=== PATIENT | female | born 1950 | race Caucasian/White ===

== ENCOUNTER → 2016-07-26 | Outpatient (CLI) | payer MEDICARE ==
--- NOTE | 2016-07-26 14:08 | FL ---
EXAMINATION TYPE: FL arthrogram shoulder RT DATE OF EXAM: 07/26/2016 1:52 PM COMPARISON: NONE HISTORY: Pain From consent was obtained and all patient's questions were answered. The right shoulder joint was loc alized fluoroscopically. Standard sterile technique was utilized as well as appropriate local anesthe tang with 1% lidocaine. Under fluoroscopic guidance a spinal needle was introduced into the joint spac e and approximately 5 cc of nonionic contrast was injected as well as 5 cc of air. The patient tolera diogo the procedure well and was accompanied to the CT suite for further imaging. IMPRESSION: 1. Right shoulder arthrogram as noted.
--- NOTE | 2016-07-27 14:02 | CT ---
EXAMINATION TYPE: CT shoulder RT w con DATE OF EXAM: 07/26/2016 2:16 PM COMPARISON: NONE HISTORY: Rt shoulder Pain CT DLP: [address] of the right shoulder with reconstruction imaging. TECHNIQUE: CT of the right shoulder was performed with bone and soft tissue window settings submitte d in the axial coronal and sagittal planes. FINDINGS: I do not see evidence for fracture or dislocation. No evidence for subacromial impingement as there is a flat acromium. Mild AC joint arthropathy . Glenohumeral joint space is well-preserv ed. No evidence of partial or complete rotator cuff tear. The glenoid elisabeth are grossly intact withou t evidence for labral tear. Biceps tendon appears to be well seated within the bicipital groove. Musc ular structures are unremarkable. IMPRESSION: 1. No evidence for partial or complete rotator cuff tear.
== END | disposition home or self-care (01) ==
LOC: RADFLMAIN 12:37
PROVIDERS: ATTEND Psychiatry & Neurology Neurology
DX: M25.511 Pain in right shoulder (principal)
CPT/HCPCS: 23350; 73040; 73201; Q9966

== ENCOUNTER → 2017-10-02 | Outpatient (CLI) | payer MEDICARE ==
--- NOTE | 2017-10-02 11:35 | BD ---
EXAMINATION TYPE: MG DEXA axial skeleton. DATE OF EXAM: 10/02/2017 COMPARISON: NONE CLINICAL HISTORY: 67-year-old female postmenopausal screening without HRT Height: 63 IN Weight: 158 LBS FRAX RISK QUESTIONS: Alcohol (3 or more units per day): NO Family History (Parent hip fracture): NO Glucocorticoids (More than 3mos): NO (Ex: prednisone, prednisolone, methylprednisolone, dexamethasone, and hydrocortisone). History of Fracture in Adulthood: NO Secondary Osteoporosis: 1. Type 1 Diabetes: NO 2. Hyperthyroidism: NO 3. Menopause before 45: AGE 49 4. Malnutrition: NO 5. Chronic liver disease: NO Rheumatoid Arthritis: NO Current Tobacco Use: NO RISK FACTORS HISTORY OF: Surgery to Spine/Wrist (right/left): L-SPINE FUSION 2003 DANG WRIST 2005 Active: YES Postmenopausal woman: AGE 49 Take estrogen and/or progesterone medications: NOT NOW How long: AGE 49 - 55 Lost more than 2 inches in height since high school: YES 3" MEDICATIONS: Additional Medications: CALCIUM, VIT D, IRON,MORPHINE IN PAIN PUMP, HCTZ, MELOXICAM, BUSPIRONE, LISIN OPRIL, BUPROPION, NASACORT, ZYRTEC , FOLIC ACID, AZO CRANBERRY, PAMABROM EXAM MEASUREMENTS: Bone mineral densitometry was performed using the [facility]. PT HAD L-SPINE FUSION 2003 Bone mineral density about the R hip (g/cm2): 0.813 Bone mineral density about the L hip (g/cm2): 0.828 T Score values are as follows: -----R Neck: -1.6 -----L Neck: -1.5 -----R Total: -1.9 -----L Total: -2.0 Bone mineral density BASELINE IMPRESSION: Osteopenia (T Score between -2.5 and -1) indicated by measurements in the hips. Previous lumbar surge ry. There is slightly increased risk of fracture and the patient may be considered for treatment. Re-Screen 2-5 years. NOTE: T-SCORE=SD OF THE YOUNG ADULT MEAN.
--- NOTE | 2017-10-04 07:26 | MM ---
Reason for exam: screening (asymptomatic). Last mammogram was performed 1 year and 7 months ago. History: Patient is postmenopausal and history of other cancer. Took estrogen for 7 years. Physical Findings: A clinical breast exam by your physician is recommended on an annual basis and results should be correlated with mammographic findings. MG 3D Screening Mammo W/Cad Bilateral CC and MLO view(s) were taken. Prior study comparison: March 16, 2016, bilateral MG 3d screening mammo w/cad. February 04, 2015, bilateral MG screening mammo w CAD. There are scattered fibroglandular densities. No significant changes when compared with prior studies. ASSESSMENT: Negative, BI-RAD 1 RECOMMENDATION: Routine screening mammogram of both breasts in 1 year.
== END | disposition home or self-care (01) ==
LOC: RADMAMWWP 09:43
PROVIDERS: ATTEND Family Medicine
DX: Z12.31 Encounter for screening mammogram for malignant neoplasm of breast (principal); M85.851 Other specified disorders of bone density and structure, right thigh; M85.852 Other specified disorders of bone density and structure, left thigh; Z78.0 Asymptomatic menopausal state
CPT/HCPCS: 77063; 77067; 77080

== ENCOUNTER → 2018-04-29 | Outpatient (CLI) | payer MEDICARE ==
[2018-04-29 12:36] LABS: Basophils % (A) 1 %; Eosinophils # (A) 0.1 k/uL (0-0.7); Eosinophils % (A) 2 %; HCT 39.7 % (34.0-46.0); HGB 12.2 gm/dL (11.4-16.0); Lymphocytes # (A) 0.7 k/uL (1.0-4.8); Lymphocytes % (A) 19 %; MCH 29.6 pg (25.0-35.0); MCHC 30.7 g/dL (31.0-37.0); MCV 96.5 fL (80.0-100.0); Mean Platelet Volume 6.6; Monocytes # (A) 0.3 k/uL (0-1.0); Monocytes % (A) 8 %; Neutrophils # (A) 2.4 k/uL (1.3-7.7); Neutrophils % (A) 69 %; Platelet Count 220 k/uL (150-450); RBC 4.12 m/uL (3.80-5.40); RDW 12.7 % (11.5-15.5); WBC 3.5 k/uL (3.8-10.6)
[2018-04-29 12:51] LABS: Potassium 4.3 mmol/L (3.5-5.1)
== END | disposition home or self-care (01) ==
LOC: LABPAT 11:03
PROVIDERS: ATTEND Obstetrics & Gynecology
DX: Z01.812 Encounter for preprocedural laboratory examination (principal); Z01.818 Encounter for other preprocedural examination; N81.10 Cystocele, unspecified; I10 Essential (primary) hypertension
CPT/HCPCS: 36415; 80051; 82565; 82947; 84520; 85025; 86850; 86900; 86901; 87086; 93005

== ENCOUNTER 2018-05-05 05:45 | Day surgery (SDC) | payer MEDICARE ==
[2018-04-30 09:51] VITALS: BMI 29.0
[~2018-05-05 05:45] MED LIST: ceFAZolin IN SWFI 2 GM/20 ML SYRINGE IVP ONE
[2018-05-05] MEDS ORDERED: ONDANSETRON 4 MG/2 ML VIAL IVP ONE (06:08)
[2018-05-05] MEDS ORDERED: LACTATED RINGERS 1,000 ML IV SCH (06:08)
[2018-05-05] MEDS ORDERED: DEXAMETHASONE SOD PHOSPHATE 10 MG/ML 1 ML VIAL IV ONE (06:08)
[2018-05-05] MEDS ORDERED: MIDAZOLAM 2 MG/2 ML VIAL IV PRN (06:08)
[2018-05-05] MEDS ORDERED: LIDOCAINE 1% 20 ML VIAL (10MG/ML) FOR IV START INTRADERMA ONE (06:53)
[2018-05-05] MEDS ORDERED: fentaNYL (PF) 50 MCG/ML 2 ML AMP ONE (07:30)
[2018-05-05] MEDS ORDERED: ROCURONIUM BROMIDE 10 MG/ML 10 ML VIAL IV ONE (07:30)
[2018-05-05] MEDS ORDERED: NEOSTIGMINE 1 MG/ML 10 ML VIAL ONE (07:30)
[2018-05-05] MEDS ORDERED: PROPOFOL 10 MG/ML 20 ML VIAL IV ONE (07:30)
[2018-05-05] MEDS ORDERED: GLYCOPYRROLATE 0.2 MG/ML 2 ML VIAL ONE (07:30)
[2018-05-05] MEDS ORDERED: SUCCINYLCHOLINE CHLORIDE 100 MG/5 ML SYR IV ONE (07:30)
[2018-05-05] MEDS ORDERED: LIDOCAINE 1% INJ 10MG/ML (20 ML MDV) ONE (07:30)
[2018-05-05] MEDS ORDERED: VASOPRESSIN 20 UNIT/ML 1 ML VIAL SQ ONE (07:50)
[2018-05-05] MEDS ORDERED: BACITRACIN 500 UNIT/GM OINT 28.4 GM TUBE TOPICAL ONE (07:51)
--- NOTE | 2018-05-05 08:19 | P.OP ---
Date of Procedure: 05/05/18 Preoperative Diagnosis: Third-degree rectocele Postoperative Diagnosis: Same Procedure(s) Performed: Posterior colporrhaphy Anesthesia: TADEO Surgeon: Imani Gonsalez Estimated Blood Loss (ml): 5 IV fluids (ml): 400 Urine output (ml): 200 Pathology: none sent Condition: stable Disposition: PACU Indications for Procedure: Symptomatic third-degree rectocele Operative Findings: Third-degree rectocele Description of Procedure: After the patient was met in preoperative holding area and all questions were answered, she was taken to the operating room where anesthetic was administered without incident. She was then positioned, prepped and draped in the dorsal lithotomy position. Bladder was drained of approximately 150 mL of clear urine. Exam under anesthetic was undertaken and 30 rectocele was noted. The apex is well supported. There is minimal on the anterior descent. The hymenal ring was delineated with Allis clamps. Dilute vasopressin solution was then infused into the vaginal mucosa to the apex of the defect. A incision was made at the hymeneal ring and the Metzenbaum scissors were utilized to undermine the posterior vaginal mucosa several centimeters to the apex of the defect. The edges of the posterior vaginal mucosa were delineated using Allis clamps. The underlying rectovaginal tissue was bluntly away. The edges of the defect were then reapproximated in an interrupted fashion using 2-0 Vicryl suture. Approximately 5 sutures were placed in an interrupted fashion effectively minimizing the defect. Excess posterior vaginal mucosa was trimmed. The posterior vaginal mucosa was then closed in a running locked fashion over the defect. The perineum was strong and only a small crown stitch was placed. Packing was then placed into the vagina with a Dalton catheter in place. An additional few 50 mL of clear urine was obtained. All counts were correct. The patient was awoken from anesthetic without incident and transported to recovery in stable condition.
[2018-05-05] MEDS: HYDROmorphone 0.5 MG/0.5 ML SYRINGE IVP PRN ×4 (08:34→08:48)
[2018-05-05] MEDS: MEPERIDINE 50 MG/ML SYRINGE IVP ONE ×2 (08:54→09:01)
[2018-05-05] MEDS ORDERED: IBUPROFEN 600 MG TAB PO PRN (08:57)
[2018-05-05] MEDS ORDERED: ONDANSETRON 4 MG/2 ML VIAL IVP PRN (08:57)
[2018-05-05] MEDS ORDERED: NON-FORMULARY DRUG (Potassium [Potassium] 99 MG) PO SCH (09:00)
[2018-05-05] MEDS ORDERED: PROMETHAZINE INJ 25 MG/ML 1 ML VIAL IVPB ONE (09:10)
[2018-05-05] MEDS: LACTATED RINGERS 1,000 ML IV SCH ×2 (09:14→22:23)
[2018-05-05] MEDS: MORPHINE IM SCH (10:07)
[2018-05-05] MEDS: buPROPion XL 300 MG TAB.ER.24H PO SCH (10:44)
[2018-05-05] MEDS: busPIRone HCl 5 MG TAB PO SCH ×2 (10:44→21:49)
[2018-05-05] MEDS: SENNOSIDES-DOCUSATE SODIUM 1 EACH TAB PO SCH ×2 (12:11→21:51)
[2018-05-05] MEDS: MELOXICAM 7.5 MG TAB PO SCH ×2 (12:11→21:48)
[2018-05-05] MEDS: TRIAMTERENE-HCTZ 75-50MG 1 EACH TAB PO SCH (12:11)
[2018-05-05] MEDS ORDERED: LISINOPRIL 10 MG TAB PO SCH (21:00)
[2018-05-05] MEDS: FERROUS SULFATE 325 MG TAB PO SCH (21:48)
[2018-05-05] MEDS ORDERED: ACETAMINOPHEN IV (For NPO) 1,000 MG in EMPTY BAG 1 BAG IVPB PRN (22:15)
[2018-05-06] MEDS ORDERED: ACETAMINOPHEN IV (For NPO) 1,000 MG in EMPTY BAG 1 BAG IVPB SCH
[2018-05-06 00:17] VITALS: RESP 16
[2018-05-06] MEDS: busPIRone HCl 5 MG TAB PO SCH (08:11)
[2018-05-06] MEDS: buPROPion XL 300 MG TAB.ER.24H PO SCH (08:11)
[2018-05-06] MEDS: FERROUS SULFATE 325 MG TAB PO SCH (08:11)
[2018-05-06] MEDS: MELOXICAM 7.5 MG TAB PO SCH (08:11)
[2018-05-06] MEDS: SENNOSIDES-DOCUSATE SODIUM 1 EACH TAB PO SCH ×2 (08:12→08:19)
[2018-05-06] MEDS: TRIAMTERENE-HCTZ 75-50MG 1 EACH TAB PO SCH (08:14)
[2018-05-06] MEDS: MORPHINE IM SCH (08:18)
[2018-05-06] MEDS ORDERED: ACETAMINOPHEN TAB 325 MG TAB PO PRN (08:21)
--- NOTE | 2018-05-06 08:21 | P.DS ---
Providers Expected date of discharge: 05/06/18 Attending physician: Imani Gonsalez Primary care physician: Stuart Nickerson - Discharge Diagnosis(es) (1) Rectocele Current Visit: Yes Status: Acute Hospital Course: This is a 67-year-old woman who is admitted with symptomatic third-degree rectocele for a posterior colporrhaphy. She went to the operating room on 05/05 and underwent an uncomplicated posterior colporrhaphy under general anesthetic. Please see the operative report for details. Her postoperative course was unremarkable. By the evening of postoperative day 0 she was tolerating a general diet without difficulty and her pain was well-controlled with oral pain medications. By postoperative day #1 her vaginal packing and Dalton catheter were removed. She did have a mild amount of bright red vaginal bleeding however no active flow. Her pain was controlled with oral Tylenol. Her postoperative vital signs were stable and her CBC is pending at the time of this dictation. Her home medications were restarted. She was able to ambulate without difficulty. She was therefore discharged home with routine instructions for postoperative care and follow-up. Procedures: Posterior colporrhaphy Patient Condition at Discharge: Good Plan - Discharge Summary Discharge Rx Participant: Yes New Discharge Prescriptions: No Action Cranberry Fruit Extract [Cranberry] 500 mg PO BID Fexofenadine HCl [Chitra Allergy] 180 mg PO DAILY busPIRone HCL 15 mg PO BID buPROPion XL [Wellbutrin Xl] 300 mg PO DAILY Lisinopril [Zestril] 10 mg PO HS Risedronate Sodium [Actonel] 35 mg PO Q7DAYS Multivitamins, Thera [Multivitamin (formulary)] 1 tab PO DAILY Meloxicam [Mobic] 7.5 mg PO BID guaiFENesin [Mucinex] 400 mg PO BID Turmeric Root Extract [Turmeric] 500 mg PO DAILY Triamcinolone Acetonide [Nasacort] 1 spray EA NOSTRIL DAILY Potassium 99 mg PO DAILY Magnesium 500 mg PO DAILY Fiber Tab 1 tab PO BID Ferrous Sulfate [Iron] 325 mg PO DAILY Cyanocobalamin (Vitamin B-12) [Vitamin B-12] 1,000 mcg PO DAILY Calcium Carbonate/Vitamin D3 [Calcium 600-Vit D3 500 Softgel] 2 each PO DAILY Triamterene-Hctz 75-50Mg [Maxzide 75-50] 1 tab PO DAILY Morphine Pain Pump 2.147 mg IM CONTINUOUS Discharge Medication List Calcium Carbonate/Vitamin D3 [Calcium 600-Vit D3 500 Softgel] 2 each PO DAILY [History] Cranberry Fruit Extract [Cranberry] 500 mg PO BID 04/30/18 [History] Cyanocobalamin (Vitamin B-12) [Vitamin B-12] 1,000 mcg PO DAILY 04/30/18 [ History] Ferrous Sulfate [Iron] 325 mg PO DAILY 04/30/18 [History] Fexofenadine HCl [Chitra Allergy] 180 mg PO DAILY 04/30/18 [History] Fiber Tab 1 tab PO BID 04/30/18 [History] Lisinopril [Zestril] 10 mg PO HS 04/30/18 [History] Magnesium 500 mg PO DAILY 04/30/18 [History] Meloxicam [Mobic] 7.5 mg PO BID 04/30/18 [History] Morphine Pain Pump 2.147 mg IM CONTINUOUS 04/30/18 [History] Multivitamins, Thera [Multivitamin (formulary)] 1 tab PO DAILY 04/30/18 [History ] Potassium 99 mg PO DAILY 04/30/18 [History] Risedronate Sodium [Actonel] 35 mg PO Q7DAYS 04/30/18 [History] Triamcinolone Acetonide [Nasacort] 1 spray EA NOSTRIL DAILY 04/30/18 [History] Triamterene-Hctz 75-50Mg [Maxzide 75-50] 1 tab PO DAILY 04/30/18 [History] Turmeric Root Extract [Turmeric] 500 mg PO DAILY 04/30/18 [History] buPROPion XL [Wellbutrin Xl] 300 mg PO DAILY 04/30/18 [History] busPIRone HCL 15 mg PO BID 04/30/18 [History] guaiFENesin [Mucinex] 400 mg PO BID 04/30/18 [History] Follow up Appointment(s)/Referral(s): Imani Gonsalez MD [STAFF PHYSICIAN] - 2 Weeks Activity/Diet/Wound Care/Special Instructions: May use [id number] Tylenol extra strength every 6-8 hours as needed for pain. Stool softeners as needed to avoid constipation or straining. Nothing in the vagina for 6 weeks postoperatively. Call the office with any heavy vaginal bleeding, foul vaginal discharge, fever greater than 100.5, severe abdominal or pelvic pain. No driving for 2 weeks. No tub baths for 2 weeks. Discharge Disposition: HOME SELF-CARE
[2018-05-06 08:50] VITALS: BP 127/73; PULSE 95; TEMP 97.5
[2018-05-06] MEDS: LACTATED RINGERS 1,000 ML IV SCH (09:55)
[2018-05-06 09:59] LABS: Basophils % (A) 0 %; Eosinophils # (A) 0.1 k/uL (0-0.7); Eosinophils % (A) 1 %; HGB 12.3 gm/dL (11.4-16.0); Lymphocytes # (A) 1.4 k/uL (1.0-4.8); Lymphocytes % (A) 16 %; MCH 31.3 pg (25.0-35.0); MCHC 33.2 g/dL (31.0-37.0); MCV 94.3 fL (80.0-100.0); Mean Platelet Volume 6.2; Monocytes # (A) 0.7 k/uL (0-1.0); Monocytes % (A) 8 %; Neutrophils % (A) 72 %; Platelet Count 256 k/uL (150-450); RBC 3.92 m/uL (3.80-5.40); RDW 12.6 % (11.5-15.5); WBC 8.3 k/uL (3.8-10.6)
== END 2018-05-06 11:35 | disposition home or self-care (01) ==
LOC: OR 05:45 → 6PED 08:26 → OR 05-06 11:35
PROVIDERS: ATTEND Obstetrics & Gynecology
DX: N81.6 Rectocele (principal); K21.9 Gastro-esophageal reflux disease without esophagitis; I10 Essential (primary) hypertension; F32.9 Major depressive disorder, single episode, unspecified; M19.90 Unspecified osteoarthritis, unspecified site; Z98.84 Bariatric surgery status; Z96.652 Presence of left artificial knee joint; Z98.51 Tubal ligation status; Z79.899 Other long term (current) drug therapy; Z88.6 Allergy status to analgesic agent; Z82.49 Family history of ischemic heart disease and other diseases of the circulatory system
CPT/HCPCS: 85025; 57250; J1100; J2550; J2175; J2405; J0131; J1170; 86850; 86900; 86901

== ENCOUNTER → 2018-10-20 | Outpatient (CLI) | payer MEDICARE ==
--- NOTE | 2018-10-21 10:05 | MM ---
Reason for exam: screening (asymptomatic). Last mammogram was performed 1 year and 1 month ago. History: Patient is postmenopausal and history of other cancer. Took estrogen for 7 years. Physical Findings: A clinical breast exam by your physician is recommended on an annual basis and results should be correlated with mammographic findings. MG 3D Screening Mammo W/Cad Bilateral CC and MLO view(s) were taken. Prior study comparison: October 02, 2017, bilateral MG 3d screening mammo w/cad. March 16, 2016, bilateral MG 3d screening mammo w/cad. There are scattered fibroglandular densities. No suspicious abnormality. No significant changes when compared with prior studies. ASSESSMENT: Negative, BI-RAD 1 RECOMMENDATION: Routine screening mammogram of both breasts in 1 year.
== END | disposition home or self-care (01) ==
LOC: RADMAMWWP 07:35
PROVIDERS: ATTEND Family Medicine
DX: Z12.31 Encounter for screening mammogram for malignant neoplasm of breast (principal)
CPT/HCPCS: 77063; 77067

== ENCOUNTER → 2018-12-17 | Outpatient (CLI) | payer MEDICARE ==
--- NOTE | 2018-12-17 09:49 | CT ---
EXAMINATION TYPE: CT sinus wo con DATE OF EXAM: 12/17/2018 COMPARISON: NONE HISTORY: Chronic sinusitis CT DLP: 584 mGycm. Automated Exposure Control for Dose Reduction was Utilized. TECHNIQUE: CT scan of the sinuses is performed without contrast, axial images are obtained, coronal r eformatted images are also reviewed. FINDINGS: There are surgical augmentation of the ostiomeatal complexes. Osseous septa are seen of the inferior maxillary sinuses with very scant mucosal thickening on the right surrounding the septal an d axial series 4 image 8. Remainder of the maxillary sinuses, ethmoid sinuses, frontal sinuses, and s phenoid sinuses are well aerated. The visualized mastoid air cells and middle ear cavities are also w ell aerated. There is a small amount of debris within, likely cerumen within the right external audit ory canal that is nonobstructive. Although exam is not optimized for evaluation of intracranial structures mild symmetric cerebral atro phy, age-related, is noted. There is mild rightward nasal septal deviation. There is no significant nasal turbinate mucosal hyper trophy. Left middle nasal turbinate is surgically absent. No maria guadalupe bullosa is seen. No Ad cells. The surgically augmented frontal recesses and ostiomeatal complexes are widely patent. No recurrent polyp is seen. Temporomandibular joints are symmetric. Orbits are also symmetric. There is undulation of the optic nerves noted. IMPRESSION: 1. Surgical augmentation of the ostiomeatal complexes and frontal recesses as well as absence of the left middle nasal turbinate. Only scant mucosal thickening is seen within the right maxillary sinus w ith no recurrent polyp present. 2. Undulation of the optic nerves is noted that may be incidental but can be seen in increased intrac ranial pressure. Correlate with ophthalmologic exam.
== END | disposition home or self-care (01) ==
LOC: RADCTMAIN 07:54
PROVIDERS: ATTEND Otolaryngology
DX: J34.89 Other specified disorders of nose and nasal sinuses (principal); J32.9 Chronic sinusitis, unspecified; Z98.890 Other specified postprocedural states
CPT/HCPCS: 70486

== ENCOUNTER → 2019-12-31 | Outpatient (CLI) | payer MEDICARE ==
--- NOTE | 2019-12-31 13:09 | CT ---
EXAMINATION TYPE: CT cervical spine wo/w con DATE OF EXAM: 12/31/2019 COMPARISON: MRI cervical spine 10 years ago. HISTORY: Cervicalgia, left hand numb and tingling CT DLP: 675 mGycm. Automated Exposure Control for Dose Reduction was Utilized. TECHNIQUE: CT scan of the cervical spine is obtained without and with IV contrast, axial images are obtained, sagittal and coronal reformatted images are also reviewed. Patient injected with 100 cc of Isovue-300. FINDINGS: Cervical spine is visualized in its entirety from C1 through upper thoracic levels, demonst rates interval surgery with anterior fusion plate running from the C3 through the C7 vertebra. Artifi cial disc material with ossific fusion is noted at these levels. Alignment is satisfactory. There is moderate disc space narrowing and mild/moderate spurring at the C7-T1 level. Prevertebral soft tissue appears within normal limits. C1-C2 articulation satisfactory on the coronal images. Review of axial images at C2-C3 level shows some uncovertebral facet degenerative changes bilaterally causing [id number] bilateral neural foraminal narrowing. Axial images C5-C6 level show asymmetric mild left-sided neural foraminal narrowing due to peripheral bony formation. There is posterior osteophyte or bony formation effacing anterior thecal sac near th is level for reference sagittal image 39 series 6 and axial image 54. Axial images at C7-T1 level show posterior spur disc complex effacing the anterior thecal sac with le ft foraminal spurring causing asymmetric severe left-sided neural foraminal narrowing, right-sided ne ural foramen is patent. Lung apices show no pneumothorax. Visualized thyroid gland is within normal limits.. IMPRESSION: Postsurgical change C3-C7 level with satisfactory alignment and desired arthrodesis. Some degenerative change C7-T1 level as detailed above, marginal spurring is causing severe left-sided ne ural foraminal narrowing at this level and may be accounting for patient's reported left upper extrem ity radiculopathy symptoms.
== END | disposition home or self-care (01) ==
LOC: RADCTMAIN 10:41
PROVIDERS: ATTEND Psychiatry & Neurology Neurology
DX: M48.03 Spinal stenosis, cervicothoracic region (principal); Z98.1 Arthrodesis status; Z51.81 Encounter for therapeutic drug level monitoring
CPT/HCPCS: 82565; 84520; 72127; 36415; Q9967

== ENCOUNTER 2020-02-12 14:57 | Observation (INO) | payer MEDICARE ==
[2020-02-12] MEDS ORDERED: SODIUM CHLORIDE 0.9% 500 ML 500 ML IV ONE (15:06)
--- NOTE | 2020-02-12 15:20 | ED ---
General Adult HPI - General Source: patient, EMS Mode of arrival: EMS Limitations: no limitations <Shy Gregorio - Last Filed: 02/12/20 18:22> <Sang Jainah Lisa - Last Filed: 02/18/20 02:53> - General Chief complaint: Allergic Reaction Stated complaint: allergic rxn Time Seen by Provider: 02/12/20 15:00 - History of Present Illness Initial comments: 69-year-old female presenting today for chief complaint of bee sting ALLERGIC reaction. Patient states that she when pulling weeds was attacked by a nest of yellow jackets. Patient states she was tunnel of her body she ran to her house wash herself off with water which stopped the attack patient states she was done mostly in her abdomen back and upper extremities. Patient states that she then had some shortness of breath and wheezing. She states that she developed a rash all over her body. Patient states she then took 75 mg of Benadryl. She called EMS EMS arrived and gave additional 50 mg IV push of Benadryl as patient was concerned that she may not absorbing as much due to her gastric bypass. Patient was also given 125 mg of Solu-Medrol at that time. Patient had one episode of emesis. Patient states that she no longer feels nauseous she has no abdominal pain. Patient sates her wheezing has improved and she does not feel short of breath. The patient denies any sensation that her throat was closing lip or face swelling. Patient has no additional concerns at this time. Patient does appear sleepy drowsy most likely secondary to high doses of Benadryl. But she is still alert and oriented 4 with a GCS of 15. (Shy Gregorio) - Related Data Home Medications Medication Instructions Recorded Confirmed Cranberry Fruit Extract [Cranberry] 500 mg PO BID 04/30/18 02/12/20 Cyanocobalamin (Vitamin B-12) 1,000 mcg PO DAILY 04/30/18 02/12/20 [Vitamin B-12] Ferrous Sulfate [Iron] 325 mg PO DAILY 04/30/18 02/12/20 Fexofenadine HCl [Chitra Allergy] 180 mg PO DAILY 04/30/18 02/12/20 Meloxicam [Mobic] 7.5 mg PO BID 04/30/18 02/12/20 Morphine Pain Pump 0.01 mg IM CONTINUOUS 04/30/18 02/12/20 Multivitamins, Thera [Multivitamin 1 tab PO BID 04/30/18 02/12/20 (formulary)] Potassium 99 mg PO BID 04/30/18 02/12/20 Risedronate Sodium [Actonel] 35 mg PO SA 04/30/18 02/12/20 Triamterene-Hctz 75-50Mg [Maxzide 1 tab PO DAILY 04/30/18 02/12/20 75-50] Turmeric Root Extract [Turmeric] 500 mg PO BID 04/30/18 02/12/20 buPROPion XL [Wellbutrin XL] 300 mg PO DAILY 04/30/18 02/12/20 busPIRone HCL 15 mg PO BID 04/30/18 02/12/20 lisinopriL [Zestril] 10 mg PO HS 04/30/18 02/12/20 Calcium 1000/Mag 500/Chetna D3 800 1 tab PO BID 02/12/20 02/12/20 Cataplex F/B-6/Iodine 1 tab PO TID 02/12/20 02/12/20 Collagen 1 tab PO DAILY 02/12/20 02/12/20 Docusate [Colace] 100 mg PO BID 02/12/20 02/12/20 Fiber Cap 1 cap PO BID 02/12/20 02/12/20 L.acidoph,Paracasei, B.lactis 1 cap PO BID 02/12/20 02/12/20 [Probiotic] guaiFENesin 400 mg PO Q4H 02/12/20 02/12/20 Previous Rx's Medication Instructions Recorded Famotidine [Pepcid] 20 mg PO BID #10 tablet 02/13/20 predniSONE 0 mg PO DIRECTED #10 tab 02/13/20 Allergies Allergy/AdvReac Type Severity Reaction Status Date / Time bee venom protein (honey bee) Allergy Unknown Swelling Verified 02/12/20 18:02 cat dander Allergy Unknown SINUS Verified 02/12/20 18:02 SYMPTOMS dog dander Allergy Unknown SINUS Verified 02/12/20 18:02 SYMPTOMS shellfish derived [Crab] Allergy Unknown Unknown Verified 02/12/20 18:02 Review of Systems ROS Other: All systems not noted in ROS Statement are negative. <Shy Gregorio L - Last Filed: 02/12/20 18:22> ROS Other: All systems not noted in ROS Statement are negative. <Opal Jain - Last Filed: 02/18/20 02:53> ROS Statement: Those systems with pertinent positive or pertinent negative responses have been documented in the HPI. Past Medical History History of Any Multi-Drug Resistant Organisms: None Reported Additional Past Surgical History / Comment(s): Gastric byspass, nerve stimulator Past Psychological History: Anxiety, Depression Smoking Status: Former smoker Past Alcohol Use History: None Reported Past Drug Use History: None Reported - Past Family History Mother Family Medical History: Diabetes Mellitus Additional Family Medical History / Comment(s): heart issues Father Additional Family Medical History / Comment(s): alcoholic <Shy Gregorio - Last Filed: 02/12/20 18:22> General Exam Limitations: no limitations <Shy Gregorio - Last Filed: 02/12/20 18:22> - General Exam Comments Initial Comments: General: The patient is awake and alert, in no distress Eye: +3 mm pupils are equal, round and reactive to light, extra-ocular movements are intact. No nystagmus. There is normal conjunctiva bilaterally. No signs of icterus. Ears, nose, mouth and throat: There are moist mucous membranes and no oral lesions. Neck: The neck is supple, there is no tenderness or JVD. Cardiovascular: There is a regular rate and rhythm. No murmur, rub or gallop is appreciated. Respiratory: Lungs are clear to auscultation, respirations are non-labored, breath sounds are equal. No wheezes, stridor, rales, or rhonchi. Gastrointestinal: Soft, non-distended, non-tender abdomen without masses or organomegaly noted. There is no rebound or guarding present. Musculoskeletal: Normal ROM, no tenderness. Strength 5/5. Sensation intact. Radial pulses equal bilaterally 2+. Neurological: A&O x 3. CN II-XII intact grossly, There are no obvious motor or sensory deficits. Coordination appears grossly intact. Speech is normal. Skin: Skin is warm and dry and no rashes. Raised wheals that become confluent all over her abdomen and back upper extremities bilaterally there is no involvement of the neck or face no lip or tongue swelling. Psychiatric: Cooperative, appropriate mood & affect, normal judgment. (Shy Gregorio) Course Vital Signs 02/12/20 02/12/20 02/12/20 14:59 15:04 15:05 Temperature 96.9 F L Pulse Rate 94 Pulse Rate [ Pulse Oximetery ] Respiratory 18 18 18 Rate Blood Pressure 120/73 Blood Pressure [Right Arm] O2 Sat by Pulse 97 Oximetry 02/12/20 02/12/20 02/12/20 16:04 17:04 18:11 Temperature 97.7 F Pulse Rate 81 85 85 Pulse Rate [ 89 Pulse Oximetery ] Respiratory 18 18 18 Rate Blood Pressure 108/65 110/70 119/69 Blood Pressure 155/69 [Right Arm] O2 Sat by Pulse 97 98 97 Oximetry Medical Decision Making <Shy Gregorio - Last Filed: 02/12/20 18:22> <Opal Jain - Last Filed: 02/18/20 02:53> - Medical Decision Making 69-year-old female presenting today for chief complaint of bee sting, allergic reaction. Sxs of wheezing, vomiting. Given 125mg of benadryl to treat IV nothing by mouth. Patient was pretty sedated initially however she was still alert and oriented times 4G CSF 15. No focal neurological deficits. Patient after reevaluation was much more alert. She continued to have significant rash some nausea. Patient's vital signs remained stable. however given the extent of the reaction we feel observation admission warranted to monitor for delayed reaction. Patient evaluated by attending Dr. Jain who is agreeable to care plan and admission. Patient prefers admission. (Shy Gregorio) I was available for consultation in the emergency department. The history and physical exam were done by the midlevel provider. I was consulted for this patients care. I reviewed the case with the midlevel provider and based on their presentation of the patient, I agree with the assessment, medical decision making and plan of care as documented. Chart was dictated using Room dictation software. Attempts were made to correct any dictation errors however some typographical errors may persist. Patient was seen during a national state of emergency due to the Covid-19 pandemic. (Opal Jain) Disposition Is patient prescribed a controlled substance at d/c from ED?: No Time of Disposition: 17:40 Decision to Admit Reason: Admit from EC Decision Date: 02/12/20 Decision Time: 17:40 <Shy Gregorio - Last Filed: 02/12/20 18:22> <Opal Jain - Last Filed: 02/18/20 02:53> Clinical Impression: Anaphylaxis, Bee sting Disposition: ADMITTED IP TO THIS HOSP Condition: Stable
[2020-02-12] MEDS ORDERED: NALOXONE 0.4 MG/ML 1 ML VIAL IV PRN (17:39)
[2020-02-12] MEDS ORDERED: SODIUM CHLORIDE 0.9% 1,000 ML IV SCH (17:45)
[2020-02-12] MEDS ORDERED: diphenhydrAMINE 25 MG CAP PO SCH ×2 (18:00→22:30)
[2020-02-12] MEDS: FAMOTIDINE 20 MG/2 ML VIAL IV SCH (21:04)
[2020-02-12] MEDS ORDERED: diphenhydrAMINE 50 MG/ML 1 ML VIAL IVP PRN (21:56)
[2020-02-12] MEDS ORDERED: diphenhydrAMINE 50 MG/ML 1 ML VIAL ONE (22:04)
[2020-02-12] MEDS: diphenhydrAMINE 50 MG/ML 1 ML VIAL IVP SCH (22:19)
[2020-02-13] MEDS: methylPREDNISolone SOD SUCCI 40 MG/ML 1 ML VIAL IV SCH ×2 (00:21→08:39)
[2020-02-13] MEDS: diphenhydrAMINE 50 MG/ML 1 ML VIAL IVP SCH ×2 (04:09→10:56)
[2020-02-13] MEDS ORDERED: guaiFENesin 600 MG TABLET.ER PO PRN (08:00)
[2020-02-13] MEDS: CYANOCOBALAMIN 500 MCG TAB PO SCH (08:42)
[2020-02-13] MEDS: LORATADINE 10 MG TAB PO SCH ×2 (08:51→08:55)
[2020-02-13] MEDS: FAMOTIDINE 20 MG/2 ML VIAL IV SCH (08:51)
[2020-02-13] MEDS ORDERED: B6 PO SCH (09:00)
[2020-02-13] MEDS ORDERED: TRIAMTERENE-HCTZ 75-50MG 1 EACH TAB PO SCH (09:00)
[2020-02-13] MEDS ORDERED: LACTOBACILLUS ACIDOPH & BULGAR 1 EACH PACKET PO SCH (09:00)
[2020-02-13] MEDS ORDERED: MELOXICAM 7.5 MG TAB PO SCH (09:00)
[2020-02-13] MEDS ORDERED: NON FORMULARY DRUG (Turmeric Root Extract [Turmeric] 500 MG) PO SCH (09:00)
[2020-02-13] MEDS ORDERED: buPROPion XL 300 MG TAB.ER.24H PO SCH (09:00)
[2020-02-13] MEDS ORDERED: RISEDRONATE SODIUM 35 MG PO SCH (09:00)
[2020-02-13] MEDS ORDERED: MAGNESIUM OXIDE 400 MG TAB PO SCH (09:00)
[2020-02-13] MEDS ORDERED: IODINE PO SCH (09:00)
[2020-02-13] MEDS ORDERED: COLLAGEN PO SCH (09:00)
[2020-02-13] MEDS ORDERED: [UNRECOGNIZED DRUG - OTHER] PO SCH (09:00)
[2020-02-13] MEDS ORDERED: busPIRone HCl 5 MG TAB PO SCH (09:00)
[2020-02-13] MEDS ORDERED: FERROUS SULFATE 325 MG TAB PO SCH (09:00)
[2020-02-13] MEDS ORDERED: NON FORMULARY DRUG (Cranberry Fruit Extract [Cranberry] 500 MG) PO SCH (09:00)
[2020-02-13] MEDS ORDERED: MULTIVITAMINS, THERA 1 EACH TAB PO SCH (09:00)
[2020-02-13] MEDS ORDERED: CALCIUM CARB-VIT D 500MG-200UN 1 EACH TAB PO SCH (09:00)
[2020-02-13] MEDS ORDERED: POTASSIUM CHLORIDE ER 20 MEQ TAB.ER PO SCH (09:00)
[2020-02-13] MEDS ORDERED: DOCUSATE 100 MG CAP PO SCH (09:00)
[2020-02-13 09:20] VITALS: BP 115/67; PULSE 83; RESP 17; TEMP 98.3
[2020-02-13] MEDS ORDERED: lisinopriL 10 MG TAB PO SCH (21:00)
--- NOTE | 2020-02-13 21:29 | P.HPIM ---
History of Present Illness H&P Date: 02/13/20 Chief Complaint: Severe anaphylaxis History of presenting complaint: This is a very pleasant 69-year-old patient of Dr. Nickerson. Chronic stable medical conditions include hypertension, osteoarthritis, chronic low back pain for which she has a pain pump, pediatric surgery, with a bypass, anxiety depression. Patient is working outside in the yard- and then she was attacked by a swarm of Hornets. She had multiple bites on the face arms legs. She is wearing shorts. She took Benadryl at home but she started to break out into severe hives. She decided come to the hospital. EMS gave her 50 mg of Benadryl, 125 mg off Solu- Medrol, Zofran, bronchodilators. Here she was also given IV Pepcid, IV Benadryl IV Solu-Medrol. Doing much better. This morning. Hives have come down. No trouble swallowing. Review of systems: GEN.: Multiple hives EYES: None HEENT: None NECK: None RESPIRATORY: None CARDIOVASCULAR: None GASTROINTESTINAL: None GENITOURINARY: None MUSCULOSKELETAL: [Chronic joint pains LYMPHATICS: None HEMATOLOGICAL: None PSYCHIATRY: None NEUROLOGICAL: None Past medical history to include: Hypertension, stroke arthritis, gastric bypass, no stable later, anxiety depression Social history: This smoke in the past. No alcohol. Physical examination: VITAL SIGNS: [96.9, 94, 18, 120/73, 97% room air GENERAL: BMI 27.5, sitting up, comfortable. EYES: Pupils equal. Conjunctiva normal. HEENT: External appearance of nose and ears normal, oral cavity grossly normal. NECK: JVD not raised; masses not palpable. HEART: First and second heart sounds are normal; no edema. LUNGS: Respiratory rate normal; clear to auscultation DERMATOLOGICAL: Minimal redness of the skin generalized. ABDOMEN: Soft, nontender, liver spleen not palpable, no masses palpable. PSYCH: Alert and oriented x3; mood and affect normal. NEUROLOGICAL: Cranial nerves grossly intact; no facial asymmetry, power and sensation grossly intact. LYMPHATICS: No lymph nodes palpable in the axilla and neck Assessment: -Severe generalized anaphylaxis from multiple Hornets stings at the same time causing severe and multiple hives -Essential hypertension -Primary osteoarthritis -Anxiety depression otherwise specified -Morphine pain pump for chronic pain Plan: Home medications and resume. Patient did receive IV Solu-Medrol IV Benadryl and IV H2 vadim. Responded well. Residual to oral medications. An Nick Berger. Discussed with the patient. Past Medical History Past Medical History: Hypertension, Osteoarthritis (OA), Pneumonia Additional Past Medical History / Comment(s): chronic back pain History of Any Multi-Drug Resistant Organisms: None Reported Past Surgical History: Back Surgery, Bariatric Surgery, Joint Replacement Additional Past Surgical History / Comment(s): Gastric byspass, nerve stimulator Past Psychological History: Anxiety, Depression Smoking Status: Former smoker Past Alcohol Use History: None Reported Past Drug Use History: None Reported - Past Family History Mother Family Medical History: Diabetes Mellitus Additional Family Medical History / Comment(s): heart issues Father Additional Family Medical History / Comment(s): alcoholic Medications and Allergies Home Medications Medication Instructions Recorded Confirmed Type Cranberry Fruit Extract [Cranberry] 500 mg PO BID 04/30/18 02/12/20 History Cyanocobalamin (Vitamin B-12) 1,000 mcg PO DAILY 04/30/18 02/12/20 History [Vitamin B-12] Ferrous Sulfate [Iron] 325 mg PO DAILY 04/30/18 02/12/20 History Fexofenadine HCl [Chitra Allergy] 180 mg PO DAILY 04/30/18 02/12/20 History Meloxicam [Mobic] 7.5 mg PO BID 04/30/18 02/12/20 History Morphine Pain Pump 0.01 mg IM CONTINUOUS 04/30/18 02/12/20 History Multivitamins, Thera [Multivitamin 1 tab PO BID 04/30/18 02/12/20 History (formulary)] Potassium 99 mg PO BID 04/30/18 02/12/20 History Risedronate Sodium [Actonel] 35 mg PO SA 04/30/18 02/12/20 History Triamterene-Hctz 75-50Mg [Maxzide 1 tab PO DAILY 04/30/18 02/12/20 History 75-50] Turmeric Root Extract [Turmeric] 500 mg PO BID 04/30/18 02/12/20 History buPROPion XL [Wellbutrin XL] 300 mg PO DAILY 04/30/18 02/12/20 History busPIRone HCL 15 mg PO BID 04/30/18 02/12/20 History lisinopriL [Zestril] 10 mg PO HS 04/30/18 02/12/20 History Calcium 1000/Mag 500/Chetna D3 800 1 tab PO BID 02/12/20 02/12/20 History Cataplex F/B-6/Iodine 1 tab PO TID 02/12/20 02/12/20 History Collagen 1 tab PO DAILY 02/12/20 02/12/20 History Docusate [Colace] 100 mg PO BID 02/12/20 02/12/20 History Fiber Cap 1 cap PO BID 02/12/20 02/12/20 History L.acidoph,Paracasei, B.lactis 1 cap PO BID 02/12/20 02/12/20 History [Probiotic] guaiFENesin 400 mg PO Q4H 02/12/20 02/12/20 History Famotidine [Pepcid] 20 mg PO BID #10 tablet 02/13/20 Rx predniSONE 0 mg PO DIRECTED #10 tab 02/13/20 Rx Allergies Allergy/AdvReac Type Severity Reaction Status Date / Time bee venom protein (honey bee) Allergy Unknown Swelling Verified 02/12/20 18:02 cat dander Allergy Unknown SINUS Verified 02/12/20 18:02 SYMPTOMS dog dander Allergy Unknown SINUS Verified 02/12/20 18:02 SYMPTOMS shellfish derived [Crab] Allergy Unknown Unknown Verified 02/12/20 18:02 Physical Exam Vitals: Vital Signs Temp Pulse Pulse Resp BP BP Pulse Ox 02/13/20 09:00 98.3 F 83 17 115/67 94 L 02/13/20 03:00 98.2 F 68 16 103/55 96 02/12/20 19:30 97.8 F 86 17 115/59 97 02/12/20 18:11 97.7 F 85 89 18 119/69 155/69 97 02/12/20 17:04 85 18 110/70 98 02/12/20 16:04 81 18 108/65 97 02/12/20 15:05 18 02/12/20 15:04 18 02/12/20 14:59 96.9 F L 94 18 120/73 97 Intake and Output 02/12/20 02/13/20 02/13/20 22:59 06:59 14:59 Other: # Voids 1 1 Weight 70.307 kg Thrombosis Risk Factor Assmnt - Choose All That Apply Any of the Below Risk Factors Present?: No Other Risk Factors: No Other congenital or acquired thrombophilia - If yes, enter type in comment: No Thrombosis Risk Factor Assessment Level: Very Low Risk
--- NOTE | 2020-02-13 21:30 | P.DS ---
Providers Date of admission: 02/12/20 17:34 Expected date of discharge: 02/13/20 Attending physician: Julio Patrick Primary care physician: Stuart [facility] Course: Chief Complaint: Severe anaphylaxis History of presenting complaint: This is a very pleasant 69-year-old patient of Dr. Nickerson. Chronic stable medical conditions include hypertension, osteoarthritis, chronic low back pain for which she has a pain pump, pediatric surgery, with a bypass, anxiety depression. Patient is working outside in the yard- and then she was attacked by a swarm of Hornets. She had multiple bites on the face arms legs. She is wearing shorts. She took Benadryl at home but she started to break out into severe hives. She decided come to the hospital. EMS gave her 50 mg of Benadryl, 125 mg off Solu- Medrol, Zofran, bronchodilators. Here she was also given IV Pepcid, IV Benadryl IV Solu-Medrol. Doing much better. This morning. Hives have come down. No trouble swallowing. Responded well. Switch to oral medications. Discussed with the patient. Physical examination: VITAL SIGNS: 98.3, 83, 17, 115/67, 94% room air GENERAL: sitting up, comfortable. EYES: Pupils equal. Conjunctiva normal. HEENT: External appearance of nose and ears normal, oral cavity grossly normal. NECK: JVD not raised; masses not palpable. HEART: First and second heart sounds are normal; no edema. LUNGS: Respiratory rate normal; clear to auscultation DERMATOLOGICAL: Minimal redness of the skin generalized. ABDOMEN: Soft, nontender, liver spleen not palpable, no masses palpable. PSYCH: Alert and oriented x3; mood and affect normal. Assessment: -Severe generalized anaphylaxis from multiple Hornets stings at the same time causing severe and multiple hives -Essential hypertension -Primary osteoarthritis -Anxiety depression otherwise specified -Morphine pain pump for chronic pain Disposition: Home Patient Condition at Discharge: Stable Plan - Discharge Summary New Discharge Prescriptions: New Famotidine [Pepcid] 20 mg PO BID #10 tablet predniSONE 0 mg PO DIRECTED #10 tab Continue Cranberry Fruit Extract [Cranberry] 500 mg PO BID Fexofenadine HCl [Chitra Allergy] 180 mg PO DAILY busPIRone HCL 15 mg PO BID buPROPion XL [Wellbutrin XL] 300 mg PO DAILY lisinopriL [Zestril] 10 mg PO HS Risedronate Sodium [Actonel] 35 mg PO SA Multivitamins, Thera [Multivitamin (formulary)] 1 tab PO BID Meloxicam [Mobic] 7.5 mg PO BID Turmeric Root Extract [Turmeric] 500 mg PO BID Potassium 99 mg PO BID Ferrous Sulfate [Iron] 325 mg PO DAILY Cyanocobalamin (Vitamin B-12) [Vitamin B-12] 1,000 mcg PO DAILY Triamterene-Hctz 75-50Mg [Maxzide 75-50] 1 tab PO DAILY Morphine Pain Pump 0.01 mg IM CONTINUOUS Collagen 1 tab PO DAILY Cataplex F/B-6/Iodine 1 tab PO TID L.acidoph,Paracasei, B.lactis [Probiotic] 1 cap PO BID Docusate [Colace] 100 mg PO BID Calcium 1000/Mag 500/Chetna D3 800 1 tab PO BID Fiber Cap 1 cap PO BID guaiFENesin 400 mg PO Q4H Discharge Medication List Cranberry Fruit Extract [Cranberry] 500 mg PO BID 04/30/18 [History] Cyanocobalamin (Vitamin B-12) [Vitamin B-12] 1,000 mcg PO DAILY 04/30/18 [History] Ferrous Sulfate [Iron] 325 mg PO DAILY 04/30/18 [History] Fexofenadine HCl [Chitra Allergy] 180 mg PO DAILY 04/30/18 [History] Meloxicam [Mobic] 7.5 mg PO BID 04/30/18 [History] Morphine Pain Pump 0.01 mg IM CONTINUOUS 04/30/18 [History] Multivitamins, Thera [Multivitamin (formulary)] 1 tab PO BID 04/30/18 [History] Potassium 99 mg PO BID 04/30/18 [History] Risedronate Sodium [Actonel] 35 mg PO SA 04/30/18 [History] Triamterene-Hctz 75-50Mg [Maxzide 75-50] 1 tab PO DAILY 04/30/18 [History] Turmeric Root Extract [Turmeric] 500 mg PO BID 04/30/18 [History] buPROPion XL [Wellbutrin XL] 300 mg PO DAILY 04/30/18 [History] busPIRone HCL 15 mg PO BID 04/30/18 [History] lisinopriL [Zestril] 10 mg PO HS 04/30/18 [History] Calcium 1000/Mag 500/Chetna D3 800 1 tab PO BID 02/12/20 [History] Cataplex F/B-6/Iodine 1 tab PO TID 02/12/20 [History] Collagen 1 tab PO DAILY 02/12/20 [History] Docusate [Colace] 100 mg PO BID 02/12/20 [History] Fiber Cap 1 cap PO BID 02/12/20 [History] L.acidoph,Paracasei, B.lactis [Probiotic] 1 cap PO BID 02/12/20 [History] guaiFENesin 400 mg PO Q4H 02/12/20 [History] Famotidine [Pepcid] 20 mg PO BID #10 tablet 02/13/20 [Rx] predniSONE 0 mg PO DIRECTED #10 tab 02/13/20 [Rx] Follow up Appointment(s)/Referral(s): Stuart Nickerson MD [Primary Care Provider] - 1-2 days Patient Instructions/Handouts: Anaphylaxis (ED) Discharge Disposition: HOME SELF-CARE
== END 2020-02-13 13:30 | disposition home or self-care (01) ==
LOC: EC 14:57 → 1SOBS 17:34
PROVIDERS: ADMIT Hospitalist; ATTEND Hospitalist
DX: T63.441A Toxic effect of venom of bees, accidental (unintentional), initial encounter (principal); F41.8 Other specified anxiety disorders; G89.29 Other chronic pain; I10 Essential (primary) hypertension; M19.91 Primary osteoarthritis, unspecified site; Z79.1 Long term (current) use of non-steroidal anti-inflammatories (NSAID); Z83.3 Family history of diabetes mellitus; Z87.891 Personal history of nicotine dependence; Z98.84 Bariatric surgery status; Z86.73 Personal history of transient ischemic attack (TIA), and cerebral infarction without residual deficits; Z79.891 Long term (current) use of opiate analgesic; T78.2XXA Anaphylactic shock, unspecified, initial encounter; Z87.01 Personal history of pneumonia (recurrent); M54.9 Dorsalgia, unspecified; Z96.60 Presence of unspecified orthopedic joint implant; Z79.899 Other long term (current) drug therapy
CPT/HCPCS: 96374; 96375 ×2; 96376; 99285; G0378 ×2; J1200 ×2; J2920

== ENCOUNTER → 2020-03-02 | Outpatient (CLI) | payer MEDICARE ==
--- NOTE | 2020-03-02 12:50 | CT ---
EXAMINATION TYPE: CT thoracic spine wo/w con DATE OF EXAM: 03/02/2020 COMPARISON: None HISTORY: Thoracic pain with T8 wedging CT DLP: 1029.9 mGycm Automated exposure control for dose reduction was used. CONTRAST: Performed without and with IV Contrast, patient injected with mL of Isovue 300. FINDINGS: No evidence for fracture or malalignment. Curvature noted convex to the right. Moderate multilevel de generative disc space narrowing and spondylosis. No evidence for central stenosis or benigno disc herni ation. Tip of the stimulator is at T6. No pathologic enhancement is identified. No paraspinal mass. V isualized lungs are free of nodule. Postsurgical changes cervical spine of fusion. IMPRESSION: NO EVIDENCE FOR COMPRESSION FRACTURE OR PATHOLOGIC ENHANCEMENT. NO MALALIGNMENT. DEGENERATIVE CHANGES NOTED.
== END | disposition home or self-care (01) ==
LOC: RADCTMAIN 11:14
PROVIDERS: ATTEND Psychiatry & Neurology Pain Medicine
DX: M54.6 Pain in thoracic spine (principal); Z91.018 Allergy to other foods; Z91.048 Other nonmedicinal substance allergy status
CPT/HCPCS: 82565; 84520; 72130; 36415; Q9967

== ENCOUNTER → 2020-05-30 | Outpatient (CLI) | payer MEDICARE | END | disposition home or self-care (01) | LOC: LABPAT 08:55 | PROVIDERS: ATTEND Otolaryngology | DX: I10 Essential (primary) hypertension (principal) | CPT/HCPCS: 93005 ==

== ENCOUNTER 2020-11-21 23:00 | Inpatient (IN) | payer MEDICARE ==
[2020-11-21] MEDS ORDERED: SODIUM CHLORIDE 0.9% 1,000 ML IV STA (23:29)
[2020-11-22 00:31] LABS: Appearance,Urine Clear (Clear); Bilirubin,Urine Negative (Negative); Blood,Urine Negative (Negative); Color,Urine Colorless; Glucose,Urine (UA) Negative (Negative); Ketones,Urine Negative (Negative); Leukocyte Esterase,Urine Moderate (Negative); Nitrite,Urine Negative (Negative); PH, Urine 6.5 (5.0-8.0); Protein,Urine Negative (Negative); RBC,Urine 1 /hpf (0-5); Specific Gravity,Urine 1.006 (1.001-1.035); Squamous Epithelial Cell,Urine <1 /hpf (0-4); Urobilinogen,Urine <2.0 mg/dL (<2.0); WBC,Urine 9 /hpf (0-5)
[2020-11-22 00:43] LABS: Basophils % (A) 1 %; Eosinophils # (A) 0.2 k/uL (0-0.7); Eosinophils % (A) 4 %; HGB 12.1 gm/dL (11.4-16.0); Lymphocytes % (A) 23 %; MCH 31.2 pg (25.0-35.0); MCHC 32.9 g/dL (31.0-37.0); Mean Platelet Volume 7.1; Monocytes # (A) 0.3 k/uL (0-1.0); Monocytes % (A) 8 %; Neutrophils # (A) 2.6 k/uL (1.3-7.7); Neutrophils % (A) 62 %; Platelet Count 201 k/uL (150-450); RBC 3.89 m/uL (3.80-5.40); RDW 12.2 % (11.5-15.5); WBC 4.1 k/uL (3.8-10.6)
[2020-11-22 01:06] LABS: Potassium 4.7 mmol/L (3.5-5.1)
[2020-11-22 01:07] LABS: Albumin 4.4 g/dL (3.5-5.0); Calcium 9.2 mg/dL (8.4-10.2); Total Bilirubin 0.3 mg/dL (0.2-1.3)
[2020-11-22] MEDS ORDERED: ONDANSETRON 4 MG/2 ML VIAL IVP STA (01:09)
[2020-11-22] MEDS ORDERED: MORPHINE SULFATE 2 MG/ML SYRINGE IVP STA (01:09)
[2020-11-22] MEDS ORDERED: SODIUM CHLORIDE 0.9% 500 ML 250 ML IV ONE (01:55)
--- NOTE | 2020-11-22 02:15 | CT ---
EXAM: CT Abdomen and Pelvis With Intravenous Contrast CLINICAL HISTORY: ITS.REASON CT Reason: RLQ pain TECHNIQUE: Axial computed tomography images of the abdomen and pelvis with intravenous contrast. CTDI is 1029.5 mGy and DLP is 25.27 mGy-cm. This CT exam was performed using one or more of the following dose reduction techniques: automated exposure control, adjustment of the mA and/or kV according to patient size, and/or use of iterative reconstruction technique. COMPARISON: No relevant prior studies available. FINDINGS: Lung bases: Bibasilar atelectasis. ABDOMEN: Liver: Unremarkable. Gallbladder and bile ducts: Gallbladder is surgically absent. Mild intra-and extra hepatic bile duct dilatation likely second or cholecystectomy patients age. Pancreas: Unremarkable. Spleen: Calcified granulomata within the spleen. Adrenals: Unremarkable. Kidneys and ureters: Unremarkable. Stomach and bowel: Post surgical changes within the bowel. Moderate amount stool within the proximal colon. Cecum is seen within the right upper quadrant which may represent bascule. No cecal volvulus. PELVIS: Appendix: Appendix is not visualized. Bladder: Urinary bladder is distended. Reproductive: Unremarkable as visualized. ABDOMEN and PELVIS: Intraperitoneal space: Unremarkable. Bones/joints: Scoliosis and degenerative changes of the spine. Post surgical changes noted within the lumbar spine. No acute fracture. No dislocation. Soft tissues: Unremarkable. Vasculature: Vascular calcifications. Lymph nodes: Unremarkable. IMPRESSION: No acute findings in the abdomen or pelvis.
--- NOTE | 2020-11-22 03:14 | ED ---
Abdominal Pain HPI - General Chief Complaint: Abdominal Pain Stated Complaint: right side abd pain Time Seen by Provider: 11/21/20 23:10 Source: patient Mode of arrival: ambulatory Limitations: no limitations - History of Present Illness Initial Comments: 70 year-old female patient presents to the emergency department for evaluation of right sided abdominal pain. She has past history significant for gastric bypass surgery, hernia repair, adhesions. She denies any vomiting, diarrhea, or constipation. Denies any fever or chills. States symptoms started around 3-4 o'clock in the afternoon. States the pain did radiate to the right shoulder at times. Patient denies any recent rash, cough, shortness of breath, chest pain, back pain, numbness, tingling, dizziness, weakness, headache, visual changes, or any other complaints.ms - Related Data Home Medications Medication Instructions Recorded Confirmed Cranberry Fruit Extract [Cranberry] 500 mg PO BID 04/30/18 02/12/20 Cyanocobalamin (Vitamin B-12) 1,000 mcg PO DAILY 04/30/18 02/12/20 [Vitamin B-12] Ferrous Sulfate [Iron] 325 mg PO DAILY 04/30/18 02/12/20 Fexofenadine HCl [Chitra Allergy] 180 mg PO DAILY 04/30/18 02/12/20 Meloxicam [Mobic] 7.5 mg PO BID 04/30/18 02/12/20 Morphine Pain Pump 0.01 mg IM CONTINUOUS 04/30/18 02/12/20 Multivitamins, Thera [Multivitamin 1 tab PO BID 04/30/18 02/12/20 (formulary)] Potassium 99 mg PO BID 04/30/18 02/12/20 Risedronate Sodium [Actonel] 35 mg PO SA 04/30/18 02/12/20 Triamterene-Hctz 75-50Mg [Maxzide 1 tab PO DAILY 04/30/18 02/12/20 75-50] Turmeric Root Extract [Turmeric] 500 mg PO BID 04/30/18 02/12/20 buPROPion XL [Wellbutrin XL] 300 mg PO DAILY 04/30/18 02/12/20 busPIRone HCL 15 mg PO BID 04/30/18 02/12/20 lisinopriL [Zestril] 10 mg PO HS 04/30/18 02/12/20 Calcium 1000/Mag 500/Chetna D3 800 1 tab PO BID 02/12/20 02/12/20 Cataplex F/B-6/Iodine 1 tab PO TID 02/12/20 02/12/20 Collagen 1 tab PO DAILY 02/12/20 02/12/20 Docusate [Colace] 100 mg PO BID 02/12/20 02/12/20 Fiber Cap 1 cap PO BID 02/12/20 02/12/20 L.acidoph,Paracasei, B.lactis 1 cap PO BID 02/12/20 02/12/20 [Probiotic] guaiFENesin 400 mg PO Q4H 02/12/20 02/12/20 Previous Rx's Medication Instructions Recorded Famotidine [Pepcid] 20 mg PO BID #10 tablet 02/13/20 predniSONE 0 mg PO DIRECTED #10 tab 02/13/20 Allergies Allergy/AdvReac Type Severity Reaction Status Date / Time bee venom protein (honey bee) Allergy Unknown Swelling Verified 11/21/20 23:04 cat dander Allergy Unknown SINUS Verified 11/21/20 23:04 SYMPTOMS dog dander Allergy Unknown SINUS Verified 11/21/20 23:04 SYMPTOMS shellfish derived [Crab] Allergy Unknown Unknown Verified 11/21/20 23:04 Review of Systems ROS Statement: Those systems with pertinent positive or pertinent negative responses have been documented in the HPI. ROS Other: All systems not noted in ROS Statement are negative. Past Medical History Past Medical History: Hypertension, Osteoarthritis (OA), Pneumonia Additional Past Medical History / Comment(s): chronic back pain History of Any Multi-Drug Resistant Organisms: None Reported Past Surgical History: Back Surgery, Bariatric Surgery, Cholecystectomy, Joint Replacement, Orthopedic Surgery Additional Past Surgical History / Comment(s): Gastric byspass, nerve stimulator Past Psychological History: Anxiety, Depression Smoking Status: Former smoker Past Alcohol Use History: None Reported Past Drug Use History: None Reported - Past Family History Mother Family Medical History: Diabetes Mellitus Additional Family Medical History / Comment(s): heart issues Father Additional Family Medical History / Comment(s): alcoholic General Exam Limitations: no limitations General appearance: alert, in no apparent distress, other (This is a well- developed, well-nourished adult female patient in no acute distress. Vital signs upon presentation are temperature 98.3F, pulse 81, respirations 18, blood pressure 150/69, pulse ox 97% on room air.) Eye exam: Present: normal appearance, PERRL, EOMI. Absent: scleral icterus, conjunctival injection, periorbital swelling ENT exam: Present: normal exam, normal oropharynx, mucous membranes moist Respiratory exam: Present: normal lung sounds bilaterally. Absent: respiratory distress, wheezes, rales, rhonchi, stridor Cardiovascular Exam: Present: regular rate, normal rhythm, normal heart sounds. Absent: systolic murmur, diastolic murmur, rubs, gallop, clicks GI/Abdominal exam: Present: soft, tenderness (Right mid abdomen tenderness), normal bowel sounds. Absent: distended, guarding, rebound, rigid Neurological exam: Present: alert, oriented X3, CN II-XII intact Psychiatric exam: Present: normal affect, normal mood Skin exam: Present: warm, dry, intact, normal color. Absent: rash Course Vital Signs 11/21/20 23:01 Temperature 98.3 F Pulse Rate 81 Respiratory 18 Rate Blood Pressure 150/69 O2 Sat by Pulse 97 Oximetry Medical Decision Making - Medical Decision Making 70 year-old female patient presents to the emergency department for evaluation of right sided abdominal pain that started several hours ago. Physical examination revealed right mid abdominal tenderness. Labs unremarkable. On CT there appeared to be cecum in the right upper quadrant which radiologist reported could be bascule, but without evidence for volvulus at this time. Upon re-evaluation patient does report persistent pain and does not feel comfortable being discharged home. Given possibility of intermittent volvulus evaluation by general surgery may be beneficial. Patient will be admitted with consult. She is agreeable to this plan. My attending is Dr. Weinberg. - Lab Data Result diagrams: 11/22/20 00:09 11/22/20 00:09 Lab Results 11/22/20 11/22/20 11/22/20 Range/Units 00:09 00:09 00:09 WBC 4.1 (3.8-10.6) k/uL RBC 3.89 (3.80-5.40) m/uL Hgb 12.1 (11.4-16.0) gm/dL Hct 37.0 (34.0-46.0) % MCV 95.0 (80.0-100.0) fL MCH 31.2 (25.0-35.0) pg MCHC 32.9 (31.0-37.0) g/dL RDW 12.2 (11.5-15.5) % Plt Count 201 (150-450) k/uL MPV 7.1 Neutrophils % 62 % Lymphocytes % 23 % Monocytes % 8 % Eosinophils % 4 % Basophils % 1 % Neutrophils # 2.6 (1.3-7.7) k/uL Lymphocytes # 1.0 (1.0-4.8) k/uL Monocytes # 0.3 (0-1.0) k/uL Eosinophils # 0.2 (0-0.7) k/uL Basophils # 0.0 (0-0.2) k/uL Sodium 136 L (137-145) mmol/L Potassium 4.7 (3.5-5.1) mmol/L Chloride 101 (98-107) mmol/L Carbon Dioxide 28 (22-30) mmol/L Anion Gap 7 mmol/L BUN 25 H (7-17) mg/dL Creatinine 1.01 (0.52-1.04) mg/dL Est GFR (CKD-EPI)AfAm 65 (>60 ml/min/1.73 sqM) Est GFR (CKD-EPI)NonAf 56 (>60 ml/min/1.73 sqM) Glucose 101 H (74-99) mg/dL Plasma Lactic Acid Edison (0.7-2.0) mmol/L Calcium 9.2 (8.4-10.2) mg/dL Total Bilirubin 0.3 (0.2-1.3) mg/dL AST 42 H (14-36) U/L ALT 20 (4-34) U/L Alkaline Phosphatase 72 (38-126) U/L Troponin I (0.000-0.034) ng/mL Total Protein 7.0 (6.3-8.2) g/dL Albumin 4.4 (3.5-5.0) g/dL Lipase 132 (23-300) U/L Urine Color Colorless Urine Appearance Clear (Clear) Urine pH 6.5 (5.0-8.0) Ur Specific Rogers 1.006 (1.001-1.035) Urine Protein Negative (Negative) Urine Glucose (UA) Negative (Negative) Urine Ketones Negative (Negative) Urine Blood Negative (Negative) Urine Nitrite Negative (Negative) Urine Bilirubin Negative (Negative) Urine Urobilinogen <2.0 (<2.0) mg/dL Ur Leukocyte Esterase Moderate H (Negative) Urine RBC 1 (0-5) /hpf Urine WBC 9 H (0-5) /hpf Ur Squamous Epith Cells <1 (0-4) /hpf 11/22/20 11/22/20 Range/Units 00:09 00:09 WBC (3.8-10.6) k/uL RBC (3.80-5.40) m/uL Hgb (11.4-16.0) gm/dL Hct (34.0-46.0) % MCV (80.0-100.0) fL MCH (25.0-35.0) pg MCHC (31.0-37.0) g/dL RDW (11.5-15.5) % Plt Count (150-450) k/uL MPV Neutrophils % % Lymphocytes % % Monocytes % % Eosinophils % % Basophils % % Neutrophils # (1.3-7.7) k/uL Lymphocytes # (1.0-4.8) k/uL Monocytes # (0-1.0) k/uL Eosinophils # (0-0.7) k/uL Basophils # (0-0.2) k/uL Sodium (137-145) mmol/L Potassium (3.5-5.1) mmol/L Chloride (98-107) mmol/L Carbon Dioxide (22-30) mmol/L Anion Gap mmol/L BUN (7-17) mg/dL Creatinine (0.52-1.04) mg/dL Est GFR (CKD-EPI)AfAm (>60 ml/min/1.73 sqM) Est GFR (CKD-EPI)NonAf (>60 ml/min/1.73 sqM) Glucose (74-99) mg/dL Plasma Lactic Acid Edison 0.9 (0.7-2.0) mmol/L Calcium (8.4-10.2) mg/dL Total Bilirubin (0.2-1.3) mg/dL AST (14-36) U/L ALT (4-34) U/L Alkaline Phosphatase (38-126) U/L Troponin I <0.012 (0.000-0.034) ng/mL Total Protein (6.3-8.2) g/dL Albumin (3.5-5.0) g/dL Lipase (23-300) U/L Urine Color Urine Appearance (Clear) Urine pH (5.0-8.0) Ur Specific Rogers (1.001-1.035) Urine Protein (Negative) Urine Glucose (UA) (Negative) Urine Ketones (Negative) Urine Blood (Negative) Urine Nitrite (Negative) Urine Bilirubin (Negative) Urine Urobilinogen (<2.0) mg/dL Ur Leukocyte Esterase (Negative) Urine RBC (0-5) /hpf Urine WBC (0-5) /hpf Ur Squamous Epith Cells (0-4) /hpf - EKG Data -: EKG Interpreted by Me EKG Comments: EKG obtained at 2347 shows normal sinus rhythm with a ventricular rate is 75, [place] interval 186, QRS duration 104, QT 392, QTc 437. No evidence of ST elevation or depression. - Radiology Data Radiology results: report reviewed, image reviewed CT abdomen and pelvis is obtained. Report was reviewed in its entirety. Impression by Dr. Payne shows no acute findings in the abdomen or pelvis. Of note is the cecum being present in the right upper quadrant which could be bascule. No evidence for cecal volvulus at this time. Disposition Clinical Impression: Abdominal pain, Cecal bascule Disposition: ADMITTED IP TO THIS [facility] Condition: Serious Referrals: Stuart Nickerson MD [Primary Care Provider] - 1-2 days Decision to Admit Reason: Admit from EC Decision Date: 11/22/20 Decision Time: 03:14
[2020-11-22] MEDS ORDERED: NALOXONE 0.4 MG/ML 1 ML VIAL IV PRN (03:16)
[2020-11-22] MEDS ORDERED: ONDANSETRON 4 MG/2 ML VIAL IVP PRN (03:16)
[2020-11-22] MEDS: HYDROmorphone 0.5 MG/0.5 ML SYRINGE IVP PRN (05:40)
[2020-11-22 06:12] LABS: Basophils % (A) 1 %; Eosinophils # (A) 0.2 k/uL (0-0.7); Eosinophils % (A) 4 %; HCT 37.1 % (34.0-46.0); HGB 12.3 gm/dL (11.4-16.0); Lymphocytes % (A) 23 %; MCH 31.9 pg (25.0-35.0); MCHC 33.2 g/dL (31.0-37.0); MCV 96.1 fL (80.0-100.0); Mean Platelet Volume 6.5; Monocytes # (A) 0.4 k/uL (0-1.0); Monocytes % (A) 8 %; Neutrophils # (A) 2.8 k/uL (1.3-7.7); Neutrophils % (A) 63 %; Platelet Count 207 k/uL (150-450); RBC 3.86 m/uL (3.80-5.40); RDW 12.4 % (11.5-15.5); WBC 4.5 k/uL (3.8-10.6)
--- NOTE | 2020-11-22 12:08 | P.GSCN ---
History of Present Illness Consult date: 11/22/20 History of present illness: CHIEF COMPLAINT: Right-sided abdominal pain HISTORY OF PRESENT ILLNESS: This is a 70-year-old female with a past surgical history of gastric bypass surgery, cholecystectomy, incisional hernia repair and prior lysis of adhesions. Past medical history includes hypertension, osteoarthritis, chronic back pain with nerve stimulator. Patient comes into the hospital complaining of right-sided abdominal pain that started around 3 PM yesterday evening. She reports that was sharp and intermittent. She was unable to eat her dinner. Pain continued to progress. It initially she was concerned about a possible appendicitis. She came into the ER had a computed tomography scan of the abdomen and pelvis which showed no acute findings in the abdomen and pelvis. It did show postsurgical changes within the bowel. Moderate amount of stool within the proximal colon. Cecum is seen within the right upper quadrant which may represent bascule. No cecal volvulus. Patient states that she occasionally has had pain like this in the past. But it never lasts as long or is as severe. And the pain will usually improve with a bowel movement or p assing gas. She denies any nausea or vomiting. She reports having bowel movements and passing gas. She initially rated her pain at 7 out of 10. Currently she is lying in bed with no pain. She denies any fever, chills or sweats. She also reports that yesterday she was also lifting 50 pound bags of birdseed. And was initially concerned that her pain was a muscle strain. PAST MEDICAL HISTORY: See list. PAST SURGICAL HISTORY: See list. MEDICATIONS: See list. ALLERGIES: See list. SOCIAL HISTORY: No illicit drug use. REVIEW OF SYSTEMS: CONSTITUTIONAL: Denies fever or chills. HEENT: Denies blurred vision, vision changes, or eye pain. Denies hemoptysis CARDIOVASCULAR: Denies chest pain or pressure. RESPIRATORY: No shortness of breath. GASTROINTESTINAL: See HPI for pertinent findings HEMATOLOGIC: Denies bleeding disorders. GENITOURINARY: Denies any blood in urine or increased urinary frequency. SKIN: Denies pruitis. Denies rash. PHYSICAL EXAM: VITAL SIGNS: Reviewed GENERAL: Well-developed in no acute distress. HEENT: No sclera icterus. Extraocular movements grossly intact. Moist buccal mucosa. Head is atraumatic, normocephalic. No nasal drainage. ABDOMEN: Soft. Nondistended. Tenderness with palpation of the right side of the abdomen NEUROLOGIC: Alert and oriented. Cranial nerves II through XII grossly intact. LABORATORY DATA: WBC 4.5 hemoglobin is 12.3 platelets 207 creatinine 1.01 lactic 0.7 AST 42 troponin negative lipase 138 Covert not detected UA showing moderate leukocytes with 9 WBCs IMAGING: computed tomography scan of the abdomen and pelvis which showed no acute findings in the abdomen and pelvis. It did show postsurgical changes within the bowel. Moderate amount of stool within the proximal colon. Cecum is seen within the right upper quadrant which may represent bascule. No cecal volvulus. ASSESSMENT: 1. Right-sided abdominal pain with CAT scan showing the cecum is seen within the right upper quadrant which may represent a bascule. PLAN: -Patient scheduled for exploratory laparotomy tomorrow, 11/23/[address] Hiwot milligan -Patient can have full liquid diet today -Nothing by mouth after midnight -Continue pain medication as needed -Continue IV fluids Physician Wheel Truing Machine Tender note has been reviewed by physician. Signing provider agrees with the documented findings, assessment, and plan of care. Past Medical History Past Medical History: Hypertension, Osteoarthritis (OA), Pneumonia Additional Past Medical History / Comment(s): chronic back pain- morpine pain pump in place History of Any Multi-Drug Resistant Organisms: None Reported Past Surgical History: Back Surgery, Bariatric Surgery, Cholecystectomy, Joint Replacement, Orthopedic Surgery Additional Past Surgical History / Comment(s): Gastric byspass 1998, nerve stimulator-in place but not functioning at this time 11/25 Past Anesthesia/Blood Transfusion Reactions: No Reported Reaction Past Psychological History: Anxiety, Depression Smoking Status: Never smoker Past Alcohol Use History: None Reported Past Drug Use History: None Reported - Past Family History Mother Family Medical History: Diabetes Mellitus Additional Family Medical History / Comment(s): heart issues Father Additional Family Medical History / Comment(s): alcoholic Medications and Allergies Home Medications Medication Instructions Recorded Confirmed Type Cyanocobalamin (Vitamin B-12) 1,000 mcg PO DAILY@0500 04/30/18 11/22/20 History [Vitamin B-12] Ferrous Sulfate [Iron] 325 mg PO DAILY@0500 04/30/18 11/22/20 History Meloxicam [Mobic] 7.5 mg PO BID@0500,1600 04/30/18 11/22/20 History Morphine Pain Pump 0.01 mg INTRATHECA CONTINUOUS 04/30/18 11/22/20 History Multivitamins, Thera [Multivitamin 1 tab PO BID@0500,1600 04/30/18 11/22/20 Hist ory (formulary)] Potassium 99 mg PO BID@0500,1600 04/30/18 11/22/20 History Risedronate Sodium [Actonel] 35 mg PO SA 04/30/18 11/22/20 History Triamterene-Hctz 75-50Mg [Maxzide 1 tab PO DAILY@0500 04/30/18 11/22/20 History 75-50] buPROPion XL [Wellbutrin XL] 300 mg PO DAILY@0500 04/30/18 11/22/20 History busPIRone HCL 15 mg PO BID@0500,1600 04/30/18 11/22/20 History lisinopriL [Zestril] 10 mg PO HS 04/30/18 11/22/20 History L.acidoph,Paracasei, B.lactis 1 cap PO BID@0500,1600 02/12/20 11/22/20 History [Probiotic] Calcium Citrate/Vitamin D3 1 tab PO BID@0500,1600 11/22/20 11/22/20 History [Citracal + D Maximum Caplet] Cranberry Fruit Concentrate [Azo 250 mg PO BID@0500,1600 11/22/20 11/22/20 History Cranberry] Docusate 250mg 250 mg PO BID@0500,1600 11/22/20 11/22/20 History Furosemide [Lasix] 20 mg PO DAILY PRN 11/22/20 11/22/20 History Magnesium 250 mg PO BID@0500,1600 11/22/20 11/22/20 History Psyllium Husk [Reguloid] 0.4 gm PO BID@0500,1600 11/22/20 11/22/20 History Triamcinolone Acetonide [Nasacort] 1 spr EA NOSTRIL DAILY PRN 11/22/20 11/22/20 History Allergies Allergy/AdvReac Type Severity Reaction Status Date / Time bee venom protein (honey bee) Allergy Unknown Swelling Verified 11/22/20 07:12 cat dander Allergy Unknown SINUS Verified 11/22/20 07:12 SYMPTOMS dog dander Allergy Unknown SINUS Verified 11/22/20 07:12 SYMPTOMS shellfish derived [Crab] Allergy Unknown Unknown Verified 11/22/20 07:12 aluminum Allergy Unknown Verified 11/22/20 07:12 amino acids [From Chromimin] Allergy Unknown Verified 11/22/20 07:12 chromium [From Chromimin] Allergy Unknown Verified 11/22/20 07:12 grass pollen Allergy Unknown Verified 11/22/20 07:12 iron Allergy Unknown Verified 11/22/20 07:12 mold Allergy Unknown Verified 11/22/20 07:12 nickel Allergy Unknown Verified 11/22/20 07:12 tree and shrub pollen Allergy Unknown Verified 11/22/20 07:12 Yeast Allergy Unknown Verified 11/22/20 07:12 cockroach Allergy Unknown Uncoded 11/22/20 07:12 dust Allergy Unknown Uncoded 11/22/20 07:12 dust mite Allergy Unknown Uncoded 11/22/20 07:12 weeds Allergy Unknown Uncoded 11/22/20 07:12 Surgical - Exam Vital Signs Temp Pulse Resp BP Pulse Ox 98.3 F 81 18 150/69 97 11/21/20 23:01 11/21/20 23:01 11/21/20 23:01 11/21/20 23:01 11/21/20 23:01 Results - Labs 11/22/20 05:54 11/22/20 00:09 Abnormal Lab Results - Last 24 Hours (Table) 11/22/20 11/22/20 Range/Units 00:09 00:09 Sodium 136 L (137-145) mmol/L BUN 25 H (7-17) mg/dL Glucose 101 H (74-99) mg/dL AST 42 H (14-36) U/L Ur Leukocyte Esterase Moderate H (Negative) Urine WBC 9 H (0-5) /hpf Diabetes panel 11/22/20 Range/Units 00:09 Sodium 136 L (137-145) mmol/L Potassium 4.7 (3.5-5.1) mmol/L Chloride 101 (98-107) mmol/L Carbon Dioxide 28 (22-30) mmol/L BUN 25 H (7-17) mg/dL Creatinine 1.01 (0.52-1.04) mg/dL Glucose 101 H (74-99) mg/dL Calcium 9.2 (8.4-10.2) mg/dL AST 42 H (14-36) U/L ALT 20 (4-34) U/L Alkaline Phosphatase 72 (38-126) U/L Total Protein 7.0 (6.3-8.2) g/dL Albumin 4.4 (3.5-5.0) g/dL Calcium panel 11/22/20 Range/Units 00:09 Calcium 9.2 (8.4-10.2) mg/dL Albumin 4.4 (3.5-5.0) g/dL Pituitary panel 11/22/20 Range/Units 00:09 Sodium 136 L (137-145) mmol/L Potassium 4.7 (3.5-5.1) mmol/L Chloride 101 (98-107) mmol/L Carbon Dioxide 28 (22-30) mmol/L BUN 25 H (7-17) mg/dL Creatinine 1.01 (0.52-1.04) mg/dL Glucose 101 H (74-99) mg/dL Calcium 9.2 (8.4-10.2) mg/dL Adrenal panel 11/22/20 Range/Units 00:09 Sodium 136 L (137-145) mmol/L Potassium 4.7 (3.5-5.1) mmol/L Chloride 101 (98-107) mmol/L Carbon Dioxide 28 (22-30) mmol/L BUN 25 H (7-17) mg/dL Creatinine 1.01 (0.52-1.04) mg/dL Glucose 101 H (74-99) mg/dL Calcium 9.2 (8.4-10.2) mg/dL Total Bilirubin 0.3 (0.2-1.3) mg/dL AST 42 H (14-36) U/L ALT 20 (4-34) U/L Alkaline Phosphatase 72 (38-126) U/L Total Protein 7.0 (6.3-8.2) g/dL Albumin 4.4 (3.5-5.0) g/dL
[2020-11-22] MEDS: buPROPion XL 300 MG TAB.ER.24H PO SCH ×2 (14:31→15:17)
[2020-11-22] MEDS: busPIRone HCl 5 MG TAB PO SCH (15:15)
[2020-11-22] MEDS: MULTIVITAMINS, THERA 1 EACH TAB PO SCH (15:16)
[2020-11-22] MEDS: MAGNESIUM OXIDE 400 MG TAB PO SCH (15:16)
[2020-11-22] MEDS: SODIUM CHLORIDE 0.9% 1,000 ML IV SCH (15:18)
--- NOTE | 2020-11-22 15:53 | P.HPIM ---
History of Present Illness H&P Date: 11/22/20 Chief Complaint: Right abdominal pain History of presenting complaint: This is a very pleasant 70-year-old patient of Dr. Nickerson. Chronic stable medical conditions include hypertension, osteoarthritis, chronic low back pain for which she has a pain pump-being followed by Dr. Artis, gastric bypass, anxiety depression. Yesterday around 3 PM she developed rather significant right abdominal pain. No nausea vomiting. No fever. Pain did not radiate. Patient normally has one or 2 bowel movements a day. No change in bowel pattern. Review of systems: GEN.: None EYES: None HEENT: None NECK: None RESPIRATORY: None CARDIOVASCULAR: None GASTROINTESTINAL: As above GENITOURINARY: None MUSCULOSKELETAL: Chronic joint pains LYMPHATICS: None HEMATOLOGICAL: None PSYCHIATRY: None NEUROLOGICAL: None Past medical history to include: Hypertension, osteoarthritis, gastric bypass, no stable later, anxiety depression Social history: Did smoke in the past. No alcohol. Lives alone Physical examination: VITAL SIGNS: 98.3, 81, 18, 150/69, 97% room air GENERAL: BMI 27.5, reclining in bed, not in distress EYES: Pupils equal. Conjunctiva normal. HEENT: External appearance of nose and ears normal, oral cavity grossly normal. NECK: JVD not raised; masses not palpable. HEART: First and second heart sounds are normal; no edema. LUNGS: Respiratory rate normal; clear to auscultation DERMATOLOGICAL: Minimal redness of the skin generalized. ABDOMEN: Soft, mild right abdominal tenderness, no guarding rigidity, liver spleen not palpable, no masses palpable. PSYCH: Alert and oriented x3; mood and affect normal. NEUROLOGICAL: Cranial nerves grossly intact; no facial asymmetry, power and sensation grossly intact. LYMPHATICS: No lymph nodes palpable in the axilla and neck INVESTIGATIONS, reviewed in the clinical context: WBC 4.5 hemoglobin 12.3 platelets 27 potassium 4.7 creatinine 1.01 lactic acid 0.9 UA positive for leukoesterase, WBC Coronavirus [PCR]-not detected EKG tracing personally reviewed by me-normal sinus rhythm Computed tomography scan of the abdomen pelvis with IV contrast: Absent gallbladder. Moderate amount of stool in the proximal colon. Abnormal location of the cecum. No wall tenderness Assessment and plan: -Acute right abdominal pain. No fever no chills. Abnormal location/anatomy of the cecum-predisposing to obstruction as per Dr. Babb. Gen. surgery consulted-for possible surgery -Essential hypertension Continue Zestril -Primary osteoarthritis Pain medications as needed -Anxiety depression otherwise specified Continue home medications - chronic pain, for which patient has a pain pump Care was discussed with the patient. General surgery was consulted. Dr. Babb splenic for surgery because of the way cecum is turned up. Add Lovenox for DVT prophylaxis. IV fluids. Full liquid diet. Nothing by mouth after midnight. Past Medical History Past Medical History: Hypertension, Osteoarthritis (OA), Pneumonia Additional Past Medical History / Comment(s): chronic back pain- morpine pain pump in place History of Any Multi-Drug Resistant Organisms: None Reported Past Surgical History: Back Surgery, Bariatric Surgery, Cholecystectomy, Joint Replacement, Orthopedic Surgery Additional Past Surgical History / Comment(s): Gastric byspass 1998, nerve stimulator-in place but not functioning at this time 11/25 Past Anesthesia/Blood Transfusion Reactions: No Reported Reaction Past Psychological History: Anxiety, Depression Smoking Status: Never smoker Past Alcohol Use History: None Reported Past Drug Use History: None Reported - Past Family History Mother Family Medical History: Diabetes Mellitus Additional Family Medical History / Comment(s): heart issues Father Additional Family Medical History / Comment(s): alcoholic Medications and Allergies Home Medications Medication Instructions Recorded Confirmed Type Cyanocobalamin (Vitamin B-12) 1,000 mcg PO DAILY@0500 04/30/18 11/22/20 History [Vitamin B-12] Ferrous Sulfate [Iron] 325 mg PO DAILY@0500 04/30/18 11/22/20 History Meloxicam [Mobic] 7.5 mg PO BID@0500,1600 04/30/18 11/22/20 History Morphine Pain Pump 0.01 mg INTRATHECA CONTINUOUS 04/30/18 11/22/20 History Multivitamins, Thera [Multivitamin 1 tab PO BID@0500,1600 04/30/18 11/22/20 History (formulary)] Potassium 99 mg PO BID@0500,1600 04/30/18 11/22/20 History Risedronate Sodium [Actonel] 35 mg PO SA 04/30/18 11/22/20 History Triamterene-Hctz 75-50Mg [Maxzide 1 tab PO DAILY@0500 04/30/18 11/22/20 History 75-50] buPROPion XL [Wellbutrin XL] 300 mg PO DAILY@0500 04/30/18 11/22/20 History busPIRone HCL 15 mg PO BID@0500,1600 04/30/18 11/22/20 History lisinopriL [Zestril] 10 mg PO HS 04/30/18 11/22/20 History L.acidoph,Paracasei, B.lactis 1 cap PO BID@0500,1600 02/12/20 11/22/20 History [Probiotic] Calcium Citrate/Vitamin D3 1 tab PO BID@0500,1600 11/22/20 11/22/20 History [Citracal + D Maximum Caplet] Cranberry Fruit Concentrate [Azo 250 mg PO BID@0500,1600 11/22/20 11/22/20 History Cranberry] Docusate 250mg 250 mg PO BID@0500,1600 11/22/20 11/22/20 History Furosemide [Lasix] 20 mg PO DAILY PRN 11/22/20 11/22/20 History Magnesium 250 mg PO BID@0500,1600 11/22/20 11/22/20 History Psyllium Husk [Reguloid] 0.4 gm PO BID@0500,1600 11/22/20 11/22/20 History Triamcinolone Acetonide [Nasacort] 1 spr EA NOSTRIL DAILY PRN 11/22/20 11/22/20 History Allergies Allergy/AdvReac Type Severity Reaction Status Date / Time bee venom protein (honey bee) Allergy Unknown Swelling Verified 11/22/20 07:12 cat dander Allergy Unknown SINUS Verified 11/22/20 07:12 SYMPTOMS dog dander Allergy Unknown SINUS Verified 11/22/20 07:12 SYMPTOMS shellfish derived [Crab] Allergy Unknown Unknown Verified 11/22/20 07:12 aluminum Allergy Unknown Verified 11/22/20 07:12 amino acids [From Chromimin] Allergy Unknown Verified 11/22/20 07:12 chromium [From Chromimin] Allergy Unknown Verified 11/22/20 07:12 grass pollen Allergy Unknown Verified 11/22/20 07:12 iron Allergy Unknown Verified 11/22/20 07:12 mold Allergy Unknown Verified 11/22/20 07:12 nickel Allergy Unknown Verified 11/22/20 07:12 tree and shrub pollen Allergy Unknown Verified 11/22/20 07:12 Yeast Allergy Unknown Verified 11/22/20 07:12 cockroach Allergy Unknown Uncoded 11/22/20 07:12 dust Allergy Unknown Uncoded 11/22/20 07:12 dust mite Allergy Unknown Uncoded 11/22/20 07:12 weeds Allergy Unknown Uncoded 11/22/20 07:12 Physical Exam Vitals: Vital Signs Temp Pulse Pulse Resp BP BP Pulse Ox 11/22/20 08:20 97.7 F 61 16 109/71 98 11/22/20 05:42 98.2 F 67 18 122/80 97 11/22/20 04:15 70 18 130/77 96 11/21/20 23:01 98.3 F 81 18 150/69 97 Intake and Output 11/21/20 11/22/20 11/22/20 22:59 06:59 14:59 Other: Voiding Method Toilet # Voids 1 Weight 70.8 kg Results CBC & Chem 7: 11/22/20 05:54 11/22/20 00:09 Labs: Abnormal Lab Results - Last 24 Hours (Table) 11/22/20 11/22/20 Range/Units 00:09 00:09 Sodium 136 L (137-145) mmol/L BUN 25 H (7-17) mg/dL Glucose 101 H (74-99) mg/dL AST 42 H (14-36) U/L Ur Leukocyte Esterase Moderate H (Negative) Urine WBC 9 H (0-5) /hpf Thrombosis Risk Factor Assmnt - Choose All That Apply Any of the Below Risk Factors Present?: Yes Each Factor Represents 1 point: Obesity (BMI >25) Other Risk Factors: Yes Each Risk Factor Represents 2 Points: Age 61-74 years Thrombosis Risk Factor Assessment Total Risk Factor Score: 3 Thrombosis Risk Factor Assessment Level: Moderate Risk
[2020-11-22] MEDS: ENOXAPARIN 40 MG/0.4 ML SYRINGE SQ SCH (17:32)
[2020-11-22] MEDS: lisinopriL 10 MG TAB PO SCH (20:22)
[2020-11-23] MEDS: busPIRone HCl 5 MG TAB PO SCH ×2 (05:23→17:46)
[2020-11-23] MEDS: buPROPion XL 300 MG TAB.ER.24H PO SCH (05:23)
[2020-11-23] MEDS: CYANOCOBALAMIN 500 MCG TAB PO SCH (05:23)
[2020-11-23] MEDS: MULTIVITAMINS, THERA 1 EACH TAB PO SCH ×2 (05:24→17:46)
[2020-11-23] MEDS: MAGNESIUM OXIDE 400 MG TAB PO SCH ×2 (05:24→17:46)
[2020-11-23 06:42] LABS: Basophils % (A) 1 %; Eosinophils # (A) 0.2 k/uL (0-0.7); Eosinophils % (A) 5 %; HCT 34.9 % (34.0-46.0); HGB 11.7 gm/dL (11.4-16.0); Lymphocytes # (A) 0.8 k/uL (1.0-4.8); Lymphocytes % (A) 25 %; MCH 32.1 pg (25.0-35.0); MCHC 33.4 g/dL (31.0-37.0); MCV 96.1 fL (80.0-100.0); Mean Platelet Volume 6.6; Monocytes # (A) 0.3 k/uL (0-1.0); Monocytes % (A) 9 %; Neutrophils # (A) 1.9 k/uL (1.3-7.7); Neutrophils % (A) 58 %; Platelet Count 174 k/uL (150-450); RBC 3.63 m/uL (3.80-5.40); RDW 12.2 % (11.5-15.5); WBC 3.3 k/uL (3.8-10.6)
[2020-11-23 07:03] LABS: ALT 15 U/L (4-34); AST 31 U/L (14-36); African American GFR (CKD) >90 (>60 ml/min/1.73 sqM); Albumin 3.6 g/dL (3.5-5.0); Alkaline Phosphatase 52 U/L (38-126); Anion Gap 3 mmol/L; Blood Urea Nitrogen 15 mg/dL (7-17); Calcium 8.8 mg/dL (8.4-10.2); Carbon Dioxide 31 mmol/L (22-30); Chloride 104 mmol/L (98-107); Glucose 91 mg/dL (74-99); Non-African American GFR(CKD) 80 (>60 ml/min/1.73 sqM); Potassium 4.3 mmol/L (3.5-5.1); Sodium 138 mmol/L (137-145); Total Bilirubin 0.5 mg/dL (0.2-1.3); Total Protein 5.8 g/dL (6.3-8.2)
[2020-11-23] MEDS: ENOXAPARIN 40 MG/0.4 ML SYRINGE SQ SCH (09:40)
[2020-11-23] MEDS ORDERED: ACETAMINOPHEN IV (For NPO) 1,000 MG in EMPTY BAG 1 BAG IVPB ONE (11:51)
[2020-11-23 14:16] LABS: Prothrombin Time 10.8 sec (9.0-12.0)
[2020-11-23] MEDS ORDERED: IV FLUID CONTINUATION 1,000 ML IV ONE (15:55)
[2020-11-23] MEDS ORDERED: ONDANSETRON 4 MG/2 ML VIAL IVP ONE (16:05)
[2020-11-23] MEDS ORDERED: DEXAMETHASONE SOD PHOSPHATE 4 MG/ML 1 ML VIAL IVP ONE (16:05)
[2020-11-23] MEDS ORDERED: HEPARIN SODIUM,PORCINE/PF 5,000 UNIT/0.5 ML SYRINGE SQ ONE (16:10)
[2020-11-23] MEDS ORDERED: MIDAZOLAM 2 MG/2 ML VIAL IVP ONE (16:11)
[2020-11-23] MEDS ORDERED: fentaNYL (PF) 50 MCG/ML 2 ML AMP IVP ONE (16:11)
[2020-11-23] MEDS ORDERED: HEPARIN SODIUM,PORCINE 5,000 UNIT/ML 1 ML VIAL SQ ONE (16:20)
[2020-11-23] MEDS ORDERED: MIDAZOLAM 2 MG/2 ML VIAL ONE (16:26)
[2020-11-23] MEDS ORDERED: NEOSTIGMINE 1 MG/ML 10 ML VIAL ONE (16:26)
[2020-11-23] MEDS ORDERED: PROPOFOL 10 MG/ML 20 ML VIAL IV ONE ×2 (16:26→19:19)
[2020-11-23] MEDS ORDERED: GLYCOPYRROLATE 0.2 MG/ML 2 ML VIAL ONE (16:26)
[2020-11-23] MEDS ORDERED: HYDROmorphone (PF) 1 MG/ML ONE (16:26)
[2020-11-23] MEDS ORDERED: KETOROLAC 15 MG/ML 1 ML VIAL ONE (16:26)
[2020-11-23] MEDS ORDERED: fentaNYL (PF) 50 MCG/ML 2 ML AMP ONE ×2 (16:26→19:19)
[2020-11-23] MEDS ORDERED: LIDOCAINE 1% INJ 10MG/ML (20 ML MDV) ONE (16:26)
[2020-11-23] MEDS ORDERED: ROPIVACAINE 5 MG/ML 30 ML VIAL ONE (16:26)
[2020-11-23] MEDS ORDERED: SUCCINYLCHOLINE CHLORIDE 100 MG/5 ML SYR IV ONE (16:26)
[2020-11-23] MEDS ORDERED: ROCURONIUM 10 MG/ML (5 ML VIAL) IV ONE (16:26)
[2020-11-23] MEDS ORDERED: LACTATED RINGERS 1,000 ML IV ONE ×2 (16:50→19:19)
[2020-11-23] MEDS ORDERED: SODIUM CHLORIDE 0.9% 100 ML with ceFAZolin 2,000 MG IV ONE ×2 (17:00)
[2020-11-23] MEDS ORDERED: BENZOCAINE/MENTHOL LOZENG 1 EACH LOZENGE MUCOUS MEM PRN (17:49)
--- NOTE | 2020-11-23 17:49 | P.OP ---
Date of Procedure: 11/23/20 Preoperative Diagnosis: cecal bascule Postoperative Diagnosis: cecal bascule Procedure(s) Performed: right colectomy Anesthesia: TADEO Surgeon: Marcos Babb Estimated Blood Loss (ml): 25 Pathology: other (ileocolectomy) Condition: stable Disposition: PACU Description of Procedure: the patient's placed on the operative table in the supine position. She received joints he. Her abdomen was prepped and draped usual fashion. The abdomen was entered through midline incision. The Bookwalter tract with wound. The abdomen explored. Patient's had a floating right colon. The cecal bascule could be visualized. At this point the white line of Toldt was divided in the remaining acing colon and transverse colon were mobilized. The terminal ileum was transected with a GI stapler. The transverse colon was transected with a GI stapler. Then using insulin device the mesentery the bowel was divided. Satisfied functional end-to-end staple anastomosis created using HUBER and TA stapler. 3-0 GI silk sutures uses a crotch stitch.the abdomen was irrigated. There is no bleeding seen. The fascia was then closed with looped #1 PDS suture.
--- NOTE | 2020-11-23 17:54 | P.PN ---
Progress Note - Text Progress Note Date: 11/23/20 Chief Complaint: Right abdominal pain History of presenting complaint: This is a very pleasant 70-year-old patient of Dr. Nickerson. Chronic stable medical conditions include hypertension, osteoarthritis, chronic low back pain for which she has a pain pump-being followed by Dr. Artis, gastric bypass, anxiety depression. Yesterday around 3 PM she developed rather significant right abdominal pain. No nausea vomiting. No fever. Pain did not radiate. Patient normally has one or 2 bowel movements a day. No change in bowel pattern. 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 Today: Saw the patient this morning. No abdominal pain. Awaiting surgery. Nothing by mouth. Review of systems: Was done for constitutional, cardiovascular, GI, pulmonary. relevant finding as above Active Medications Bupropion HCl (Bupropion Xl 300 Mg Tab.Er.24h) 300 mg PO DAILY@0500 [facility] Last Admin: 11/23/20 05:23 Dose: Not Given Documented by: Buspirone HCl (Buspirone Hcl 5 Mg Tab) 15 mg PO BID@0500,1600 [facility] Last Admin: 11/23/20 17:46 Dose: Not Given Documented by: Cyanocobalamin (Cyanocobalamin 500 Mcg Tab) 1,000 mcg PO DAILY@0500 [facility] Last Admin: 11/23/20 05:23 Dose: Not Given Documented by: Enoxaparin Sodium (Enoxaparin 40 Mg/0.4 Ml Syringe) 40 mg SQ DAILY [facility] Last Admin: 11/23/20 09:40 Dose: Not Given Documented by: Hydromorphone HCl (Hydromorphone 0.5 Mg/0.5 Ml Syringe) 0.5 mg IVP Q3HR PRN PRN Reason: Moderate Pain Last Admin: 11/22/20 05:40 Dose: 0.5 mg Documented by: Sodium Chloride (Saline 0.9%) 1,000 mls @ 50 mls/hr IV .Q20H [facility] Last Admin: 11/22/20 15:18 Dose: 50 mls/hr Documented by: Lisinopril (Lisinopril 10 Mg Tab) 10 mg PO HS [facility] Last Admin: 11/22/20 20:22 Dose: 10 mg Documented by: Magnesium Oxide (Magnesium Oxide 400 Mg Tab) 400 mg PO BID@0500,1600 [facility] Last Admin: 11/23/20 17:46 Dose: Not Given Documented by: Multivitamins (Multivitamins, Thera 1 Each Tab) 1 each PO BID@0500,1600 [facility] Last Admin: 11/23/20 17:46 Dose: Not Given Documented by: Naloxone HCl (Naloxone 0.4 Mg/Ml 1 Ml Vial) 0.2 mg IV Q2M PRN PRN Reason: Opioid Reversal Ondansetron HCl (Ondansetron 4 Mg/2 Ml Vial) 4 mg IVP Q8HR PRN PRN Reason: Nausea And Vomiting Past medical history to include: Hypertension, osteoarthritis, gastric bypass, no stable later, anxiety depression Social history: Did smoke in the past. No alcohol. Lives alone Physical examination: VITAL SIGNS: 98.4, 73, 16, 106/49, 96% room air GENERAL: BMI 27.5, laying in bed, awake EYES: Pupils equal. Conjunctiva normal. HEENT: External appearance of nose and ears normal, oral cavity grossly normal. NECK: JVD not raised; masses not palpable. HEART: First and second heart sounds are normal; no edema. LUNGS: Respiratory rate normal; clear to auscultation DERMATOLOGICAL: Minimal redness of the skin generalized. ABDOMEN: Soft, mild right abdominal tenderness, no guarding rigidity, liver spleen not palpable, no masses palpable. PSYCH: Alert and oriented x3; mood and affect normal. INVESTIGATIONS, reviewed in the clinical context: November 23: WBC 3.3 hemoglobin 11.7 potassium 4.3 creatinine 0.76 WBC 4.5 hemoglobin 12.3 platelets 27 potassium 4.7 creatinine 1.01 lactic acid 0.9 UA positive for leukoesterase, WBC Coronavirus [PCR]-not detected EKG tracing personally reviewed by me-normal sinus rhythm Computed tomography scan of the abdomen pelvis with IV contrast: Absent gallbladder. Moderate amount of stool in the proximal colon. Abnormal location of the cecum. No wall tenderness Assessment and plan: -Acute right abdominal pain. No fever no chills. Cecal bascule, that is a type of volvulus predisposing to obstruction Patient is pending surgery this afternoon -Essential hypertension Continue Zestril -Primary osteoarthritis Pain medications as needed -Anxiety depression otherwise specified Continue home medications - chronic pain, for which patient has a pain pump Continue current treatment plan. Discussed with patient. Awaiting surgery this afternoon.
[2020-11-23] MEDS: HYDROmorphone 0.5 MG/0.5 ML SYRINGE IVP PRN ×4 (18:03→22:39)
[2020-11-23] MEDS: fentaNYL (PF) 50 MCG/ML 2 ML AMP IV ONE ×2 (18:25→18:30)
--- NOTE | 2020-11-23 20:20 | P.ANPRN ---
Procedure Note - Anesthesia - Nerve Block Performed Bilateral Erector Spinae Single Time Out Performed: Yes (1611) Date of Procedure: 11/23/20 Procedure Start Time: 16:12 Procedure Stop Time: 16:17 Location of Patient: PreOp Indication: Acute Post-Operative Pain, Requested by Surgeon Specifically requested for management of pain by DrMario: Marcos Babb Sedation Type: Sedate with meaningful contact maintained Preparation: Sterile Prep Position: Prone Catheter: None Needle Types: Pajunk Needle Gauge: 21 Ultrasound used to visualize needle placement: Yes Ultrasound used to observe medication spread: Yes Injectate: 0.5% Ropivacaine (see comment for volume) ((Ropi 0.5% 15cc +Nacl PF 15cc) each side) Blood Aspirated: No Pain Paresthesia on Injection Noted: No Resistance on Injection: Normal Image Stored and Saved: Yes Events: Uneventful and Well Tolerated
[2020-11-23] MEDS: ALVIMOPAN 12 MG CAPSULE PO SCH (22:39)
[2020-11-23] MEDS: lisinopriL 10 MG TAB PO SCH (22:39)
[2020-11-23] MEDS: FAMOTIDINE 20 MG/2 ML VIAL IV SCH (22:39)
[2020-11-23] MEDS: SODIUM CHLORIDE 0.9% 1,000 ML IV SCH (22:49)
[2020-11-23] MEDS: D5-0.45% NACL WITH KCL 20MEQ/L 1,000 ML IV SCH (22:51)
[2020-11-24] MEDS: HYDROmorphone 0.5 MG/0.5 ML SYRINGE IVP PRN ×2 (01:01→21:58)
[2020-11-24] MEDS: HYDROmorphone 1 MG/ML 1 ML SYRINGE IVP PRN ×7 (03:02→23:35)
[2020-11-24] MEDS: SODIUM CHLORIDE 0.9% 1,000 ML IV SCH (04:22)
[2020-11-24] MEDS: D5-0.45% NACL WITH KCL 20MEQ/L 1,000 ML IV SCH ×3 (05:28→18:59)
[2020-11-24] MEDS: buPROPion XL 300 MG TAB.ER.24H PO SCH (05:29)
[2020-11-24] MEDS: CYANOCOBALAMIN 500 MCG TAB PO SCH (05:29)
[2020-11-24] MEDS: busPIRone HCl 5 MG TAB PO SCH ×2 (05:29→17:02)
[2020-11-24] MEDS: MAGNESIUM OXIDE 400 MG TAB PO SCH ×2 (05:29→17:18)
[2020-11-24] MEDS: MULTIVITAMINS, THERA 1 EACH TAB PO SCH ×2 (05:29→17:02)
[2020-11-24] MEDS: FAMOTIDINE 20 MG/2 ML VIAL IV SCH ×2 (07:55→20:41)
[2020-11-24] MEDS: ALVIMOPAN 12 MG CAPSULE PO SCH (07:56)
[2020-11-24] MEDS: ENOXAPARIN 40 MG/0.4 ML SYRINGE SQ SCH (07:56)
[2020-11-24 08:50] LABS: Basophils % (A) 0 %; Eosinophils # (A) 0.1 k/uL (0-0.7); Eosinophils % (A) 0 %; HCT 32.6 % (34.0-46.0); HGB 10.2 gm/dL (11.4-16.0); Hypochromasia Slight; Lymphocytes # (A) 0.5 k/uL (1.0-4.8); Lymphocytes % (A) 4 %; MCH 30.7 pg (25.0-35.0); MCHC 31.2 g/dL (31.0-37.0); MCV 98.2 fL (80.0-100.0); Mean Platelet Volume 6.7; Monocytes # (A) 0.5 k/uL (0-1.0); Monocytes % (A) 4 %; Neutrophils # (A) 10.8 k/uL (1.3-7.7); Neutrophils % (A) 90 %; Platelet Count 232 k/uL (150-450); RBC 3.32 m/uL (3.80-5.40); RDW 12.9 % (11.5-15.5)
[2020-11-24 08:59] LABS: Calcium 7.8 mg/dL (8.4-10.2); Potassium 4.8 mmol/L (3.5-5.1)
[2020-11-24] MEDS: KETOROLAC 15 MG/ML 1 ML VIAL IVP PRN ×3 (10:23→23:35)
--- NOTE | 2020-11-24 13:38 | P.PN ---
Progress Note - Text Progress Note Date: 11/24/20 Chief Complaint: Right abdominal pain History of presenting complaint: This is a very pleasant 70-year-old patient of Dr. Nickerson. Chronic stable medical conditions include hypertension, osteoarthritis, chronic low back pain for which she has a pain pump-being followed by Dr. Artis, gastric bypass, anxiety depression. Yesterday around 3 PM she developed rather significant right abdominal pain. No nausea vomiting. No fever. Pain did not radiate. Patient normally has one or 2 bowel movements a day. No change in bowel pattern. 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 November 23: Underwent right hemicolectomy. In the recovery room patient started losing blood had to be taken back to the operating room. Bleed and was clipped Today: Sitting up in a chair. A bit tired. Abdominal binder in place. Abdominal pain present. No flatus. No nausea vomiting. On clear liquids. Review of systems: Was done for constitutional, cardiovascular, GI, pulmonary. relevant finding as above Active Medications Alvimopan (Alvimopan 12 Mg Capsule) 12 mg PO BID [facility] Stop: 11/30/20 09:01 Last Admin: 11/24/20 07:56 Dose: 12 mg Documented by: Benzocaine/Menthol (Benzocaine/Menthol Lozeng 1 Each Lozenge) 1 each MUCOUS MEM Q1HR PRN PRN Reason: Sore Throat Bupropion HCl (Bupropion Xl 300 Mg Tab.Er.24h) 300 mg PO DAILY@0500 [facility] Last Admin: 11/24/20 05:29 Dose: 300 mg Documented by: Buspirone HCl (Buspirone Hcl 5 Mg Tab) 15 mg PO BID@0500,1600 [facility] Last Admin: 11/24/20 05:29 Dose: 15 mg Documented by: Cyanocobalamin (Cyanocobalamin 500 Mcg Tab) 1,000 mcg PO DAILY@0500 [facility] Last Admin: 11/24/20 05:29 Dose: 1,000 mcg Documented by: Enoxaparin Sodium (Enoxaparin 40 Mg/0.4 Ml Syringe) 40 mg SQ DAILY [facility] Last Admin: 11/24/20 07:56 Dose: 40 mg Documented by: Famotidine (Famotidine 20 Mg/2 Ml Vial) 20 mg IV BID [facility] Last Admin: 11/24/20 07:55 Dose: 20 mg Documented by: Hydromorphone HCl (Hydromorphone 0.5 Mg/0.5 Ml Syringe) 0.5 mg IVP Q3HR PRN PRN Reason: Moderate Pain Last Admin: 11/24/20 01:01 Dose: 0.5 mg Documented by: Hydromorphone HCl (Hydromorphone 1 Mg/Ml 1 Ml Syringe) 1 mg IVP Q3HR PRN PRN Reason: Pain Last Admin: 11/24/20 11:27 Dose: 1 mg Documented by: Sodium Chloride (Saline 0.9%) 1,000 mls @ 50 mls/hr IV .Q20H [facility] Last Admin: 11/24/20 04:22 Dose: Not Given Documented by: Potassium Chloride/Dextrose/Sod Cl (D5%-1/2ns-Kcl 20 Meq/L Iv Solution) 1,000 mls @ 125 mls/hr IV .Q8H [facility] Last Admin: 11/24/20 10:23 Dose: 125 mls/hr Documented by: Ketorolac Tromethamine (Ketorolac 15 Mg/Ml 1 Ml Vial) 15 mg IVP Q6HR PRN PRN Reason: Mild to Moderate Pain Stop: 11/27/20 02:48 Last Admin: 11/24/20 10:23 Dose: 15 mg Documented by: Lisinopril (Lisinopril 10 Mg Tab) 10 mg PO HS [facility] Last Admin: 11/23/20 22:39 Dose: 10 mg Documented by: Magnesium Oxide (Magnesium Oxide 400 Mg Tab) 400 mg PO BID@0500,1600 [facility] Last Admin: 11/24/20 05:29 Dose: 400 mg Documented by: Multivitamins (Multivitamins, Thera 1 Each Tab) 1 each PO BID@0500,1600 [facility] Last Admin: 11/24/20 05:29 Dose: 1 each Documented by: Naloxone HCl (Naloxone 0.4 Mg/Ml 1 Ml Vial) 0.2 mg IV Q2M PRN PRN Reason: Opioid Reversal Ondansetron HCl (Ondansetron 4 Mg/2 Ml Vial) 4 mg IVP Q8HR PRN PRN Reason: Nausea And Vomiting Past medical history to include: Hypertension, osteoarthritis, gastric bypass, no stable later, anxiety depression Social history: Did smoke in the past. No alcohol. Lives alone Physical examination: VITAL SIGNS: 98.6, 107, 20, 133.74, 96% room air GENERAL: Sitting up in a recliner, tired EYES: Pupils equal. Conjunctiva normal. HEENT: External appearance of nose and ears normal, oral cavity grossly normal. NECK: JVD not raised; masses not palpable. HEART: First and second heart sounds are normal; no edema. LUNGS: Respiratory rate normal; clear to auscultation DERMATOLOGICAL: Minimal redness of the skin generalized. ABDOMEN: , tender, no guarding rigidity, liver spleen not palpable, no masses palpable. Binder in place PSYCH: Alert and oriented x3; mood and affect normal. INVESTIGATIONS, reviewed in the clinical context: November 24: WBC 12 hemoglobin 10.2 potassium 4.8 creatinine 0.80 November 23: WBC 3.3 hemoglobin 11.7 potassium 4.3 creatinine 0.76 WBC 4.5 hemoglobin 12.3 platelets 27 potassium 4.7 creatinine 1.01 lactic acid 0.9 UA positive for leukoesterase, WBC Coronavirus [PCR]-not detected EKG tracing personally reviewed by me-normal sinus rhythm Computed tomography scan of the abdomen pelvis with IV contrast: Absent gallbladder. Moderate amount of stool in the proximal colon. Abnormal location of the cecum. No wall tenderness Assessment and plan: -Acute right abdominal pain. No fever no chills. 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 Right hemicolectomy on November 23. Abdominal binder in place. On clear liquids. Pain control. -Essential hypertension Continue Zestril -Primary osteoarthritis Pain medications as needed -Anxiety depression otherwise specified Continue home medications - chronic pain, for which patient has a pain pump -Acute postprocedure blood is anemia as expected from surgery Follow H&H -Reactive leukocytosis from bleeding, no clinical evidence of infection Follow clinically Discussed with the patient. Getting IV fluids. Follow labs
--- NOTE | 2020-11-24 14:42 | P.PN ---
Subjective Progress Note Date: 11/24/20 CHIEF COMPLAINT: Cecal bascule HISTORY OF PRESENT ILLNESS: Patient is status post right colectomy for cecal bascule. She reports her pain is controlled. She is currently on a clear liquid diet. She is having bowel movements and passing gas. Her BM was brownish in color with a jelly like consistency. She is afebrile. WBC is 12.0 hemoglobin 10.2 creatinine 0.80. Patient is status post nerve block Patient seen and examined with Dr. cuello PHYSICAL EXAM: VITAL SIGNS: Reviewed. GENERAL: Well-developed in no acute distress. HEENT: No sclera icterus. Extraocular movements grossly intact. Moist buccal mucosa. Head is atraumatic, normocephalic. ABDOMEN: Soft. Nondistended. Incisional dressing clean dry and intact NEUROLOGIC: Alert and oriented. Cranial nerves II through XII grossly intact. ASSESSMENT: 1. Cecal bascule status post right colectomy PLAN: -Advance diet to full liquids -Continue pain medication as needed -Encourage patient to ambulate -Encourage patient to use incentive spirometer -GI prophylaxis Pepcid and DVT prophylaxis Lovenox Physician Strawhat Sizer note has been reviewed by physician. Signing provider agrees with the documented findings, assessment, and plan of care. Objective - Vital Signs Vital signs: Vital Signs Temp 98.4 F 11/24/20 14:25 Pulse 90 11/24/20 14:25 Resp 18 11/24/20 14:25 BP 133/61 11/24/20 14:25 Pulse Ox 97 11/24/20 14:25 Intake & Output 11/23/20 11/24/20 11/24/20 18:59 06:59 18:59 Intake Total 1500 825 Output Total 300 455 200 Balance 1200 370 -200 Intake: IV 1500 200 Intake, IV Titration 625 Amount D5-0.45% NaCl with KCl 625 20Meq/l 1,000 ml @ 125 mls/hr IV .Q8H [facility] Rx#: [id number] Output: Urine 275 450 200 Estimated Blood Loss 25 5 Other: Voiding Method Indwelling Catheter # Bowel Movements 1 1 - Labs CBC & Chem 7: 11/24/20 08:30 11/24/20 08:30 Labs: Abnormal Lab Results - Last 24 Hours (Table) 11/24/20 11/24/20 Range/Units 08:30 08:30 WBC 12.0 H (3.8-10.6) k/uL RBC 3.32 L (3.80-5.40) m/uL Hgb 10.2 L (11.4-16.0) gm/dL Hct 32.6 L (34.0-46.0) % Neutrophils # 10.8 H (1.3-7.7) k/uL Lymphocytes # 0.5 L (1.0-4.8) k/uL Sodium 134 L (137-145) mmol/L BUN 19 H (7-17) mg/dL Glucose 253 H (74-99) mg/dL Calcium 7.8 L (8.4-10.2) mg/dL Microbiology - Last 24 Hours (Table) 11/22/20 00:09 Blood Culture - Preliminary Blood No Growth after 48 hours 11/22/20 00:09 Blood Culture - Preliminary Blood No Growth after 48 hours
[2020-11-24] MEDS: lisinopriL 10 MG TAB PO SCH (20:42)
[2020-11-25] MEDS: HYDROmorphone 1 MG/ML 1 ML SYRINGE IVP PRN ×4 (02:31→12:35)
[2020-11-25] MEDS: D5-0.45% NACL WITH KCL 20MEQ/L 1,000 ML IV SCH ×2 (02:31→20:50)
[2020-11-25] MEDS: busPIRone HCl 5 MG TAB PO SCH ×2 (05:27→16:02)
[2020-11-25] MEDS: buPROPion XL 300 MG TAB.ER.24H PO SCH (05:28)
[2020-11-25] MEDS: MAGNESIUM OXIDE 400 MG TAB PO SCH ×2 (05:28→16:02)
[2020-11-25] MEDS: CYANOCOBALAMIN 500 MCG TAB PO SCH (05:28)
[2020-11-25] MEDS: MULTIVITAMINS, THERA 1 EACH TAB PO SCH ×2 (05:28→16:02)
[2020-11-25] MEDS: KETOROLAC 15 MG/ML 1 ML VIAL IVP PRN ×3 (05:29→18:33)
[2020-11-25 06:24] LABS: Basophils % (A) 0 %; Eosinophils # (A) 0.1 k/uL (0-0.7); Eosinophils % (A) 1 %; HCT 23.5 % (34.0-46.0); Hypochromasia Slight; Lymphocytes # (A) 0.8 k/uL (1.0-4.8); Lymphocytes % (A) 8 %; MCH 31.7 pg (25.0-35.0); MCHC 32.7 g/dL (31.0-37.0); MCV 97.1 fL (80.0-100.0); Mean Platelet Volume 6.7; Monocytes # (A) 0.5 k/uL (0-1.0); Monocytes % (A) 5 %; Neutrophils # (A) 8.8 k/uL (1.3-7.7); Neutrophils % (A) 86 %; Platelet Count 205 k/uL (150-450); RBC 2.42 m/uL (3.80-5.40); RDW 12.4 % (11.5-15.5); WBC 10.3 k/uL (3.8-10.6)
[2020-11-25 06:27] LABS: HGB 7.7 gm/dL (11.4-16.0)
[2020-11-25 06:34] LABS: Calcium 7.7 mg/dL (8.4-10.2); Potassium 5.1 mmol/L (3.5-5.1)
[2020-11-25] MEDS: FAMOTIDINE 20 MG/2 ML VIAL IV SCH ×2 (08:20→21:08)
[2020-11-25] MEDS: ENOXAPARIN 40 MG/0.4 ML SYRINGE SQ SCH (08:20)
--- NOTE | 2020-11-25 12:04 | P.PN ---
Progress Note - Text Progress Note Date: 11/25/20 Chief Complaint: Right abdominal pain History of presenting complaint: This is a very pleasant 70-year-old patient of Dr. Nickerson. Chronic stable medical conditions include hypertension, osteoarthritis, chronic low back pain for which she has a pain pump-being followed by Dr. Artis, gastric bypass, anxiety depression. Yesterday around 3 PM she developed rather significant right abdominal pain. No nausea vomiting. No fever. Pain did not radiate. Patient normally has one or 2 bowel movements a day. No change in bowel pattern. 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 November 23: Underwent right hemicolectomy. In the recovery room patient started losing blood had to be taken back to the operating room. Bleed and was clipped Today: Had oatmeal for breakfast today. Did walk in the hallway. Rather short-winded. Tired. Blood pressures running relatively low. Did have a small bowel movements yesterday with some flatus. Review of systems: Was done for constitutional, cardiovascular, GI, pulmonary. relevant finding as above Active Medications Hydrocodone Bitart/Acetaminophen (Hydrocodone/Apap 5-325mg 1 Each Tab) 1 each PO Q6HR PRN PRN Reason: Pain Benzocaine/Menthol (Benzocaine/Menthol Lozeng 1 Each Lozenge) 1 each MUCOUS MEM Q1HR PRN PRN Reason: Sore Throat Bupropion HCl (Bupropion Xl 300 Mg Tab.Er.24h) 300 mg PO DAILY@0500 [facility] Last Admin: 11/25/20 05:28 Dose: 300 mg Documented by: Buspirone HCl (Buspirone Hcl 5 Mg Tab) 15 mg PO BID@0500,1600 [facility] Last Admin: 11/25/20 05:27 Dose: 15 mg Documented by: Cyanocobalamin (Cyanocobalamin 500 Mcg Tab) 1,000 mcg PO DAILY@0500 [facility] Last Admin: 11/25/20 05:28 Dose: 1,000 mcg Documented by: Enoxaparin Sodium (Enoxaparin 40 Mg/0.4 Ml Syringe) 40 mg SQ DAILY [facility] Last Admin: 11/25/20 08:20 Dose: 40 mg Documented by: Famotidine (Famotidine 20 Mg/2 Ml Vial) 20 mg IV BID [facility] Last Admin: 11/25/20 08:20 Dose: 20 mg Documented by: Hydromorphone HCl (Hydromorphone 0.5 Mg/0.5 Ml Syringe) 0.5 mg IVP Q3HR PRN PRN Reason: Moderate Pain Last Admin: 11/24/20 21:58 Dose: 0.5 mg Documented by: Hydromorphone HCl (Hydromorphone 1 Mg/Ml 1 Ml Syringe) 1 mg IVP Q3HR PRN PRN Reason: Pain Last Admin: 11/25/20 08:25 Dose: 1 mg Documented by: Potassium Chloride/Dextrose/Sod Cl (D5%-1/2ns-Kcl 20 Meq/L Iv Solution) 1,000 mls @ 125 mls/hr IV .Q8H [facility] Last Admin: 11/25/20 02:31 Dose: 125 mls/hr Documented by: Ketorolac Tromethamine (Ketorolac 15 Mg/Ml 1 Ml Vial) 15 mg IVP Q6HR PRN PRN Reason: Mild to Moderate Pain Stop: 11/27/20 02:48 Last Admin: 11/25/20 05:29 Dose: 15 mg Documented by: Lisinopril (Lisinopril 10 Mg Tab) 10 mg PO HS [facility] Last Admin: 11/24/20 20:42 Dose: 10 mg Documented by: Magnesium Oxide (Magnesium Oxide 400 Mg Tab) 400 mg PO BID@0500,1600 [facility] Last Admin: 11/25/20 05:28 Dose: 400 mg Documented by: Multivitamins (Multivitamins, Thera 1 Each Tab) 1 each PO BID@0500,1600 [facility] Last Admin: 11/25/20 05:28 Dose: 1 each Documented by: Naloxone HCl (Naloxone 0.4 Mg/Ml 1 Ml Vial) 0.2 mg IV Q2M PRN PRN Reason: Opioid Reversal Ondansetron HCl (Ondansetron 4 Mg/2 Ml Vial) 4 mg IVP Q8HR PRN PRN Reason: Nausea And Vomiting Past medical history to include: Hypertension, osteoarthritis, gastric bypass, no stable later, anxiety depression Social history: Did smoke in the past. No alcohol. Lives alone Physical examination: VITAL SIGNS: 98.4, 93, 16, 100/64, 96% room air GENERAL: Sitting on side of bed, tired. Short of breath EYES: Pupils equal. Conjunctiva normal. HEENT: External appearance of nose and ears normal, oral cavity grossly normal. NECK: JVD not raised; masses not palpable. HEART: First and second heart sounds are normal; no edema. LUNGS: Respiratory rate increased; clear to auscultation DERMATOLOGICAL: Minimal redness of the skin generalized. ABDOMEN: , tender, no guarding rigidity, liver spleen not palpable, no masses palpable. Binder in place PSYCH: Alert and oriented x3; mood and affect normal. INVESTIGATIONS, reviewed in the clinical context: November 25: WBC 10.3 hemoglobin 7.7 potassium 5.1 creatinine 0.81 November 24: WBC 12 hemoglobin 10.2 potassium 4.8 creatinine 0.80 November 23: WBC 3.3 hemoglobin 11.7 potassium 4.3 creatinine 0.76 WBC 4.5 hemoglobin 12.3 platelets 27 potassium 4.7 creatinine 1.01 lactic acid 0.9 UA positive for leukoesterase, WBC Coronavirus [PCR]-not detected EKG tracing personally reviewed by me-normal sinus rhythm Computed tomography scan of the abdomen pelvis with IV contrast: Absent gallbladder. Moderate amount of stool in the proximal colon. Abnormal location of the cecum. 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 Right hemicolectomy on November 23. Abdominal binder in place. Advance to full liquids. Pain control. -Essential hypertension Continue Zestril-hold because of relative hypotension -Primary osteoarthritis Pain medications as needed -Anxiety depression otherwise specified Continue home medications - chronic pain, for which patient has a pain pump -Acute postprocedure blood is anemia as expected from surgery-worsening Drop in hemoglobin from 12.3-7.7, symptomatic. We'll transfuse unit of blood today. -Reactive leukocytosis from bleeding, no clinical evidence of infection Follow clinically Discussed with the patient. We will give a unit of blood. Repeat CBC in the morning. Increase activity as tolerated. Diet to be gradually advanced as tolerated.
--- NOTE | 2020-11-25 13:39 | P.PN ---
Subjective Progress Note Date: 11/25/20 CHIEF COMPLAINT: Cecal bascule HISTORY OF PRESENT ILLNESS: Patient is status post right colectomy for cecal bascule. She reports her pain is controlled. She is currently on full liquid diet. Last bowel movement was yesterday. She is passing gas. She denies any nausea or vomiting. Patient denies any dizziness or shortness of breath. She has been up and ambulating. She is afebrile. WBC 10.3 hemoglobin is down from 10.2-7.7 platelets 205 potassium 5.1 creatinine 0.81. Medicine service has or dered 1 unit of blood for hemoglobin of 7.7 Patient seen and examined with Dr. cuello PHYSICAL EXAM: VITAL SIGNS: Reviewed. GENERAL: Well-developed in no acute distress. HEENT: No sclera icterus. Extraocular movements grossly intact. Moist buccal mucosa. Head is atraumatic, normocephalic. ABDOMEN: Soft. Nondistended. Incision site dried blood noted along incision otherwise incision is clean dry and intact NEUROLOGIC: Alert and oriented. Cranial nerves II through XII grossly intact. ASSESSMENT: 1. Cecal bascule status post right colectomy 2. Anemia possibly hemidilutional due to IV fluids PLAN: -Advance diet to low fiber -Hep-Lock IV -Repeat CBC in a.m. -Continue pain medication as needed -Encourage patient to ambulate -Encourage patient to use incentive spirometer -GI prophylaxis Pepcid and DVT prophylaxis Lovenox Physician Loan Administrator note has been reviewed by physician. Signing provider agrees with the documented findings, assessment, and plan of care. Objective - Vital Signs Vital signs: Vital Signs Temp 98.6 F 11/25/20 13:17 Pulse 93 11/25/20 13:17 Resp 20 11/25/20 13:17 BP 128/74 11/25/20 13:17 Pulse Ox 96 11/25/20 13:05 Intake & Output 11/24/20 11/25/20 11/25/20 18:59 06:59 18:59 Intake Total 0 Output Total 550 550 300 Balance -550 -550 -300 Intake: Blood Product 0 Rc As-1 Unit 0 [id number] Output: Urine 550 550 300 Other: Voiding Method Indwelling Catheter Indwelling Catheter # Voids 3 # Bowel Movements 1 - Labs CBC & Chem 7: 11/25/20 06:03 11/25/20 06:03 Labs: Abnormal Lab Results - Last 24 Hours (Table) 11/23/20 11/25/20 11/25/20 Range/Units 13:20 06:03 06:03 RBC 2.42 L (3.80-5.40) m/uL Hgb 7.7 L D (11.4-16.0) gm/dL Hct 23.5 L (34.0-46.0) % Neutrophils # 8.8 H (1.3-7.7) k/uL Lymphocytes # 0.8 L (1.0-4.8) k/uL Sodium 133 L (137-145) mmol/L Glucose 146 H (74-99) mg/dL Calcium 7.7 L (8.4-10.2) mg/dL Crossmatch See Detail Microbiology - Last 24 Hours (Table) 11/22/20 00:09 Blood Culture - Preliminary Blood No Growth after 72 hours 11/22/20 00:09 Blood Culture - Preliminary Blood No Growth after 72 hours
[2020-11-25] MEDS: HYDROcodone/APAP 5-325MG 1 EACH TAB PO PRN ×2 (16:02→21:58)
[2020-11-25] MEDS: lisinopriL 10 MG TAB PO SCH (21:07)
[2020-11-26] MEDS: HYDROcodone/APAP 5-325MG 1 EACH TAB PO PRN ×4 (03:33→21:15)
[2020-11-26] MEDS: buPROPion XL 300 MG TAB.ER.24H PO SCH (03:37)
[2020-11-26] MEDS: CYANOCOBALAMIN 500 MCG TAB PO SCH (03:37)
[2020-11-26] MEDS: MAGNESIUM OXIDE 400 MG TAB PO SCH ×2 (03:37→15:34)
[2020-11-26] MEDS: MULTIVITAMINS, THERA 1 EACH TAB PO SCH ×2 (03:37→15:34)
[2020-11-26] MEDS: busPIRone HCl 5 MG TAB PO SCH ×2 (03:38→15:33)
[2020-11-26 05:39] LABS: Basophils % (A) 0 %; Eosinophils # (A) 0.4 k/uL (0-0.7); Eosinophils % (A) 6 %; HCT 23.5 % (34.0-46.0); HGB 8.1 gm/dL (11.4-16.0); Lymphocytes # (A) 0.8 k/uL (1.0-4.8); Lymphocytes % (A) 12 %; MCH 33.1 pg (25.0-35.0); MCHC 34.3 g/dL (31.0-37.0); MCV 96.6 fL (80.0-100.0); Mean Platelet Volume 6.7; Monocytes # (A) 0.4 k/uL (0-1.0); Monocytes % (A) 7 %; Neutrophils # (A) 4.8 k/uL (1.3-7.7); Neutrophils % (A) 74 %; Platelet Count 158 k/uL (150-450); RBC 2.43 m/uL (3.80-5.40); RDW 12.8 % (11.5-15.5); WBC 6.6 k/uL (3.8-10.6)
[2020-11-26 05:52] LABS: Calcium 8.2 mg/dL (8.4-10.2); Potassium 4.7 mmol/L (3.5-5.1)
[2020-11-26] MEDS: KETOROLAC 15 MG/ML 1 ML VIAL IVP PRN ×3 (06:21→18:37)
[2020-11-26] MEDS: ENOXAPARIN 40 MG/0.4 ML SYRINGE SQ SCH (07:51)
[2020-11-26] MEDS: FAMOTIDINE 20 MG/2 ML VIAL IV SCH (07:51)
--- NOTE | 2020-11-26 10:48 | P.PN ---
Subjective Progress Note Date: 11/26/20 CHIEF COMPLAINT: Cecal bascule HISTORY OF PRESENT ILLNESS: The patient is a 70-year-old status post right hemicolectomy for cecal bascule. She reports her pain was poorly controlled over night. She is ambulating. No bowel movements. She started low fiber diet yesterday. ROS: No reports of nausea and vomiting. No fevers or chills. No new chest pain. No productive sputum PHYSICAL EXAM: VITAL SIGNS: Reviewed CONSTITUTIONAL: Well developed and in no acute distress. EYES: Conjuctivae without sclera icterus. Extraocular movements grossly intact. HEAD, EARS, NOSE, THROAT: Moist buccal mucosa. Head is atraumatic, normocephalic. Hears conversational speech. No nasal drainage. Wears glasses. RESPIRATORY: Non-labored respirations and equal bilateral excursions. CARDIOVASCULAR: Palpable 2+ radial pulses. ABDOMEN: Dressing intact. MUSCULOSKELETAL: No gross deformity of the lower extremities noted. No clubbing. No cyanosis. SKIN: Good skin turgor. Well perfused. NEUROLOGIC: Cranial nerves II through XII grossly intact. No focal or lateralizing signs. PSYCH: Appropriate affect. Alert and oriented to person, place and time. CLINICAL LABS: Reviewed. Hgb downward trend from 11.7 to 7.7 yesterday now up to 8.1, no signs of bleeding. ASSESSMENT: 1. Cecal bascule 2. Postoperative anemia 3. Postoperative pain PLAN: 1. Continue low fiber diet 2. Adjust pain management to include non-narcotic schedule pain medications. 3. Continue ambulation. Objective - Vital Signs Vital signs: Vital Signs Temp 98.2 F 11/26/20 08:20 Pulse 90 11/26/20 08:20 Resp 18 11/26/20 08:20 BP 153/70 11/26/20 08:20 Pulse Ox 96 11/26/20 08:20 Intake & Output 11/25/20 11/26/20 11/26/20 18:59 06:59 18:59 Intake Total 790 Output Total 600 Balance 190 Intake: Oral 480 Blood Product 310 Rc As-1 Unit 310 [id number] Output: Urine 600 Other: Voiding Method Indwelling Catheter Toilet - Labs CBC & Chem 7: 11/26/20 05:19 11/26/20 05:19 Labs: Abnormal Lab Results - Last 24 Hours (Table) 11/23/20 11/26/20 11/26/20 Range/Units 13:20 05:19 05:19 RBC 2.43 L (3.80-5.40) m/uL Hgb 8.1 L (11.4-16.0) gm/dL Hct 23.5 L (34.0-46.0) % Lymphocytes # 0.8 L (1.0-4.8) k/uL Sodium 134 L (137-145) mmol/L Glucose 109 H (74-99) mg/dL Calcium 8.2 L (8.4-10.2) mg/dL Crossmatch See Detail Microbiology - Last 24 Hours (Table) 11/22/20 00:09 Blood Culture - Preliminary Blood No Growth after 96 hours 11/22/20 00:09 Blood Culture - Preliminary Blood No Growth after 96 hours Assessment and Plan (1) Postoperative anemia Current Visit: Yes Status: Acute Code(s): D64.9 - ANEMIA, UNSPECIFIED SNOMED Code(s): 707066862 (2) Postoperative pain Current Visit: Yes Status: Acute Code(s): G89.18 - OTHER ACUTE POSTPROCEDURAL PAIN SNOMED Code(s): 079227464 (3) Abdominal pain Current Visit: Yes Status: Acute Code(s): R10.9 - UNSPECIFIED ABDOMINAL PAIN SNOMED Code(s): 20903716 (4) Cecal bascule Current Visit: Yes Status: Acute Code(s): K56.2 - VOLVULUS SNOMED Code(s): 962218842
--- NOTE | 2020-11-26 16:28 | P.PN ---
Progress Note - Text Progress Note Date: 11/26/20 Chief Complaint: Right abdominal pain History of presenting complaint: This is a very pleasant 70-year-old patient of Dr. Nickerson. Chronic stable medical conditions include hypertension, osteoarthritis, chronic low back pain for which she has a pain pump-being followed by Dr. Artis, gastric bypass, anxiety depression. Yesterday around 3 PM she developed rather significant right abdominal pain. No nausea vomiting. No fever. Pain did not radiate. Patient normally has one or 2 bowel movements a day. No change in bowel pattern. 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 November 23: Underwent right hemicolectomy. In the recovery room patient started losing blood had to be taken back to the operating room. Bleed and was clipped. Had symptomatic anemia. 1 unit of blood transfused. Today: Abdominal pain improving. Passing flatus. Abdominal pain intermittently present. Low fiber diet. Has been up in the hallway. Review of systems: Was done for constitutional, cardiovascular, GI, pulmonary. relevant finding as above Active Medications Hydrocodone Bitart/Acetaminophen (Hydrocodone/Apap 5-325mg 1 Each Tab) 1 each PO Q6HR PRN PRN Reason: Pain Last Admin: 11/26/20 15:34 Dose: 1 each Documented by: Benzocaine/Menthol (Benzocaine/Menthol Lozeng 1 Each Lozenge) 1 each MUCOUS MEM Q1HR PRN PRN Reason: Sore Throat Bupropion HCl (Bupropion Xl 300 Mg Tab.Er.24h) 300 mg PO DAILY@0500 [facility] Last Admin: 11/26/20 03:37 Dose: 300 mg Documented by: Buspirone HCl (Buspirone Hcl 5 Mg Tab) 15 mg PO BID@0500,1600 [facility] Last Admin: 11/26/20 15:33 Dose: 15 mg Documented by: Cyanocobalamin (Cyanocobalamin 500 Mcg Tab) 1,000 mcg PO DAILY@0500 [facility] Last Admin: 11/26/20 03:37 Dose: 1,000 mcg Documented by: Enoxaparin Sodium (Enoxaparin 40 Mg/0.4 Ml Syringe) 40 mg SQ DAILY [facility] Last Admin: 11/26/20 07:51 Dose: 40 mg Documented by: Famotidine (Famotidine 20 Mg Tab) 20 mg PO BID [facility] Hydromorphone HCl (Hydromorphone 0.5 Mg/0.5 Ml Syringe) 0.5 mg IVP Q3HR PRN PRN Reason: Moderate Pain Last Admin: 11/24/20 21:58 Dose: 0.5 mg Documented by: Hydromorphone HCl (Hydromorphone 1 Mg/Ml 1 Ml Syringe) 1 mg IVP Q3HR PRN PRN Reason: Pain Last Admin: 11/25/20 12:35 Dose: 1 mg Documented by: Ketorolac Tromethamine (Ketorolac 15 Mg/Ml 1 Ml Vial) 15 mg IVP Q6HR PRN PRN Reason: Mild to Moderate Pain Stop: 11/27/20 02:48 Last Admin: 11/26/20 12:33 Dose: 15 mg Documented by: Lisinopril (Lisinopril 10 Mg Tab) 10 mg PO HS [facility] Last Admin: 11/25/20 21:07 Dose: 10 mg Documented by: Magnesium Oxide (Magnesium Oxide 400 Mg Tab) 400 mg PO BID@0500,1600 [facility] Last Admin: 11/26/20 15:34 Dose: 400 mg Documented by: Multivitamins (Multivitamins, Thera 1 Each Tab) 1 each PO BID@0500,1600 [facility] Last Admin: 11/26/20 15:34 Dose: 1 each Documented by: Naloxone HCl (Naloxone 0.4 Mg/Ml 1 Ml Vial) 0.2 mg IV Q2M PRN PRN Reason: Opioid Reversal Ondansetron HCl (Ondansetron 4 Mg/2 Ml Vial) 4 mg IVP Q8HR PRN PRN Reason: Nausea And Vomiting Past medical history to include: Hypertension, osteoarthritis, gastric bypass, no stable later, anxiety depression Social history: Did smoke in the past. No alcohol. Lives alone Physical examination: VITAL SIGNS: 98.4, 89, 18, 129/73, 99% room air GENERAL: Sitting up in a recliner, looking better EYES: Pupils equal. Conjunctiva pale. HEENT: External appearance of nose and ears normal, oral cavity grossly normal. NECK: JVD not raised; masses not palpable. HEART: First and second heart sounds are normal; no edema. LUNGS: Respiratory rate normal; clear to auscultation ABDOMEN: , Some tender, no guarding rigidity, liver spleen not palpable, no masses palpable. Binder in place PSYCH: Alert and oriented x3; mood and affect normal. INVESTIGATIONS, reviewed in the clinical context: November 26: Hemoglobin 8.14.7 creatinine 0.79 November 25: WBC 10.3 hemoglobin 7.7 potassium 5.1 creatinine 0.81 November 24: WBC 12 hemoglobin 10.2 potassium 4.8 creatinine 0.80 November 23: WBC 3.3 hemoglobin 11.7 potassium 4.3 creatinine 0.76 WBC 4.5 hemoglobin 12.3 platelets 27 potassium 4.7 creatinine 1.01 lactic acid 0.9 UA positive for leukoesterase, WBC Coronavirus [PCR]-not detected EKG tracing personally reviewed by me-normal sinus rhythm Computed tomography scan of the abdomen pelvis with IV contrast: Absent gallbladder. Moderate amount of stool in the proximal colon. Abnormal location of the cecum. 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 Right hemicolectomy on November 23. Abdominal binder in place. Low fat diet. Pain control. -Essential hypertension Zestril -Primary osteoarthritis Pain medications as needed -Anxiety depression otherwise specified Continue home medications - chronic pain syndrome, patient has a pain pump -Acute postprocedure blood is anemia as expected from surgery-worsening Drop in hemoglobin from 12.3-7.7, symptomatic. 1 unit of PRBC given -Reactive leukocytosis from bleeding, no clinical evidence of infection Follow clinically Improving slowly. Increase activity. DC when okay with surgery. Discussed with patient
[2020-11-26] MEDS: lisinopriL 10 MG TAB PO SCH (21:15)
[2020-11-26] MEDS: FAMOTIDINE 20 MG TAB PO SCH (21:15)
[2020-11-27] MEDS: KETOROLAC 15 MG/ML 1 ML VIAL IVP PRN ×4 (00:06→19:22)
[2020-11-27] MEDS: HYDROcodone/APAP 5-325MG 1 EACH TAB PO PRN ×2 (03:19→09:07)
[2020-11-27] MEDS: buPROPion XL 300 MG TAB.ER.24H PO SCH (06:26)
[2020-11-27] MEDS: MULTIVITAMINS, THERA 1 EACH TAB PO SCH ×2 (06:26→16:03)
[2020-11-27] MEDS: CYANOCOBALAMIN 500 MCG TAB PO SCH (06:26)
[2020-11-27] MEDS: busPIRone HCl 5 MG TAB PO SCH ×2 (06:26→16:03)
[2020-11-27] MEDS: MAGNESIUM OXIDE 400 MG TAB PO SCH ×2 (06:26→16:03)
[2020-11-27] MEDS: FAMOTIDINE 20 MG TAB PO SCH ×2 (09:07→20:19)
[2020-11-27] MEDS: ENOXAPARIN 40 MG/0.4 ML SYRINGE SQ SCH (09:07)
[2020-11-27] MEDS ORDERED: KETOROLAC 15 MG/ML 1 ML VIAL IVP SCH (12:00)
--- NOTE | 2020-11-27 14:10 | P.PN ---
Subjective Progress Note Date: 11/27/20 CHIEF COMPLAINT: Cecal bascule HISTORY OF PRESENT ILLNESS: The patient is a 70-year-old status post right hemicolectomy for cecal bascule. She is now having bowel movements. Postoperative pain is still being managed with oral narcotics including intravenous nonsteroidal inflammatory. She has chronic pain and has a pain pump with morphine. Her pain pump is due for re-calibration. Otherwise, she reports passing moderate flatus and having bowel movements. Her pain is well controlled. "I feel much better." ROS: No reports of nausea and vomiting. No fevers or chills. No new chest pain. No productive sputum PHYSICAL EXAM: VITAL SIGNS: Reviewed CONSTITUTIONAL: Well developed and in no acute distress. EYES: Conjuctivae without sclera icterus. Extraocular movements grossly intact. HEAD, EARS, NOSE, THROAT: Moist buccal mucosa. Head is atraumatic, normocephalic. Hears conversational speech. No nasal drainage. Wears glasses. RESPIRATORY: Non-labored respirations and equal bilateral excursions. CARDIOVASCULAR: Palpable 2+ radial pulses. ABDOMEN: Dressing intact. MUSCULOSKELETAL: No gross deformity of the lower extremities noted. No clubbing. No cyanosis. SKIN: Good skin turgor. Well perfused. NEUROLOGIC: Cranial nerves II through XII grossly intact. No focal or lateralizing signs. PSYCH: Appropriate affect. Alert and oriented to person, place and time. CLINICAL LABS: No new labs ASSESSMENT: 1. Cecal bascule 2. Postoperative anemia 3. Postoperative pain 4. Chronic pain with pain pump PLAN: 1. Clinically she has improved. 2. Likely disposition in 24 hrs. Objective - Vital Signs Vital signs: Vital Signs Temp 98.4 F 11/27/20 08:56 Pulse 93 11/27/20 08:56 Resp 18 11/27/20 08:56 BP 135/70 11/27/20 08:56 Pulse Ox 96 11/27/20 08:56 Intake & Output 11/26/20 11/27/20 11/27/20 18:59 06:59 18:59 Intake Total 300 Balance 300 Intake: Oral 300 Other: Voiding Method Toilet Toilet # Voids 1 # Bowel Movements 1 - Labs CBC & Chem 7: 11/26/20 05:19 11/26/20 05:19 Labs: Microbiology - Last 24 Hours (Table) 11/22/20 00:09 Blood Culture - Preliminary Blood No Growth after 120 hours 11/22/20 00:09 Blood Culture - Preliminary Blood No Growth after 120 hours Assessment and Plan (1) Postoperative anemia Current Visit: Yes Status: Acute Code(s): D64.9 - ANEMIA, UNSPECIFIED SNOMED Code(s): 810494961 (2) Postoperative pain Current Visit: Yes Status: Acute Code(s): G89.18 - OTHER ACUTE POSTPROCED URAL PAIN SNOMED Code(s): 604706297 (3) Abdominal pain Current Visit: Yes Status: Acute Code(s): R10.9 - UNSPECIFIED ABDOMINAL PAIN SNOMED Code(s): 02874030 (4) Cecal bascule Current Visit: Yes Status: Acute Code(s): K56.2 - VOLVULUS SNOMED Code(s): 133111610
[2020-11-27] MEDS: ACETAMINOPHEN TAB 500 MG TAB PO PRN (16:38)
[2020-11-27] MEDS: lisinopriL 10 MG TAB PO SCH (20:19)
--- NOTE | 2020-11-27 22:52 | P.PN ---
Progress Note - Text Progress Note Date: 11/27/20 Chief Complaint: Right abdominal pain History of presenting complaint: This is a very pleasant 70-year-old patient of Dr. Nickerson. Chronic stable medical conditions include hypertension, osteoarthritis, chronic low back pain for which she has a pain pump-being followed by Dr. Artis, gastric bypass, anxiety depression. Yesterday around 3 PM she developed rather significant right abdominal pain. No nausea vomiting. No fever. Pain did not radiate. Patient normally has one or 2 bowel movements a day. No change in bowel pattern. 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 November 23: Underwent right hemicolectomy. In the recovery room patient started losing blood had to be taken back to the operating room. Bleed and was clipped. Had symptomatic anemia. 1 unit of blood transfused. Today: feeling better. Abdominal pain is better. Positive flatus. Tolerating soft bland diet. Review of systems: Was done for constitutional, cardiovascular, GI, pulmonary. relevant finding as above Active Medications Acetaminophen (Acetaminophen Tab 500 Mg Tab) 500 mg PO Q6HR PRN PRN Reason: Fever and/ or Pain Last Admin: 11/27/20 16:38 Dose: 500 mg Documented by: Hydrocodone Bitart/Acetaminophen (Hydrocodone/Apap 5-325mg 1 Each Tab) 1 each PO Q6HR PRN PRN Reason: Pain Last Admin: 11/27/20 09:07 Dose: 1 each Documented by: Benzocaine/Menthol (Benzocaine/Menthol Lozeng 1 Each Lozenge) 1 each MUCOUS MEM Q1HR PRN PRN Reason: Sore Throat Bupropion HCl (Bupropion Xl 300 Mg Tab.Er.24h) 300 mg PO DAILY@0500 [facility] Last Admin: 11/27/20 06:26 Dose: 300 mg Documented by: Buspirone HCl (Buspirone Hcl 5 Mg Tab) 15 mg PO BID@0500,1600 [facility] Last Admin: 11/27/20 16:03 Dose: 15 mg Documented by: Cyanocobalamin (Cyanocobalamin 500 Mcg Tab) 1,000 mcg PO DAILY@0500 [facility] Last Admin: 11/27/20 06:26 Dose: 1,000 mcg Documented by: Enoxaparin Sodium (Enoxaparin 40 Mg/0.4 Ml Syringe) 40 mg SQ DAILY [facility] Last Admin: 11/27/20 09:07 Dose: 40 mg Documented by: Famotidine (Famotidine 20 Mg Tab) 20 mg PO BID [facility] Last Admin: 11/27/20 20:19 Dose: 20 mg Documented by: Hydromorphone HCl (Hydromorphone 0.5 Mg/0.5 Ml Syringe) 0.5 mg IVP Q3HR PRN PRN Reason: Moderate Pain Last Admin: 11/24/20 21:58 Dose: 0.5 mg Documented by: Hydromorphone HCl (Hydromorphone 1 Mg/Ml 1 Ml Syringe) 1 mg IVP Q3HR PRN PRN Reason: Pain Last Admin: 11/25/20 12:35 Dose: 1 mg Documented by: Ketorolac Tromethamine (Ketorolac 15 Mg/Ml 1 Ml Vial) 15 mg IVP Q6HR PRN PRN Reason: Pain Control Stop: 11/30/20 06:13 Last Admin: 11/27/20 19:22 Dose: 15 mg Documented by: Lisinopril (Lisinopril 10 Mg Tab) 10 mg PO [facility] Last Admin: 11/27/20 20:19 Dose: 10 mg Documented by: Magnesium Oxide (Magnesium Oxide 400 Mg Tab) 400 mg PO BID@0500,1600 [facility] Last Admin: 11/27/20 16:03 Dose: 400 mg Documented by: Multivitamins (Multivitamins, Thera 1 Each Tab) 1 each PO BID@0500,1600 [facility] Last Admin: 11/27/20 16:03 Dose: 1 each Documented by: Naloxone HCl (Naloxone 0.4 Mg/Ml 1 Ml Vial) 0.2 mg IV Q2M PRN PRN Reason: Opioid Reversal Ondansetron HCl (Ondansetron 4 Mg/2 Ml Vial) 4 mg IVP Q8HR PRN PRN Reason: Nausea And Vomiting Past medical history to include: Hypertension, osteoarthritis, gastric bypass, no stable later, anxiety depression Social history: Did smoke in the past. No alcohol. Lives alone Physical examination: VITAL SIGNS: 98.4, 97, 16, 154.77, 98% room air GENERAL: Sitting up in a recliner, more comfortable EYES: Pupils equal. Conjunctiva pale. HEENT: External appearance of nose and ears normal, oral cavity grossly normal. NECK: JVD not raised; masses not palpable. HEART: First and second heart sounds are normal; no edema. LUNGS: Respiratory rate normal; clear to auscultation ABDOMEN: , Some tender, no guarding rigidity, liver spleen not palpable, no masses palpable. Binder in place PSYCH: Alert and oriented x3; mood and affect normal. INVESTIGATIONS, reviewed in the clinical context: November 27: Hemoglobin 8.1 November 26: Hemoglobin 8.14.7 creatinine 0.79 November 25: WBC 10.3 hemoglobin 7.7 potassium 5.1 creatinine 0.81 November 24: WBC 12 hemoglobin 10.2 potassium 4.8 creatinine 0.80 November 23: WBC 3.3 hemoglobin 11.7 potassium 4.3 creatinine 0.76 WBC 4.5 hemoglobin 12.3 platelets 27 potassium 4.7 creatinine 1.01 lactic acid 0.9 UA positive for leukoesterase, WBC Coronavirus [PCR]-not detected EKG tracing personally reviewed by me-normal sinus rhythm Computed tomography scan of the abdomen pelvis with IV contrast: Absent gallbladder. Moderate amount of stool in the proximal colon. Abnormal location of the cecum. 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 Right hemicolectomy on November 23. Abdominal binder in place. Low fat diet. Pain control. -Essential hypertension Zestril -Primary osteoarthritis Pain medications as needed -Anxiety depression otherwise specified Continue home medications - chronic pain syndrome, patient has a pain pump -Acute postprocedure blood is anemia as expected from surgery-worsening Drop in hemoglobin from 12.3-7.7, symptomatic. 1 unit of PRBC given. Hemoglobin 8.1 -Reactive leukocytosis from bleeding, no clinical evidence of infection Follow clinically doing much better. Hopefully can be discharged tomorrow if okay with surgery.
[2020-11-28] MEDS: HYDROcodone/APAP 5-325MG 1 EACH TAB PO PRN ×3 (04:45→16:19)
[2020-11-28] MEDS: busPIRone HCl 5 MG TAB PO SCH ×2 (04:46→17:20)
[2020-11-28] MEDS: buPROPion XL 300 MG TAB.ER.24H PO SCH (04:46)
[2020-11-28] MEDS: MULTIVITAMINS, THERA 1 EACH TAB PO SCH ×2 (04:46→17:21)
[2020-11-28] MEDS: MAGNESIUM OXIDE 400 MG TAB PO SCH ×2 (04:46→17:21)
[2020-11-28] MEDS: CYANOCOBALAMIN 500 MCG TAB PO SCH (04:46)
[2020-11-28] MEDS: ENOXAPARIN 40 MG/0.4 ML SYRINGE SQ SCH (09:21)
[2020-11-28] MEDS: FAMOTIDINE 20 MG TAB PO SCH (09:21)
[2020-11-28 10:20] LABS: Basophils % (A) 0 %; Eosinophils # (A) 0.2 k/uL (0-0.7); Eosinophils % (A) 5 %; HCT 22.6 % (34.0-46.0); HGB 7.6 gm/dL (11.4-16.0); Lymphocytes # (A) 0.5 k/uL (1.0-4.8); Lymphocytes % (A) 10 %; MCH 32.2 pg (25.0-35.0); MCHC 33.7 g/dL (31.0-37.0); MCV 95.5 fL (80.0-100.0); Mean Platelet Volume 6.4; Monocytes # (A) 0.6 k/uL (0-1.0); Monocytes % (A) 11 %; Neutrophils # (A) 3.8 k/uL (1.3-7.7); Neutrophils % (A) 73 %; Platelet Count 239 k/uL (150-450); RBC 2.37 m/uL (3.80-5.40); RDW 13.2 % (11.5-15.5); WBC 5.2 k/uL (3.8-10.6)
[2020-11-28 10:25] LABS: Calcium 8.9 mg/dL (8.4-10.2); Potassium 4.4 mmol/L (3.5-5.1)
--- NOTE | 2020-11-28 13:51 | P.PN ---
Subjective Progress Note Date: 11/28/20 CHIEF COMPLAINT: Cecal bascule HISTORY OF PRESENT ILLNESS: Patient is status post right colectomy for cecal bascule. She reports her pain is controlled. She is tolerating low fiber diet. She is passing gas and having bowel movements. She denies any nausea or vomiting. She did have a blood clot noted on her incisional dressing from the umbilicus area. Hemoglobin is at 7.6. WBC is 5.2 platelets 239. She has been up and ambulating. Her pain is controlled. Discussed case with Dr. cuello PHYSICAL EXAM: VITAL SIGNS: Reviewed. GENERAL: Well-developed in no acute distress. HEENT: No sclera icterus. Extraocular movements grossly intact. Moist buccal mucosa. Head is atraumatic, normocephalic. ABDOMEN: Soft. Nondistended. Incision site dried blood noted along incision otherwise incision is clean dry and intact NEUROLOGIC: Alert and oriented. Cranial nerves II through XII grossly intact. ASSESSMENT: 1. Cecal bascule status post right colectomy 2. Postoperative anemia PLAN: -Continue low fiber diet -Patient is stable from surgical standpoint for discharge -2 day prescription written for oxyIR PRN for pain -Otherwise patient needs to follow up with Dr. Glez for her pain management Physician Agricultural Appraiser note has been reviewed by physician. Signing provider agrees with the documented findings, assessment, and plan of care. Objective - Vital Signs Vital signs: Vital Signs Temp 97.1 F L 11/28/20 10:04 Pulse 97 11/28/20 08:50 Resp 17 11/28/20 08:50 BP 149/80 11/28/20 08:50 Pulse Ox 97 11/28/20 08:50 Intake & Output 11/27/20 11/28/20 11/28/20 18:59 06:59 18:59 Other: Voiding Method Toilet Toilet # Voids 1 # Bowel Movements 1 1 - Labs CBC & Chem 7: 11/28/20 09:58 11/28/20 09:58 Labs: Abnormal Lab Results - Last 24 Hours (Table) 11/28/20 11/28/20 Range/Units 09:58 09:58 RBC 2.37 L (3.80-5.40) m/uL Hgb 7.6 L (11.4-16.0) gm/dL Hct 22.6 L (34.0-46.0) % Lymphocytes # 0.5 L (1.0-4.8) k/uL Sodium 134 L (137-145) mmol/L BUN 19 H (7-17) mg/dL Glucose 104 H (74-99) mg/dL Microbiology - Last 24 Hours (Table) 11/22/20 00:09 Blood Culture - Final Blood No Growth after 144 hours 11/22/20 00:09 Blood Culture - Final Blood No Growth after 144 hours
[2020-11-28] MEDS: ACETAMINOPHEN TAB 500 MG TAB PO PRN (15:13)
[2020-11-28 15:21] VITALS: BP 137/77; PULSE 98; RESP 16; TEMP 98.2
--- NOTE | 2020-11-28 20:07 | P.DS ---
Providers Date of admission: 11/22/20 23:39 Expected date of discharge: 11/28/20 Attending physician: Julio Patrick Consults: 11/22/20 03:17 Consult Physician Routine Consulting Provider: Marcos Babb Consult Reason/Comments: Abdominal pain; Cecal bascule Do you want consulting provider notified?: Yes Primary care physician: [facility] Course: Chief Complaint: Right abdominal pain History of presenting complaint: This is a very pleasant 70-year-old patient of Dr. Nickerson. Chronic stable medical conditions include hypertension, osteoarthritis, chronic low back pain for which she has a pain pump-being followed by Dr. Artis, gastric bypass, anxiety depression. Yesterday around 3 PM she developed rather significant right abdominal pain. No nausea vomiting. No fever. Pain did not radiate. Patient normally has one or 2 bowel movements a day. No change in bowel pattern. 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 November 23: Underwent right hemicolectomy. In the recovery room patient started losing blood had to be taken back to the operating room. Bleed and was clipped. Had symptomatic anemia. 1 unit of blood transfused. Today: Doing much better. Up and about. Tolerating diet. Had a bowel movement. Pain much better controlled. Cleared by surgery for discharge. Consultation: Dr. Babb from general surgery Past medical history to include: Hypertension, osteoarthritis, gastric bypass, no stable later, anxiety depression Social history: Did smoke in the past. No alcohol. Lives alone Physical examination: VITAL SIGNS: 98.2, 98, 16, 137/77, 95% room air GENERAL: Sitting up , comfortable EYES: Pupils equal. Conjunctiva pale. HEENT: External appearance of nose and ears normal, oral cavity grossly normal. NECK: JVD not raised; masses not palpable. HEART: First and second heart sounds are normal; no edema. LUNGS: Respiratory rate normal; clear to auscultation ABDOMEN: , Mild tender, no guarding rigidity, liver spleen not palpable, no masses palpable. Binder in place PSYCH: Alert and oriented x3; mood and affect normal. INVESTIGATIONS, reviewed in the clinical context: November 28: Hemoglobin 7.6 November 25: WBC 10.3 hemoglobin 7.7 potassium 5.1 creatinine 0.81 WBC 4.5 hemoglobin 12.3 platelets 27 potassium 4.7 creatinine 1.01 lactic acid 0.9 UA positive for leukoesterase, WBC Coronavirus [PCR]-not detected EKG tracing personally reviewed by me-normal sinus rhythm Computed tomography scan of the abdomen pelvis with IV contrast: Absent gall bladder. Moderate amount of stool in the proximal colon. Abnormal location of the cecum. 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 Right hemicolectomy on November 23. Abdominal binder in place. Low fat diet. Pain control. -Essential hypertension Zestril -Primary osteoarthritis Pain medications as needed -Anxiety depression otherwise specified Continue home medications - chronic pain syndrome, patient has a pain pump -Acute postprocedure blood is anemia as expected from surgery-worsening Drop in hemoglobin from 12.3-7.7, symptomatic. 1 unit of PRBC given. Hemoglobin 7.6 -Reactive leukocytosis from bleeding, no clinical evidence of infection Follow clinically Disposition: Home Patient Condition at Discharge: Stable Plan - Discharge Summary New Discharge Prescriptions: New oxyCODONE HCL [OxyIR] 5 mg PO Q6H PRN 2 Days #8 tab PRN Reason: Pain Continue busPIRone HCL 15 mg PO BID@0500,1600 buPROPion XL [Wellbutrin XL] 300 mg PO DAILY@0500 lisinopriL [Zestril] 10 mg PO HS Risedronate Sodium [Actonel] 35 mg PO SA Multivitamins, Thera [Multivitamin (formulary)] 1 tab PO BID@0500,1600 Meloxicam [Mobic] 7.5 mg PO BID@0500,1600 Ferrous Sulfate [Iron] 325 mg PO DAILY@0500 Cyanocobalamin (Vitamin B-12) [Vitamin B-12] 1,000 mcg PO DAILY@0500 Morphine Pain Pump 0.01 mg INTRATHECA CONTINUOUS L.acidoph,Paracasei, B.lactis [Probiotic] 1 cap PO BID@0500,1600 Psyllium Husk [Reguloid] 0.4 gm PO BID@0500,1600 Magnesium 250 mg PO BID@0500,1600 Triamcinolone Acetonide [Nasacort] 1 spr EA NOSTRIL DAILY PRN PRN Reason: Allergy Symptoms Cranberry Fruit Concentrate [Azo Cranberry] 250 mg PO BID@0500,1600 Calcium Citrate/Vitamin D3 [Citracal + D Maximum Caplet] 1 tab PO BID@0500,1600 Discontinued Potassium 99 mg PO BID@0500,1600 Triamterene-Hctz 75-50Mg [Maxzide 75-50] 1 tab PO DAILY@0500 Docusate 250mg 250 mg PO BID@0500,1600 Furosemide [Lasix] 20 mg PO DAILY PRN PRN Reason: Edema Discharge Medication List Cyanocobalamin (Vitamin B-12) [Vitamin B-12] 1,000 mcg PO DAILY@0500 04/30/18 [History] Ferrous Sulfate [Iron] 325 mg PO DAILY@0500 04/30/18 [History] Meloxicam [Mobic] 7.5 mg PO BID@0500,1600 04/30/18 [History] Morphine Pain Pump 0.01 mg INTRATHECA CONTINUOUS 04/30/18 [History] Multivitamins, Thera [Multivitamin (formulary)] 1 tab PO BID@0500,1600 04/30/18 [History] Risedronate Sodium [Actonel] 35 mg PO SA 04/30/18 [History] buPROPion XL [Wellbutrin XL] 300 mg PO DAILY@0500 04/30/18 [History] busPIRone HCL 15 mg PO BID@0500,1600 04/30/18 [History] lisinopriL [Zestril] 10 mg PO HS 04/30/18 [History] L.acidoph,Paracasei, B.lactis [Probiotic] 1 cap PO BID@0500,1600 02/12/20 [History] Calcium Citrate/Vitamin D3 [Citracal + D Maximum Caplet] 1 tab PO BID@0500,1600 11/22/20 [History] Cranberry Fruit Concentrate [Azo Cranberry] 250 mg PO BID@0500,1600 11/22/20 [History] Magnesium 250 mg PO BID@0500,1600 11/22/20 [History] Psyllium Husk [Reguloid] 0.4 gm PO BID@0500,1600 11/22/20 [History] Triamcinolone Acetonide [Nasacort] 1 spr EA NOSTRIL DAILY PRN 11/22/20 [History] oxyCODONE HCL [OxyIR] 5 mg PO Q6H PRN 2 Days #8 tab 11/28/20 [Rx] Follow up Appointment(s)/Referral(s): Stuart Nickerson MD [Primary Care Provider] - 1-2 days Marcos Babb MD [STAFF PHYSICIAN] - 12/08/20 3:00 pm Patient Instructions/Handouts: Low Fiber Diet (DC) Activity/Diet/Wound Care/Special Instructions: soft bland diet, Fluids encouraged No driving while taking narcotics No lifting over 10 pounds ( nothing strenuous) You may shower. No soaking or tub baths for 2 weeks (shower daily per Dr Babb) no pools Very light activity until you are reevaluated at your follow up appointment with your surgeon Continue to use your abdominal binder for support follow up as planned, call Dr Babb with any fever, chills., increased redness or foul drainage from your incision, pain not controlled with your pain meds or any concerns. Continue to use your incentive spirometery at home. Last received plain tylenol 500mg at 3:15, Last received Henning at 4:20 Change dressing as needed. Discharge Disposition: HOME SELF-CARE
--- NOTE | 2021-01-11 10:04 | P.OP ---
Date of Procedure: 11/23/20 Preoperative Diagnosis: Hematoma Postoperative Diagnosis: Hematoma Procedure(s) Performed: Opening of skin incision and drainage of subcutaneous hematoma Anesthesia: TADEO Surgeon: Marcos Babb Estimated Blood Loss (ml): 10 Pathology: none sent Condition: stable Disposition: PACU Description of Procedure: The patient was placed on the operative table in supine position. She received general anesthesia. Patient had some oozing from her inferior skin incision. The lela were removed. A 15 mL hematoma was removed from the subcutaneous tissues. There was a small ooze from the skin edge which was coagulated with left cautery. No further bleeding was seen. The skin was then re-stapled. Patient tolerated the procedure well.
== END 2020-11-28 18:10 | disposition home or self-care (01) | DRG 330 ==
LOC: EC 23:00 → 6PED 11-22 03:52 → OBSVTOIN 11-22 23:39
PROVIDERS: ADMIT Hospitalist; ATTEND Hospitalist
PROC: 0W3F0ZZ Control Bleeding in Abdominal Wall, Open Approach (ICD-10-PCS; 2020-11-23)
PROC: 0DTF0ZZ Resection of Right Large Intestine, Open Approach (ICD-10-PCS; principal; 2020-11-23 16:40)
PROC: 30233N1 Transfusion of Nonautologous Red Blood Cells into Peripheral Vein, Percutaneous Approach (ICD-10-PCS; 2020-11-25)
DX: K56.2 Volvulus (principal); D62 Acute posthemorrhagic anemia; L76.22 Postprocedural hemorrhage of skin and subcutaneous tissue following other procedure; I95.9 Hypotension, unspecified; Z20.822 Contact with and (suspected) exposure to COVID-19; I10 Essential (primary) hypertension; M19.91 Primary osteoarthritis, unspecified site; F41.8 Other specified anxiety disorders; G89.4 Chronic pain syndrome; M54.5 Low back pain; D72.828 Other elevated white blood cell count; Z79.1 Long term (current) use of non-steroidal anti-inflammatories (NSAID); Z79.891 Long term (current) use of opiate analgesic; Z79.899 Other long term (current) drug therapy; Z96.89 Presence of other specified functional implants; Z98.84 Bariatric surgery status; Z87.891 Personal history of nicotine dependence; Z87.01 Personal history of pneumonia (recurrent); Z90.49 Acquired absence of other specified parts of digestive tract; Z87.19 Personal history of other diseases of the digestive system; Z96.60 Presence of unspecified orthopedic joint implant; Z96.82 Presence of neurostimulator; Z98.890 Other specified postprocedural states; Z91.030 Bee allergy status; Z91.013 Allergy to seafood; Z91.048 Other nonmedicinal substance allergy status; Z83.3 Family history of diabetes mellitus; Z81.1 Family history of alcohol abuse and dependence; Z82.49 Family history of ischemic heart disease and other diseases of the circulatory system; Y83.2 Surgical operation with anastomosis, bypass or graft as the cause of abnormal reaction of the patient, or of later complication, without mention of misadventure at the time of the procedure; Y92.238 Other place in hospital as the place of occurrence of the external cause
CPT/HCPCS: 36415; 64999; 74177; 76942; 80048; 80053; 81001; 83605; 83690; 84484; 85025; 85610; 86850; 86900; 86901; 86920; 87040; 87635; 88307; 93005; 96361; 96374; 96375; 99285

== ENCOUNTER 2020-11-29 09:10 | Emergency (ER) | payer MEDICARE ==
[2020-11-29 09:16] VITALS: TEMP 98.8
[2020-11-29] MEDS ORDERED: SODIUM CHLORIDE 0.9% 1,000 ML IV STA (09:27)
[2020-11-29] MEDS ORDERED: ONDANSETRON 4 MG/2 ML VIAL IVP STA (09:27)
[2020-11-29] MEDS ORDERED: HYDROmorphone 0.5 MG/0.5 ML SYRINGE IVP STA ×2 (09:27→10:36)
--- NOTE | 2020-11-29 09:49 | ED ---
General Adult HPI - General Chief complaint: Recheck/Abnormal Lab/Rx Stated complaint: Post Op/Bowel Resection Time Seen by Provider: 11/29/20 09:11 Source: patient, RN notes reviewed Mode of arrival: EMS Limitations: no limitations - History of Present Illness Initial comments: 70-year-old female presents emergency Department chief complaint of abdominal pain. 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 Babb on 11/23/2020. Patient states that she's been having increasing abdominal pain. Patient states that she had a fever last night she was discharged yesterday from the hospital. She admits to some nausea states that she's taken pain meds at home which is not helping. Denies any chest pain shortness of breath or cough cold-like symptoms. She states his been drainage from her incision site - Related Data Home Medications Medication Instructions Recorded Confirmed Cyanocobalamin (Vitamin B-12) 1,000 mcg PO DAILY@0500 04/30/18 11/29/20 [Vitamin B-12] Ferrous Sulfate [Iron] 325 mg PO DAILY@0500 04/30/18 11/29/20 Meloxicam [Mobic] 7.5 mg PO BID@0500,1600 04/30/18 11/29/20 Morphine Pain Pump 0.01 mg INTRATHECA CONTINUOUS 04/30/18 11/29/20 Multivitamins, Thera [Multivitamin 1 tab PO BID@0500,1600 04/30/18 11/29/20 (formulary)] Risedronate Sodium [Actonel] 35 mg PO SA 04/30/18 11/29/20 buPROPion XL [Wellbutrin XL] 300 mg PO DAILY@0500 04/30/18 11/29/20 busPIRone HCL 15 mg PO BID@0500,1600 04/30/18 11/29/20 lisinopriL [Zestril] 10 mg PO HS 04/30/18 11/29/20 L.acidoph,Paracasei, B.lactis 1 cap PO BID@0500,1600 02/12/20 11/29/20 [Probiotic] Calcium Citrate/Vitamin D3 1 tab PO BID@0500,1600 11/22/20 11/29/20 [Citracal + D Maximum Caplet] Cranberry Fruit Concentrate [Azo 250 mg PO BID@0500,1600 11/22/20 11/29/20 Cranberry] Magnesium 250 mg PO BID@0500,1600 11/22/20 11/29/20 Psyllium Husk [Reguloid] 0.4 gm PO BID@0500,1600 11/22/20 11/29/20 Triamcinolone Acetonide [Nasacort] 1 spr EA NOSTRIL DAILY PRN 11/22/20 11/29/20 Previous Rx's Medication Instructions Recorded oxyCODONE HCL [OxyIR] 5 mg PO Q6H PRN 2 Days #8 tab 11/28/20 HYDROcodone/APAP 10-325MG [[place] 1 tab PO Q6HR PRN 3 Days #12 tab 11/29/20 10-325] Allergies Allergy/AdvReac Type Severity Reaction Status Date / Time bee venom protein (honey bee) Allergy Unknown Swelling Verified 11/29/20 10:56 cat dander Allergy Unknown SINUS Verified 11/29/20 10:56 SYMPTOMS dog dander Allergy Unknown SINUS Verified 11/29/20 10:56 SYMPTOMS shellfish derived [Crab] Allergy Unknown Unknown Verified 11/29/20 10:56 aluminum Allergy Unknown Verified 11/29/20 10:56 amino acids [From Chromimin] Allergy Unknown Verified 11/29/20 10:56 chromium [From Chromimin] Allergy Unknown Verified 11/29/20 10:56 grass pollen Allergy Unknown Verified 11/29/20 10:56 iron Allergy Unknown Verified 11/29/20 10:56 mold Allergy Unknown Verified 11/29/20 10:56 nickel Allergy Unknown Verified 11/29/20 10:56 tree and shrub pollen Allergy Unknown Verified 11/29/20 10:56 Yeast Allergy Unknown Verified 11/29/20 10:56 cockroach Allergy Unknown Uncoded 11/29/20 10:56 dust Allergy Unknown Uncoded 11/29/20 10:56 dust mite Allergy Unknown Uncoded 11/29/20 10:56 weeds Allergy Unknown Uncoded 11/29/20 10:56 Review of Systems ROS Statement: Those systems with pertinent positive or pertinent negative responses have been documented in the HPI. ROS Other: All systems not noted in ROS Statement are negative. Past Medical History Past Medical History: Hypertension, Osteoarthritis (OA), Pneumonia Additional Past Medical History / Comment(s): chronic back pain- morpine pain pump in place History of Any Multi-Drug Resistant Organisms: None Reported Past Surgical History: Back Surgery, Bariatric Surgery, Cholecystectomy, Joint Replacement, Orthopedic Surgery Additional Past Surgical History / Comment(s): Gastric byspass 1998, nerve stimulator-in place but not functioning at this time 11/25 Past Anesthesia/Blood Transfusion Reactions: No Reported Reaction Past Psychological History: Anxiety, Depression Smoking Status: Never smoker Past Alcohol Use History: None Reported Past Drug Use History: None Reported - Past Family History Mother Family Medical History: Diabetes Mellitus Additional Family Medical History / Comment(s): heart issues Father Additional Family Medical History / Comment(s): alcoholic General Exam Limitations: no limitations General appearance: alert, in no apparent distress Head exam: Present: atraumatic, normocephalic, normal inspection Eye exam: Present: normal appearance, PERRL, EOMI. Absent: scleral icterus, conjunctival injection, periorbital swelling ENT exam: Present: normal exam, normal oropharynx, mucous membranes moist Neck exam: Present: normal inspection, full ROM. Absent: tenderness, meningismus, lymphadenopathy Respiratory exam: Present: normal lung sounds bilaterally. Absent: respiratory distress, wheezes, rales, rhonchi, stridor Cardiovascular Exam: Present: regular rate, normal rhythm, normal heart sounds. Absent: systolic murmur, diastolic murmur, rubs, gallop, clicks GI/Abdominal exam: Present: soft, tenderness, normal bowel sounds, other (Midline incision there is some drainage in the lower aspect). Absent: distended, guarding, rebound, rigid Back exam: Absent: CVA tenderness (R), CVA tenderness (L) Neurological exam: Present: alert Skin exam: Present: warm, dry, intact, normal color. Absent: rash Course Vital Signs 11/29/20 11/29/20 09:13 11:12 Temperature 98.8 F Pulse Rate 99 98 Respiratory 20 18 Rate Blood Pressure 147/80 137/77 O2 Sat by Pulse 95 97 Oximetry Medical Decision Making - Medical Decision Making 70-year-old presents for abdominal pain CT shows mild ileus, postoperative changes and fluid there is no abscesses no obvious leaking. Case was discussed with surgeon Dr. Babb recommended patient follow-up in office patient is stable for discharge and patient will return for any worsening change in symptoms. - Lab Data Result diagrams: 11/29/20 09:32 11/29/20 09:32 Lab Results 11/29/20 11/29/20 11/29/20 Range/Units 09:32 09:32 09:32 WBC 8.6 (3.8-10.6) k/uL RBC 2.77 L (3.80-5.40) m/uL Hgb 8.5 L (11.4-16.0) gm/dL Hct 26.3 L (34.0-46.0) % MCV 94.7 (80.0-100.0) fL MCH 30.7 (25.0-35.0) pg MCHC 32.4 (31.0-37.0) g/dL RDW 13.4 (11.5-15.5) % Plt Count 307 (150-450) k/uL MPV 6.9 Neutrophils % 82 % Lymphocytes % 7 % Monocytes % 8 % Eosinophils % 2 % Basophils % 0 % Neutrophils # 7.1 (1.3-7.7) k/uL Lymphocytes # 0.6 L (1.0-4.8) k/uL Monocytes # 0.7 (0-1.0) k/uL Eosinophils # 0.2 (0-0.7) k/uL Basophils # 0.0 (0-0.2) k/uL Sodium 133 L (137-145) mmol/L Potassium 4.0 (3.5-5.1) mmol/L Chloride 96 L (98-107) mmol/L Carbon Dioxide 29 (22-30) mmol/L Anion Gap 8 mmol/L BUN 16 (7-17) mg/dL Creatinine 0.76 (0.52-1.04) mg/dL Est GFR (CKD-EPI)AfAm >90 (>60 ml/min/1.73 sqM) Est GFR (CKD-EPI)NonAf 80 (>60 ml/min/1.73 sqM) Glucose 117 H (74-99) mg/dL Plasma Lactic Acid Edison (0.7-2.0) mmol/L Calcium 8.8 (8.4-10.2) mg/dL Total Bilirubin 1.7 H (0.2-1.3) mg/dL AST 34 (14-36) U/L ALT 15 (4-34) U/L Alkaline Phosphatase 54 (38-126) U/L Total Protein 6.2 L (6.3-8.2) g/dL Albumin 3.7 (3.5-5.0) g/dL Amylase 63 (30-110) U/L Lipase 74 (23-300) U/L Urine Color Yellow Urine Appearance Clear (Clear) Urine pH 6.5 (5.0-8.0) Ur Specific Bryant 1.017 (1.001-1.035) Urine Protein Trace H (Negative) Urine Glucose (UA) Negative (Negative) Urine Ketones Trace H (Negative) Urine Blood Negative (Negative) Urine Nitrite Negative (Negative) Urine Bilirubin Negative (Negative) Urine Urobilinogen <2.0 (<2.0) mg/dL Ur Leukocyte Esterase Small H (Negative) Urine WBC 3 (0-5) /hpf Ur Squamous Epith Cells 1 (0-4) /hpf Urine Bacteria Rare H (None) /hpf 11/29/20 Range/Units 09:32 WBC (3.8-10.6) k/uL RBC (3.80-5.40) m/uL Hgb (11.4-16.0) gm/dL Hct (34.0-46.0) % MCV (80.0-100.0) fL MCH (25.0-35.0) pg MCHC (31.0-37.0) g/dL RDW (11.5-15.5) % Plt Count (150-450) k/uL MPV Neutrophils % % Lymphocytes % % Monocytes % % Eosinophils % % Basophils % % Neutrophils # (1.3-7.7) k/uL Lymphocytes # (1.0-4.8) k/uL Monocytes # (0-1.0) k/uL Eosinophils # (0-0.7) k/uL Basophils # (0-0.2) k/uL Sodium (137-145) mmol/L Potassium (3.5-5.1) mmol/L Chloride (98-107) mmol/L Carbon Dioxide (22-30) mmol/L Anion Gap mmol/L BUN (7-17) mg/dL Creatinine (0.52-1.04) mg/dL Est GFR (CKD-EPI)AfAm (>60 ml/min/1.73 sqM) Est GFR (CKD-EPI)NonAf (>60 ml/min/1.73 sqM) Glucose (74-99) mg/dL Plasma Lactic Acid Edison 1.1 (0.7-2.0) mmol/L Calcium (8.4-10.2) mg/dL Total Bilirubin (0.2-1.3) mg/dL AST (14-36) U/L ALT (4-34) U/L Alkaline Phosphatase (38-126) U/L Total Protein (6.3-8.2) g/dL Albumin (3.5-5.0) g/dL Amylase (30-110) U/L Lipase (23-300) U/L Urine Color Urine Appearance (Clear) Urine pH (5.0-8.0) Ur Specific Bryant (1.001-1.035) Urine Protein (Negative) Urine Glucose (UA) (Negative) Urine Ketones (Negative) Urine Blood (Negative) Urine Nitrite (Negative) Urine Bilirubin (Negative) Urine Urobilinogen (<2.0) mg/dL Ur Leukocyte Esterase (Negative) Urine WBC (0-5) /hpf Ur Squamous Epith Cells (0-4) /hpf Urine Bacteria (None) /hpf Disposition Clinical Impression: Postoperative pain, Abdominal pain, Ileus, postoperative Disposition: HOME SELF-CARE Condition: Stable Instructions (If sedation given, give patient instructions): Ileus (ED), Abd ominal Pain (ED) Additional Instructions: Please return to the Emergency Department if symptoms worsen or any other concerns. Prescriptions: HYDROcodone/APAP 10-325MG [[place] 10-325] 1 tab PO Q6HR PRN 3 Days #12 tab PRN Reason: Pain Is patient prescribed a controlled substance at d/c from ED?: Yes When asked, does pt state using other controlled substances?: No If prescribed controlled substance>3 days was MAPS reviewed?: Prescribed <3 Days If opioid is for acute pain is fill amount 7 days or less?: Yes If Rx opioid, was Start Talking consent form obtained?: Yes Referrals: Stuart Nickerson MD [Primary Care Provider] - 1-2 days Marcos Babb MD [STAFF PHYSICIAN] - 1-2 days Time of Disposition: 11:33
[2020-11-29 09:53] LABS: ALT 15 U/L (4-34); AST 34 U/L (14-36); African American GFR (CKD) >90 (>60 ml/min/1.73 sqM); Albumin 3.7 g/dL (3.5-5.0); Alkaline Phosphatase 54 U/L (38-126); Amylase 63 U/L (30-110); Anion Gap 8 mmol/L; Blood Urea Nitrogen 16 mg/dL (7-17); Calcium 8.8 mg/dL (8.4-10.2); Carbon Dioxide 29 mmol/L (22-30); Chloride 96 mmol/L (98-107); Glucose 117 mg/dL (74-99); Lipase 74 U/L (23-300); Non-African American GFR(CKD) 80 (>60 ml/min/1.73 sqM); Sodium 133 mmol/L (137-145); Total Bilirubin 1.7 mg/dL (0.2-1.3); Total Protein 6.2 g/dL (6.3-8.2)
[2020-11-29 09:59] LABS: Basophils % (A) 0 %; Eosinophils # (A) 0.2 k/uL (0-0.7); Eosinophils % (A) 2 %; HCT 26.3 % (34.0-46.0); HGB 8.5 gm/dL (11.4-16.0); Lymphocytes # (A) 0.6 k/uL (1.0-4.8); Lymphocytes % (A) 7 %; MCH 30.7 pg (25.0-35.0); MCHC 32.4 g/dL (31.0-37.0); MCV 94.7 fL (80.0-100.0); Mean Platelet Volume 6.9; Monocytes # (A) 0.7 k/uL (0-1.0); Monocytes % (A) 8 %; Neutrophils # (A) 7.1 k/uL (1.3-7.7); Neutrophils % (A) 82 %; Platelet Count 307 k/uL (150-450); RBC 2.77 m/uL (3.80-5.40); RDW 13.4 % (11.5-15.5); WBC 8.6 k/uL (3.8-10.6)
--- NOTE | 2020-11-29 10:48 | CT ---
EXAMINATION TYPE: CT abdomen pelvis w con DATE OF EXAM: 11/29/2020 COMPARISON: 11/22/2020 HISTORY: incisional abdominal pain and fever post bowel resection CT DLP: 989.7 mGycm CONTRAST: CT scan of the abdomen and pelvis is performed without Oral Contrast and with IV Contrast, patient in jected with 100 mL of Isovue 300. FINDINGS: LUNG BASES-: Small vague lesions in the compressive atelectasis. LIVER/GB: No calcified gallstones. No space occupying hepatic lesion. Biliary tree is of normal ca liber. PANCREAS: No inflammation. No distinct mass. SPLEEN: No splenic enlargement. No lesion seen. ADRENALS: No nodule. No thickening. KIDNEYS/BLADDER: No hydronephrosis. No nephrolithiasis. No distinct renal mass. Urinary bladder g rossly unremarkable. BOWEL: The lack of oral contrast limits evaluation. There is a small amount of free air within the up per abdomen compatible with patient's postoperative history. There is a small amount of free fluid no diogo within the upper abdomen extending into the paracolic gutters and pelvis. Midline skin incision s mall foci of air however no drainable collection is seen. Status post bowel resection without definit e leak or abscess however the lack of intraluminal contrast does limit evaluation. Small bowel disten tion compatible with ileus. All GENITAL ORGANS: No gross abnormality. LYMPH NODES: No greater than 1cm abdominal or pelvic lymph nodes are appreciated. AORTA: No significant abnormality. OSSEOUS STRUCTURES: No significant abnormality is seen. OTHER: No significant additional abnormality is seen. IMPRESSION: 1. Status post bowel resection without obvious leak or abscess however the lack of intraluminal GI co ntrast does limit evaluation. There is distended small bowel and large bowel likely reflective of pos toperative ileus. 2. Small amount of free air and mild to moderate ascites. 3. Basilar pleural effusions and compressive atelectasis.
[2020-11-29 11:04] LABS: Appearance,Urine Clear (Clear); Bacteria,Urine Rare /hpf; Bilirubin,Urine Negative (Negative); Blood,Urine Negative (Negative); Color,Urine Yellow; Glucose,Urine (UA) Negative (Negative); Ketones,Urine Trace (Negative); Leukocyte Esterase,Urine Small (Negative); Nitrite,Urine Negative (Negative); PH, Urine 6.5 (5.0-8.0); Protein,Urine Trace (Negative); Specific Gravity,Urine 1.017 (1.001-1.035); Squamous Epithelial Cell,Urine 1 /hpf (0-4); Urobilinogen,Urine <2.0 mg/dL (<2.0); WBC,Urine 3 /hpf (0-5)
[2020-11-29 11:13] VITALS: BP 137/77; PULSE 98; RESP 18
== END 2020-11-29 11:46 | disposition home or self-care (01) ==
LOC: EC 09:10
DX: G89.18 Other acute postprocedural pain (principal); K56.7 Ileus, unspecified; I10 Essential (primary) hypertension; M19.90 Unspecified osteoarthritis, unspecified site; F32.9 Major depressive disorder, single episode, unspecified; F41.9 Anxiety disorder, unspecified; Z90.49 Acquired absence of other specified parts of digestive tract
CPT/HCPCS: 36415; 80053; 82150; 83605; 83690; 85025; 81001; 74177; 99284; 96374; 96375; 96376; 96361 ×2; J2405; J1170; Q9967

== ENCOUNTER 2020-12-05 16:12 | Inpatient (IN) | payer MEDICARE ==
--- NOTE | 2020-12-05 16:39 | ED ---
General Adult HPI - General Chief complaint: Shortness of Breath Stated complaint: Weakness,Abd Pain Time Seen by Provider: 12/05/20 16:14 Source: patient, EMS Mode of arrival: EMS - History of Present Illness Initial comments: Dictation was produced using [employer] dictation software. please excuse any grammatical, word or spelling errors. Chief Complaint: 70-year-old female with past medical history of hypertension, arthritis, pneumonia presents to the emergency department for pleuritic chest pain. History of Present Illness: This 70-year-old female she has multiple comorbidities she presents to the emergency department with [id number] and son. 2 weeks ago patient recently had a bowel resection surgery performed by Dr. Babb. Chart review shows that patient had a right colectomy. She's been recovering however over the last couple days has been having worsening pleuritic chest pain. Patient is a poor historian. [id number] provides most of the history states that she's been showing signs of mental status changes. The example provided was that they would question the patient if she ate or drank and she would reply yes even though she did not. Patient does report having a fever.. The ROS documented in this emergency department record has been reviewed and confirmed by me. Those systems with pertinent positive or negative responses have been documented in the HPI. All other systems are other negative and/or noncontributory. PHYSICAL EXAM: General Impression: Alert and oriented x3, not in acute distress HEENT: Normocephalic atraumatic, extra-ocular movements intact, pupils equal and reactive to light bilaterally, mucous membranes moist. Cardiovascular: Heart regular rate and rhythm Chest: Able to complete full sentences, no retractions, no tachypnea, lungs clear to auscultation bilaterally Abdomen: abdomen soft, non-tender, non-distended, no organomegaly Musculoskeletal: Pulses present and equal in all extremities, no peripheral edema Motor: no focal deficits noted Neurological: CN II-XII grossly intact, no focal motor or sensory deficits noted Skin: Intact with no visualized rashes Psych: Normal affect and mood ED course: 70 y Old female who is 2 weeks postop from right hemicolectomy presents to the emergency department for pleuritic chest pain. Vital signs upon arrival shows heart rate of 106, oxygen saturation 86%. After evaluation obtained leukocytosis 14.2. 7.6 hemoglobin which is around p atient's baseline. Coag is unremarkable. D-dimer is elevated 10.96. Metabolic panel shows sodium of 122, potassium 5.6, mild acidosis of 18 with a gap of 18. BUN 163, creatinine is 6.55. Rest metabolic panel was within acceptable limits. Coronal virus is negative. Chest x-ray shows mild haziness at the lung base concerning for effusion. Computed tomography scan of the abdomen and pelvis sh ows large complex fluid collection within the pelvis consistent with pelvic abscess. VQ scan shows low probability for PE. Heparin was discontinued. Patient be admitted for pelvic abscess. Case discussed with Dr. Freed. Medicine will be consulted. Patient reevaluated at bedside at 9:50 PM she has stable vital signs patient not showing signs of distress. She states she feels well. Patient received broad-spectrum antibiotics. EKG interpretation: Ventricular rate 106, sinus tachycardia, NH interval 182, QRS 100, QTC 462. No NH prolongation, no QTC prolongation, no ST or T-wave changes noted. EKG compared to 11/21/2020 showing no changes. Overall, this EKG is unremarkable - Related Data Home Medications Medication Instructions Recorded Confirmed Cyanocobalamin (Vitamin B-12) 1,000 mcg PO DAILY@0500 04/30/18 12/05/20 [Vitamin B-12] Ferrous Sulfate [Iron] 325 mg PO DAILY@0500 04/30/18 12/05/20 Meloxicam [Mobic] 7.5 mg PO BID@0500,1600 04/30/18 12/05/20 Morphine Pain Pump 0.01 mg INTRATHECA CONTINUOUS 04/30/18 12/05/20 Multivitamins, Thera [Multivitamin 1 tab PO BID@0500,1600 04/30/18 12/05/20 (formulary)] Risedronate Sodium [Actonel] 35 mg PO SA 04/30/18 12/05/20 buPROPion XL [Wellbutrin XL] 300 mg PO DAILY@0500 04/30/18 12/05/20 busPIRone HCL 15 mg PO BID@0500,1600 04/30/18 12/05/20 lisinopriL [Zestril] 10 mg PO HS 04/30/18 12/05/20 L.acidoph,Paracasei, B.lactis 1 cap PO BID@0500,1600 02/12/20 12/05/20 [Probiotic] Calcium Citrate/Vitamin D3 1 tab PO BID@0500,1600 11/22/20 12/05/20 [Citracal + D Maximum Caplet] Cranberry Fruit Concentrate [Azo 250 mg PO BID@0500,1600 11/22/20 12/05/20 Cranberry] Magnesium 250 mg PO BID@0500,1600 11/22/20 12/05/20 Psyllium Husk [Reguloid] 0.4 gm PO BID@0500,1600 11/22/20 12/05/20 Triamcinolone Acetonide [Nasacort] 1 spr EA NOSTRIL DAILY PRN 11/22/20 12/05/20 Previous Rx's Medication Instructions Recorded oxyCODONE HCL [OxyIR] 5 mg PO Q6H PRN 2 Days #8 tab 11/28/20 HYDROcodone/APAP 10-325MG [[place] 1 tab PO Q6HR PRN 3 Days #12 tab 11/29/20 10-325] Allergies Allergy/AdvReac Type Severity Reaction Status Date / Time bee venom protein (honey bee) Allergy Unknown Swelling Verified 12/05/20 17:52 cat dander Allergy Unknown SINUS Verified 12/05/20 17:52 SYMPTOMS dog dander Allergy Unknown SINUS Verified 12/05/20 17:52 SYMPTOMS shellfish derived [Crab] Allergy Unknown Unknown Verified 12/05/20 17:52 aluminum Allergy Unknown Verified 12/05/20 17:52 amino acids [From Chromimin] Allergy Unknown Verified 12/05/20 17:52 chromium [From Chromimin] Allergy Unknown Verified 12/05/20 17:52 grass pollen Allergy Unknown Verified 12/05/20 17:52 iron Allergy Unknown Verified 12/05/20 17:52 mold Allergy Unknown Verified 12/05/20 17:52 nickel Allergy Unknown Verified 12/05/20 17:52 tree and shrub pollen Allergy Unknown Verified 12/05/20 17:52 Yeast Allergy Unknown Verified 12/05/20 17:52 cockroach Allergy Unknown Uncoded 11/29/20 10:56 dust Allergy Unknown Uncoded 11/29/20 10:56 dust mite Allergy Unknown Uncoded 11/29/20 10:56 weeds Allergy Unknown Uncoded 11/29/20 10:56 Review of Systems ROS Statement: Those systems with pertinent positive or pertinent negative responses have been documented in the HPI. ROS Other: All systems not noted in ROS Statement are negative. Past Medical History Past Medical History: Hypertension, Osteoarthritis (OA), Pneumonia Additional Past Medical History / Comment(s): chronic back pain- morpine pain pump in place History of Any Multi-Drug Resistant Organisms: None Reported Past Surgical History: Back Surgery, Bariatric Surgery, Cholecystectomy, Joint Replacement, Orthopedic Surgery Additional Past Surgical History / Comment(s): Gastric byspass 1998, nerve stimulator-in place but not functioning at this time 11/25 Past Anesthesia/Blood Transfusion Reactions: No Reported Reaction Past Psychological History: Anxiety, Depression Smoking Status: Never smoker Past Alcohol Use History: None Reported Past Drug Use History: None Reported - Past Family History Mother Family Medical History: Diabetes Mellitus Additional Family Medical History / Comment(s): heart issues Father Additional Family Medical History / Comment(s): alcoholic Course Vital Signs 12/05/20 12/05/20 16:16 21:33 Temperature 97.8 F Pulse Rate 106 H 100 Respiratory 18 16 Rate Blood Pressure 118/59 100/49 O2 Sat by Pulse 86 L 98 Oximetry Medical Decision Making - Lab Data Result diagrams: 12/05/20 16:50 12/05/20 16:50 Lab Results 12/05/20 12/05/20 12/05/20 Range/Units 16:50 16:50 16:50 WBC 14.2 H (3.8-10.6) k/uL RBC 2.64 L (3.80-5.40) m/uL Hgb 7.6 L (11.4-16.0) gm/dL Hct 24.8 L (34.0-46.0) % MCV 93.9 (80.0-100.0) fL MCH 28.8 (25.0-35.0) pg MCHC 30.6 L (31.0-37.0) g/dL RDW 15.5 (11.5-15.5) % Plt Count 543 H (150-450) k/uL MPV 7.2 Neutrophils % 92 % Lymphocytes % 2 % Monocytes % 4 % Eosinophils % 1 % Basophils % 0 % Neutrophils # 13.1 H (1.3-7.7) k/uL Lymphocytes # 0.3 L (1.0-4.8) k/uL Monocytes # 0.5 (0-1.0) k/uL Eosinophils # 0.1 (0-0.7) k/uL Basophils # 0.1 (0-0.2) k/uL Hypochromasia Slight PT 10.9 (9.0-12.0) sec INR 1.0 (<1.2) APTT 22.6 (22.0-30.0) sec D-Dimer (<0.60) mg/L FEU Sodium 122 L (137-145) mmol/L Potassium 5.6 H (3.5-5.1) mmol/L Chloride 86 L (98-107) mmol/L Carbon Dioxide 18 L (22-30) mmol/L Anion Gap 18 mmol/L BUN 163 H* (7-17) mg/dL Creatinine 6.55 H (0.52-1.04) mg/dL Est GFR (CKD-EPI)AfAm 7 (>60 ml/min/1.73 sqM) Est GFR (CKD-EPI)NonAf 6 (>60 ml/min/1.73 sqM) Glucose 102 H (74-99) mg/dL Plasma Lactic Acid Edison (0.7-2.0) mmol/L Calcium 8.1 L (8.4-10.2) mg/dL Magnesium 2.7 H (1.6-2.3) mg/dL Total Bilirubin 2.0 H (0.2-1.3) mg/dL AST 123 H (14-36) U/L ALT 37 H (4-34) U/L Alkaline Phosphatase 111 (38-126) U/L Ammonia (<30) umol/L Troponin I (0.000-0.034) ng/mL Total Protein 5.6 L (6.3-8.2) g/dL Albumin 2.7 L (3.5-5.0) g/dL Coronavirus (PCR) (Not Detectd) 12/05/20 12/05/20 12/05/20 Range/Units 16:50 16:50 16:50 WBC (3.8-10.6) k/uL RBC (3.80-5.40) m/uL Hgb (11.4-16.0) gm/dL Hct (34.0-46.0) % MCV (80.0-100.0) fL MCH (25.0-35.0) pg MCHC (31.0-37.0) g/dL RDW (11.5-15.5) % Plt Count (150-450) k/uL MPV Neutrophils % % Lymphocytes % % Monocytes % % Eosinophils % % Basophils % % Neutrophils # (1.3-7.7) k/uL Lymphocytes # (1.0-4.8) k/uL Monocytes # (0-1.0) k/uL Eosinophils # (0-0.7) k/uL Basophils # (0-0.2) k/uL Hypochromasia PT (9.0-12.0) sec INR (<1.2) APTT (22.0-30.0) sec D-Dimer 10.96 H (<0.60) mg/L FEU Sodium (137-145) mmol/L Potassium (3.5-5.1) mmol/L Chloride (98-107) mmol/L Carbon Dioxide (22-30) mmol/L Anion Gap mmol/L BUN (7-17) mg/dL Creatinine (0.52-1.04) mg/dL Est GFR (CKD-EPI)AfAm (>60 ml/min/1.73 sqM) Est GFR (CKD-EPI)NonAf (>60 ml/min/1.73 sqM) Glucose (74-99) mg/dL Plasma Lactic Acid Edison 0.9 (0.7-2.0) mmol/L Calcium (8.4-10.2) mg/dL Magnesium (1.6-2.3) mg/dL Total Bilirubin (0.2-1.3) mg/dL AST (14-36) U/L ALT (4-34) U/L Alkaline Phosphatase (38-126) U/L Ammonia <9 (<30) umol/L Troponin I 0.016 (0.000-0.034) ng/mL Total Protein (6.3-8.2) g/dL Albumin (3.5-5.0) g/dL Coronavirus (PCR) (Not Detectd) 12/05/20 Range/Units 17:03 WBC (3.8-10.6) k/uL RBC (3.80-5.40) m/uL Hgb (11.4-16.0) gm/dL Hct (34.0-46.0) % MCV (80.0-100.0) fL MCH (25.0-35.0) pg MCHC (31.0-37.0) g/dL RDW (11.5-15.5) % Plt Count (150-450) k/uL MPV Neutrophils % % Lymphocytes % % Monocytes % % Eosinophils % % Basophils % % Neutrophils # (1.3-7.7) k/uL Lymphocytes # (1.0-4.8) k/uL Monocytes # (0-1.0) k/uL Eosinophils # (0-0.7) k/uL Basophils # (0-0.2) k/uL Hypochromasia PT (9.0-12.0) sec INR (<1.2) APTT (22.0-30.0) sec D-Dimer (<0.60) mg/L FEU Sodium (137-145) mmol/L Potassium (3.5-5.1) mmol/L Chloride (98-107) mmol/L Carbon Dioxide (22-30) mmol/L Anion Gap mmol/L BUN (7-17) mg/dL Creatinine (0.52-1.04) mg/dL Est GFR (CKD-EPI)AfAm (>60 ml/min/1.73 sqM) Est GFR (CKD-EPI)NonAf (>60 ml/min/1.73 sqM) Glucose (74-99) mg/dL Plasma Lactic Acid Edison (0.7-2.0) mmol/L Calcium (8.4-10.2) mg/dL Magnesium (1.6-2.3) mg/dL Total Bilirubin (0.2-1.3) mg/dL AST (14-36) U/L ALT (4-34) U/L Alkaline Phosphatase (38-126) U/L Ammonia (<30) umol/L Troponin I (0.000-0.034) ng/mL Total Protein (6.3-8.2) g/dL Albumin (3.5-5.0) g/dL Coronavirus (PCR) Not Detected (Not Detectd) Disposition Clinical Impression: Pelvic abscess Disposition: ADMITTED IP TO THIS HOSP Condition: Fair Referrals: Stuart Nickerson MD [Primary Care Provider] - 1-2 days
[2020-12-05 17:02] LABS: Basophils # (A) 0.1 k/uL (0-0.2); Basophils % (A) 0 %; Eosinophils # (A) 0.1 k/uL (0-0.7); Eosinophils % (A) 1 %; HCT 24.8 % (34.0-46.0); HGB 7.6 gm/dL (11.4-16.0); Hypochromasia Slight; Lymphocytes # (A) 0.3 k/uL (1.0-4.8); Lymphocytes % (A) 2 %; MCH 28.8 pg (25.0-35.0); MCHC 30.6 g/dL (31.0-37.0); MCV 93.9 fL (80.0-100.0); Mean Platelet Volume 7.2; Monocytes # (A) 0.5 k/uL (0-1.0); Monocytes % (A) 4 %; Neutrophils # (A) 13.1 k/uL (1.3-7.7); Neutrophils % (A) 92 %; Platelet Count 543 k/uL (150-450); RBC 2.64 m/uL (3.80-5.40); RDW 15.5 % (11.5-15.5); WBC 14.2 k/uL (3.8-10.6)
[2020-12-05 17:14] LABS: Albumin 2.7 g/dL (3.5-5.0); Calcium 8.1 mg/dL (8.4-10.2); Lactic Acid, Venous 0.9 mmol/L (0.7-2.0); Magnesium 2.7 mg/dL (1.6-2.3); Potassium 5.6 mmol/L (3.5-5.1); Total Protein 5.6 g/dL (6.3-8.2)
[2020-12-05] MEDS ORDERED: HEPARIN SODIUM 1,000 UN/ML (10ML VL) IV ONE (17:35)
[2020-12-05] MEDS ORDERED: HEPARIN SODIUM 1,000 UN/ML (10ML VL) IV PRN (17:35)
[2020-12-05] MEDS ORDERED: SODIUM CHLORIDE 0.9% 1,000 ML IV STA ×2 (17:36→19:06)
[2020-12-05] MEDS ORDERED: HEPARIN SOD,PORK IN 0.45% NACL 25,000 UNIT in 0.45% NACL 1 250ML.BAG IV SCH (17:45)
[2020-12-05 17:46] LABS: Partial Thromboplastin Time 22.6 sec (22.0-30.0); Prothrombin Time 10.9 sec (9.0-12.0)
--- NOTE | 2020-12-05 17:58 | XR ---
EXAMINATION TYPE: XR chest 1V portable DATE OF EXAM: 12/05/2020 CLINICAL HISTORY: dyspnea. TECHNIQUE: Portable frontal view of the chest. COMPARISON: 12/26/2012 FINDINGS: Cervical spine fixation hardware incompletely visualized. Spinal stimulator device overlie s the mid thoracic spine. Low lung volumes accentuates the lung markings. The cardiomediastinal silho uette is within normal limits for size. Pulmonary vasculature is normal. There is no focal air space opacity. Haziness of the right costophrenic angle. No pneumothorax seen. No acute displaced osseous fracture. IMPRESSION: Haziness the right costophrenic angle may be due to low lung volumes versus small pleural effusion.
[2020-12-05] MEDS ORDERED: VANCOMYCIN IV PER PHARMACY 1 EACH MISC MISCELLANE PRN (18:15)
[2020-12-05] MEDS ORDERED: PIPERACILLIN-TAZOBACTAM 3.375 GM in SODIUM CHLORIDE 0.9% 100 ML IVPB STA (18:15)
[2020-12-05] MEDS ORDERED: VANCOMYCIN 1,250 MG in SODIUM CHLORIDE 0.9% 250 ML IVPB ONE (18:30)
--- NOTE | 2020-12-05 18:36 | CT ---
EXAMINATION TYPE: CT abdomen pelvis wo con DATE OF EXAM: 12/05/2020 COMPARISON: None HISTORY: flank pain CT DLP: 734.8 mGycm Automated exposure control for dose reduction was used. Images obtained from the diaphragm to the floor the pelvis with no contrast. There is some patchy atelectasis at the lung bases. Heart is slightly enlarged. There is no pleural e ffusion. There is no pericardial effusion. There is previous gastric surgery. There are clips from ch olecystectomy. Liver is intact. Spleen has normal size and contour. There is no evidence of pancreati c mass. There is implanted device is over the posterior left side of the abdomen. There is multilevel posterior fusion surgery in the lumbar spine. There is no adrenal mass. Kidneys have normal size. Ureters are not dilated. There is no hydronephros is. I see no retroperitoneal adenopathy. There is metal artifact from multilevel posterior lumbar spi ne fusion surgery. Urinary bladder is intact. There is some complex air and fluid in the pelvis and anteriorly in the mid abdomen with pneumoperito neum. There is an approximate 12 cm complex fluid collection with fluid level in the pelvis consisten t with large pelvic abscess. There are anterior skin lela. There are some distended fluid-filled s mall bowel loops with fluid levels. Small bowel measures up to 3.3 cm. There is gas and fecal materia l down to the rectum. The bony pelvis is intact. There is multilevel lumbar laminectomy defect. IMPRESSION: There is a large complex fluid collection in the pelvis with air bubbles and fluid levels consistent with a large pelvic abscess. The air in the peritoneal cavity is a change compared to last exam of . There is previous bowel surgery. There is evidence of small bowel ileus. Pelvic abscess exte nds out of the pelvis into the mid abdomen with numerous fluid levels. There is some linear infiltrate and atelectasis at the lung bases which is improved compared to last exam. This exam was discussed with Dr. Potter at 6:30 PM.
[2020-12-05] MEDS ORDERED: SODIUM CHLORIDE 0.9% 1,040 ML IV STA (19:07)
--- NOTE | 2020-12-05 21:23 | NM ---
EXAMINATION TYPE: NM pul vent and perfuse DATE OF EXAM: 12/05/2020 COMPARISON: NONE HISTORY: TECHNIQUE: Utilizing inhalation of 37.5 mCi Tc 99m DTPA aerosol and intravenous injection of 5.3 mCi of Tc 99m MAA, ventilation and perfusion images are acquired post injection in multiple projections. FINDINGS: There are matching subsegmental peripheral defects in both lungs consistent with airway disease. Ther e is no segmental type perfusion defect.. IMPRESSION: There is evidence of some airway disease. There is low probability of pulmonary embolism.
[2020-12-05] MEDS ORDERED: NALOXONE 0.4 MG/ML 1 ML VIAL IV PRN (21:55)
[2020-12-05] MEDS ORDERED: MORPHINE SULFATE 4 MG/ML SYRINGE IV PRN (21:55)
[2020-12-05] MEDS ORDERED: ONDANSETRON 4 MG/2 ML VIAL IVP PRN (21:55)
[2020-12-06] MEDS: SODIUM CHLORIDE 0.9% 1,000 ML IV SCH ×2 (00:04→08:11)
[2020-12-06] MEDS: ACETAMINOPHEN TAB 325 MG TAB PO PRN (00:12)
[2020-12-06] MEDS ORDERED: PIPERACILLIN-TAZOBACTAM 3.375 GM in SODIUM CHLORIDE 0.9% 100 ML IVPB SCH (08:45)
[2020-12-06 08:51] LABS: Amorphous Sediment,Urine Occasional /hpf; Appearance,Urine Cloudy (Clear); Bilirubin,Urine Negative (Negative); Blood,Urine Moderate (Negative); Color,Urine Yellow; Glucose,Urine (UA) Negative (Negative); Ketones,Urine Negative (Negative); Leukocyte Esterase,Urine Negative (Negative); Nitrite,Urine Negative (Negative); Protein,Urine 1+ (Negative); RBC,Urine 3 /hpf (0-5); Specific Gravity,Urine 1.013 (1.001-1.035); Urobilinogen,Urine <2.0 mg/dL (<2.0); WBC,Urine 2 /hpf (0-5)
[2020-12-06 09:15] LABS: Basophils # (A) 0.1 k/uL (0-0.2); Basophils % (A) 0 %; Eosinophils # (A) 0.1 k/uL (0-0.7); Eosinophils % (A) 1 %; HCT 20.2 % (34.0-46.0); Hypochromasia Moderate; Lymphocytes # (A) 0.2 k/uL (1.0-4.8); Lymphocytes % (A) 1 %; MCH 28.6 pg (25.0-35.0); MCHC 30.1 g/dL (31.0-37.0); MCV 95.2 fL (80.0-100.0); Mean Platelet Volume 7.1; Monocytes # (A) 0.3 k/uL (0-1.0); Monocytes % (A) 2 %; Neutrophils # (A) 16.2 k/uL (1.3-7.7); Neutrophils % (A) 96 %; Platelet Count 528 k/uL (150-450); RBC 2.13 m/uL (3.80-5.40); RDW 15.5 % (11.5-15.5)
[2020-12-06 09:20] LABS: HGB 6.1 gm/dL (11.4-16.0)
[2020-12-06 09:34] LABS: Albumin 2.2 g/dL (3.5-5.0); Calcium 7.6 mg/dL (8.4-10.2); Potassium 5.3 mmol/L (3.5-5.1); Total Bilirubin 1.4 mg/dL (0.2-1.3); Total Protein 4.7 g/dL (6.3-8.2)
[2020-12-06] MEDS: PIPERACILLIN-TAZOBACTAM 3.375 GM in SODIUM CHLORIDE 0.9% 100 ML IVPB SCH ×2 (09:46→22:27)
[2020-12-06] MEDS: DEXTROSE 5% IN WATER 1,000 ML with SODIUM BICARB (1 MEQ/ML) 150 ML IV SCH ×2 (12:02→22:37)
--- NOTE | 2020-12-06 13:21 | P.HPIM ---
History of Present Illness 70-year-old female came to the right lower quadrant abdominal pain found to have possible abscess in the right lower quadrant. Patient had a right sided colectomy. Patient was also found to have highly elevated BUN and creatinine. With the elevated potassium. Patient was on naproxen and lisinopril. Patient is also found to have some urinary retention which improved with Dalton catheter placement. He is severely hyponatremic. Bit hypotensive as well. Drowsy unable to provide much of the history. She denied any fever chills. Patient is not able to eat or drink. Review of Systems REVIEW OF SYSTEMS: CONSTITUTIONAL: No fever, no malaise, no fatigue. HEENT: No recent visual problems or hearing problems. Denied any sore throat. CARDIOVASCULAR: No chest pain, orthopnea, PND, no palpitations, no syncope. PULMONARY: No shortness of breath, no cough, no hemoptysis. GASTROINTESTINAL: As mentioned in HPI NEUROLOGICAL: No headaches, no weakness, no numbness. HEMATOLOGICAL: Denies any bleeding or petechiae. GENITOURINARY: Denies any burning micturition, frequency, or urgency. MUSCULOSKELETAL/RHEUMATOLOGICAL: Denies any joint pain, swelling, or any muscle pain. ENDOCRINE: Denies any polyuria or polydipsia. The rest of the 14-point review of systems is negative. Past Medical History Past Medical History: Hypertension, Osteoarthritis (OA), Pneumonia Additional Past Medical History / Comment(s): chronic back pain- morpine pain pump in place History of Any Multi-Drug Resistant Organisms: None Reported Past Surgical History: Back Surgery, Bariatric Surgery, Cholecystectomy, Joint Replacement, Orthopedic Surgery Additional Past Surgical History / Comment(s): Gastric byspass 1998, nerve stimulator-in place but not functioning at this time 11/25 Past Anesthesia/Blood Transfusion Reactions: No Reported Reaction Past Psychological History: Anxiety, Depression Smoking Status: Never smoker Past Alcohol Use History: None Reported Past Drug Use History: None Reported - Past Family History Mother Family Medical History: Diabetes Mellitus Additional Family Medical History / Comment(s): heart issues Father Additional Family Medical History / Comment(s): alcoholic Medications and Allergies Home Medications Medication Instructions Recorded Confirmed Type Cyanocobalamin (Vitamin B-12) 1,000 mcg PO DAILY@0500 04/30/18 12/05/20 History [Vitamin B-12] Ferrous Sulfate [Iron] 325 mg PO DAILY@0500 04/30/18 12/05/20 History Meloxicam [Mobic] 7.5 mg PO BID@0500,1600 04/30/18 12/05/20 History Morphine Pain Pump 0.01 mg INTRATHECA CONTINUOUS 04/30/18 12/05/20 History Multivitamins, Thera [Multivitamin 1 tab PO BID@0500,1600 04/30/18 12/05/20 History (formulary)] Risedronate Sodium [Actonel] 35 mg PO SA 04/30/18 12/05/20 History buPROPion XL [Wellbutrin XL] 300 mg PO DAILY@0500 04/30/18 12/05/20 History busPIRone HCL 15 mg PO BID@0500,1600 04/30/18 12/05/20 History lisinopriL [Zestril] 10 mg PO HS 04/30/18 12/05/20 History L.acidoph,Paracasei, B.lactis 1 cap PO BID@0500,1600 02/12/20 12/05/20 History [Probiotic] Calcium Citrate/Vitamin D3 1 tab PO BID@0500,1600 11/22/20 12/05/20 History [Citracal + D Maximum Caplet] Cranberry Fruit Concentrate [Azo 250 mg PO BID@0500,1600 11/22/20 12/05/20 History Cranberry] Magnesium 250 mg PO BID@0500,1600 11/22/20 12/05/20 History Psyllium Husk [Reguloid] 0.4 gm PO BID@0500,1600 11/22/20 12/05/20 History Triamcinolone Acetonide [Nasacort] 1 spr EA NOSTRIL DAILY PRN 11/22/20 12/05/20 History oxyCODONE HCL [OxyIR] 5 mg PO Q6H PRN 2 Days #8 tab 11/28/20 12/05/20 Rx HYDROcodone/APAP 10-325MG [[place] 1 tab PO Q6HR PRN 3 Days #12 tab 11/29/2012/05 Rx 10-325] Allergies Allergy/AdvReac Type Severity Reaction Status Date / Time bee venom protein (honey bee) Allergy Unknown Swelling Verified 12/05/20 17:52 cat dander Allergy Unknown SINUS Verified 12/05/20 17:52 SYMPTOMS dog dander Allergy Unknown SINUS Verified 12/05/20 17:52 SYMPTOMS shellfish derived [Crab] Allergy Unknown Unknown Verified 12/05/20 17:52 aluminum Allergy Unknown Verified 12/05/20 17:52 amino acids [From Chromimin] Allergy Unknown Verified 12/05/20 17:52 chromium [From Chromimin] Allergy Unknown Verified 12/05/20 17:52 grass pollen Allergy Unknown Verified 12/05/20 17:52 iron Allergy Unknown Verified 12/05/20 17:52 mold Allergy Unknown Verified 12/05/20 17:52 nickel Allergy Unknown Verified 12/05/20 17:52 tree and shrub pollen Allergy Unknown Verified 12/05/20 17:52 Yeast Allergy Unknown Verified 12/05/20 17:52 cockroach Allergy Unknown Uncoded 11/29/20 10:56 dust Allergy Unknown Uncoded 11/29/20 10:56 dust mite Allergy Unknown Uncoded 11/29/20 10:56 weeds Allergy Unknown Uncoded 11/29/20 10:56 Physical Exam Vitals: Vital Signs Temp Pulse Resp BP Pulse Ox 12/06/20 12:58 96 18 105/46 98 12/06/20 12:40 98.2 F 95 20 105/46 12/06/20 12:30 98 16 103/48 12/06/20 12:20 97 16 98/46 12/06/20 12:10 98.1 F 95 16 98/45 12/06/20 12:00 98.2 F 97 16 94/44 94 L 12/06/20 07:15 97.9 F 103 H 18 105/44 95 12/06/20 01:49 98 16 118/56 95 12/06/20 00:02 98 16 98 12/05/20 23:07 98.3 F 12/05/20 21:33 100 16 100/49 98 12/05/20 16:16 97.8 F 106 H 18 118/59 86 L Intake and Output 12/05/20 12/06/20 12/06/20 22:59 06:59 14:59 Intake Total 45.637 0 Balance 45.637 0 Intake: Intake, IV Titration 45.637 Amount Heparin Sod,Pork in 0.45% 45.637 NaCl 25,000 unit In 0.45 % NaCl 1 250ml.bag @ 18 UNITS/KG/HR 12.247 mls/hr IV .[id number] [facility] Rx#: [id number] Blood Product 0 Rc Cpda-1 Unit 0 [id number] Other: Weight 68.039 kg PHYSICAL EXAMINATION: GENERAL: The patient is alert and oriented x3, not in any acute distress. Well developed, well nourished. HEENT: Pupils are round and equally reacting to light. EOMI. No scleral icterus. No conjunctival pallor. Normocephalic, atraumatic. No pharyngeal erythema. No thyromegaly. CARDIOVASCULAR: S1 and S2 present. No murmurs, rubs, or gallops. PULMONARY: Chest is clear to auscultation, no wheezing or crackles. ABDOMEN: Tenderness in the right lower quadrant no rebound or rigidity nondistended. No palpable organomegaly. MUSCULOSKELETAL: No joint swelling or deformity. EXTREMITIES: No cyanosis, clubbing, or pedal edema. NEUROLOGICAL: Gross neurological examination did not reveal any focal deficits. SKIN: No rashes. Results CBC & Chem 7: 12/06/20 08:45 12/06/20 08:45 Labs: Abnormal Lab Results - Last 24 Hours (Table) 12/05/20 12/05/20 12/05/20 Range/Units 16:50 16:50 16:50 WBC 14.2 H (3.8-10.6) k/uL RBC 2.64 L (3.80-5.40) m/uL Hgb 7.6 L (11.4-16.0) gm/dL Hct 24.8 L (34.0-46.0) % MCHC 30.6 L (31.0-37.0) g/dL Plt Count 543 H (150-450) k/uL Neutrophils # 13.1 H (1.3-7.7) k/uL Lymphocytes # 0.3 L (1.0-4.8) k/uL APTT (22.0-30.0) sec D-Dimer 10.96 H (<0.60) mg/L FEU Sodium 122 L (137-145) mmol/L Potassium 5.6 H (3.5-5.1) mmol/L Chloride 86 L (98-107) mmol/L Carbon Dioxide 18 L (22-30) mmol/L BUN 163 H* (7-17) mg/dL Creatinine 6.55 H (0.52-1.04) mg/dL Glucose 102 H (74-99) mg/dL Calcium 8.1 L (8.4-10.2) mg/dL Magnesium 2.7 H (1.6-2.3) mg/dL Total Bilirubin 2.0 H (0.2-1.3) mg/dL AST 123 H (14-36) U/L ALT 37 H (4-34) U/L Total Protein 5.6 L (6.3-8.2) g/dL Albumin 2.7 L (3.5-5.0) g/dL Urine Appearance (Clear) Urine Protein (Negative) Urine Blood (Negative) Amorphous Sediment (None) /hpf Crossmatch 12/05/20 12/06/20 12/06/20 Range/Units 23:12 07:15 08:45 WBC 17.0 H (3.8-10.6) k/uL RBC 2.13 L (3.80-5.40) m/uL Hgb 6.1 L* D (11.4-16.0) gm/dL Hct 20.2 L (34.0-46.0) % MCHC 30.1 L (31.0-37.0) g/dL Plt Count 528 H (150-450) k/uL Neutrophils # 16.2 H (1.3-7.7) k/uL Lymphocytes # 0.2 L (1.0-4.8) k/uL APTT 32.0 H (22.0-30.0) sec D-Dimer (<0.60) mg/L FEU Sodium (137-145) mmol/L Potassium (3.5-5.1) mmol/L Chloride (98-107) mmol/L Carbon Dioxide (22-30) mmol/L BUN (7-17) mg/dL Creatinine (0.52-1.04) mg/dL Glucose (74-99) mg/dL Calcium (8.4-10.2) mg/dL Magnesium (1.6-2.3) mg/dL Total Bilirubin (0.2-1.3) mg/dL AST (14-36) U/L ALT (4-34) U/L Total Protein (6.3-8.2) g/dL Albumin (3.5-5.0) g/dL Urine Appearance Cloudy H (Clear) Urine Protein 1+ H (Negative) Urine Blood Moderate H (Negative) Amorphous Sediment Occasional H (None) /hpf Crossmatch 12/06/20 12/06/20 Range/Units 08:45 09:55 WBC (3.8-10.6) k/uL RBC (3.80-5.40) m/uL Hgb (11.4-16.0) gm/dL Hct (34.0-46.0) % MCHC (31.0-37.0) g/dL Plt Count (150-450) k/uL Neutrophils # (1.3-7.7) k/uL Lymphocytes # (1.0-4.8) k/uL APTT (22.0-30.0) sec D-Dimer (<0.60) mg/L FEU Sodium 125 L (137-145) mmol/L Potassium 5.3 H (3.5-5.1) mmol/L Chloride 93 L (98-107) mmol/L Carbon Dioxide 17 L (22-30) mmol/L BUN 162 H* (7-17) mg/dL Creatinine 6.99 H (0.52-1.04) mg/dL Glucose (74-99) mg/dL Calcium 7.6 L (8.4-10.2) mg/dL Magnesium (1.6-2.3) mg/dL Total Bilirubin 1.4 H (0.2-1.3) mg/dL AST 98 H (14-36) U/L ALT (4-34) U/L Total Protein 4.7 L (6.3-8.2) g/dL Albumin 2.2 L (3.5-5.0) g/dL Urine Appearance (Clear) Urine Protein (Negative) Urine Blood (Negative) Amorphous Sediment (None) /hpf Crossmatch See Detail Assessment and Plan Plan: -Acute renal failure: Probably multifactorial probably prerenal azotemia along with the possibility of acute tubular necrosis. Patient will be continued on IV fluids nephrology was consulted will obtain ultrasound of the kidneys. Urine random sodium urine random creatinine. All of nephrotoxic agents that his napro xen and lisinopril. -Abscess in the right lower quadrant: General surgery will manage this and patie nt is presently on Zosyn and vancomycin was discontinued because of the renal dysfunction. Avoid morphine for pain. -Hypovolemic hyponatremia expected to improve with IV fluids -Metabolic acidosis: Secondary to uremia. -Anemia: Unsure whether patient has acute blood loss. There is no clinical evid ence of acute blood loss at this time. -Hyperkalemia: Secondary to acute renal failure and lisinopril which is being held -DVT prophylaxis: SCDs for now because of severe anemia unknown whether patient has acute bleed
--- NOTE | 2020-12-06 13:21 | CONS ---
CONSULTATION REASON FOR CONSULT: Renal failure, hyponatremia. HISTORY OF PRESENT ILLNESS: The patient is a 70-year-old female who was admitted to the hospital with complaints of increased weakness, lethargy, mental status changes. She was also mildly short of breath on initial admission. Patient recently had abdominal surgery about 10 days ago. She had bowel resection. It appears that it was a right colectomy. The patient has not had fever recently. No significant drainage reported from the wound. It appears that she had not been eating or drinking much prior to admission. The patient's blood pressure was low when she came into the ER with systolic around 80s. Her sodium was 122, potassium 5.6, serum creatinine 6.5 and BUN was 163. Previous creatinine on 11/29/2020 was 0.76. A straight cath was done for about 400 mL of urine. Currently patient is maintained on normal saline. She is maintained on IV antibiotics as well. MEDICATIONS: Review of home medications shows Mobic and lisinopril. PAST MEDICAL HISTORY: Past medical history of hypertension osteoarthritis, previous history of pneumonia, chronic back pain, recent abdominal surgery for right colectomy. PAST SURGICAL HISTORY: Bariatric surgery, cholecystectomy, gastric bypass. SOCIAL HISTORY: Negative for smoking, drug abuse or alcohol abuse. MEDICATIONS: Medications at home prior to admission included: Vitamin B12, iron, Mobic, lisinopril, Wellbutrin, buspirone, Zestril, probiotics, magnesium, Nasacort, [place]. ALLERGIES: ALLERGIES ARE MULTIPLE. PLEASE SEE LIST. REVIEW OF SYSTEMS: As per HPI. Other systems negative. EXAMINATION: Comfortable, awake, not in any acute distress. She is lethargic but able to answer simple questions. Blood pressure 105/44, heart rate 103 per minute. She is afebrile. Examination of the heart S1, S2. Examination of the lungs, bilateral breath sounds are heard. Abdomen is soft. [place] are noted on the incision. Examination of lower extremities shows no evidence of edema. HOSPITAL FELLOW exam shows patient moving all 4 extremities. LAB: Show sodium 125, potassium 5.3, chloride 93, BUN 162, serum creatinine 6.9, hemoglobin 6.1 g/dL. UA shows 1+ protein and moderate blood. Coronavirus PCR negative. ASSESSMENT: 1. Acute kidney injury associated with NSAIDs and as well as ATN from hypotension hypoperfusion in the setting of use of FIOR inhibitors currently nonoliguric. Agree with Dalton catheter placement. Continue IV hydration. Avoid nephrotoxic medications and repeat labs in a.m. Hopefully patient will not need dialysis and her renal function will improve. 2. Hypovolemic, hyponatremia improving with normal saline, which we will continue. 3. Hyperkalemia associated with acute kidney injury, metabolic acidosis, use of NSAIDs and FIOR inhibitors prior to admission currently slightly improved. 4. Metabolic acidosis associated with renal failure, maintained on saline. 5. Complex fluid collection in the pelvis consistent with large pelvic abscess. Surgery has been consulted. PLAN: Change IV fluids to bicarb drip. Repeat labs in about 4-6 hours. Possible dialysis if renal function not improved by tomorrow. Thank you for this consultation. Will continue to follow the patient with you during her hospitalization. MMODL / IJN: [id number] /
--- NOTE | 2020-12-06 13:29 | P.GSHP ---
History of Present Illness H&P Date: 12/06/20 CHIEF COMPLAINT: Abdominal pain HISTORY OF PRESENT ILLNESS: This is a 70-year-old female who is status post right colectomy for a cecal bascule on 11/23/[address] Bbab. She also has a past surgical history of gastric bypass, cholecystectomy, incisional hernia repair and prior lysis of adhesions. Past medical history includes hypertension, osteoarthritis, chronic back pain with nerve stimulator. Patient is lethargic and confused. Most of history was obtained from patient's chart. Apparently over the last couple of days patient was having worsening pleuritic chest pain and abdominal pain. Also was having altered mental status changes. Patient had computed tomography scan of the abdomen and pelvis showing large complex fluid collection in the pelvis with air bubbles and fluid levels consistent with a large pelvic abscess. The air in the peritoneal cavity is change compared to last exam of 11/29/2020. There is previous bowel surgery. There is evidence of small bowel ileus. Pelvic abscess extends out of the pelvis into the mid abdomen with numerous fluid levels. There is some linear infiltrate and atelectasis at the lung bases which is improved compared to last. Patient has evidence of sepsis with leukocytosis, tachycardia and hypotensive. She has been started on IV antibiotics. Also, hemoglobin has dropped to 6.1 and she is receiving a unit of blood. Patient has evidence of acute kidney injury and nephrology is on consult. No evidence of fever. Patient is been admitted to surgical service regarding the pelvic abscess. Patient seen and examined with Dr. Babb PAST MEDICAL HISTORY: See list. PAST SURGICAL HISTORY: See list. MEDICATIONS: See list. ALLERGIES: See list. SOCIAL HISTORY: No illicit drug use. REVIEW OF SYSTEMS: CONSTITUTIONAL: Denies fever or chills. HEENT: Denies blurred vision, vision changes, or eye pain. Denies hemoptysis CARDIOVASCULAR: Denies chest pain or pressure. RESPIRATORY: No shortness of breath. GASTROINTESTINAL: See HPI for pertinent findings HEMATOLOGIC: Denies bleeding disorders. GENITOURINARY: Denies any blood in urine or increased urinary frequency. SKIN: Denies pruitis. Denies rash. PHYSICAL EXAM: VITAL SIGNS: Reviewed GENERAL: Well-developed in no acute distress. HEENT: No sclera icterus. Extraocular movements grossly intact. Moist buccal mucosa. Head is atraumatic, normocephalic. No nasal drainage. ABDOMEN: Soft. Nondistended. Tenderness with palpation along the abdominal in cision. Patient does have some minimal drainage noted at the top of the incision NEUROLOGIC: Obtunded LABORATORY DATA: WBC has increased from 14.2-17 hemoglobin 6.1 platelets 528 sodium 125 potassium 5.3 creatinine 6.99 BUN 162 CO2 17 Magnesium 2.7 total bili down from 2-1.4 AST 123 down to 98 ALT 37 down to 29 troponin 0.016 ammonia level less than 9 albumin level 2.2 Covid not detected Urinalysis no acute infection that show moderate blood Elevated d-dimer IMAGING: computed tomography scan of the abdomen and pelvis showing large complex fluid collection in the pelvis with air bubbles and fluid levels consistent with a large pelvic abscess. The air in the peritoneal cavity is change compared to last exam of 11/29/2020. There is previous bowel surgery. There is evidence of small bowel ileus. Pelvic abscess extends out of the pelvis into the mid abdomen with numerous fluid levels. There is some linear infiltrate and atelectasis at the lung bases which is improved compared to last. VQ scan low probability of PE Chest x-ray haziness at the right costophrenic angle may be due to low lung volumes versus small pleural effusion EKG sinus tachycardia ASSESSMENT: 1. Large pelvic abscess measuring 12 cm with pneumoperitoneum and sepsis present on admission 2. 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 Acute kidney injury likely due to patient's sepsis 4. Anemia patient receiving 1 unit of blood 5. Hyponatremia 6. Hyperkalemia secondary to acute kidney injury 7. Hypomagnesemia PLAN: -Consult interventional radiology for CT-guided drainage of pelvic abscess -Continue antibiotics -Continue IV fluids -Consult placed for nephrology for acute kidney injury -Consult placed for medical service for medical management Physician Piping Manager note has been reviewed by physician. Signing provider agrees with the documented findings, assessment, and plan of care. Past Medical History Past Medical History: Hypertension, Osteoarthritis (OA), Pneumonia Additional Past Medical History / Comment(s): chronic back pain- morpine pain pump in place History of Any Multi-Drug Resistant Organisms: None Reported Past Surgical History: Back Surgery, Bariatric Surgery, Cholecystectomy, Joint Replacement, Orthopedic Surgery Additional Past Surgical History / Comment(s): Gastric byspass 1998, nerve stimulator-in place but not functioning at this time 5/21 Past Anesthesia/Blood Transfusion Reactions: No Reported Reaction Past Psychological History: Anxiety, Depression Smoking Status: Never smoker Past Alcohol Use History: None Reported Past Drug Use History: None Reported - Past Family History Mother Family Medical History: Diabetes Mellitus Additional Family Medical History / Comment(s): heart issues Father Additional Family Medical History / Comment(s): alcoholic Medications and Allergies Home Medications Medication Instructions Recorded Confirmed Type Cyanocobalamin (Vitamin B-12) 1,000 mcg PO DAILY@0500 04/30/18 12/05/20 History [Vitamin B-12] Ferrous Sulfate [Iron] 325 mg PO DAILY@0500 04/30/18 12/05/20 History Meloxicam [Mobic] 7.5 mg PO BID@0500,1600 04/30/18 12/05/20 History Morphine Pain Pump 0.01 mg INTRATHECA CONTINUOUS 04/30/18 12/05/20 History Multivitamins, Thera [Multivitamin 1 tab PO BID@0500,1600 04/30/18 12/05/20 History (formulary)] Risedronate Sodium [Actonel] 35 mg PO SA 04/30/18 12/05/20 History buPROPion XL [Wellbutrin XL] 300 mg PO DAILY@0500 04/30/18 12/05/20 History busPIRone HCL 15 mg PO BID@0500,1600 04/30/18 12/05/20 History lisinopriL [Zestril] 10 mg PO HS 04/30/18 12/05/20 History L.acidoph,Paracasei, B.lactis 1 cap PO BID@0500,1600 02/12/20 12/05/20 History [Probiotic] Calcium Citrate/Vitamin D3 1 tab PO BID@0500,1600 11/22/20 12/05/20 History [Citracal + D Maximum Caplet] Cranberry Fruit Concentrate [Azo 250 mg PO BID@0500,1600 11/22/20 12/05/20 History Cranberry] Magnesium 250 mg PO BID@0500,1600 11/22/20 12/05/20 History Psyllium Husk [Reguloid] 0.4 gm PO BID@0500,1600 11/22/20 12/05/20 History Triamcinolone Acetonide [Nasacort] 1 spr EA NOSTRIL DAILY PRN 11/22/20 12/05/20 History oxyCODONE HCL [OxyIR] 5 mg PO Q6H PRN 2 Days #8 tab 11/28/20 12/05/20 Rx HYDROcodone/APAP 10-325MG [[place] 1 tab PO Q6HR PRN 3 Days #12 tab 11/29/20 12/05/20 Rx 10-325] Allergies Allergy/AdvReac Type Severity Reaction Status Date / Time bee venom protein (honey bee) Allergy Unknown Swelling Verified 12/05/20 17:52 cat dander Allergy Unknown SINUS Verified 12/05/20 17:52 SYMPTOMS dog dander Allergy Unknown SINUS Verified 12/05/20 17:52 SYMPTOMS shellfish derived [Crab] Allergy Unknown Unknown Verified 12/05/20 17:52 aluminum Allergy Unknown Verified 12/05/20 17:52 amino acids [From Chromimin] Allergy Unknown Verified 12/05/20 17:52 chromium [From Chromimin] Allergy Unknown Verified 12/05/20 17:52 grass pollen Allergy Unknown Verified 12/05/20 17:52 iron Allergy Unknown Verified 12/05/20 17:52 mold Allergy Unknown Verified 12/05/20 17:52 nickel Allergy Unknown Verified 12/05/20 17:52 tree and shrub pollen Allergy Unknown Verified 12/05/20 17:52 Yeast Allergy Unknown Verified 12/05/20 17:52 cockroach Allergy Unknown Uncoded 11/29/20 10:56 dust Allergy Unknown Uncoded 11/29/20 10:56 dust mite Allergy Unknown Uncoded 11/29/20 10:56 weeds Allergy Unknown Uncoded 11/29/20 10:56 Surgical - Exam Vital Signs Temp Pulse Resp BP Pulse Ox 97.8 F 106 H 18 118/59 86 L 12/05/20 16:16 12/05/20 16:16 12/05/20 16:16 12/05/20 16:16 12/05/20 16:16 Results - Labs 12/06/20 08:45 12/06/20 08:45 Abnormal Lab Results - Last 24 Hours (Table) 12/05/20 12/05/20 12/05/20 Range/Units 16:50 16:50 16:50 WBC 14.2 H (3.8-10.6) k/uL RBC 2.64 L (3.80-5.40) m/uL Hgb 7.6 L (11.4-16.0) gm/dL Hct 24.8 L (34.0-46.0) % MCHC 30.6 L (31.0-37.0) g/dL Plt Count 543 H (150-450) k/uL Neutrophils # 13.1 H (1.3-7.7) k/uL Lymphocytes # 0.3 L (1.0-4.8) k/uL APTT (22.0-30.0) sec D-Dimer 10.96 H (<0.60) mg/L FEU Sodium 122 L (137-145) mmol/L Potassium 5.6 H (3.5-5.1) mmol/L Chloride 86 L (98-107) mmol/L Carbon Dioxide 18 L (22-30) mmol/L BUN 163 H* (7-17) mg/dL Creatinine 6.55 H (0.52-1.04) mg/dL Glucose 102 H (74-99) mg/dL Calcium 8.1 L (8.4-10.2) mg/dL Magnesium 2.7 H (1.6-2.3) mg/dL Total Bilirubin 2.0 H (0.2-1.3) mg/dL AST 123 H (14-36) U/L ALT 37 H (4-34) U/L Total Protein 5.6 L (6.3-8.2) g/dL Albumin 2.7 L (3.5-5.0) g/dL Urine Appearance (Clear) Urine Protein (Negative) Urine Blood (Negative) Amorphous Sediment (None) /hpf Crossmatch 12/05/20 12/06/20 12/06/20 Range/Units 23:12 07:15 08:45 WBC 17.0 H (3.8-10.6) k/uL RBC 2.13 L (3.80-5.40) m/uL Hgb 6.1 L* D (11.4-16.0) gm/dL Hct 20.2 L (34.0-46.0) % MCHC 30.1 L (31.0-37.0) g/dL Plt Count 528 H (150-450) k/uL Neutrophils # 16.2 H (1.3-7.7) k/uL Lymphocytes # 0.2 L (1.0-4.8) k/uL APTT 32.0 H (22.0-30.0) sec D-Dimer (<0.60) mg/L FEU Sodium (137-145) mmol/L Potassium (3.5-5.1) mmol/L Chloride (98-107) mmol/L Carbon Dioxide (22-30) mmol/L BUN (7-17) mg/dL Creatinine (0.52-1.04) mg/dL Glucose (74-99) mg/dL Calcium (8.4-10.2) mg/dL Magnesium (1.6-2.3) mg/dL Total Bilirubin (0.2-1.3) mg/dL AST (14-36) U/L ALT (4-34) U/L Total Protein (6.3-8.2) g/dL Albumin (3.5-5.0) g/dL Urine Appearance Cloudy H (Clear) Urine Protein 1+ H (Negative) Urine Blood Moderate H (Negative) Amorphous Sediment Occasional H (None) /hpf Crossmatch 12/06/20 12/06/20 Range/Units 08:45 09:55 WBC (3.8-10.6) k/uL RBC (3.80-5.40) m/uL Hgb (11.4-16.0) gm/dL Hct (34.0-46.0) % MCHC (31.0-37.0) g/dL Plt Count (150-450) k/uL Neutrophils # (1.3-7.7) k/uL Lymphocytes # (1.0-4.8) k/uL APTT (22.0-30.0) sec D-Dimer (<0.60) mg/L FEU Sodium 125 L (137-145) mmol/L Potassium 5.3 H (3.5-5.1) mmol/L Chloride 93 L (98-107) mmol/L Carbon Dioxide 17 L (22-30) mmol/L BUN 162 H* (7-17) mg/dL Creatinine 6.99 H (0.52-1.04) mg/dL Glucose (74-99) mg/dL Calcium 7.6 L (8.4-10.2) mg/dL Magnesium (1.6-2.3) mg/dL Total Bilirubin 1.4 H (0.2-1.3) mg/dL AST 98 H (14-36) U/L ALT (4-34) U/L Total Protein 4.7 L (6.3-8.2) g/dL Albumin 2.2 L (3.5-5.0) g/dL Urine Appearance (Clear) Urine Protein (Negative) Urine Blood (Negative) Amorphous Sediment (None) /hpf Crossmatch See Detail Diabetes panel 12/05/20 12/06/20 Range/Units 16:50 08:45 Sodium 122 L 125 L (137-145) mmol/L Potassium 5.6 H 5.3 H (3.5-5.1) mmol/L Chloride 86 L 93 L (98-107) mmol/L Carbon Dioxide 18 L 17 L (22-30) mmol/L BUN 163 H* 162 H* (7-17) mg/dL Creatinine 6.55 H 6.99 H (0.52-1.04) mg/dL Glucose 102 H 94 (74-99) mg/dL Calcium 8.1 L 7.6 L (8.4-10.2) mg/dL AST 123 H 98 H (14-36) U/L ALT 37 H 29 (4-34) U/L Alkaline Phosphatase 111 89 (38-126) U/L Total Protein 5.6 L 4.7 L (6.3-8.2) g/dL Albumin 2.7 L 2.2 L (3.5-5.0) g/dL Calcium panel 12/05/20 12/06/20 Range/Units 16:50 08:45 Calcium 8.1 L 7.6 L (8.4-10.2) mg/dL Albumin 2.7 L 2.2 L (3.5-5.0) g/dL Pituitary panel 12/05/20 12/06/20 Range/Units 16:50 08:45 Sodium 122 L 125 L (137-145) mmol/L Potassium 5.6 H 5.3 H (3.5-5.1) mmol/L Chloride 86 L 93 L (98-107) mmol/L Carbon Dioxide 18 L 17 L (22-30) mmol/L BUN 163 H* 162 H* (7-17) mg/dL Creatinine 6.55 H 6.99 H (0.52-1.04) mg/dL Glucose 102 H 94 (74-99) mg/dL Calcium 8.1 L 7.6 L (8.4-10.2) mg/dL Adrenal panel 12/05/20 12/06/20 Range/Units 16:50 08:45 Sodium 122 L 125 L (137-145) mmol/L Potassium 5.6 H 5.3 H (3.5-5.1) mmol/L Chloride 86 L 93 L (98-107) mmol/L Carbon Dioxide 18 L 17 L (22-30) mmol/L BUN 163 H* 162 H* (7-17) mg/dL Creatinine 6.55 H 6.99 H (0.52-1.04) mg/dL Glucose 102 H 94 (74-99) mg/dL Calcium 8.1 L 7.6 L (8.4-10.2) mg/dL Total Bilirubin 2.0 H 1.4 H (0.2-1.3) mg/dL AST 123 H 98 H (14-36) U/L ALT 37 H 29 (4-34) U/L Alkaline Phosphatase 111 89 (38-126) U/L Total Protein 5.6 L 4.7 L (6.3-8.2) g/dL Albumin 2.7 L 2.2 L (3.5-5.0) g/dL
--- NOTE | 2020-12-06 13:36 | US ---
EXAMINATION TYPE: US kidneys/renal and bladder DATE OF EXAM: 12/06/2020 COMPARISON: NONE CLINICAL HISTORY: PUMA. recent pelvic abscess, PUMA EXAM MEASUREMENTS: Right Kidney: 10.3 x 4.9 x 5.4 cm Left Kidney: not seen Right Kidney: No hydronephrosis or masses seen Left Kidney: not seen, abscess extends within LUQ and obscures renal Bladder: not seen, pt has puentes There is no evidence for hydronephrosis at this point in time. No nephrolithiasis is seen. No janice s are identified. Cortical medullary differentiation maintained IMPRESSION: Exam is limited.
[2020-12-06] MEDS ORDERED: VANCOMYCIN 1,250 MG in SODIUM CHLORIDE 0.9% 250 ML IVPB ONE (16:00)
[2020-12-06 17:25] LABS: Calcium 7.7 mg/dL (8.4-10.2); Potassium 5.4 mmol/L (3.5-5.1)
[2020-12-07] MEDS: DEXTROSE 5% IN WATER 1,000 ML with SODIUM BICARB (1 MEQ/ML) 150 ML IV SCH ×2 (06:28→21:32)
[2020-12-07] MEDS ORDERED: ONDANSETRON 4 MG/2 ML VIAL IVP ONE ×2 (08:22→10:34)
[2020-12-07] MEDS ORDERED: HYDROmorphone 0.5 MG/0.5 ML SYRINGE IVP PRN (08:22)
[2020-12-07 09:06] LABS: ALT 29 U/L (4-34); AST 115 U/L (14-36); Albumin 2.5 g/dL (3.5-5.0); Albumin/Globulin Ratio 0.9; Alkaline Phosphatase 100 U/L (38-126); Anion Gap 14 mmol/L; Calcium 8.1 mg/dL (8.4-10.2); Carbon Dioxide 23 mmol/L (22-30); Chloride 90 mmol/L (98-107); Globulin 2.7 g/dL; Glucose 115 mg/dL (74-99); Potassium 5.2 mmol/L (3.5-5.1); Sodium 127 mmol/L (137-145); Total Bilirubin 1.1 mg/dL (0.2-1.3); Total Protein 5.2 g/dL (6.3-8.2)
[2020-12-07 09:12] LABS: African American GFR (CKD) 7 (>60 ml/min/1.73 sqM); Non-African American GFR(CKD) 6 (>60 ml/min/1.73 sqM)
[2020-12-07 09:27] LABS: Blood Urea Nitrogen 166 mg/dL (7-17)
[2020-12-07 10:24] LABS: Basophils # (A) 0.1 k/uL (0-0.2); Basophils % (A) 0 %; Eosinophils # (A) 0.2 k/uL (0-0.7); Eosinophils % (A) 1 %; Lymphocytes # (A) 0.3 k/uL (1.0-4.8); Lymphocytes % (A) 1 %; Monocytes # (A) 0.3 k/uL (0-1.0); Monocytes % (A) 1 %; Neutrophils % (A) 96 %
[2020-12-07] MEDS: LACTATED RINGERS 1,000 ML IV SCH (10:25)
[2020-12-07] MEDS ORDERED: IV FLUID CONTINUATION 800 ML IV ONE (10:25)
[2020-12-07] MEDS ORDERED: fentaNYL (PF) 50 MCG/ML 2 ML AMP ONE ×2 (10:31→18:24)
[2020-12-07] MEDS ORDERED: NEOSTIGMINE 1 MG/ML 10 ML VIAL ONE ×2 (10:31→18:24)
[2020-12-07] MEDS ORDERED: LIDOCAINE 1% INJ 10MG/ML (20 ML MDV) ONE ×2 (10:31→18:24)
[2020-12-07] MEDS ORDERED: CISATRACURIUM 2 MG/ML 5 ML VIAL IV ONE (10:31)
[2020-12-07] MEDS ORDERED: SUCCINYLCHOLINE CHLORIDE 100 MG/5 ML SYR IV ONE ×2 (10:31→18:24)
[2020-12-07] MEDS ORDERED: HYDROmorphone (PF) 1 MG/ML ONE (10:31)
[2020-12-07] MEDS ORDERED: GLYCOPYRROLATE 0.2 MG/ML 2 ML VIAL ONE ×2 (10:31→18:24)
[2020-12-07] MEDS ORDERED: PROPOFOL 10 MG/ML 20 ML VIAL IV ONE ×2 (10:31→18:24)
[2020-12-07] MEDS ORDERED: HEPARIN SODIUM,PORCINE/PF 5,000 UNIT/0.5 ML SYRINGE SQ ONE (10:31)
--- NOTE | 2020-12-07 10:34 | P.PN ---
Progress Note - Text Progress Note Date: 12/07/20 I had a discussion with the patient's [id number] this morning. The radiologist was uncomfortable attempting to drain her pelvic abscess yesterday. Given the fact that the abscesses quite large and is a possibility for a anastomotic leak I believe that she should be explored surgically. I discussed the patient's and the the [id number] that I will perform exposure laparotomy with peritoneal washout. All her questions were answered.
[2020-12-07] MEDS: PIPERACILLIN-TAZOBACTAM 3.375 GM in SODIUM CHLORIDE 0.9% 100 ML IVPB SCH ×3 (10:35→21:32)
[2020-12-07 10:44] LABS: HGB 7.4 gm/dL (11.4-16.0)
[2020-12-07 10:45] LABS: HCT 24.2 % (34.0-46.0); MCH 28.7 pg (25.0-35.0); MCHC 30.7 g/dL (31.0-37.0); MCV 93.2 fL (80.0-100.0); Mean Platelet Volume 7.5; Platelet Count 576 k/uL (150-450); RDW 15.5 % (11.5-15.5)
--- NOTE | 2020-12-07 11:36 | P.OP ---
Date of Procedure: 12/07/20 Preoperative Diagnosis: THIS Postoperative Diagnosis: Pelvic abscess Procedure(s) Performed: Washout of peritoneal cavity with drain placement Anesthesia: TADEO Surgeon: Marcos Babb Estimated Blood Loss (ml): 25 Pathology: other (Abscess culture) Condition: stable Disposition: PACU Description of Procedure: The patient's placed on the operative table in the supine position. She received general anesthesia. Her abdomen was prepped and draped usual sterile fashion. The skin lela removed. The wound was opened. The fascial suture was cut. There is very little healing. Once the fascia was opened. The abdominal wall retractors placed. The pelvic abscess was found. The pelvic abscess appeared to be an infected hematoma. This area was washed out with 4 L of normal saline. The entire peritoneal Cavity was washed out. A REBEKAH drain is placed into the pelvis and brought out through the left abdominal wall. The small bowel was examined. The small bowel anastomosis could not be visualized secondary to the inflammatory reaction small bowel. There is no evidence of any enteric leak. There is no bilious fluid. There was no enteric contents. In the peritoneal cavity. The fascia was then closed with looped #1 PDS suture. The wound was left open and a wound VAC was placed. Patient top she will was sent to recovery room stable condition.
[2020-12-07] MEDS ORDERED: fentaNYL (PF) 50 MCG/ML 2 ML AMP IVP ONE ×2 (11:49→11:55)
[2020-12-07] MEDS ORDERED: MEPERIDINE 50 MG/ML SYRINGE IVP ONE ×2 (12:09→12:28)
[2020-12-07] MEDS ORDERED: ERTAPENEM 1 GM in SODIUM CHLORIDE 0.9% 50 ML IVPB SCH (13:45)
--- NOTE | 2020-12-07 15:51 | PN ---
PROGRESS NOTE The patient is seen for followup for acute kidney injury. The patient was admitted with a creatinine of 6.9, BUN of 162. Her renal function has not improved significantly. Serum creatinine is still staying about 6.7. She has had urine output for 24 hours about 1000 mL previously and then over the last 24 hours about 800 mL. The patient is maintained on IV fluids. She remains lethargic, although she states she is feeling better. Ultrasound of the abdomen did not show any evidence of hydronephrosis. PHYSICAL EXAMINATION: On examination today, blood pressure 101/53, heart rate 101 per minute, she is afebrile. Examination of the heart S1, S2. Examination of the lungs, bilateral breath sounds are heard. Abdomen is soft, nontender. Abdomen is soft with tenderness. Examination of lower extremities shows no evidence of edema. ASSISTANT CORPORATE SECRETARY exam grossly intact. The patient is lethargic but able to answer simple questions. She moves all 4 extremities. LAB: Show sodium 127, potassium 5.2, chloride 90, BUN 166, serum creatinine 6.7, hemoglobin 7.4 g/dL. ASSESSMENT: 1. Acute kidney injury most likely acute tubular necrosis. No evidence of obstruction noted. This is a significant increase in the creatinine from previous creatinine of 0.7 on 11/29/2020. The patient does have a pelvic abscess and there is no hydronephrosis noted on CT scan or ultrasound. Given the persistently elevated BUN and creatinine and overall patient's general condition and lethargy, I will proceed with dialysis. We will consult Vascular Surgery for dialysis catheter placement. 2. Anemia, postop, mostly acute blood loss anemia status post packed RBCs transfusion. 3. Hyperkalemia associated with acute kidney injury, metabolic acidosis, currently improving. 4. Hyponatremia which is hypovolemic, currently improving. 5. Pelvic abscess after right hemicolectomy, going back to OR today. PLAN: Proceed with vascular surgery consult. Continue IV bicarb drip and we will plan for hemodialysis in a.m. Continue to avoid nephrotoxic agents and avoid hypotension. MMODL / IJN: [id number] /
[2020-12-07] MEDS ORDERED: LACTATED RINGERS 1,000 ML IV ONE (18:00)
[2020-12-07] MEDS ORDERED: HEPARIN SODIUM,PORCINE 5,000 UNIT/ML 1 ML VIAL ONE (18:24)
[2020-12-07] MEDS ORDERED: KETOROLAC 15 MG/ML 1 ML VIAL ONE (18:24)
[2020-12-07] MEDS ORDERED: MIDAZOLAM 2 MG/2 ML VIAL ONE (18:24)
[2020-12-07] MEDS ORDERED: ONDANSETRON 4 MG/2 ML VIAL ONE (18:24)
[2020-12-07] MEDS ORDERED: DEXAMETHASONE SOD PHOSPHATE 10 MG/ML 1 ML VIAL ONE (18:24)
[2020-12-07] MEDS ORDERED: ROCURONIUM 10 MG/ML (5 ML VIAL) IV ONE (18:24)
--- NOTE | 2020-12-07 19:10 | P.PN ---
Progress Note - Text Progress Note Date: 12/07/20 Chief Complaint: Right abdominal pain History of presenting complaint: This is a very pleasant 70-year-old patient of Dr. Nickerson. Chronic stable medical conditions include hypertension, osteoarthritis, chronic low back pain for which she has a pain pump-being followed by Dr. Artis, gastric bypass, anxiety depression. November 23: Cecum bascule, [ type of volvulus.] : Underwent right hemicolectomy, by Dr Babb. Patient was discharged on November 28, was tolerating diet. Now presented with increasing abdominal pain and some mental status changes. The scan abdomen showed a large pelvic abscess. Today: Patient had a washout of the peritoneal cavity with the drain placement. The pelvic abscess appeared to be infected hematoma. Paternal cavity was washed out. Small bowel anastomosis could not be visualized. Wound VAC was placed. I saw the patient postprocedure. Sedated. [id number] at the bedside. NG tube to suction. Review of systems: Patient sedated Active Medications Acetaminophen (Acetaminophen Tab 325 Mg Tab) 650 mg PO Q6HR PRN PRN Reason: Mild Pain or Fever > 100.5 Last Admin: 12/06/20 00:12 Dose: 650 mg Documented by: Hydromorphone HCl (Hydromorphone 0.5 Mg/0.5 Ml Syringe) 0.5 mg IVP Q5M PRN PRN Reason: Pain Control Stop: 01/06/21 08:23 Piperacillin Sod/Tazobactam (Sod 3.375 gm/ Sodium Chloride) 100 mls @ 25 mls/hr IVPB Q12H [facility] Last Admin: 12/07/20 10:40 Dose: 100 mls Documented by: Sodium Bicarbonate 150 ml/ (Dextrose/Water) 1,150 mls @ 100 mls/hr IV .[id number] [facility] Last Admin: 12/07/20 06:28 Dose: 100 mls/hr Documented by: Lactated Ringer's (Lactated Ringers) 1,000 mls @ 20 mls/hr IV .Q24H [facility] Last Admin: 12/07/20 10:25 Dose: 600 mls Documented by: Lactated Ringer's (Lactated Ringers) 1,000 mls @ 999 mls/hr IV .Q1H1M ONE Stop: 12/07/20 19:00 Last Admin: 12/07/20 18:06 Dose: 999 mls/hr Documented by: Naloxone HCl (Naloxone 0.4 Mg/Ml 1 Ml Vial) 0.2 mg IV Q2M PRN PRN Reason: Opioid Reversal Ondansetron HCl (Ondansetron 4 Mg/2 Ml Vial) 4 mg IVP Q8HR PRN PRN Reason: Nausea And Vomiting Past medical history to include: Hypertension, osteoarthritis, gastric bypass, pain pump nonfunctioning nerve stimulator present, anxiety depression Social history: Did smoke in the past. No alcohol. Lives alone Physical examination: VITAL SIGNS: 96.9, 95, 14, 96/60, 100% on 2 L GENERAL:, laying in bed, somnolent EYES: Pupils equal. Conjunctiva pale. HEENT: NG tube in place, oral dry cavity. NECK: JVD unable to assess; masses not palpable. HEART: First and second heart sounds are normal; no edema. LUNGS: Respiratory rate normal; clear to auscultation ABDOMEN: , Some tender, no guarding rigidity, liver spleen not palpable, no masses palpable. Wound VAC in place PSYCH: Unable to assess patient sedated. INVESTIGATIONS, reviewed in the clinical context: December 07: WBC 22 hemoglobin 7.4 platelets 576 sodium 127 potassium 5.2 bun 166 creatinine 6.71 AST 115 ALT 29 albumin 2.5 Previous labs: November 29: BUN 16 creatinine 0.76 AST 34 ALT 15 Assessment and plan: -Intra-abdominal pelvic abscess, in a patient who recently underwent right hemicolectomy on November 23 Status post surgery with intra-abdominal washout. Has a REBEKAH drain and a wound VAC. 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 Right hemicolectomy on November 23. -Essential hypertension Follow blood pressure closely. Antihypertensive currently held because of re latively low blood pressure -Primary osteoarthritis Pain medications as needed -Anxiety depression otherwise specified Continue home medications - chronic pain syndrome, patient has a pain pump -Recent postprocedure blood is anemia as expected from surgery Last admission received blood -Severe sepsis IV fluids, antibiotics -Reactive thrombocytosis Follow -Hypovolemic hyponatremia IV fluids, follow labs -Hyperkalemia secondary to renal failure Follow labs -Acute kidney injury, likely combination of ATN, prerenal-severe IV fluids. Plan for dialysis as per nephrology -Metabolic acidosis secondary to renal failure Follow labs and IV bicarbonate -Hypoalbuminemia, acute phase reactant Care was discussed with the [id number] at the bedside. Discussed with Dr. Babb from general surgery-suggested to have a PICC line and start TPN and lipids.
[2020-12-08] MEDS: DEXTROSE 5% IN WATER 1,000 ML with SODIUM BICARB (1 MEQ/ML) 150 ML IV SCH (01:10)
[2020-12-08] MEDS: PIPERACILLIN-TAZOBACTAM 3.375 GM in SODIUM CHLORIDE 0.9% 100 ML IVPB SCH ×2 (08:07→21:56)
[2020-12-08 08:11] LABS: Basophils % (A) 0 %; Eosinophils # (A) 0.2 k/uL (0-0.7); Eosinophils % (A) 1 %; HCT 24.1 % (34.0-46.0); Lymphocytes # (A) 0.4 k/uL (1.0-4.8); Lymphocytes % (A) 2 %; MCH 30.2 pg (25.0-35.0); MCHC 33.3 g/dL (31.0-37.0); MCV 90.9 fL (80.0-100.0); Mean Platelet Volume 7.2; Monocytes # (A) 0.4 k/uL (0-1.0); Monocytes % (A) 3 %; Neutrophils # (A) 13.5 k/uL (1.3-7.7); Neutrophils % (A) 93 %; Platelet Count 497 k/uL (150-450); RBC 2.65 m/uL (3.80-5.40); RDW 14.9 % (11.5-15.5); WBC 14.6 k/uL (3.8-10.6)
--- NOTE | 2020-12-08 08:47 | P.CONS ---
History of Present Illness - Reason for Consult Consult date: 12/08/20 Dialysis catheter placement Requesting physician: Sahra Goode - Chief Complaint Shortness of breath, weakness - History of Present Illness This is a pleasant 70-year-old white female who presented to the emergency department on 12/05/2020 with complaints of pleuritic chest pain. The patient has multiple medical comorbidities including hypertension, arthritis, history of pneumonia, and chronic back pain. The patient underwent extensive workup in the emergency department and had a CT of the abdomen and pelvis was diagnosed with a pelvic abscess. Patient had a VQ scan which showed low probability of pulmonary embolism. Yesterday she underwent a washout of the peritoneal cavity with drain placement by surgical services. Nephrology is following patient for acute kidney injury which is stated most likely acute tubular necrosis, with worsening BUN and creatinine. Last BUN was 166, creatinine 6.71. Vascular surgery was consulted for temporary dialysis catheter placement. The patient states she's has surgical pain, denies any chest pain or shortness of breath at this time. She has an NG tube and REBEKAH drain along with a wound VAC to her abdomen. Review of Systems A 14 point review of systems was completed all pertinent positives and negatives as stated in the HPI. Past Medical History Past Medical History: Cancer, Hypertension, Osteoarthritis (OA), Pneumonia Additional Past Medical History / Comment(s): chronic back pain- morpine pain pump in place. Skin cancer-removed outpatient. History of Any Multi-Drug Resistant Organisms: None Reported Past Surgical History: Back Surgery, Bariatric Surgery, Cholecystectomy, Hernia Repair, Joint Replacement, Orthopedic Surgery, Tubal Ligation Additional Past Surgical History / Comment(s): Gastric byspass 1998, nerve stimulator-in place but not functioning at this time 11/25. Bladder suspension- 1994 & 2008 & fixed it in 2010. Tubal ligation-1974. Adhesion to small bowel in 1999. Hernia repair/gallbladder-2004. Back fusion of L4,L5,S1-2003. Basal joint arthritis- left thumb and right thumb-2005. Arthro left knee 2005 & 2010. Left knee total in 2006. Back L3 to gustavo- 2008. Cataracts surgery right eye 2009. Cataract left eye-2009. Fusion neck C3-C7- 2009. right knee total-2014. IPG nerve stim-2015. Pain pump-december 2016. Rectocele 2017. Sinus surgery and skin cancer removal 2020. Bowel resection November 2020. Past Anesthesia/Blood Transfusion Reactions: No Reported Reaction Past Psychological History: Anxiety, Depression Smoking Status: Never smoker Past Alcohol Use History: None Reported Past Drug Use History: None Reported - Past Family History Mother Family Medical History: Diabetes Mellitus Additional Family Medical History / Comment(s): heart issues Father Additional Family Medical History / Comment(s): alcoholic Medications and Allergies Home Medications Medication Instructions Recorded Confirmed Type Cyanocobalamin (Vitamin B-12) 1,000 mcg PO DAILY@0500 04/30/18 12/05/20 History [Vitamin B-12] Ferrous Sulfate [Iron] 325 mg PO DAILY@0500 04/30/18 12/05/20 History Meloxicam [Mobic] 7.5 mg PO BID@0500,1600 04/30/18 12/05/20 History Morphine Pain Pump 0.01 mg INTRATHECA CONTINUOUS 04/30/18 12/05/20 History Multivitamins, Thera [Multivitamin 1 tab PO BID@0500,1600 04/30/18 12/05/20 History (formulary)] Risedronate Sodium [Actonel] 35 mg PO SA 04/30/18 12/05/20 History buPROPion XL [Wellbutrin XL] 300 mg PO DAILY@0500 04/30/18 12/05/20 History busPIRone HCL 15 mg PO BID@0500,1600 04/30/18 12/05/20 History lisinopriL [Zestril] 10 mg PO HS 04/30/18 12/05/20 History L.acidoph,Paracasei, B.lactis 1 cap PO BID@0500,1600 02/12/20 12/05/20 History [Probiotic] Calcium Citrate/Vitamin D3 1 tab PO BID@0500,1600 11/22/20 12/05/20 History [Citracal + D Maximum Caplet] Cranberry Fruit Concentrate [Azo 250 mg PO BID@0500,1600 11/22/20 12/05/20 History Cranberry] Magnesium 250 mg PO BID@0500,1600 11/22/20 12/05/20 History Psyllium Husk [Reguloid] 0.4 gm PO BID@0500,1600 11/22/20 12/05/20 History Triamcinolone Acetonide [Nasacort] 1 spr EA NOSTRIL DAILY PRN 11/22/20 12/05/20 History oxyCODONE HCL [OxyIR] 5 mg PO Q6H PRN 2 Days #8 tab 11/28/20 12/05/20 Rx HYDROcodone/APAP 10-325MG [[place] 1 tab PO Q6HR PRN 3 Days #12 tab 11/29/20 12/05/20 Rx 10-325] Allergies Allergy/AdvReac Type Severity Reaction Status Date / Time bee venom protein (honey bee) Allergy Unknown Swelling Verified 12/05/20 17:52 cat dander Allergy Unknown SINUS Verified 12/05/20 17:52 SYMPTOMS dog dander Allergy Unknown SINUS Verified 12/05/20 17:52 SYMPTOMS shellfish derived [Crab] Allergy Unknown Unknown Verified 12/05/20 17:52 aluminum Allergy Unknown Verified 12/05/20 17:52 amino acids [From Chromimin] Allergy Unknown Verified 12/05/20 17:52 chromium [From Chromimin] Allergy Unknown Verified 12/05/20 17:52 grass pollen Allergy Unknown Verified 12/05/20 17:52 iron Allergy Unknown Verified 12/05/20 17:52 mold Allergy Unknown Verified 12/05/20 17:52 nickel Allergy Unknown Verified 12/05/20 17:52 tree and shrub pollen Allergy Unknown Verified 12/05/20 17:52 Yeast Allergy Unknown Verified 12/05/20 17:52 cockroach Allergy Unknown Uncoded 11/29/20 10:56 dust Allergy Unknown Uncoded 11/29/20 10:56 dust mite Allergy Unknown Uncoded 11/29/20 10:56 weeds Allergy Unknown Uncoded 11/29/20 10:56 Physical Exam Vitals: Vital Signs Temp Pulse Pulse Pulse Pulse Resp BP 12/08/20 07:31 98.0 F 103 H 17 12/08/20 00:00 98.1 F 103 H 20 12/07/20 18:59 97.7 F 88 12/07/20 17:05 89 12/07/20 16:51 90 12/07/20 16:50 88 12/07/20 16:35 89 12/07/20 16:20 87 12/07/20 16:05 91 12/07/20 15:50 88 12/07/20 15:35 91 12/07/20 15:20 91 12/07/20 15:05 92 12/07/20 14:50 93 06/02/21 14:35 96 12/07/20 14:20 94 12/07/20 14:09 96.9 F L 95 14 12/07/20 14:05 96.9 F L 101 H 12/07/20 13:52 97 F L 16 99/54 12/07/20 13:40 99 16 12/07/20 13:25 101 H 16 12/07/20 13:12 97.4 F L 99 16 93/52 12/07/20 12:55 107 H 18 12/07/20 12:42 98 F 107 H 20 91/54 12/07/20 12:32 97.7 F 20 99/53 12/07/20 12:15 105 H 20 12/07/20 12:00 105 H 22 12/07/20 11:45 101 H 22 12/07/20 11:32 97.4 F L 101 H 20 12/07/20 10:15 98.4 F 99 16 12/07/20 09:23 95 BP Pulse Ox 12/08/20 07:31 114/66 91 L 12/08/20 00:00 106/63 93 L 12/07/20 18:59 109/65 100 12/07/20 17:05 92/56 100 12/07/20 16:51 96/58 12/07/20 16:50 93/56 100 12/07/20 16:35 96/59 100 12/07/20 16:20 97/60 100 12/07/20 16:05 101/62 100 12/07/20 15:50 100/61 100 12/07/20 15:35 99/60 100 12/07/20 15:20 102/64 100 12/07/20 15:05 100/62 100 12/07/20 14:50 99/62 99 12/07/20 14:35 96/61 99 12/07/20 14:20 96/60 99 12/07/20 14:09 96/60 100 12/07/20 14:05 94/57 99 12/07/20 13:52 12/07/20 13:40 102/56 98 12/07/20 13:25 101/53 99 12/07/20 13:12 99 12/07/20 12:55 97/55 99 12/07/20 12:42 97 06/02/21 12:32 100 12/07/20 12:15 115/55 100 12/07/20 12:00 129/58 100 12/07/20 11:45 132/62 100 12/07/20 11:32 144/63 98 12/07/20 10:15 134/63 95 12/07/20 09:23 Intake and Output 12/07/20 12/08/20 12/08/20 22:59 06:59 14:59 Intake Total 0 Output Total 1270 1115 20 Balance -1270 -1115 -20 Intake: Oral 0 Output: Gastric Drainage 0 Drainage 120 65 20 Abdomen 0 0 Left Abdomen 120 65 20 Urine 1150 1050 Other: Voiding Method Indwelling Catheter Weight 68.039 kg 75 kg General appearance: The patient is alert, oriented, in no acute distress. HET: Head is normocephalic and atraumatic. Pupils are equal and reactive. Oropharynx is clear without lesions. Neck: Supple without lymphadenopathy. Trachea midline. Heart: S1 S2. Regular rate and rhythm. Lungs: No crackles or wheezes are heard. Abdomen: Soft, nontender, nondistended with bowel sounds. No peritoneal signs. No palpable organomegaly or masses. Extremities: Normal skin color and turgor. No cyanosis, rash, ulceration, clu bbing, or edema. Radial and pedal pulses are 2/4 bilaterally. Neurological: No focal deficits. Strength and sensation are grossly intact. Results CBC & Chem 7: 12/08/20 07:00 12/07/20 08:20 Labs: Abnormal Lab Results - Last 24 Hours (Table) 12/06/20 12/07/20 12/07/20 Range/Units 09:55 07:57 08:20 WBC 22.0 H (3.8-10.6) k/uL RBC 2.60 L (3.80-5.40) m/uL Hgb 7.4 L (11.4-16.0) gm/dL Hct 24.2 L (34.0-46.0) % MCHC 30.7 L (31.0-37.0) g/dL Plt Count 576 H (150-450) k/uL Neutrophils # 21.0 H (1.3-7.7) k/uL Lymphocytes # 0.3 L (1.0-4.8) k/uL Sodium 127 L (137-145) mmol/L Potassium 5.2 H (3.5-5.1) mmol/L Chloride 90 L (98-107) mmol/L BUN 166 H* (7-17) mg/dL Creatinine 6.71 H (0.52-1.04) mg/dL Glucose 115 H (74-99) mg/dL Calcium 8.1 L (8.4-10.2) mg/dL AST 115 H (14-36) U/L Total Protein 5.2 L (6.3-8.2) g/dL Albumin 2.5 L (3.5-5.0) g/dL Crossmatch See Detail 12/08/20 Range/Units 07:00 WBC 14.6 H (3.8-10.6) k/uL RBC 2.65 L (3.80-5.40) m/uL Hgb 8.0 L (11.4-16.0) gm/dL Hct 24.1 L (34.0-46.0) % MCHC (31.0-37.0) g/dL Plt Count 497 H (150-450) k/uL Neutrophils # 13.5 H (1.3-7.7) k/uL Lymphocytes # 0.4 L (1.0-4.8) k/uL Sodium (137-145) mmol/L Potassium (3.5-5.1) mmol/L Chloride (98-107) mmol/L BUN (7-17) mg/dL Creatinine (0.52-1.04) mg/dL Glucose (74-99) mg/dL Calcium (8.4-10.2) mg/dL AST (14-36) U/L Total Protein (6.3-8.2) g/dL Albumin (3.5-5.0) g/dL Crossmatch Microbiology - Last 24 Hours (Table) 12/07/20 11:35 Gram Stain - Preliminary Abdomen Wound Culture - Preliminary 12/05/20 18:30 Blood Culture - Preliminary Blood No Growth after 48 hours 12/05/20 18:44 Blood Culture - Preliminary Blood No Growth after 48 hours 12/07/20 11:35 Anaerobic Culture - Preliminary Abdomen Assessment and Plan Assessment: 1. Acute kidney injury requiring hemodialysis 2. Pelvic abscess 3. Anemia Plan: Vascular surgery will proceed with bedside temporary hemodialysis catheter placement. Hemodialysis per recommendations from nephrology. Thank you for this consultation. The impression and plan of care has been dictated as directed. Dr. Dalton I performed a history and examination of this patient, discussed the same with the dictator. I agree with the dictator's note ,documented as a scribe. Any additional findings or plans will be noted.
--- NOTE | 2020-12-08 09:02 | CONS ---
CONSULTATION DATE OF SERVICE: 12/07/2020 REASON FOR CONSULTATION: Pyloric abscess. HISTORY OF PRESENT ILLNESS: The patient is a 70 -year-old female who recently did have a right hemicolectomy performed by Dr. Babb. The patient subsequently has been discharged home The patient has been brought back to the [facility] ER 2 days ago for evaluation of generalized weakness. Patient did have chest pain and mental status changes. Patient had been getting worse for about a day or two before presentation to hospital. No clear history of any vomiting or diarrhea or any drainage from her abdominal wound. On presentation to the hospital, the patient was afebrile and no fever has been recorded since then. The patient did have white count of 17,000. Did have low hemoglobin 6.1, white count repeat is 22,000. Did have elevated BUN and creatinine. The patient did have a CT abdomen and pelvis with evidence of a pelvic abscess. She was taken to the OR today and is status post drainage of what looks like an infected hematoma. There was no evidence of any leakage or perforation of fecal matter in the abdominal cavity. Abdominal culture has been obtained. Patient has been treated with Zosyn. Infectious Disease was consulted for further management of antibiotic therapy. Most of the information has been obtained from review of the chart, talking to nursing staff. The patient is not able to provide any history. REVIEW OF SYSTEMS: Positive points have been mentioned in HPI. Complete review could not be done because of the patient's mental status. PAST MEDICAL HISTORY: Hypertension, osteoarthritis, pneumonia, chronic back pain. PAST SURGICAL HISTORY: Back surgery, gastric bypass surgery, cholecystectomy. SOCIAL HISTORY: No history of smoking, drinking or drug use. FAMILY HISTORY: Mother with history of diabetes and heart issues. ALLERGIES: MEDICATIONS AND ENVIRONMENTAL FACTOR DOCUMENTED IN THE CHART. MEDICATIONS: Currently the patient is on Zosyn, Zofran, Narcan, lactated Ringer, Dilaudid and Tylenol. PHYSICAL EXAMINATION: Blood pressure 139/65, pulse of 80, temperature 97.7. He is 100% on 3 L nasal cannula. General description is an elderly male lying in in no distress. No tachypnea or accessory muscles of respiration use. HEENT: Examination shows pallor. No scleral icterus. Oral mucous membranes dry. NECK: Trachea central. No thyromegaly. LUNGS: Unlabored breathing, clear to auscultation anteriorly. No wheeze or crackles. HEART S1, S2. Regular rate and rhythm. ABDOMEN: Soft, slightly distended. No guarding. No rigidity. No organomegaly. EXTREMITIES: No edema of the feet. SKIN examination: No rash or mass palpable. NEUROLOGIC: The patient is currently lethargic, sleepy. Orientation could not be determined. LABS: Hemoglobin 7.4, white count 22,000, BUN 136, creatinine 6.71. Abdominal cultures currently pending. DIAGNOSTIC IMPRESSION/PLAN: 1. Patient with infected pelvic hematoma in this patient who is status post right hemicolectomy recently with no evidence of any perforation or fecal matter abdominal cavity per the admitting. 2. Patient with renal insufficiency, has chronic nephrotoxicity. PLAN: 1. We will keep the patient on Zosyn 3.375 grams q.12 hours dose adjusted to kidney function. 2. Gentle IV fluid. 3. We will follow the clinical condition and culture to further adjust medication if needed. Thank you for this consultation. Will follow this patient along with you. MMODL / IJN: [id number] / ANÍBAL
[2020-12-08 09:14] LABS: Ionized Calcium 4.3 mg/dL (4.5-5.3)
[2020-12-08 09:46] LABS: ALT 24 U/L (4-34); AST 83 U/L (14-36); Albumin 2.3 g/dL (3.5-5.0); Albumin/Globulin Ratio 0.9; Alkaline Phosphatase 83 U/L (38-126); Anion Gap 10 mmol/L; Calcium 7.8 mg/dL (8.4-10.2); Carbon Dioxide 30 mmol/L (22-30); Chloride 90 mmol/L (98-107); Globulin 2.5 g/dL; Glucose 130 mg/dL (74-99); Magnesium 2.2 mg/dL (1.6-2.3); Phosphorus 8.6 mg/dL (2.5-4.5); Potassium 4.9 mmol/L (3.5-5.1); Sodium 130 mmol/L (137-145); Total Bilirubin 0.8 mg/dL (0.2-1.3); Total Protein 4.8 g/dL (6.3-8.2)
[2020-12-08 09:52] LABS: African American GFR (CKD) 8 (>60 ml/min/1.73 sqM); Non-African American GFR(CKD) 7 (>60 ml/min/1.73 sqM)
[2020-12-08 09:56] LABS: Blood Urea Nitrogen 156 mg/dL (7-17)
--- NOTE | 2020-12-08 10:01 | P.OP ---
Date of Procedure: 12/08/20 Description of Procedure: SURGEON: Justine Dalton DO RAG CUTTING MACHINE OPERATOR: None PREOPERATIVE DIAGNOSIS: [PUMA, worsening creatinine, pelvic abscess] POSTOPERATIVE DIAGNOSIS: Same OPERATION: Ultrasound-guided [right]common femoral vein access, placement of temporary dialysis catheter DESCRIPTION OF PROCEDURE: An ultrasound was utilized and the [right] common femoral vein was identified. The groin was prepped and draped in usual sterile fashion. A preprocedure timeout was performed, all parties were in agreement. The skin overlying the vein was anesthetized with 1% lidocaine plain. A multipurpose needle was utilized and the femoral vein was accessed on first attempt with return of dark venous, nonpulsatile blood. The guidewire was passed easily. Serial dilation was performed of the subcutaneous tissues. The catheter was placed and secured with suture. It aspirated and flushed freely. A dressing was applied. The patient tolerated the procedure well.
[2020-12-08] MEDS: ACETAMINOPHEN IV (For NPO) 1,000 MG in EMPTY BAG 1 BAG IVPB SCH ×2 (12:52→18:24)
--- NOTE | 2020-12-08 13:45 | PN ---
PROGRESS NOTE DATE OF SERVICE: 12/08/2020 REASON FOR FOLLOWUP: Pelvic abscess. INTERVAL HISTORY: Patient is currently afebrile. The patient remains to be sleepy and lethargic, not a very good historian. However, still complaining of some abdominal pain and unable to quantify any further. No vomiting or diarrhea per the nursing staff. PHYSICAL EXAMINATION: Blood pressure 114/63, pulse 103, temperature 98. She is 91% on room air. General description is an elderly female lying in in no distress. Respiratory system: Unlabored breathing with decreased breath sounds at bases. No wheeze. HEART: S1, S2. Regular rate and rhythm. ABDOMEN: Soft. Mildly distended. EXTREMITIES: No edema of the feet. LABS: Hemoglobin 8, white count 14.6, creatinine 1.90. Abdominal culture is currently pending. DIAGNOSTIC IMPRESSION AND PLAN: Patient admitted to the hospital with pelvic abscess and concern for an infected hematoma. No evidence of any perforation. Patient is currently covered with Zosyn to continue while waiting for the culture to finalize and monitor clinical course closely. MMODL / IJN: [id number] / MTDD
--- NOTE | 2020-12-08 14:21 | P.PN ---
Subjective Progress Note Date: 12/08/20 CHIEF COMPLAINT: Pelvic abscess HISTORY OF PRESENT ILLNESS: Patient is status post washout with peritoneal cavity with drain placement for pelvic abscess. The pelvic abscess appeared to be an infected hematoma. Patient is scheduled for PICC line placement to start TPN today as well as she is scheduled to get a dialysis catheter to start hemodialysis. Patient is complaining of abdominal pain. Pain is controlled. Denies any nausea or vomiting. No bowel activity. Is currently nothing by mouth. Afebrile. She did have a heart rate 103 this morning down to 98. WBC is down from 22-14.6 hemoglobin is 8 platelets are 497 BUN 156 creatinine 5.90 sodium 130. PHYSICAL EXAM: VITAL SIGNS: Reviewed. GENERAL: Well-developed in no acute distress. HEENT: No sclera icterus. Extraocular movements grossly intact. Moist buccal mucosa. Head is atraumatic, normocephalic. ABDOMEN: Soft. Nondistended. Patient has wound VAC in place. Patient's abdominal wound measurement is 25 x 10 x 5 cm. REBEKAH drain with sanguinous drainage NEUROLOGIC: Alert and oriented. Cranial nerves II through XII grossly intact. ASSESSMENT: 1. Pelvic abscess secondary to an infected hematoma status post washout of leon toneal cavity with drain placement 2. Sepsis present on admission secondary to pelvic abscess 3. 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 Acute kidney injury patient started on hemodialysis today. Followed by nephrology 5. Anemia secondary to infected abdominal hematoma 6. Hyponatremia followed by nephrology PLAN: -Continue antibiotics per infectious disease -Continue wound VAC -Continue pain medication as needed -We'll place patient on IV Tylenol for pain control -Keep patient nothing by mouth -Hemodialysis per nephrology -Order incentive spirometer -manufacturing area manager arranging wound VAC for outpatient setting -GI prophylaxis Protonix and DVT prophylaxis SCDs Physician Employment Attorney note has been reviewed by physician. Signing provider agrees with the documented findings, assessment, and plan of care. Objective - Vital Signs Vital signs: Vital Signs Temp 98.1 F 12/08/20 14:02 Pulse 98 12/08/20 14:02 Resp 18 12/08/20 14:02 BP 93/49 12/08/20 14:02 Pulse Ox 97 12/08/20 14:02 Intake & Output 12/07/20 12/08/20 12/08/20 18:59 06:59 18:59 Intake Total 1088 0 Output Total 1370 1815 520 Balance -282 -1815 -520 Weight 68.039 kg 75 kg Intake: IV 800 Oral 0 Blood Product 288 Rc Pheresis As-3 Unit 288 [id number] Output: Gastric Drainage 0 Drainage 70 115 20 Abdomen 0 0 Left Abdomen 70 115 20 Urine 1290 1700 500 Uretheral (Dalton) 540 Hemodialysis 0 Estimated Blood Loss 10 Other: Voiding Method Indwelling Catheter Indwelling Catheter Indwelling Catheter - Labs CBC & Chem 7: 12/08/20 07:00 12/08/20 07:00 Labs: Abnormal Lab Results - Last 24 Hours (Table) 12/08/20 12/08/20 Range/Units 07:00 07:00 WBC 14.6 H (3.8-10.6) k/uL RBC 2.65 L (3.80-5.40) m/uL Hgb 8.0 L (11.4-16.0) gm/dL Hct 24.1 L (34.0-46.0) % Plt Count 497 H (150-450) k/uL Neutrophils # 13.5 H (1.3-7.7) k/uL Lymphocytes # 0.4 L (1.0-4.8) k/uL Sodium 130 L (137-145) mmol/L Chloride 90 L (98-107) mmol/L BUN 156 H* (7-17) mg/dL Creatinine 5.90 H (0.52-1.04) mg/dL Glucose 130 H (74-99) mg/dL Calcium 7.8 L (8.4-10.2) mg/dL Ionized Calcium Ramandeep 4.3 L (4.5-5.3) mg/dL Phosphorus 8.6 H (2.5-4.5) mg/dL AST 83 H (14-36) U/L Total Protein 4.8 L (6.3-8.2) g/dL Albumin 2.3 L (3.5-5.0) g/dL Microbiology - Last 24 Hours (Table) 12/07/20 11:35 Gram Stain - Preliminary Abdomen Wound Culture - Preliminary 12/05/20 18:30 Blood Culture - Preliminary Blood No Growth after 48 hours 12/05/20 18:44 Blood Culture - Preliminary Blood No Growth after 48 hours 12/07/20 11:35 Anaerobic Culture - Preliminary Abdomen
--- NOTE | 2020-12-08 14:42 | PN ---
PROGRESS NOTE The patient is seen for followup for acute kidney injury. The patient was admitted to the hospital with abdominal pain, was found to have a pelvic hematoma/abscess which is status post drainage and abdominal drain is still present. The patient was admitted with a creatinine of 6.5 mg/dL and her previous creatinine was 0.76 5 days prior to this admission. She has had fair urine output in the Dalton bag, but her serum creatinine had not improved much and it had actually increased to 6.7 yesterday and therefore it was decided to proceed with dialysis. Dialysis catheter was placed this morning and patient will have her first treatment today. She remains quite lethargic as well. PHYSICAL EXAMINATION: On examination today, blood pressure was 114/66, heart rate 103 per minute. Patient is afebrile. Examination of the heart S1, S2. Examination of the lungs, bilateral breath sounds are heard. Abdomen is soft. There is tenderness noted. Examination of lower extremities shows no evidence of edema. IT BUSINESS ANALYST exam grossly intact. LAB: Show sodium 130, potassium 4.9, BUN 156, serum creatinine 5.9, hemoglobin 8.0 g/dL. ASSESSMENT: 1. Acute kidney injury mostly acute tubular necrosis. No evidence of obstruction noted on the ultrasound and CT scan, nonoliguric with some improvement in creatinine, however, given the significantly elevated BUN and creatinine and patient being so lethargic, I will proceed with dialysis. She will likely need another treatment tomorrow and we will continue to monitor for recovery of renal function. 2. Hypovolemic hyponatremia improving with IV fluids. 3. Hyperkalemia on admission, currently improving. 4. Metabolic acidosis status post bicarb drip. PLAN: Hemodialysis today. DC the bicarb drip and change to normal saline at 75 mL an hour. I will repeat dialysis in a.m. Continue to avoid nephrotoxic agents. Continue with the Dalton catheter for now. MMODL / IJN: [id number] /
--- NOTE | 2020-12-08 16:55 | P.PN ---
Progress Note - Text Progress Note Date: 12/08/20 Chief Complaint: Right abdominal pain History of presenting complaint: This is a very pleasant 70-year-old patient of Dr. Nickerson. Chronic stable medical conditions include hypertension, osteoarthritis, chronic low back pain for which she has a pain pump-being followed by Dr. Artis, gastric bypass, anxiety depression. November 23: Cecum bascule, [ type of volvulus.] : Underwent right hemicolectomy, by Dr Babb. Patient was discharged on November 28, was tolerating diet. Now presented with increasing abdominal pain and some mental status changes. The scan abdomen showed a large pelvic abscess. Also acute severe kidney injury from ATN. December 07: washout of the peritoneal cavity abscess with the drain placement. The pelvic abscess appeared to be infected hematoma. Paternal cavity was washed out. Small bowel anastomosis could not be visualized. Wound VAC was placed. Today: Had a dialysis catheter placed in the right groin. Getting ultrafiltration. NG tube. Some abdominal pain. Tired Review of systems: Was done for constitutional, cardiovascular, GI, pulmonary. relevant finding as above Active Medications Acetaminophen (Acetaminophen Tab 325 Mg Tab) 650 mg PO Q6HR PRN PRN Reason: Mild Pain or Fever > 100.5 Last Admin: 12/06/20 00:12 Dose: 650 mg Documented by: Hydromorphone HCl (Hydromorphone 0.5 Mg/0.5 Ml Syringe) 0.5 mg IVP Q5M PRN PRN Reason: Pain Control Stop: 01/06/21 08:23 Piperacillin Sod/Tazobactam (Sod 3.375 gm/ Sodium Chloride) 100 mls @ 25 mls/hr IVPB Q12H [facility] Last Admin: 12/08/20 08:07 Dose: 25 mls/hr Documented by: Lactated Ringer's (Lactated Ringers) 1,000 mls @ 20 mls/hr IV .Q24H [facility] Last Admin: 12/07/20 10:25 Dose: 600 mls Documented by: Acetaminophen 1,000 mg/ IV (Solution) 100 mls @ 400 mls/hr IVPB Q6HR [facility] Stop: 12/09/20 06:14 Last Admin: 12/08/20 12:52 Dose: 400 mls/hr Documented by: Sodium Chloride (Saline 0.9%) 1,000 mls @ 75 mls/hr IV .[id number] [facility] Naloxone HCl (Naloxone 0.4 Mg/Ml 1 Ml Vial) 0.2 mg IV Q2M PRN PRN Reason: Opioid Reversal Ondansetron HCl (Ondansetron 4 Mg/2 Ml Vial) 4 mg IVP Q8HR PRN PRN Reason: Nausea And Vomiting Pantoprazole Sodium (Pantoprazole 40 Mg/10 Ml Vial) 40 mg IVP DAILY [facility] Past medical history to include: Hypertension, osteoarthritis, gastric bypass, pain pump nonfunctioning nerve stimulator present, anxiety depression Social history: Did smoke in the past. No alcohol. Lives alone Physical examination: VITAL SIGNS: 98, 103, 17, 114/66, 91% room air GENERAL:, laying in bed, tired EYES: Pupils equal. Conjunctiva pale. HEENT: NG tube in place, oral dry cavity. NECK: JVD unable to assess; masses not palpable. HEART: First and second heart sounds are normal; no edema. LUNGS: Respiratory rate normal; clear to auscultation ABDOMEN: , Tenderness present, no guarding rigidity, liver spleen not palpable, no masses palpable. Wound VAC. REBEKAH drain-serosanguineous discharge PSYCH: Answering simple questions INVESTIGATIONS, reviewed in the clinical context: December 08: WBC 14.6 hemoglobin 8 platelets 497 sodium 1:30 potassium 4.9 BUN 156 creatinine 5.9 December 07: WBC 22 hemoglobin 7.4 platelets 576 sodium 127 potassium 5.2 bun 166 creatinine 6.71 AST 115 ALT 29 albumin 2.5 Previous labs: November 29: BUN 16 creatinine 0.76 AST 34 ALT 15 Assessment and plan: -Intra-abdominal pelvic abscess-possibly infected hematoma, in a patient who recently underwent right hemicolectomy on November 23 Status post surgery with intra-abdominal washout. Has a REBEKAH drain and a wound VAC. IV Zosyn. 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 Right hemicolectomy on November 23. -Essential hypertension Follow blood pressure closely. Antihypertensive currently held because of relatively low blood pressure -Primary osteoarthritis Pain medications as needed -Anxiety depression otherwise specified Continue home medications - chronic pain syndrome, patient has a pain pump -Recent postprocedure blood is anemia as expected from surgery Last admission received blood -Severe sepsis IV fluids, antibiotics -Reactive thrombocytosis Follow -Hypovolemic hyponatremia IV fluids, follow labs -Hyperkalemia secondary to renal failure Received ultrafiltration. Follow labs -Acute kidney injury, likely combination of ATN, prerenal-severe IV fluids. Started on hemodialysis today on December 08. -Metabolic acidosis secondary to renal failure Follow labs and IV bicarbonate -Hypoalbuminemia, acute phase reactant Continue current medication treatment plan. Pending PICC line for TPN and lipids.. IV antibiotics. Remains nothing by mouth
[2020-12-08] MEDS: LACTATED RINGERS 1,000 ML IV SCH (17:00)
[2020-12-08] MEDS: PANTOPRAZOLE 40 MG/10 ML VIAL IVP SCH (17:43)
[2020-12-08] MEDS: SODIUM CHLORIDE 0.9% 1,000 ML IV SCH (17:45)
[2020-12-09] MEDS: ACETAMINOPHEN IV (For NPO) 1,000 MG in EMPTY BAG 1 BAG IVPB SCH ×3 (00:15→12:39)
[2020-12-09] MEDS: SODIUM CHLORIDE 0.9% 1,000 ML IV SCH ×2 (03:37→19:03)
[2020-12-09 09:41] LABS: ALT 20 U/L (4-34); AST 69 U/L (14-36); African American GFR (CKD) 15 (>60 ml/min/1.73 sqM); Albumin 2.2 g/dL (3.5-5.0); Albumin/Globulin Ratio 0.8; Alkaline Phosphatase 78 U/L (38-126); Anion Gap 7 mmol/L; Blood Urea Nitrogen 83 mg/dL (7-17); Calcium 7.8 mg/dL (8.4-10.2); Carbon Dioxide 31 mmol/L (22-30); Chloride 104 mmol/L (98-107); Globulin 2.6 g/dL; Glucose 101 mg/dL (74-99); Non-African American GFR(CKD) 13 (>60 ml/min/1.73 sqM); Phosphorus 5.7 mg/dL (2.5-4.5); Potassium 4.3 mmol/L (3.5-5.1); Sodium 142 mmol/L (137-145); Total Bilirubin 0.7 mg/dL (0.2-1.3); Total Protein 4.8 g/dL (6.3-8.2)
[2020-12-09 10:16] LABS: Hepatitis B Surface AB- Quant <3.5 mIU/mL; Hepatitis B Surface Antibody Non-Reactive (Non-Reactive); Hepatitis B Surface Antigen Non-Reactive (Non-Reactive)
--- NOTE | 2020-12-09 11:10 | P.PN ---
Subjective Progress Note Date: 12/09/20 Patient seen and examined. Overall doing better. Less lethargic per nursing. Received dialysis 1 time yesterday. Currently receiving dialysis Objective - Vital Signs Vital signs: Vital Signs Temp 98 F 12/09/20 08:00 Pulse 107 H 12/09/20 08:00 Resp 16 12/09/20 08:00 BP 137/69 12/09/20 08:00 Pulse Ox 92 L 12/09/20 08:00 Intake & Output 12/08/20 12/09/20 12/09/20 18:59 06:59 18:59 Intake Total 750 Output Total 1100 940 Balance -1100 -190 Intake: Intake, IV Titration 750 Amount ACETAMINOPHEN IV (For NPO 100 ) 1,000 mg In Empty Bag 1 bag @ 400 mls/hr IVPB Q6HR [facility] Rx#:[id number] Sodium Chloride 0.9% 1, 650 000 ml @ 75 mls/hr IV . [id number] [facility] Rx#:[id number] Output: Drainage 50 40 Abdomen 0 Left Abdomen 50 40 Urine 1050 900 Hemodialysis 0 Other: Voiding Method Indwelling Catheter Indwelling Catheter Indwelling Catheter - Exam Gen. a pleasant and cooperative sleepy female in no acute distress. NG tube in place with blood-tinged drainage. Abdomen is soft, moderate tenderness to palpation. VAC intact. Right lower extremity femoral temporary dialysis catheter clean, dry, intact. No hematoma. More awake and able to follow commands - Labs CBC & Chem 7: 12/08/20 07:00 12/09/20 06:12 Labs: Abnormal Lab Results - Last 24 Hours (Table) 12/08/20 12/09/20 Range/Units 07:00 06:12 Carbon Dioxide 31 H (22-30) mmol/L BUN 83 H (7-17) mg/dL Creatinine 3.43 H (0.52-1.04) mg/dL Glucose 101 H (74-99) mg/dL Calcium 7.8 L (8.4-10.2) mg/dL Phosphorus 5.7 H (2.5-4.5) mg/dL AST 69 H (14-36) U/L Total Protein 4.8 L (6.3-8.2) g/dL Albumin 2.2 L (3.5-5.0) g/dL Triglycerides 208.0 H (0.0-149.0) mg/dL Microbiology - Last 24 Hours (Table) 12/07/20 11:35 Gram Stain - Preliminary Abdomen Wound Culture - Preliminary Gram Neg Bacilli 12/05/20 18:30 Blood Culture - Preliminary Blood No Growth after 72 hours 12/05/20 18:44 Blood Culture - Preliminary Blood No Growth after 72 hours Assessment and Plan Assessment: Acute kidney injury, worsening creatinine Pelvic abscess Uremia, improving Plan: Continue dialysis per nephrology. Await further recommendations regarding ongoing need and possible tunneled catheter placement. Would have discussion with family and patient regarding overall desires and wishes going forward
--- NOTE | 2020-12-09 11:13 | P.PN ---
Subjective Progress Note Date: 12/09/20 CHIEF COMPLAINT: Pelvic abscess HISTORY OF PRESENT ILLNESS: Patient is status post washout with peritoneal cavity with drain placement for pelvic abscess. The pelvic abscess appeared to be an infected hematoma. Patient is scheduled for PICC line placement to start TPN today. Patient had her dialysis catheter placed and started on hemodialysis yesterday. She is getting hemodialysis again this morning. Patient is more awake and alert today. She is able to answer questions appropriately. She is c omplaining of abdominal pain but it is controlled with pain medication. She denies any nausea or vomiting. She did have a small smear of a BM last night. No nausea reported she does have NG tube in place with no output. And afebrile. CBC pending creatinine is 3.43 PHYSICAL EXAM: VITAL SIGNS: Reviewed. GENERAL: Well-developed in no acute distress. HEENT: No sclera icterus. Extraocular movements grossly intact. Moist buccal mucosa. Head is atraumatic, normocephalic. ABDOMEN: Soft. Nondistended. Patient has wound VAC in place. Patient's abdominal wound measurement is 25 x 10 x 5 cm. REBEKAH drain with sanguinous drainage NEUROLOGIC: Alert and oriented. Cranial nerves II through XII grossly intact. ASSESSMENT: 1. Pelvic abscess secondary to an infected hematoma status post washout of peritoneal cavity with drain placement 2. Sepsis present on admission secondary to pelvic abscess 3. 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 Acute kidney injury patient started on hemodialysis today. Followed by nephrology 5. Anemia secondary to infected abdominal hematoma 6. Hyponatremia followed by nephrology PLAN: -Continue antibiotics per infectious disease -Continue wound VAC -Continue pain medication as needed -Keep patient nothing by mouth -Hemodialysis per nephrology -continue incentive spirometer -database administration project manager arranging wound VAC for outpatient setting -GI prophylaxis Protonix and DVT prophylaxis SCDs Physician Treating Engineer note has been reviewed by physician. Signing provider agrees with the documented findings, assessment, and plan of care. Objective - Vital Signs Vital signs: Vital Signs Temp 98 F 12/09/20 08:00 Pulse 107 H 12/09/20 08:00 Resp 16 12/09/20 08:00 BP 137/69 12/09/20 08:00 Pulse Ox 92 L 12/09/20 08:00 Intake & Output 12/08/20 12/09/20 12/09/20 18:59 06:59 18:59 Intake Total 750 Output Total 1100 940 Balance -1100 -190 Intake: Intake, IV Titration 750 Amount ACETAMINOPHEN IV (For NPO 100 ) 1,000 mg In Empty Bag 1 bag @ 400 mls/hr IVPB Q6HR [facility] Rx#:[id number] Sodium Chloride 0.9% 1, 650 000 ml @ 75 mls/hr IV . [id number] [facility] Rx#:[id number] Output: Drainage 50 40 Abdomen 0 Left Abdomen 50 40 Urine 1050 900 Hemodialysis 0 Other: Voiding Method Indwelling Catheter Indwelling Catheter Indwelling Catheter - Labs CBC & Chem 7: 12/08/20 07:00 12/09/20 06:12 Labs: Abnormal Lab Results - Last 24 Hours (Table) 12/08/20 12/09/20 Range/Units 07:00 06:12 Carbon Dioxide 31 H (22-30) mmol/L BUN 83 H (7-17) mg/dL Creatinine 3.43 H (0.52-1.04) mg/dL Glucose 101 H (74-99) mg/dL Calcium 7.8 L (8.4-10.2) mg/dL Phosphorus 5.7 H (2.5-4.5) mg/dL AST 69 H (14-36) U/L Total Protein 4.8 L (6.3-8.2) g/dL Albumin 2.2 L (3.5-5.0) g/dL Triglycerides 208.0 H (0.0-149.0) mg/dL Microbiology - Last 24 Hours (Table) 12/07/20 11:35 Gram Stain - Preliminary Abdomen Wound Culture - Preliminary Gram Neg Bacilli 12/05/20 18:30 Blood Culture - Preliminary Blood No Growth after 72 hours 12/05/20 18:44 Blood Culture - Preliminary Blood No Growth after 72 hours
[2020-12-09 11:45] VITALS: BMI 29.2
[2020-12-09] MEDS: PIPERACILLIN-TAZOBACTAM 3.375 GM in SODIUM CHLORIDE 0.9% 100 ML IVPB SCH (11:55)
[2020-12-09] MEDS: PANTOPRAZOLE 40 MG/10 ML VIAL IVP SCH (11:56)
[2020-12-09 12:21] LABS: Basophils # (A) 0.06 X 10*3/uL (0.00-0.10); Basophils % (A) 0.5 %; Eosinophils # (A) 0.31 X 10*3/uL (0.04-0.35); Eosinophils % (A) 2.4 %; HCT 22.8 % (37.2-46.3); Lymphocytes # (A) 0.52 X 10*3/uL (0.90-5.00); MCH 29.9 pg (27.0-32.0); MCHC 30.7 g/dL (32.0-37.0); MCV 97.4 fL (80.0-97.0); Mean Platelet Volume 9.5 fL (9.5-12.2); Monocytes # (A) 0.59 X 10*3/uL (0.20-1.00); Monocytes % (A) 4.6 %; Neutrophils # (A) 10.98 X 10*3/uL (1.80-7.70); Neutrophils % (A) 84.8 %; Platelet Count 466 X 10*3/uL (140-440); RBC 2.34 X 10*6/uL (4.10-5.20); RDW 14.6 % (11.5-14.5); WBC 12.94 X 10*3/uL (4.50-10.00)
[2020-12-09] MEDS ORDERED: LIDOCAINE 1% INJ 10MG/ML (20 ML MDV) SQ ONE (13:58)
--- NOTE | 2020-12-09 14:21 | PN ---
PROGRESS NOTE Patient is seen for followup for acute kidney injury. The patient was admitted to the hospital after recent abdominal surgery for right hemicolectomy. She was found to have large pelvic collection, possible abscess versus hematoma. Her creatinine was elevated at 6.5 mg/dL on admission with a previous creatinine of 0.76 six days prior to this admission. Blood pressure was slightly on the lower side, but not significantly low. The patient was maintained on NSAIDs and FIOR inhibitors at home prior to admission, which are now discontinued. She is nonoliguric and has had good urine output. However, in view of significantly elevated BUN and creatinine of around 6.7 and 166, the patient was started on dialysis. She is having her second treatment today. Overall, patient states she is feeling better. She is more awake and less lethargic. EXAMINATION: Today patient is seen on dialysis, tolerating her treatment well. Blood pressure 137/69, heart rate 107 per minute, she is afebrile. Examination of the heart S1, S2. Examination of the lungs, bilateral breath sounds are heard. Abdomen is soft with tenderness noted. Abdominal drain present. Examination of lower extremities shows no evidence of edema. LAB: Show sodium 142, potassium 4.3, chloride 104, CO2 31, BUN 83, creatinine 3.43, hemoglobin 7.0. ASSESSMENT: 1. Acute kidney injury secondary to NSAIDs, ATN and history of use of FIOR inhibitors in the setting of use of NSAIDs prior to admission. Serum creatinine previously was 0.7 six days prior to admission. The patient was started on dialysis secondary to severely elevated BUN and creatinine and increased lethargy. She, however, has had good urine output, currently has an indwelling Dalton catheter. Patient has had 2 treatments of dialysis. We will hold off on further dialysis and monitor for recovery of renal function. 2. Abdominal pain with pelvic mass, abscess versus hematoma, maintained on antibiotics. 3. Hyponatremia on admission, mostly hypovolemic currently improved. 4. Hyperkalemia associated with acute kidney injury, improving. PLAN: Continue with IV fluids. Hold off on dialysis tomorrow. Continue to monitor for recovery of renal function. Avoid any nephrotoxic agents. MMODL / IJN: [id number] /
--- NOTE | 2020-12-09 15:35 | P.PN ---
Progress Note - Text Progress Note Date: 12/09/20 Chief Complaint: Right abdominal pain History of presenting complaint: This is a very pleasant 70-year-old patient of Dr. Nickerson. Chronic stable medical conditions include hypertension, osteoarthritis, chronic low back pain for which she has a pain pump-being followed by Dr. Artis, gastric bypass, anxiety depression. November 23: Cecum bascule, [ type of volvulus.] : Underwent right hemicolectomy, by Dr Babb. Patient was discharged on November 28, was tolerating diet. Now presented with increasing abdominal pain and some mental status changes. The scan abdomen showed a large pelvic abscess. Also acute severe kidney injury from ATN. December 07: washout of the peritoneal cavity abscess with the drain placement. The pelvic abscess appeared to be infected hematoma. Paternal cavity was washed out. Small bowel anastomosis could not be visualized. Wound VAC was placed. dialysis catheter placed in the right groin. NG tube. Today: Laying in bed. NG tube. Abdominal pain. Hemodialysis today. Serosanguineous drainage through the REBEKAH drain. Nothing by mouth. Review of systems: Was done for constitutional, cardiovascular, GI, pulmonary. relevant finding as above Active Medications Acetaminophen (Acetaminophen Tab 325 Mg Tab) 650 mg PO Q6HR PRN PRN Reason: Mild Pain or Fever > 100.5 Last Admin: 12/06/20 00:12 Dose: 650 mg Documented by: Hydromorphone HCl (Hydromorphone 0.5 Mg/0.5 Ml Syringe) 0.5 mg IVP Q4HR PRN PRN Reason: Pain Sodium Chloride (Saline 0.9%) 1,000 mls @ 75 mls/hr IV .[id number] [facility] Last Admin: 12/09/20 03:37 Dose: Not Given Documented by: Acetaminophen 1,000 mg/ IV (Solution) 100 mls @ 400 mls/hr IVPB Q6HR [facility] Stop: 12/11/20 06:14 Last Admin: 12/09/20 12:39 Dose: 400 mls/hr Documented by: Parenteral Vitamin Supplement 10 ml/ Zinc/Copper/Manganese/Selenium 1 ml/ Parenteral Electrolytes 20 ml/ Amino Acids/Dextrose 1,031 mls @ 30 mls/hr IV .Q24H [facility] Stop: 12/12/20 15:59 Parenteral Vitamin Supplement 10 ml/ Zinc/Copper/Manganese/Selenium 1 ml/ Parenteral Electrolytes 20 ml/ Amino Acids/Dextrose 1,031 mls @ 54 mls/hr IV .[id number] [facility] Fat Emulsion Intravenous 250 (ml/ IV Solution) 250 mls @ 21 mls/hr IV MoWeFr [facility] Piperacillin Sod/Tazobactam (Sod 3.375 gm/ Sodium Chloride) 100 mls @ 25 mls/hr IVPB Q12H [facility] Naloxone HCl (Naloxone 0.4 Mg/Ml 1 Ml Vial) 0.2 mg IV Q2M PRN PRN Reason: Opioid Reversal Ondansetron HCl (Ondansetron 4 Mg/2 Ml Vial) 4 mg IVP Q8HR PRN PRN Reason: Nausea And Vomiting Pantoprazole Sodium (Pantoprazole 40 Mg/10 Ml Vial) 40 mg IVP DAILY [facility] Last Admin: 12/09/20 11:56 Dose: 40 mg Documented by: Sodium Chloride (Sodium Chloride 0.9% Flush 10 Ml Syringe) 10 ml IV Q4HR PRN PRN Reason: PICC Line Sodium Chloride (Sodium Chloride 0.9% Flush 10 Ml Syringe) 10 ml IV WEEKLY [facility] Sodium Chloride (Sodium Chloride 0.9% Flush 10 Ml Syringe) 20 ml IV Q4HR PRN PRN Reason: PICC Line Past medical history to include: Hypertension, osteoarthritis, gastric bypass, pain pump nonfunctioning nerve stimulator present, anxiety depression Social history: Did smoke in the past. No alcohol. Lives alone Physical examination: VITAL SIGNS: 98, 107, 16, 137/69, 92% on room air GENERAL:, laying in bed, tired EYES: Pupils equal. Conjunctiva pale. HEENT: NG tube in place, oral dry cavity. NECK: JVD unable to assess; masses not palpable. HEART: First and second heart sounds are normal; no edema. LUNGS: Respiratory rate normal; clear to auscultation ABDOMEN: , Tenderness present, no guarding rigidity, liver spleen not palpable, no masses palpable. Wound VAC. REBEKAH drain-serosanguineous discharge PSYCH: Answering simple questions INVESTIGATIONS, reviewed in the clinical context: December 09: WBC 12.9 hemoglobin 7 platelets 466 potassium 4.3 bun 83 creatinine is 3.43 phosphorus 5.7 Abdominal wound culture: Gram-negative bacilli Hepatitis B surface antigen, surface antibody, core total antibody: Nonreactive December 08: WBC 14.6 hemoglobin 8 platelets 497 sodium 1:30 potassium 4.9 BUN 156 creatinine 5.9 December 07: WBC 22 hemoglobin 7.4 platelets 576 sodium 127 potassium 5.2 bun 166 creatinine 6.71 AST 115 ALT 29 albumin 2.5 Previous labs: November 29: BUN 16 creatinine 0.76 AST 34 ALT 15 Assessment and plan: -Intra-abdominal pelvic abscess-possibly infected hematoma, in a patient who recently underwent right hemicolectomy on November 23 Status post surgery with intra-abdominal washout. Has a REBEKAH drain and a wound VAC. IV Zosyn. NG tube. 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 Right hemicolectomy on November 23. -Essential hypertension Follow blood pressure closely. Antihypertensive currently held because of relatively low blood pressure -Primary osteoarthritis Pain medications as needed -Anxiety depression otherwise specified Continue home medications - chronic pain syndrome, patient has a pain pump -Recent postprocedure blood is anemia as expected from surgery Last admission received blood -Severe sepsis IV fluids, antibiotics -Reactive thrombocytosis Follow -Hypovolemic hyponatremia IV fluids, follow labs -Hyperkalemia secondary to renal failure Received ultrafiltration. Follow labs -Acute kidney injury, likely combination of ATN, prerenal-severe IV fluids. Started on hemodialysis on December 08. -Hyperphosphatemia from acute kidney injury Follow labs -Metabolic acidosis secondary to renal failure Follow labs and IV bicarbonate -Hypoalbuminemia, acute phase reactant -TPN and lipids Being started today on December 09 IV Zosyn. TPN and Lipids. Remains nothing by mouth. Follow electrolytes
[2020-12-09] MEDS: MVI, ADULT NO.4 WITH VIT K 10 ML, TRACE (CONC-1ML/DOSE) 1 ML, PARENTERAL ELECTROLYTES 2... IV SCH ×4 (18:27)
[2020-12-09] MEDS: FAT EMULSION 20% 250 ML in EMPTY BAG 1 BAG IV SCH (18:27)
--- NOTE | 2020-12-09 19:02 | PN ---
PROGRESS NOTE REASON FOR FOLLOWUP: Pelvic abscess. INTERVAL HISTORY: The patient is currently afebrile. The patient is more awake and alert. Patient is breathing comfortably. Denies any chest pain or cough. Abdominal pain is currently controlled. No vomiting or diarrhea reported. PHYSICAL EXAMINATION: Blood pressure 145/69, pulse of 90, temperature 98. She is 97% on room air. General description is an elderly female lying in in no distress. Respiratory system: Unlabored breathing, clear to auscultation anteriorly. Heart S1, S2. Regular rate and rhythm. Abdomen soft. Mild guarding. No rigidity. Extremities: No edema of the feet. LABS: Hemoglobin is 10, white count 12.9, BUN of 83, creatinine 3.43. Abdominal culture with Gram-negative bacilli. DIAGNOSTIC IMPRESSION AND PLAN: Patient with pelvic abscess, possible infected hematoma, status post drainage. Abdominal culture, gram-negative. Patient is covered with Zosyn to continue while monitoring clinical course closely. Daughter at the bedside, questions were answered. MMODL / IJN: [id number] /
[2020-12-10] MEDS: PIPERACILLIN-TAZOBACTAM 3.375 GM in SODIUM CHLORIDE 0.9% 100 ML IVPB SCH ×2 (00:12→12:23)
[2020-12-10] MEDS: ACETAMINOPHEN IV (For NPO) 1,000 MG in EMPTY BAG 1 BAG IVPB SCH ×5 (00:13→17:43)
[2020-12-10] MEDS: SODIUM CHLORIDE 0.9% 1,000 ML IV SCH ×2 (05:07→19:08)
--- NOTE | 2020-12-10 07:15 | P.PN ---
Subjective Progress Note Date: 12/10/20 Principal diagnosis: This is 70-year-old female with acute kidney injury secondary to Garcia inhibitors, nonsteroidals. She is post op hemicolectomy and was admitted because of abdom inal pain there is concern for pelvic mass or abscess. She had a washout of peritoneal cavity with drain placement on 12/07/2020 Currently she is on nothing by mouth, and is on TPN She denies any abdominal pain fever chills cough shortness of breath nausea vomiting. She is known with past history of gastric bypass surgery depression and was on a pain pump Objective - Vital Signs Vital signs: Vital Signs Temp 98.2 F 12/10/20 01:38 Pulse 100 12/10/20 01:38 Resp 18 12/10/20 01:38 BP 149/74 12/10/20 01:38 Pulse Ox 93 L 12/10/20 01:38 Intake & Output 12/09/20 12/10/20 12/10/20 18:59 06:59 18:59 Intake Total 0 1110 Output Total 575 275 Balance -575 835 Weight 75 kg Intake: Intake, IV Titration 800 Amount ACETAMINOPHEN IV (For NPO 400 ) 1,000 mg In Empty Bag 1 bag @ 400 mls/hr IVPB Q6HR [facility] Rx#:[id number] Piperacillin-Tazobactam 3 100 .375 gm In Sodium Chloride 0.9% 100 ml @ 25 mls/hr IVPB Q12H [facility] Rx# :[id number] Sodium Chloride 0.9% 1, 300 000 ml @ 75 mls/hr IV . [id number] [facility] Rx#:[id number] Oral 0 Blood Product 0 310 Rc Irr As1 Unit 0 310 [id number] Output: Drainage 75 Left Abdomen 75 Urine 575 200 Hemodialysis 0 Other: Voiding Method Indwelling Catheter Indwelling Catheter Examination she is awake alert oriented somewhat fatigued and weak HEENT exam no JVP neck is supple no facial asymmetry Lungs are clear to auscultation with good air entry bilaterally Heart sounds unremarkable for any murmur rub gallop Abdomen soft there is a wound VAC on the abdomen Extremity exam was no edema She has a right femoral catheter for dialysis Neurologically awake alert oriented but weak - Labs CBC & Chem 7: 12/09/20 06:12 12/09/20 06:12 Labs: Abnormal Lab Results - Last 24 Hours (Table) 12/09/20 12/09/20 12/09/20 Range/Units 06:12 06:12 15:16 WBC 12.94 H (4.50-10.00) X 10*3/uL RBC 2.34 L (4.10-5.20) X 10*6/uL Hgb 7.0 L (12.0-15.0) g/dL Hct 22.8 L (37.2-46.3) % MCV 97.4 H (80.0-97.0) fL MCHC 30.7 L (32.0-37.0) g/dL RDW 14.6 H (11.5-14.5) % Plt Count 466 H (140-440) X 10*3/uL Immature Gran # 0.48 H (0.00-0.04) X 10*3/uL Neutrophils # 10.98 H (1.80-7.70) X 10*3/uL Lymphocytes # 0.52 L (0.90-5.00) X 10*3/uL Carbon Dioxide 31 H (22-30) mmol/L BUN 83 H (7-17) mg/dL Creatinine 3.43 H (0.52-1.04) mg/dL Glucose 101 H (74-99) mg/dL Calcium 7.8 L (8.4-10.2) mg/dL Phosphorus 5.7 H (2.5-4.5) mg/dL AST 69 H (14-36) U/L Total Protein 4.8 L (6.3-8.2) g/dL Albumin 2.2 L (3.5-5.0) g/dL Crossmatch See Detail Microbiology - Last 24 Hours (Table) 12/05/20 18:44 Blood Culture - Preliminary Blood No Growth after 96 hours 12/05/20 18:30 Blood Culture - Preliminary Blood No Growth after 96 hours 12/07/20 11:35 Gram Stain - Final Abdomen Wound Culture - Final Escherichia coli Assessment and Plan Assessment: Impression 1. Acute kidney injury secondary to combination off nonsteroidals GARCIA inhibitor's, was dialyzed twice last dialysis was yesterday. Urine output is fair amount will hold off dialysis. 2. To pelvic abscess status post drainage. Has a wound VAC. 3. Anemia hemoglobin 7. 4. Hyponatremia resolved Recommendation 1. Continue TPN and we'll watch her electrolytes urine output and assess her for further dialysis. Hoping that she is recovering her renal function. 2. Need transfuse as her hemoglobin 7, 1 unit of packed red cells 3. Check labs tomorrow
[2020-12-10] MEDS: PANTOPRAZOLE 40 MG/10 ML VIAL IVP SCH (08:07)
[2020-12-10 09:04] LABS: ALT 18 U/L (4-34); AST 57 U/L (14-36); African American GFR (CKD) 29 (>60 ml/min/1.73 sqM); Albumin 2.2 g/dL (3.5-5.0); Albumin/Globulin Ratio 0.8; Alkaline Phosphatase 76 U/L (38-126); Anion Gap 5 mmol/L; Blood Urea Nitrogen 47 mg/dL (7-17); Calcium 8.1 mg/dL (8.4-10.2); Carbon Dioxide 31 mmol/L (22-30); Chloride 107 mmol/L (98-107); Globulin 2.6 g/dL; Glucose 153 mg/dL (74-99); Magnesium 1.7 mg/dL (1.6-2.3); Non-African American GFR(CKD) 25 (>60 ml/min/1.73 sqM); Phosphorus 3.2 mg/dL (2.5-4.5); Potassium 3.4 mmol/L (3.5-5.1); Sodium 143 mmol/L (137-145); Total Bilirubin 0.5 mg/dL (0.2-1.3); Total Protein 4.8 g/dL (6.3-8.2)
--- NOTE | 2020-12-10 10:18 | P.PN ---
Progress Note - Text Progress Note Date: 12/10/20 the patient feels better today. She states her pain is improved. On exam vital signs are stable. Abdomen soft. Wound VAC is clean. Status post drainage of pelvic abscess. Patient received IV antibiotics.
[2020-12-10 11:16] LABS: Basophils # (A) 0.04 X 10*3/uL (0.00-0.10); Basophils % (A) 0.3 %; Eosinophils # (A) 0.23 X 10*3/uL (0.04-0.35); HGB 7.8 g/dL (12.0-15.0); Lymphocytes # (A) 0.57 X 10*3/uL (0.90-5.00); Lymphocytes % (A) 4.9 %; MCHC 31.2 g/dL (32.0-37.0); MCV 96.2 fL (80.0-97.0); Mean Platelet Volume 9.2 fL (9.5-12.2); Monocytes # (A) 0.48 X 10*3/uL (0.20-1.00); Monocytes % (A) 4.1 %; Neutrophils # (A) 10.06 X 10*3/uL (1.80-7.70); Platelet Count 433 X 10*3/uL (140-440); RDW 15.7 % (11.5-14.5); WBC 11.69 X 10*3/uL (4.50-10.00)
[2020-12-10] MEDS: POTASSIUM CHLORIDE 20 MEQ in WATER FOR INJECTION 1 100ML.BAG IVPB SCH ×2 (11:50→13:50)
[2020-12-10] MEDS: HYDROmorphone 0.5 MG/0.5 ML SYRINGE IVP PRN (15:52)
--- NOTE | 2020-12-10 16:35 | P.PN ---
Progress Note - Text Progress Note Date: 12/10/20 Chief Complaint: Right abdominal pain History of presenting complaint: This is a very pleasant 70-year-old patient of Dr. Nickerson. Chronic stable medical conditions include hypertension, osteoarthritis, chronic low back pain for which she has a pain pump-being followed by Dr. Artis, gastric bypass, anxiety depression. November 23: Cecum bascule, [ type of volvulus.] : Underwent right hemicolectomy, by Dr Babb. Patient was discharged on November 28, was tolerating diet. Now presented with increasing abdominal pain and some mental status changes. The scan abdomen showed a large pelvic abscess. Also acute severe kidney injury from ATN. December 07: washout of the peritoneal cavity abscess with the drain placement. The pelvic abscess appeared to be infected hematoma. Peritoneal cavity was washed out. Small bowel anastomosis could not be visualized. Wound VAC was placed. dialysis catheter placed in the right groin. NG tube. Started on hemodialysis. Started on TPN/lipids. Wound culture positive for E. coli Today: On ice chips. NG tube in place. Abdominal pain better. Past a small amount of flatus.. Review of systems: Was done for constitutional, cardiovascular, GI, pulmonary. relevant finding as above Active Medications Acetaminophen (Acetaminophen Tab 325 Mg Tab) 650 mg PO Q6HR PRN PRN Reason: Mild Pain or Fever > 100.5 Last Admin: 12/06/20 00:12 Dose: 650 mg Documented by: Hydromorphone HCl (Hydromorphone 0.5 Mg/0.5 Ml Syringe) 0.5 mg IVP Q4HR PRN PRN Reason: Pain Last Admin: 12/10/20 15:52 Dose: 0.5 mg Documented by: Sodium Chloride (Saline 0.9%) 1,000 mls @ 75 mls/hr IV .[id number] [facility] Last Admin: 12/10/20 05:07 Dose: 75 mls/hr Documented by: Acetaminophen 1,000 mg/ IV (Solution) 100 mls @ 400 mls/hr IVPB Q6HR [facility] Stop: 12/11/20 06:14 Last Admin: 12/10/20 14:41 Dose: Not Given Documented by: Parenteral Vitamin Supplement 10 ml/ Zinc/Copper/Manganese/Selenium 1 ml/ Parenteral Electrolytes 20 ml/ Amino Acids/Dextrose 1,031 mls @ 30 mls/hr IV .Q24H [facility] Stop: 12/10/20 17:59 Last Admin: 12/09/20 18:27 Dose: 30 mls/hr Documented by: Parenteral Vitamin Supplement 10 ml/ Zinc/Copper/Manganese/Selenium 1 ml/ Amino Ac/Electrol/Dextrose/Calcium 1,011 mls @ 54 mls/hr IV .[id number] [facility] Fat Emulsion Intravenous 250 (ml/ IV Solution) 250 mls @ 21 mls/hr IV MoWeFr [facility] Last Admin: 12/09/20 18:27 Dose: 21 mls/hr Documented by: Piperacillin Sod/Tazobactam (Sod 3.375 gm/ Sodium Chloride) 100 mls @ 25 mls/hr IVPB Q12H [facility] Last Admin: 12/10/20 12:23 Dose: 25 mls/hr Documented by: Parenteral Vitamin Supplement 10 ml/ Zinc/Copper/Manganese/Selenium 1 ml/ Amino Ac/Electrol/Dextrose/Calcium 1,011 mls @ 30 mls/hr IV .Q24H [facility] Stop: 12/12/20 17:59 Naloxone HCl (Naloxone 0.4 Mg/Ml 1 Ml Vial) 0.2 mg IV Q2M PRN PRN Reason: Opioid Reversal Ondansetron HCl (Ondansetron 4 Mg/2 Ml Vial) 4 mg IVP Q8HR PRN PRN Reason: Nausea And Vomiting Pantoprazole Sodium (Pantoprazole 40 Mg/10 Ml Vial) 40 mg IVP DAILY [facility] Last Admin: 12/10/20 08:07 Dose: 40 mg Documented by: Sodium Chloride (Sodium Chloride 0.9% Flush 10 Ml Syringe) 10 ml IV Q4HR PRN PRN Reason: PICC Line Sodium Chloride (Sodium Chloride 0.9% Flush 10 Ml Syringe) 10 ml IV WEEKLY [facility] Sodium Chloride (Sodium Chloride 0.9% Flush 10 Ml Syringe) 20 ml IV Q4HR PRN PRN Reason: PICC Line Past medical history to include: Hypertension, osteoarthritis, gastric bypass, pain pump nonfunctioning nerve stimulator present, anxiety depression Social history: Did smoke in the past. No alcohol. Lives alone Physical examination: VITAL SIGNS: 98, 90, 17, 115/68, 96% room air GENERAL:, laying in bed, awake EYES: Pupils equal. Conjunctiva pale. HEENT: NG tube in place, oral dry cavity. NECK: JVD unable to assess; masses not palpable. HEART: First and second heart sounds are normal; no edema. LUNGS: Respiratory rate normal; clear to auscultation ABDOMEN: , Tenderness present, no guarding rigidity, liver spleen not palpable, no masses palpable. Wound VAC. REBEKAH drain-serosanguineous discharge PSYCH: Alert oriented 3 more affect normal INVESTIGATIONS, reviewed in the clinical context: December 10: WBC 11.6 hemoglobin 7.8 potassium 3.4 bun 47 creatinine 1.97 December 09: WBC 12.9 hemoglobin 7 platelets 466 potassium 4.3 bun 83 creatinine is 3.43 phosphorus 5.7 Abdominal wound culture: E. coli Hepatitis B surface antigen, surface antibody, core total antibody: Nonreactive December 08: WBC 14.6 hemoglobin 8 platelets 497 sodium 1:30 potassium 4.9 BUN 156 creatinine 5.9 December 07: WBC 22 hemoglobin 7.4 platelets 576 sodium 127 potassium 5.2 bun 166 creatinine 6.71 AST 115 ALT 29 albumin 2.5 Previous labs: November 29: BUN 16 creatinine 0.76 AST 34 ALT 15 Assessment and plan: -Intra-abdominal pelvic abscess-possibly infected hematoma, in a patient who recently underwent right hemicolectomy on November 23 Status post surgery with intra-abdominal washout. REBEKAH drain and a wound VAC. IV Zosyn. NG tube. E. 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 Right hemicolectomy on November 23. -Essential hypertension Follow blood pressure closely. Antihypertensive currently held because of relatively low blood pressure -Primary osteoarthritis Pain medications as needed -Anxiety depression otherwise specified Continue home medications - chronic pain syndrome, patient has a pain pump -Recent postprocedure blood is anemia as expected from surgery Last admission received blood -Severe sepsis, E. coli positive and. Torulopsis IV fluids, antibiotics -Reactive thrombocytosis Follow -Hypovolemic hyponatremia-improved IV fluids, follow labs -Hyperkalemia secondary to renal failure-corrected Received ultrafiltration. Follow labs -Acute kidney injury, likely combination of ATN, prerenal-severe IV fluids. Started on hemodialysis on December 08. -Hyperphosphatemia from acute kidney injury Follow labs -Metabolic acidosis secondary to renal failure Follow labs and bicarbonate -Hypoalbuminemia, acute phase reactant -TPN and lipids Being started on December 09 Continue IV Zosyn. TPN and Lipids. On ice chips. Encouraged to sit up on a chair
[2020-12-10 17:45] LABS: Glucose,Whole Blood 131 mg/dL (75-99)
[2020-12-10] MEDS: INSULIN ASPART (NovoLOG) 100 UNIT/ML VIAL SQ SCH ×2 (17:52→23:36)
[2020-12-10] MEDS: MVI, ADULT NO.4 WITH VIT K 10 ML, TRACE (CONC-1ML/DOSE) 1 ML in AMINO ACID 5%-D15W+LYTE... IV SCH ×3 (18:21)
[2020-12-10] MEDS: MVI, ADULT NO.4 WITH VIT K 10 ML, TRACE (CONC-1ML/DOSE) 1 ML, PARENTERAL ELECTROLYTES 2... IV SCH ×4 (18:54)
--- NOTE | 2020-12-10 20:05 | PN ---
PROGRESS NOTE DATE OF SERVICE: 12/10/2020 REASON FOR FOLLOW UP: Bilobed abscess. INTERVAL HISTORY: Patient is currently afebrile. The patient is breathing comfortably. The patient is still complaining of abdominal pain though. No worsening. No chest pain. No shortness of breath or cough. PHYSICAL EXAMINATION: Blood pressure 115/68 with a pulse of 90, temperature 98. She is 95% on room air. GENERAL DESCRIPTION: The patient is an elderly female lying in bed in no distress. Respiratory system: Unlabored breathing, clear to auscultation anteriorly. Heart S1, S2. Regular rate and rhythm. ABDOMEN: Soft, mildly distended. No guarding. No rigidity. LABS: Hemoglobin 7.8, white count 11.9, BUN of 47, creatinine 1.97. DIAGNOSTIC IMPRESSION AND PLAN: Patient with intraabdominal abscess and infected hematoma, status post drainage. Cultures with E coli that are sensitive pathogen. Antibiotic will be adjusted to Unasyn. Discontinue Zosyn and monitor clinical course closely. MMODL / IJN: [id number] /
[2020-12-10] MEDS: AMPICILLIN-SULBACTAM 3 GM in SODIUM CHLORIDE 0.9% 100 ML IVPB SCH (23:57)
[2020-12-11 00:17] LABS: Glucose,Whole Blood 110 mg/dL (75-99)
[2020-12-11] MEDS: AMPICILLIN-SULBACTAM 3 GM in SODIUM CHLORIDE 0.9% 100 ML IVPB SCH ×2 (05:13→18:16)
[2020-12-11] MEDS: ACETAMINOPHEN IV (For NPO) 1,000 MG in EMPTY BAG 1 BAG IVPB SCH ×2 (05:13→08:41)
[2020-12-11 05:50] LABS: Glucose,Whole Blood 134 mg/dL (75-99)
[2020-12-11] MEDS: INSULIN ASPART (NovoLOG) 100 UNIT/ML VIAL SQ SCH ×3 (05:51→18:42)
[2020-12-11 07:51] LABS: African American GFR (CKD) 31 (>60 ml/min/1.73 sqM); Anion Gap 5 mmol/L; Blood Urea Nitrogen 52 mg/dL (7-17); Calcium 7.8 mg/dL (8.4-10.2); Carbon Dioxide 29 mmol/L (22-30); Chloride 103 mmol/L (98-107); Glucose 123 mg/dL (74-99); Magnesium 1.3 mg/dL (1.6-2.3); Non-African American GFR(CKD) 27 (>60 ml/min/1.73 sqM); Potassium 3.9 mmol/L (3.5-5.1); Sodium 137 mmol/L (137-145)
[2020-12-11] MEDS: SODIUM CHLORIDE 0.9% 1,000 ML IV SCH ×2 (08:41→20:05)
[2020-12-11] MEDS: PANTOPRAZOLE 40 MG/10 ML VIAL IVP SCH (08:42)
[2020-12-11] MEDS: MAGNESIUM SULFATE-D5W PMX 1 GM in DEXTROSE/WATER 1 100ML.BAG IVPB SCH ×3 (08:42→11:01)
--- NOTE | 2020-12-11 08:57 | P.PN ---
Subjective Progress Note Date: 12/11/20 Principal diagnosis: This is 70-year-old female with acute kidney injury secondary to Garcia inhibitors, nonsteroidals. She was started on dialysis. Last dialysis was on 12/09/2020. She is making satisfactory amount of urine. Last urine output for 24 hours his 2400 mL. Her pain is much better. She is post op hemicolectomy and was admitted because of abdominal pain there is concern for pelvic mass or abscess. She had a washout of peritoneal cavity with drain placement on 12/07/2020 Currently she is on nothing by mouth, and is on TPN She denies any abdominal pain fever chills cough shortness of breath nausea vomiting. She is known with past history of gastric bypass surgery depression and was on a pain pump Objective - Vital Signs Vital signs: Vital Signs Temp 98.3 F 12/11/20 07:53 Pulse 88 12/11/20 07:53 Resp 18 12/11/20 07:53 BP 150/75 12/11/20 07:53 Pulse Ox 95 12/11/20 07:53 Intake & Output 12/10/20 12/11/20 12/11/20 18:59 06:59 18:59 Intake Total 600 Output Total 1000 1400 Balance -1000 -800 Intake: Intake, IV Titration 400 Amount ACETAMINOPHEN IV (For NPO 400 ) 1,000 mg In Empty Bag 1 bag @ 400 mls/hr IVPB Q6HR [facility] Rx#:[id number] Oral 200 Output: Urine 1000 1400 Other: Voiding Method Indwelling Catheter Indwelling Catheter Exams and awake alert oriented comfortable HEENT exam no JVP neck is supple no facial asymmetry Lungs are clear to auscultation good air entry bilaterally Heart sounds unremarkable for any murmur rub gallop Abdomen soft nontender visit drain coming out of the left side and is the own back on the middle of her abdomen Extreme exam was no edema Neurologically awake alert oriented - Labs CBC & Chem 7: 12/10/20 08:14 12/11/20 06:36 Labs: Abnormal Lab Results - Last 24 Hours (Table) 12/10/20 12/10/20 12/10/20 Range/Units 08:14 08:14 17:44 WBC 11.69 H (4.50-10.00) X 10*3/uL RBC 2.60 L (4.10-5.20) X 10*6/uL Hgb 7.8 L (12.0-15.0) g/dL Hct 25.0 L (37.2-46.3) % MCHC 31.2 L (32.0-37.0) g/dL RDW 15.7 H (11.5-14.5) % MPV 9.2 L (9.5-12.2) fL Immature Gran # 0.31 H (0.00-0.04) X 10*3/uL Neutrophils # 10.06 H (1.80-7.70) X 10*3/uL Lymphocytes # 0.57 L (0.90-5.00) X 10*3/uL Potassium 3.4 L (3.5-5.1) mmol/L Carbon Dioxide 31 H (22-30) mmol/L BUN 47 H (7-17) mg/dL Creatinine 1.97 H (0.52-1.04) mg/dL Glucose 153 H (74-99) mg/dL POC Glucose (mg/dL) 131 H (75-99) mg/dL Calcium 8.1 L (8.4-10.2) mg/dL Magnesium (1.6-2.3) mg/dL AST 57 H (14-36) U/L Total Protein 4.8 L (6.3-8.2) g/dL Albumin 2.2 L (3.5-5.0) g/dL 12/11/20 12/11/20 12/11/20 Range/Units 00:15 05:47 06:36 WBC (4.50-10.00) X 10*3/uL RBC (4.10-5.20) X 10*6/uL Hgb (12.0-15.0) g/dL Hct (37.2-46.3) % MCHC (32.0-37.0) g/dL RDW (11.5-14.5) % MPV (9.5-12.2) fL Immature Gran # (0.00-0.04) X 10*3/uL Neutrophils # (1.80-7.70) X 10*3/uL Lymphocytes # (0.90-5.00) X 10*3/uL Potassium (3.5-5.1) mmol/L Carbon Dioxide (22-30) mmol/L BUN 52 H (7-17) mg/dL Creatinine 1.84 H (0.52-1.04) mg/dL Glucose 123 H (74-99) mg/dL POC Glucose (mg/dL) 110 H 134 H (75-99) mg/dL Calcium 7.8 L (8.4-10.2) mg/dL Magnesium 1.3 L (1.6-2.3) mg/dL AST (14-36) U/L Total Protein (6.3-8.2) g/dL Albumin (3.5-5.0) g/dL Microbiology - Last 24 Hours (Table) 12/07/20 11:35 Anaerobic Culture - Final Abdomen Anaerobic Gm Positive Bacill Anaerobic Gm Negative Bacilli 12/05/20 18:30 Blood Culture - Preliminary Blood No Growth after 120 hours 12/05/20 18:44 Blood Culture - Preliminary Blood No Growth after 120 hours Assessment and Plan Assessment: Impression 1. Acute kidney injury secondary to combination off nonsteroidals GARCIA inhibitor's, was dialyzed twice last dialysis was day before yesterday. Urine output is fair amount will hold off dialysis. Creatinine has slowly improved from 1.97 yesterday to 1.84 2. Status post pelvic abscess status post drainage. Has a drainage in the left side of the abdomen and a wound VAC on the surgical site . 3. Anemia hemoglobin 7.8 4. Hyponatremia resolved Recommendation 1. Continue TPN and we'll watch her electrolytes urine output and assess her for further dialysis. Hoping that she is recovering her renal function. 2. Need transfuse as her hemoglobin 7, 1 unit of packed red cells 3. Check labs tomorrow
--- NOTE | 2020-12-11 10:40 | P.PN ---
Progress Note - Text Progress Note Date: 12/11/20 Patient feels better today. She has minimal pain. She's had several bowel movements. On exam vital signs are stable. Abdomen soft. Wound VAC was changed yesterday. Status post washout of pelvic abscess. Patient will have her diet advanced. Her Dalton catheter will be removed.
[2020-12-11 11:34] LABS: Glucose,Whole Blood 132 mg/dL (75-99)
--- NOTE | 2020-12-11 15:34 | P.PN ---
Progress Note - Text Progress Note Date: 12/11/20 Chief Complaint: Right abdominal pain History of presenting complaint: This is a very pleasant 70-year-old patient of Dr. Nickerson. Chronic stable medical conditions include hypertension, osteoarthritis, chronic low back pain for which she has a pain pump-being followed by Dr. Artis, gastric bypass, anxiety depression. November 23: Cecum bascule, [ type of volvulus.] : Underwent right hemicolectomy, by Dr Babb. Patient was discharged on November 28, was tolerating diet. Now presented with increasing abdominal pain and some mental status changes. The scan abdomen showed a large pelvic abscess. Also acute severe kidney injury from ATN. December 07: washout of the peritoneal cavity abscess with the drain placement. The pelvic abscess appeared to be infected hematoma. Peritoneal cavity was washed out. Small bowel anastomosis could not be visualized. Wound VAC/REBEKAH drain was placed. dialysis catheter placed in the right groin. NG tube. Started on hemodialysis. Started on TPN/lipids. Wound culture positive for E. coli Today: Full liquid diet. Abdominal pain better. Passing some flatus.. Serosanguineous drainage from the REBEKAH drain. Review of systems: Was done for constitutional, cardiovascular, GI, pulmonary. relevant finding as above Active Medications Acetaminophen (Acetaminophen Tab 325 Mg Tab) 650 mg PO Q6HR PRN PRN Reason: Mild Pain or Fever > 100.5 Last Admin: 12/06/20 00:12 Dose: 650 mg Documented by: Hydromorphone HCl (Hydromorphone 0.5 Mg/0.5 Ml Syringe) 0.5 mg IVP Q4HR PRN PRN Reason: Pain Last Admin: 12/10/20 15:52 Dose: 0.5 mg Documented by: Sodium Chloride (Saline 0.9%) 1,000 mls @ 75 mls/hr IV .[id number] [facility] Last Admin: 12/11/20 08:41 Dose: 75 mls/hr Documented by: Parenteral Vitamin Supplement 10 ml/ Zinc/Copper/Manganese/Selenium 1 ml/ Amino Ac/Electrol/Dextrose/Calcium 1,011 mls @ 54 mls/hr IV .[id number] [facility] Fat Emulsion Intravenous 250 (ml/ IV Solution) 250 mls @ 21 mls/hr IV MoWeFr [facility] Last Admin: 12/09/20 18:27 Dose: 21 mls/hr Documented by: Parenteral Vitamin Supplement 10 ml/ Zinc/Copper/Manganese/Selenium 1 ml/ Amino Ac/Electrol/Dextrose/Calcium 1,011 mls @ 30 mls/hr IV .Q24H [facility] Stop: 12/12/20 17:59 Last Admin: 12/10/20 18:21 Dose: 30 mls/hr Documented by: Ampicillin Sodium/Sulbactam (Sodium 3 gm/ Sodium Chloride) 100 mls @ 200 mls/hr IVPB Q12H [facility] Insulin Aspart (Insulin Aspart (Novolog) 100 Unit/Ml Vial) 0 unit SQ Q6H [facility]; Protocol Last Admin: 12/11/20 12:27 Dose: 1 unit Documented by: Naloxone HCl (Naloxone 0.4 Mg/Ml 1 Ml Vial) 0.2 mg IV Q2M PRN PRN Reason: Opioid Reversal Ondansetron HCl (Ondansetron 4 Mg/2 Ml Vial) 4 mg IVP Q8HR PRN PRN Reason: Nausea And Vomiting Pantoprazole Sodium (Pantoprazole 40 Mg/10 Ml Vial) 40 mg IVP DAILY [facility] Last Admin: 12/11/20 08:42 Dose: 40 mg Documented by: Sodium Chloride (Sodium Chloride 0.9% Flush 10 Ml Syringe) 10 ml IV Q4HR PRN PRN Reason: PICC Line Sodium Chloride (Sodium Chloride 0.9% Flush 10 Ml Syringe) 10 ml IV WEEKLY [facility] Sodium Chloride (Sodium Chloride 0.9% Flush 10 Ml Syringe) 20 ml IV Q4HR PRN PRN Reason: PICC Line Past medical history to include: Hypertension, osteoarthritis, gastric bypass, pain pump nonfunctioning nerve stimulator present, anxiety depression Social history: Did smoke in the past. No alcohol. Lives alone Physical examination: VITAL SIGNS: 98.3, 88, 18, 150/75, 95% room air GENERAL:, Reclining in bed, awake EYES: Pupils equal. Conjunctiva pale. HEENT: NG tube in place, oral dry cavity. NECK: JVD unable to assess; masses not palpable. HEART: First and second heart sounds are normal; no edema. LUNGS: Respiratory rate normal; clear to auscultation ABDOMEN: , Tenderness present, no guarding rigidity, liver spleen not palpable, no masses palpable. Wound VAC. REBEKAH drain-serosanguineous discharge PSYCH: Alert oriented 3 more affect normal INVESTIGATIONS, reviewed in the clinical context: December 11: Potassium 3.9 BUN 52 creatinine 1.84 magnesia 1.3 December 10: WBC 11.6 hemoglobin 7.8 potassium 3.4 bun 47 creatinine 1.97 December 09: WBC 12.9 hemoglobin 7 platelets 466 potassium 4.3 bun 83 creatinine is 3.43 phosphorus 5.7 Abdominal wound culture: E. coli Hepatitis B surface antigen, surface antibody, core total antibody: Nonreactive December 08: WBC 14.6 hemoglobin 8 platelets 497 sodium 1:30 potassium 4.9 BUN 156 creatinine 5.9 December 07: WBC 22 hemoglobin 7.4 platelets 576 sodium 127 potassium 5.2 bun 166 creatinine 6.71 AST 115 ALT 29 albumin 2.5 Previous labs: November 29: BUN 16 creatinine 0.76 AST 34 ALT 15 Assessment and plan: -Intra-abdominal pelvic abscess-possibly infected hematoma, in a patient who recently underwent right hemicolectomy on November 23 Status post surgery with intra-abdominal washout. REBEKAH drain and a wound VAC. IV Zosyn. NG tube. E. coli growing in the abscess culture. 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 Right hemicolectomy on November 23. -Essential hypertension Start Lopressor 25 mg twice daily -Primary osteoarthritis Pain medications as needed -Anxiety depression otherwise specified Continue home medications - chronic pain syndrome, patient has a pain pump -Recent postprocedure blood is anemia as expected from surgery Last admission received blood -Severe sepsis, E. coli positive IV fluids, antibiotics -Reactive thrombocytosis Follow -Hypovolemic hyponatremia-improved IV fluids, follow labs -Hyperkalemia secondary to renal failure-corrected Received ultrafiltration. Follow labs -Acute kidney injury, likely combination of ATN, [id number] to improve IV fluids. Started on hemodialysis on December 08. -Hyperphosphatemia from acute kidney injury Follow labs -Metabolic acidosis secondary to renal failure Follow labs and bicarbonate -Hypoalbuminemia, acute phase reactant -TPN and lipids started on December 09 -Hypomagnesemia. By mouth replacement Continue IV Zosyn. TPN and Lipids. Clear liquids. Increase activity as tolerated. Started Lopressor 25 mg twice daily for blood pressure.
[2020-12-11] MEDS: MAGNESIUM OXIDE 400 MG TAB PO SCH (16:44)
[2020-12-11] MEDS: MVI, ADULT NO.4 WITH VIT K 10 ML, TRACE (CONC-1ML/DOSE) 1 ML in AMINO ACID 5%-D15W+LYTE... IV SCH ×3 (18:15)
[2020-12-11 18:17] LABS: Glucose,Whole Blood 122 mg/dL (75-99)
--- NOTE | 2020-12-11 19:15 | PN ---
PROGRESS NOTE DATE OF SERVICE: 12/11/2020 REASON FOR FOLLOW UP: Pelvic abscess. INTERVAL HISTORY: The patient is afebrile. The patient is breathing comfortably. Patient denies having any chest pain. No shortness of breath or cough. Abdominal pain is currently controlled. No vomiting or diarrhea. PHYSICAL EXAMINATION: Blood pressure 149/79, pulse of 83, temperature 98.2. She is 94% on room air. General description is an elderly female lying in in no distress. Respiratory system: Unlabored breathing, clear to auscultation anteriorly. Heart S1, S2. Regular rate and rhythm. Abdomen is soft, no guarding or rigidity. Extremities: No edema of the feet. LABS: BUN 52, creatinine 1.84. Abdominal cultures with E coli and anaerobes. DIAGNOSTIC IMPRESSION AND PLAN: Patient with pelvic abscess and infected hematoma status post drainage. The patient is covered with Unasyn, to continue while monitoring clinical course closely. Continue supportive care. MMODL / IJN: [id number] /
[2020-12-11] MEDS: ACETAMINOPHEN TAB 325 MG TAB PO PRN (20:04)
[2020-12-11] MEDS: METOPROLOL TARTRATE 25 MG TAB PO SCH (20:04)
[2020-12-12 00:36] LABS: Glucose,Whole Blood 133 mg/dL (75-99)
[2020-12-12] MEDS: INSULIN ASPART (NovoLOG) 100 UNIT/ML VIAL SQ SCH ×4 (00:45→17:21)
[2020-12-12 05:33] LABS: Glucose,Whole Blood 117 mg/dL (75-99)
[2020-12-12] MEDS: AMPICILLIN-SULBACTAM 3 GM in SODIUM CHLORIDE 0.9% 100 ML IVPB SCH ×2 (05:38→17:48)
[2020-12-12] MEDS: METOPROLOL TARTRATE 25 MG TAB PO SCH ×2 (08:24→19:52)
[2020-12-12] MEDS: PANTOPRAZOLE 40 MG/10 ML VIAL IVP SCH (08:24)
[2020-12-12] MEDS: SODIUM CHLORIDE 0.9% 1,000 ML IV SCH (08:24)
[2020-12-12] MEDS: MAGNESIUM OXIDE 400 MG TAB PO SCH (08:24)
[2020-12-12 08:43] LABS: African American GFR (CKD) 39 (>60 ml/min/1.73 sqM); Anion Gap 7 mmol/L; Blood Urea Nitrogen 51 mg/dL (7-17); Carbon Dioxide 28 mmol/L (22-30); Chloride 101 mmol/L (98-107); Glucose 106 mg/dL (74-99); Magnesium 1.5 mg/dL (1.6-2.3); Non-African American GFR(CKD) 34 (>60 ml/min/1.73 sqM); Phosphorus 4.4 mg/dL (2.5-4.5); Potassium 3.8 mmol/L (3.5-5.1); Sodium 136 mmol/L (137-145)
[2020-12-12] MEDS: MAGNESIUM SULFATE-D5W PMX 1 GM in DEXTROSE/WATER 1 100ML.BAG IVPB SCH ×2 (10:21→11:21)
[2020-12-12 11:53] LABS: Glucose,Whole Blood 123 mg/dL (75-99)
--- NOTE | 2020-12-12 13:56 | P.PN ---
Subjective Progress Note Date: 12/12/20 CHIEF COMPLAINT: Pelvic abscess HISTORY OF PRESENT ILLNESS: Patient is status post washout with peritoneal cavity with drain placement for pelvic abscess. The pelvic abscess appeared to be an infected hematoma. Patient is awake and alert. Reports that her pain is controlled. Denies any nausea or vomiting. She is having bowel movements and flatus. She reports that she is feeling better today. She no longer requiring hemodialysis. She is currently on a full liquid diet. Afebrile. Creatinine 1 .53 magnesium 1.5 wound culture with E. coli PHYSICAL EXAM: VITAL SIGNS: Reviewed. GENERAL: Well-developed in no acute distress. HEENT: No sclera icterus. Extraocular movements grossly intact. Moist buccal mucosa. Head is atraumatic, normocephalic. ABDOMEN: Soft. Nondistended. Patient has wound VAC in place. Patient's abdominal wound measurement is 25 x 10 x 5 cm. REBEKAH drain with sanguinous drainage NEUROLOGIC: Alert and oriented. Cranial nerves II through XII grossly intact. ASSESSMENT: 1. Pelvic abscess secondary to an infected hematoma status post washout of peritoneal cavity with drain placement on 12/08/2020 2. Sepsis present on admission secondary to pelvic abscess 3. 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 Acute kidney injury improving. Did require hemodialysis during this admission. Followed by nephrology. 5. Anemia secondary to infected abdominal hematoma 6. Hyponatremia followed by nephrology. Improved PLAN: -Advance diet to regular -Wean patient off the TPN -Continue antibiotics per infectious disease -Continue wound VAC -Continue pain medication as needed -continue incentive spirometer -tax audit manager arranging wound VAC for outpatient setting -Continue PT OT -GI prophylaxis Protonix and DVT prophylaxis SCDs Physician Senior Firewall Engineer note has been reviewed by physician. Signing provider agrees with the documented findings, assessment, and plan of care. Objective - Vital Signs Vital signs: Vital Signs Temp 98 F 12/12/20 13:20 Pulse 87 12/12/20 13:20 Resp 14 12/12/20 13:20 BP 158/70 12/12/20 13:20 Pulse Ox 95 12/12/20 13:20 Intake & Output 12/11/20 12/12/20 12/12/20 18:59 06:59 18:59 Intake Total 717 1300 200 Output Total 1040 1200 Balance -323 100 200 Intake: Intake, IV Titration 717 800 Amount Mvi, Adult No.4 with Vit 717 K 10 ml Trace (Conc-1Ml/ Dose) 1 ml In Amino Acid 5%-D15w+Lytes*E* 1,000 ml @ 30 mls/hr IV .Q24H [facility] Rx#:[id number] Sodium Chloride 0.9% 1, 800 000 ml @ 75 mls/hr IV . [id number] [facility] Rx#:[id number] Oral 500 200 Output: Drainage 40 Abdomen 40 Urine 1000 1200 Other: Voiding Method Indwelling Catheter Indwelling Catheter Indwelling Catheter # Bowel Movements 1 - Labs CBC & Chem 7: 12/10/20 08:14 12/12/20 07:23 Labs: Abnormal Lab Results - Last 24 Hours (Table) 12/11/20 12/12/20 12/12/20 Range/Units 18:17 00:34 05:31 Sodium (137-145) mmol/L BUN (7-17) mg/dL Creatinine (0.52-1.04) mg/dL Glucose (74-99) mg/dL POC Glucose (mg/dL) 122 H 133 H 117 H (75-99) mg/dL Calcium (8.4-10.2) mg/dL Magnesium (1.6-2.3) mg/dL 12/12/20 12/12/20 Range/Units 07:23 11:52 Sodium 136 L (137-145) mmol/L BUN 51 H (7-17) mg/dL Creatinine 1.53 H (0.52-1.04) mg/dL Glucose 106 H (74-99) mg/dL POC Glucose (mg/dL) 123 H (75-99) mg/dL Calcium 8.0 L (8.4-10.2) mg/dL Magnesium 1.5 L (1.6-2.3) mg/dL Microbiology - Last 24 Hours (Table) 12/05/20 18:30 Blood Culture - Final Blood No Growth after 144 hours 12/05/20 18:44 Blood Culture - Final Blood No Growth after 144 hours
--- NOTE | 2020-12-12 14:28 | PN ---
PROGRESS NOTE DATE OF SERVICE: 12/12/2020 REASON FOR FOLLOWUP: Infected pelvic hematoma. INTERVAL HISTORY: Patient is currently afebrile. The patient is breathing comfortably. Denies any chest pain. No cough. No nausea or vomiting. Abdominal pain is currently controlled. No diarrhea. PHYSICAL EXAMINATION: Blood pressure is 152/76, pulse 97, temperature 98.4. She is 95% on room air. General description: The patient is an elderly female lying in bed in no distress. Respiratory system: Unlabored breathing, clear to auscultation anteriorly. Heart S1, S2. Regular rate and rhythm. ABDOMEN: Soft, wound is covered with a wound VAC. EXTREMITIES: No edema of the feet. LABS: BUN 51, creatinine 1.53. Abdominal cultures with E coli and anaerobes this patient with an infected pelvic hematoma, status post surgical drainage. Covered with Unasyn. If the patient goes to the senior living, will give with short course of IV antibiotic given. If going home, will switch over to oral Cipro and Flagyl. Local wound care to continue with wound VAC and close outpatient followup. MMODL / IJN: [id number] / ANÍBAL
--- NOTE | 2020-12-12 15:08 | PN ---
PROGRESS NOTE Patient is seen for followup for acute kidney injury mostly acute tubular necrosis. She required temporary hemodialysis initially. Her renal function has improved with good urine output and the patient has been off dialysis. PHYSICAL EXAMINATION: On examination today, she is lying in bed. She is comfortable. Blood pressure was 152/76, heart rate 97 per minute. She is afebrile. Examination of the heart S1, S2. Examination of lungs, bilateral breath sounds are heard. ABDOMEN: Soft, tender. Exam of lower extremities shows no significant edema. LABS: Show sodium 136, potassium 3.8, BUN 51, serum creatinine 1.53, magnesium 1.5, phosphorus 4.4. ASSESSMENT: 1. Acute kidney injury acute tubular necrosis associated with sepsis, hypotension, currently improved and hemodialysis is on hold. Dialysis catheter will be discontinued. 2. Pelvic abscess/hematoma, currently with an abdominal drain and wound VAC. 3. Metabolic acidosis associated with renal failure, currently improved. 4. History of right colectomy recently prior to this admission. PLAN: Continue to hold off on dialysis. Repeat labs in a.m. Continue with TPN. MMODL / IJN: [id number] /
[2020-12-12] MEDS: FAT EMULSION 20% 250 ML in EMPTY BAG 1 BAG IV SCH (15:38)
[2020-12-12 16:47] LABS: Glucose,Whole Blood 115 mg/dL (75-99)
[2020-12-12] MEDS ORDERED: MVI, ADULT NO.4 WITH VIT K 10 ML, TRACE (CONC-1ML/DOSE) 1 ML in AMINO ACID 5%-D15W+LYTE... IV SCH ×3 (18:00)
--- NOTE | 2020-12-12 19:49 | P.PN ---
Progress Note - Text Progress Note Date: 12/12/20 Chief Complaint: Right abdominal pain History of presenting complaint: This is a very pleasant 70-year-old patient of Dr. Nickerson. Chronic stable medical conditions include hypertension, osteoarthritis, chronic low back pain for which she has a pain pump-being followed by Dr. Artis, gastric bypass, anxiety depression. November 23: Cecum bascule, [ type of volvulus.] : Underwent right hemicolectomy, by Dr Babb. Patient was discharged on November 28, was tolerating diet. Now presented with increasing abdominal pain and some mental status changes. The scan abdomen showed a large pelvic abscess. Also acute severe kidney injury from ATN. December 07: washout of the peritoneal cavity abscess with the drain placement. The pelvic abscess appeared to be infected hematoma. Peritoneal cavity was washed out. Small bowel anastomosis could not be visualized. Wound VAC/REBEKAH drain was placed. dialysis catheter placed in the right groin. NG tube. Started on hemodialysis. Started on TPN/lipids. Wound culture positive for E. coli Today: Had bowel movement yesterday. Full liquid diet. Abdominal pain better. Has been out of bed. Walked a bit. Good urine output. Review of systems: Was done for constitutional, cardiovascular, GI, pulmonary. relevant finding as above Active Medications Acetaminophen (Acetaminophen Tab 325 Mg Tab) 650 mg PO Q6HR PRN PRN Reason: Mild Pain or Fever > 100.5 Last Admin: 12/11/20 20:04 Dose: 650 mg Documented by: Hydromorphone HCl (Hydromorphone 0.5 Mg/0.5 Ml Syringe) 0.5 mg IVP Q4HR PRN PRN Reason: Pain Last Admin: 12/10/20 15:52 Dose: 0.5 mg Documented by: Sodium Chloride (Saline 0.9%) 1,000 mls @ 75 mls/hr IV .[id number] [facility] Last Admin: 12/12/20 08:24 Dose: 75 mls/hr Documented by: Parenteral Vitamin Supplement 10 ml/ Zinc/Copper/Manganese/Selenium 1 ml/ Amino Ac/Electrol/Dextrose/Calcium 1,011 mls @ 54 mls/hr IV .[id number] [facility] Last Admin: 12/12/20 17:59 Dose: Not Given Documented by: Fat Emulsion Intravenous 250 (ml/ IV Solution) 250 mls @ 21 mls/hr IV MoWeFr [facility] Last Admin: 12/12/20 15:38 Dose: 21 mls/hr Documented by: Ampicillin Sodium/Sulbactam (Sodium 3 gm/ Sodium Chloride) 100 mls @ 200 mls/hr IVPB Q12H [facility] Last Admin: 12/12/20 17:48 Dose: 200 mls/hr Documented by: Insulin Aspart (Insulin Aspart (Novolog) 100 Unit/Ml Vial) 0 unit SQ Q6H [facility]; Protocol Last Admin: 12/12/20 17:21 Dose: Not Given Documented by: Magnesium Oxide (Magnesium Oxide 400 Mg Tab) 400 mg PO DAILY [facility] Last Admin: 12/12/20 08:24 Dose: 400 mg Documented by: Metoprolol Tartrate (Metoprolol Tartrate 25 Mg Tab) 25 mg PO BID [facility] Last Admin: 12/12/20 08:24 Dose: 25 mg Documented by: Naloxone HCl (Naloxone 0.4 Mg/Ml 1 Ml Vial) 0.2 mg IV Q2M PRN PRN Reason: Opioid Reversal Ondansetron HCl (Ondansetron 4 Mg/2 Ml Vial) 4 mg IVP Q8HR PRN PRN Reason: Nausea And Vomiting Pantoprazole Sodium (Pantoprazole 40 Mg/10 Ml Vial) 40 mg IVP DAILY [facility] Last Admin: 12/12/20 08:24 Dose: 40 mg Documented by: Sodium Chloride (Sodium Chloride 0.9% Flush 10 Ml Syringe) 10 ml IV Q4HR PRN PRN Reason: PICC Line Sodium Chloride (Sodium Chloride 0.9% Flush 10 Ml Syringe) 10 ml IV WEEKLY [facility] Sodium Chloride (Sodium Chloride 0.9% Flush 10 Ml Syringe) 20 ml IV Q4HR PRN PRN Reason: PICC Line Past medical history to include: Hypertension, osteoarthritis, gastric bypass, pain pump nonfunctioning nerve stimulator present, anxiety depression Social history: Did smoke in the past. No alcohol. Lives alone Physical examination: VITAL SIGNS: 98.5, 97, 16, 152/76, 95% room air GENERAL:, Laying in bed, comfortable EYES: Pupils equal. Conjunctiva pale. HEENT: NG tube in place, oral dry cavity. NECK: JVD unable to assess; masses not palpable. HEART: First and second heart sounds are normal; no edema. LUNGS: Respiratory rate normal; clear to auscultation ABDOMEN: , Decreased Tenderness, no guarding rigidity, liver spleen not palpable, no masses palpable. Wound VAC. REBEKAH drain-serosanguineous discharge PSYCH: Alert oriented 3 more affect normal INVESTIGATIONS, reviewed in the clinical context: December 12: Potassium 3.8 creatinine 1.53 December 11: Potassium 3.9 BUN 52 creatinine 1.84 magnesia 1.3 December 10: WBC 11.6 hemoglobin 7.8 potassium 3.4 bun 47 creatinine 1.97 December 09: WBC 12.9 hemoglobin 7 platelets 466 potassium 4.3 bun 83 creatinine is 3.43 phosphorus 5.7 Abdominal wound culture: E. coli Hepatitis B surface antigen, surface antibody, core total antibody: Nonreactive December 08: WBC 14.6 hemoglobin 8 platelets 497 sodium 1:30 potassium 4.9 BUN 156 creatinine 5.9 December 07: WBC 22 hemoglobin 7.4 platelets 576 sodium 127 potassium 5.2 bun 166 creatinine 6.71 AST 115 ALT 29 albumin 2.5 Previous labs: November 29: BUN 16 creatinine 0.76 AST 34 ALT 15 Assessment and plan: -Intra-abdominal pelvic abscess-possibly infected hematoma, in a patient who recently underwent right hemicolectomy on November 23 Status post surgery with intra-abdominal washout. REBEKAH drain and a wound VAC. IV Zosyn. NG tube. E. coli growing in the abscess culture. 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 Right hemicolectomy on November 23. -Essential hypertension Start Lopressor 25 mg twice daily -Primary osteoarthritis Pain medications as needed -Anxiety depression otherwise specified Continue home medications - chronic pain syndrome, patient has a pain pump -Recent postprocedure blood is anemia as expected from surgery Last admission received blood -Severe sepsis, E. coli positive IV fluids, antibiotics -Reactive thrombocytosis Follow -Hypovolemic hyponatremia-improved IV fluids, follow labs -Hyperkalemia secondary to renal failure-corrected Received ultrafiltration. Follow labs -Acute kidney injury, likely combination of ATN, [id number] to improve IV fluids. Started on hemodialysis on December 08. Hemodialysis currently on hold. -Hyperphosphatemia from acute kidney injury Follow labs -Metabolic acidosis secondary to renal failure Follow labs and bicarbonate -Hypoalbuminemia, acute phase reactant -TPN and lipids started on December 09 -Hypomagnesemia. By mouth replacement Continue IV Zosyn. TPN and Lipids. Diet advanced per surgery. Increase activity.
[2020-12-12] MEDS: ACETAMINOPHEN TAB 325 MG TAB PO PRN (19:52)
[2020-12-13 01:02] LABS: Glucose,Whole Blood 128 mg/dL (75-99)
[2020-12-13] MEDS: INSULIN ASPART (NovoLOG) 100 UNIT/ML VIAL SQ SCH ×3 (01:27→11:49)
[2020-12-13] MEDS: SODIUM CHLORIDE 0.9% 1,000 ML IV SCH ×2 (01:49→15:59)
[2020-12-13 05:13] LABS: Glucose,Whole Blood 112 mg/dL (75-99)
[2020-12-13] MEDS: AMPICILLIN-SULBACTAM 3 GM in SODIUM CHLORIDE 0.9% 100 ML IVPB SCH ×3 (06:32→23:56)
[2020-12-13] MEDS: PANTOPRAZOLE 40 MG/10 ML VIAL IVP SCH (08:00)
[2020-12-13] MEDS: METOPROLOL TARTRATE 25 MG TAB PO SCH ×2 (08:00→20:46)
[2020-12-13] MEDS: MAGNESIUM OXIDE 400 MG TAB PO SCH (08:00)
[2020-12-13 08:34] LABS: African American GFR (CKD) 46 (>60 ml/min/1.73 sqM); Anion Gap 6 mmol/L; Blood Urea Nitrogen 46 mg/dL (7-17); Calcium 7.9 mg/dL (8.4-10.2); Carbon Dioxide 29 mmol/L (22-30); Chloride 100 mmol/L (98-107); Glucose 117 mg/dL (74-99); Magnesium 1.6 mg/dL (1.6-2.3); Non-African American GFR(CKD) 40 (>60 ml/min/1.73 sqM); Phosphorus 4.4 mg/dL (2.5-4.5); Potassium 4.1 mmol/L (3.5-5.1); Sodium 135 mmol/L (137-145)
--- NOTE | 2020-12-13 10:42 | P.PN ---
Subjective Progress Note Date: 12/13/20 Principal diagnosis: Acute kidney injury needing temporary hemodialysis She was seen and examined lying in bed looking much improved. She states she is feeling better. She is being followed by nephrology which currently hemodialysis is on hold. Her temporary catheter still in place. Her renal function is improving, and urine output is as well. Objective - Vital Signs Vital signs: Vital Signs Temp 98.5 F 12/13/20 01:09 Pulse 81 12/13/20 01:09 Resp 17 12/13/20 01:09 BP 135/73 12/13/20 01:09 Pulse Ox 97 12/13/20 01:09 Intake & Output 12/12/20 12/13/20 12/13/20 18:59 06:59 18:59 Intake Total 1280 Output Total 1300 80 Balance -20 -80 Weight 75 kg Intake: Oral 1280 Output: Drainage 80 Abdomen 40 Left Abdomen 40 Urine 1300 Other: Voiding Method Indwelling Catheter Toilet # Voids 2 # Bowel Movements 1 - Exam General appearance: The patient is alert, oriented, in no acute distress. HET: Head is normocephalic and atraumatic. Pupils are equal and reactive. Oropharynx is clear without lesions. Groin: Right groin with intact temporary hemodialysis catheter Extremities: Normal skin color and turgor. Neurological: No focal deficits. Alert and oriented 3 - Labs CBC & Chem 7: 12/10/20 08:14 12/13/20 06:55 Labs: Abnormal Lab Results - Last 24 Hours (Table) 12/12/20 12/12/20 12/12/20 Range/Units 07:23 11:52 16:42 Sodium 136 L (137-145) mmol/L BUN 51 H (7-17) mg/dL Creatinine 1.53 H (0.52-1.04) mg/dL Glucose 106 H (74-99) mg/dL POC Glucose (mg/dL) 123 H 115 H (75-99) mg/dL Calcium 8.0 L (8.4-10.2) mg/dL Magnesium 1.5 L (1.6-2.3) mg/dL 12/13/20 12/13/20 Range/Units 01:01 05:10 Sodium (137-145) mmol/L BUN (7-17) mg/dL Creatinine (0.52-1.04) mg/dL Glucose (74-99) mg/dL POC Glucose (mg/dL) 128 H 112 H (75-99) mg/dL Calcium (8.4-10.2) mg/dL Magnesium (1.6-2.3) mg/dL Assessment and Plan Assessment: 1. Acute kidney injury requiring hemodialysis 2. Pelvic abscess 3. Anemia Plan: 1. Discontinue hemodialysis catheter once ordered by nephrology 2. Continue medical management 3. Vascular surgery on standby if patient should need further hemodialysis and a tunneled catheter placement Thank you for this consultation, we will sign off at this time. The impression and plan of care has been dictated as directed. Dr. Dalton I performed a history and examination of this patient, discussed the same with the dictator. I agree with the dictator's note ,documented as a scribe. Any additional findings or plans will be noted.
[2020-12-13 11:04] LABS: Basophils # (A) 0.05 X 10*3/uL (0.00-0.10); Basophils % (A) 0.4 %; Eosinophils # (A) 0.37 X 10*3/uL (0.04-0.35); Eosinophils % (A) 2.8 %; HCT 30.7 % (37.2-46.3); Lymphocytes # (A) 0.81 X 10*3/uL (0.90-5.00); Lymphocytes % (A) 6.2 %; MCH 28.7 pg (27.0-32.0); MCHC 29.3 g/dL (32.0-37.0); MCV 97.8 fL (80.0-97.0); Mean Platelet Volume 9.3 fL (9.5-12.2); Monocytes % (A) 5.4 %; Neutrophils # (A) 10.92 X 10*3/uL (1.80-7.70); Platelet Count 494 X 10*3/uL (140-440); RBC 3.14 X 10*6/uL (4.10-5.20); RDW 14.1 % (11.5-14.5)
[2020-12-13 11:29] LABS: Glucose,Whole Blood 108 mg/dL (75-99)
[2020-12-13] MEDS: ACETAMINOPHEN TAB 325 MG TAB PO PRN (11:45)
--- NOTE | 2020-12-13 12:12 | P.PN ---
Subjective Patient is seen in follow-up for acute kidney injury. Renal function continues to improve. Oral intake is good. IV fluids and TPN have been discontinued. Vital signs are stable. General: The patient appeared well nourished and normally developed. HEENT: Head exam is unremarkable. Neck is without jugular venous distension. LUNGS: Breath sounds decreased. HEART: Rate and Rhythm are regular. ABDOMEN: Soft, no distention. EXTREMITITES: No edema. Objective - Vital Signs Vital signs: Vital Signs Temp 98.2 F 12/13/20 08:00 Pulse 86 12/13/20 08:00 Resp 16 12/13/20 08:00 BP 115/75 12/13/20 08:00 Pulse Ox 94 L 12/13/20 08:00 Intake & Output 12/12/20 12/13/20 12/13/20 18:59 06:59 18:59 Intake Total 1280 Output Total 1300 80 Balance -20 -80 Weight 75 kg Intake: Oral 1280 Output: Drainage 80 Abdomen 40 Left Abdomen 40 Urine 1300 Other: Voiding Method Indwelling Catheter Toilet # Voids 2 # Bowel Movements 1 - Labs CBC & Chem 7: 12/13/20 06:55 12/13/20 06:55 Labs: Abnormal Lab Results - Last 24 Hours (Table) 12/12/20 12/13/20 12/13/20 Range/Units 16:42 01:01 05:10 WBC (4.50-10.00) X 10*3/uL RBC (4.10-5.20) X 10*6/uL Hgb (12.0-15.0) g/dL Hct (37.2-46.3) % MCV (80.0-97.0) fL MCHC (32.0-37.0) g/dL Plt Count (140-440) X 10*3/uL MPV (9.5-12.2) fL Immature Gran # (0.00-0.04) X 10*3/uL Neutrophils # (1.80-7.70) X 10*3/uL Lymphocytes # (0.90-5.00) X 10*3/uL Eosinophils # (0.04-0.35) X 10*3/uL Sodium (137-145) mmol/L BUN (7-17) mg/dL Creatinine (0.52-1.04) mg/dL Glucose (74-99) mg/dL POC Glucose (mg/dL) 115 H 128 H 112 H (75-99) mg/dL Calcium (8.4-10.2) mg/dL 12/13/20 12/13/20 12/13/20 Range/Units 06:55 06:55 11:27 WBC 13.00 H (4.50-10.00) X 10*3/uL RBC 3.14 L (4.10-5.20) X 10*6/uL Hgb 9.0 L (12.0-15.0) g/dL Hct 30.7 L (37.2-46.3) % MCV 97.8 H (80.0-97.0) fL MCHC 29.3 L (32.0-37.0) g/dL Plt Count 494 H (140-440) X 10*3/uL MPV 9.3 L (9.5-12.2) fL Immature Gran # 0.15 H (0.00-0.04) X 10*3/uL Neutrophils # 10.92 H (1.80-7.70) X 10*3/uL Lymphocytes # 0.81 L (0.90-5.00) X 10*3/uL Eosinophils # 0.37 H (0.04-0.35) X 10*3/uL Sodium 135 L (137-145) mmol/L BUN 46 H (7-17) mg/dL Creatinine 1.35 H (0.52-1.04) mg/dL Glucose 117 H (74-99) mg/dL POC Glucose (mg/dL) 108 H (75-99) mg/dL Calcium 7.9 L (8.4-10.2) mg/dL Assessment and Plan Plan: Assessment: 1. Acute kidney injury secondary to ATN secondary to sepsis. Required hemodialysis earlier this admission. Renal function improved. Creatinine 1.35 today. 2. Pelvic abscess status post washout of peritoneal cavity to drain placement 12/07/2020. Plan: Encourage oral intake. Avoid nephrotoxins. Discontinue dialysis catheter. Continue to monitor renal function and urine output.
--- NOTE | 2020-12-13 16:03 | P.PN ---
Subjective Progress Note Date: 12/13/20 CHIEF COMPLAINT: Pelvic abscess HISTORY OF PRESENT ILLNESS: Patient is status post washout with peritoneal cavity with drain placement for pelvic abscess. The pelvic abscess appeared to be an infected hematoma. Patient is awake and alert. Reports that her pain is controlled. Denies any nausea or vomiting. She is having bowel movements and flatus. She reports that she is feeling better today. She no longer requiring hemodialysis. She is currently tolerating regular diet. Afebrile. WBC 13 hem oglobin 9 creatinine 1.35 PHYSICAL EXAM: VITAL SIGNS: Reviewed. GENERAL: Well-developed in no acute distress. HEENT: No sclera icterus. Extraocular movements grossly intact. Moist buccal mucosa. Head is atraumatic, normocephalic. ABDOMEN: Soft. Nondistended. Patient has wound VAC in place. Patient's abdominal wound measurement is 25 x 10 x 5 cm. REBEKAH drain with sanguinous drainage NEUROLOGIC: Alert and oriented. Cranial nerves II through XII grossly intact. ASSESSMENT: 1. Pelvic abscess secondary to an infected hematoma status post washout of peritoneal cavity with drain placement on 12/08/2020 2. Sepsis present on admission secondary to pelvic abscess 3. 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 Acute kidney injury improving. Did require hemodialysis during this admission. Followed by nephrology. 5. Anemia secondary to infected abdominal hematoma 6. Hyponatremia followed by nephrology. Improved PLAN: -Possible discharge tomorrow -Advance diet to regular -Wean patient off the TPN -Continue antibiotics per infectious disease -Continue wound VAC -Continue pain medication as needed -continue incentive spirometer -regional hr manager arranging wound VAC for outpatient setting -Continue PT OT -GI prophylaxis Protonix and DVT prophylaxis SCDs Physician Blood Bank Attendant note has been reviewed by physician. Signing provider agrees with the documented findings, assessment, and plan of care. Objective - Vital Signs Vital signs: Vital Signs Temp 98.6 F 12/13/20 14:00 Pulse 85 12/13/20 14:00 Resp 19 12/13/20 14:00 BP 153/82 12/13/20 14:00 Pulse Ox 98 12/13/20 14:00 Intake & Output 12/12/20 12/13/20 12/13/20 18:59 06:59 18:59 Intake Total 1280 1080 Output Total 1300 80 Balance -20 -80 1080 Weight 75 kg Intake: Oral 1280 1080 Output: Drainage 80 Abdomen 40 Left Abdomen 40 Urine 1300 Other: Voiding Method Indwelling Catheter Toilet # Voids 2 # Bowel Movements 1 - Labs CBC & Chem 7: 12/13/20 06:55 12/13/20 06:55 Labs: Abnormal Lab Results - Last 24 Hours (Table) 12/12/20 12/13/20 12/13/20 Range/Units 16:42 01:01 05:10 WBC (4.50-10.00) X 10*3/uL RBC (4.10-5.20) X 10*6/uL Hgb (12.0-15.0) g/dL Hct (37.2-46.3) % MCV (80.0-97.0) fL MCHC (32.0-37.0) g/dL Plt Count (140-440) X 10*3/uL MPV (9.5-12.2) fL Immature Gran # (0.00-0.04) X 10*3/uL Neutrophils # (1.80-7.70) X 10*3/uL Lymphocytes # (0.90-5.00) X 10*3/uL Eosinophils # (0.04-0.35) X 10*3/uL Sodium (137-145) mmol/L BUN (7-17) mg/dL Creatinine (0.52-1.04) mg/dL Glucose (74-99) mg/dL POC Glucose (mg/dL) 115 H 128 H 112 H (75-99) mg/dL Calcium (8.4-10.2) mg/dL Triglycerides (0.0-149.0) mg/dL 12/13/20 12/13/20 12/13/20 Range/Units 06:55 06:55 11:27 WBC 13.00 H (4.50-10.00) X 10*3/uL RBC 3.14 L (4.10-5.20) X 10*6/uL Hgb 9.0 L (12.0-15.0) g/dL Hct 30.7 L (37.2-46.3) % MCV 97.8 H (80.0-97.0) fL MCHC 29.3 L (32.0-37.0) g/dL Plt Count 494 H (140-440) X 10*3/uL MPV 9.3 L (9.5-12.2) fL Immature Gran # 0.15 H (0.00-0.04) X 10*3/uL Neutrophils # 10.92 H (1.80-7.70) X 10*3/uL Lymphocytes # 0.81 L (0.90-5.00) X 10*3/uL Eosinophils # 0.37 H (0.04-0.35) X 10*3/uL Sodium 135 L (137-145) mmol/L BUN 46 H (7-17) mg/dL Creatinine 1.35 H (0.52-1.04) mg/dL Glucose 117 H (74-99) mg/dL POC Glucose (mg/dL) 108 H (75-99) mg/dL Calcium 7.9 L (8.4-10.2) mg/dL Triglycerides 176.0 H (0.0-149.0) mg/dL
--- NOTE | 2020-12-13 19:44 | P.PN ---
Progress Note - Text Progress Note Date: 12/13/20 Chief Complaint: Right abdominal pain History of presenting complaint: This is a very pleasant 70-year-old patient of Dr. Nickerson. Chronic stable medical conditions include hypertension, osteoarthritis, chronic low back pain for which she has a pain pump-being followed by Dr. Artis, gastric bypass, anxiety depression. November 23: Cecum bascule, [ type of volvulus.] : Underwent right hemicolectomy, by Dr Babb. Patient was discharged on November 28, was tolerating diet. Now presented with increasing abdominal pain and some mental status changes. The scan abdomen showed a large pelvic abscess. Also acute severe kidney injury from ATN. December 07: washout of the peritoneal cavity abscess with the drain placement. The pelvic abscess appeared to be infected hematoma. Peritoneal cavity was washed out. Small bowel anastomosis could not be visualized. Wound VAC/REBEKAH drain was placed. dialysis catheter placed in the right groin. NG tube. Started on hemodialysis. Started on TPN/lipids. Wound culture positive for E. coli Today: Diet advanced to regular. Had bowel movement. Has been out of bed. Pain well controlled. No nausea vomiting. Review of systems: Was done for constitutional, cardiovascular, GI, pulmonary. relevant finding as above Active Medications Acetaminophen (Acetaminophen Tab 325 Mg Tab) 650 mg PO Q6HR PRN PRN Reason: Mild Pain or Fever > 100.5 Last Admin: 12/13/20 11:45 Dose: 650 mg Documented by: Hydromorphone HCl (Hydromorphone 0.5 Mg/0.5 Ml Syringe) 0.5 mg IVP Q4HR PRN PRN Reason: Pain Last Admin: 12/10/20 15:52 Dose: 0.5 mg Documented by: Sodium Chloride (Saline 0.9%) 1,000 mls @ 75 mls/hr IV .[id number] [facility] Last Admin: 12/13/20 15:59 Dose: Not Given Documented by: Ampicillin Sodium/Sulbactam (Sodium 3 gm/ Sodium Chloride) 100 mls @ 200 mls/hr IVPB Q6HR [facility] Last Admin: 12/13/20 17:02 Dose: 200 mls/hr Documented by: Magnesium Oxide (Magnesium Oxide 400 Mg Tab) 400 mg PO DAILY [facility] Last Admin: 12/13/20 08:00 Dose: 400 mg Documented by: Metoprolol Tartrate (Metoprolol Tartrate 25 Mg Tab) 25 mg PO BID [facility] Last Admin: 12/13/20 08:00 Dose: 25 mg Documented by: Naloxone HCl (Naloxone 0.4 Mg/Ml 1 Ml Vial) 0.2 mg IV Q2M PRN PRN Reason: Opioid Reversal Ondansetron HCl (Ondansetron 4 Mg/2 Ml Vial) 4 mg IVP Q8HR PRN PRN Reason: Nausea And Vomiting Pantoprazole Sodium (Pantoprazole 40 Mg/10 Ml Vial) 40 mg IVP DAILY [facility] Last Admin: 12/13/20 08:00 Dose: 40 mg Documented by: Sodium Chloride (Sodium Chloride 0.9% Flush 10 Ml Syringe) 10 ml IV Q4HR PRN PRN Reason: PICC Line Sodium Chloride (Sodium Chloride 0.9% Flush 10 Ml Syringe) 10 ml IV WEEKLY [facility] Sodium Chloride (Sodium Chloride 0.9% Flush 10 Ml Syringe) 20 ml IV Q4HR PRN PRN Reason: PICC Line Past medical history to include: Hypertension, osteoarthritis, gastric bypass, pain pump nonfunctioning nerve stimulator present, anxiety depression Social history: Did smoke in the past. No alcohol. Lives alone Physical examination: VITAL SIGNS: 98.2, 86, 16, 115/75, 94% room air GENERAL:, Sitting up in the bed, comfortable EYES: Pupils equal. Conjunctiva pale. HEENT: NG tube in place, oral dry cavity. NECK: JVD unable to assess; masses not palpable. HEART: First and second heart sounds are normal; no edema. LUNGS: Respiratory rate normal; clear to auscultation ABDOMEN: , Minimal Tenderness, no guarding rigidity, liver spleen not palpable, no masses palpable. Wound VAC. REBEKAH drain- PSYCH: Alert oriented 3 more affect normal INVESTIGATIONS, reviewed in the clinical context: December 13: WBC 13 hemoglobin 9 platelets 494 potassium 4.1 creatinine 1.35 December 12: Potassium 3.8 creatinine 1.53 December 11: Potassium 3.9 BUN 52 creatinine 1.84 magnesia 1.3 December 10: WBC 11.6 hemoglobin 7.8 potassium 3.4 bun 47 creatinine 1.97 December 09: WBC 12.9 hemoglobin 7 platelets 466 potassium 4.3 bun 83 creatinine is 3.43 phosphorus 5.7 Abdominal wound culture: E. coli Hepatitis B surface antigen, surface antibody, core total antibody: Nonreactive December 08: WBC 14.6 hemoglobin 8 platelets 497 sodium 1:30 potassium 4.9 BUN 156 creatinine 5.9 December 07: WBC 22 hemoglobin 7.4 platelets 576 sodium 127 potassium 5.2 bun 166 creatinine 6.71 AST 115 ALT 29 albumin 2.5 Previous labs: November 29: BUN 16 creatinine 0.76 AST 34 ALT 15 Assessment and plan: -Intra-abdominal pelvic abscess-possibly infected hematoma, in a patient who recently underwent right hemicolectomy on November 23 Status post surgery with intra-abdominal washout. REBEKAH drain and a wound VAC. IV Zosyn-changed to IV Unasyn. NG tube-discontinued. E. coli growing in the abscess culture. 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 Right hemicolectomy on November 23. -Essential hypertension Start Lopressor 25 mg twice daily -Primary osteoarthritis Pain medications as needed -Anxiety depression otherwise specified Continue home medications - chronic pain syndrome, patient has a pain pump -Recent postprocedure blood is anemia as expected from surgery Last admission received blood -Severe sepsis, E. coli positive IV Unasyn -Reactive thrombocytosis Follow -Hypovolemic hyponatremia-improved IV fluids, follow labs -Hyperkalemia secondary to renal failure-corrected Received ultrafiltration. Follow labs -Acute kidney injury, likely combination of ATN, [id number] to improve IV fluids. Started on hemodialysis on December 08. Hemodialysis currently on hold. -Hyperphosphatemia from acute kidney injury Follow labs -Metabolic acidosis secondary to renal failure Follow labs and bicarbonate -Hypoalbuminemia, acute phase reactant -TPN and lipids started on December 09-discontinued December 13 -Hypomagnesemia. By mouth replacement IV Unasyn. TPN and lipids discontinued. Doing much better. Hopefully discharge tomorrow. By mouth ciprofloxacin and Flagyl per ID
--- NOTE | 2020-12-13 23:16 | PN ---
PROGRESS NOTE DATE OF SERVICE: 12/13/2020 REASON FOR FOLLOWUP: Pelvic abscess. INTERVAL HISTORY: Patient is afebrile. The patient is more awake, alert. The patient denies having any chest pain, shortness of breath or cough. No nausea. No vomiting. No worsening abdominal pain or diarrhea. PHYSICAL EXAMINATION: Blood pressure 153/82 with a pulse of 85, temperature 98.6, she is 98% on room air. General description is an elderly female lying in in no distress. Respiratory system: Unlabored breathing. Clear to auscultation anteriorly. Heart S1, S2. Regular rate and rhythm. ABDOMEN: Soft, no tenderness. LABS: Hemoglobin 9.4, white count 13, BUN of 46, creatinine 1.35. DIAGNOSTIC IMPRESSION AND PLAN: Patient with pelvic abscess, infected hematoma, status post drainage. Culture positive for E coli and anaerobes. Patient is covered with Unasyn. White count showing upward trend. Will monitor closely. Local care to continue with wound VAC and monitor clinical course closely. MMODL / IJN: [id number] /
[2020-12-14] MEDS: ACETAMINOPHEN TAB 325 MG TAB PO PRN ×2 (01:59→08:14)
[2020-12-14] MEDS: SODIUM CHLORIDE 0.9% 1,000 ML IV SCH ×2 (04:01→17:43)
[2020-12-14] MEDS: AMPICILLIN-SULBACTAM 3 GM in SODIUM CHLORIDE 0.9% 100 ML IVPB SCH ×3 (06:00→17:43)
[2020-12-14 06:55] LABS: Glucose,Whole Blood 100 mg/dL (75-99)
[2020-12-14] MEDS: METOPROLOL TARTRATE 25 MG TAB PO SCH ×2 (08:11→20:25)
[2020-12-14] MEDS: PANTOPRAZOLE 40 MG/10 ML VIAL IVP SCH (08:11)
[2020-12-14] MEDS: MAGNESIUM OXIDE 400 MG TAB PO SCH (08:11)
[2020-12-14 08:23] LABS: African American GFR (CKD) 53 (>60 ml/min/1.73 sqM); Anion Gap 6 mmol/L; Blood Urea Nitrogen 33 mg/dL (7-17); Calcium 7.7 mg/dL (8.4-10.2); Carbon Dioxide 29 mmol/L (22-30); Chloride 101 mmol/L (98-107); Glucose 100 mg/dL (74-99); Magnesium 1.3 mg/dL (1.6-2.3); Non-African American GFR(CKD) 46 (>60 ml/min/1.73 sqM); Potassium 3.6 mmol/L (3.5-5.1); Sodium 136 mmol/L (137-145)
[2020-12-14] MEDS ORDERED: POTASSIUM CHLORIDE ER 20 MEQ TAB.ER PO STA (10:51)
--- NOTE | 2020-12-14 10:53 | P.PN ---
Subjective Patient is seen in follow-up for acute kidney injury. Renal function continues to improve. Oral intake is good. IV fluids and TPN have been discontinued. No changes overnight. Possibly going home today. Vital signs are stable. General: The patient appeared well nourished and normally developed. HEENT: Head exam is unremarkable. Neck is without jugular venous distension. LUNGS: Breath sounds decreased. HEART: Rate and Rhythm are regular. ABDOMEN: Soft, no distention. EXTREMITITES: No edema. Objective - Vital Signs Vital signs: Vital Signs Temp 98.1 F 12/14/20 08:07 Pulse 88 12/14/20 08:07 Resp 18 12/14/20 08:07 BP 128/72 12/14/20 08:07 Pulse Ox 97 12/14/20 08:07 Intake & Output 12/13/20 12/14/20 12/14/20 18:59 06:59 18:59 Intake Total 1080 1080 Balance 1080 1080 Intake: Oral 1080 1080 Other: Voiding Method Toilet # Voids 3 2 - Labs CBC & Chem 7: 12/13/20 06:55 12/14/20 07:14 Labs: Abnormal Lab Results - Last 24 Hours (Table) 12/13/20 12/13/20 12/13/20 Range/Units 06:55 06:55 11:27 WBC 13.00 H (4.50-10.00) X 10*3/uL RBC 3.14 L (4.10-5.20) X 10*6/uL Hgb 9.0 L (12.0-15.0) g/dL Hct 30.7 L (37.2-46.3) % MCV 97.8 H (80.0-97.0) fL MCHC 29.3 L (32.0-37.0) g/dL Plt Count 494 H (140-440) X 10*3/uL MPV 9.3 L (9.5-12.2) fL Immature Gran # 0.15 H (0.00-0.04) X 10*3/uL Neutrophils # 10.92 H (1.80-7.70) X 10*3/uL Lymphocytes # 0.81 L (0.90-5.00) X 10*3/uL Eosinophils # 0.37 H (0.04-0.35) X 10*3/uL Sodium (137-145) mmol/L BUN (7-17) mg/dL Creatinine (0.52-1.04) mg/dL Glucose (74-99) mg/dL POC Glucose (mg/dL) 108 H (75-99) mg/dL Calcium (8.4-10.2) mg/dL Magnesium (1.6-2.3) mg/dL Triglycerides 176.0 H (0.0-149.0) mg/dL 12/14/20 12/14/20 Range/Units 06:53 07:14 WBC (4.50-10.00) X 10*3/uL RBC (4.10-5.20) X 10*6/uL Hgb (12.0-15.0) g/dL Hct (37.2-46.3) % MCV (80.0-97.0) fL MCHC (32.0-37.0) g/dL Plt Count (140-440) X 10*3/uL MPV (9.5-12.2) fL Immature Gran # (0.00-0.04) X 10*3/uL Neutrophils # (1.80-7.70) X 10*3/uL Lymphocytes # (0.90-5.00) X 10*3/uL Eosinophils # (0.04-0.35) X 10*3/uL Sodium 136 L (137-145) mmol/L BUN 33 H (7-17) mg/dL Creatinine 1.19 H (0.52-1.04) mg/dL Glucose 100 H (74-99) mg/dL POC Glucose (mg/dL) 100 H (75-99) mg/dL Calcium 7.7 L (8.4-10.2) mg/dL Magnesium 1.3 L (1.6-2.3) mg/dL Triglycerides (0.0-149.0) mg/dL Assessment and Plan Plan: Assessment: 1. Acute kidney injury secondary to ATN secondary to sepsis. Required hemodialysis earlier this admission. Renal function improved. Creatinine 1.19 today. 2. Pelvic abscess status post washout of peritoneal cavity to drain placement 12/07/2020. 3. Hypomagnesemia from poor intake. 4. Hypokalemia from poor intake and hypomagnesemia. Plan: Encourage oral intake. Avoid nephrotoxins. Continue to monitor renal function and urine output. Replace potassium and magnesium. Dialysis catheter to be removed today.
[2020-12-14] MEDS: MAGNESIUM SULFATE-D5W PMX 1 GM in DEXTROSE/WATER 1 100ML.BAG IVPB SCH ×3 (11:06→16:17)
[2020-12-14 11:55] LABS: Basophils # (A) 0.07 X 10*3/uL (0.00-0.10); Basophils % (A) 0.6 %; Eosinophils # (A) 0.31 X 10*3/uL (0.04-0.35); Eosinophils % (A) 2.7 %; HGB 8.5 g/dL (12.0-15.0); Lymphocytes # (A) 0.74 X 10*3/uL (0.90-5.00); Lymphocytes % (A) 6.4 %; MCH 29.9 pg (27.0-32.0); MCHC 30.4 g/dL (32.0-37.0); MCV 98.6 fL (80.0-97.0); Mean Platelet Volume 9.2 fL (9.5-12.2); Monocytes # (A) 0.72 X 10*3/uL (0.20-1.00); Monocytes % (A) 6.3 %; Neutrophils # (A) 9.55 X 10*3/uL (1.80-7.70); Platelet Count 446 X 10*3/uL (140-440); RBC 2.84 X 10*6/uL (4.10-5.20); RDW 13.9 % (11.5-14.5); WBC 11.51 X 10*3/uL (4.50-10.00)
[2020-12-14] MEDS ORDERED: MAGNESIUM SULFATE-D5W PMX 1 GM in DEXTROSE/WATER 1 100ML.BAG IVPB SCH (14:45)
--- NOTE | 2020-12-14 15:03 | P.DS ---
Providers Date of admission: 12/05/20 21:56 Expected date of discharge: 12/14/20 Attending physician: Marcos Babb Consults: 12/05/20 17:49 Consult Physician Routine Consulting Provider: Sahra Goode Consult Reason/Comments: juanita Do you want consulting provider notified?: Yes 12/05/20 18:28 Consult Physician Routine Consulting Provider: Julio Patrick Consult Reason/Comments: medicine consult Do you want consulting provider notified?: Already Contacted 12/07/20 13:07 Consult Physician Routine Consulting Provider: Nani Victoria Consult Reason/Comments: Pelvic abscess Do you want consulting provider notified?: Yes 12/07/20 15:28 Consult Physician Routine Consulting Provider: Justine Dalton Consult Reason/Comments: dialysis catheter placement Do you want consulting provider notified?: Yes 12/11/20 09:06 Consult Physician Routine Consulting Provider: Justine Dalton Consult Reason/Comments: dialysis catheter removal Do you want consulting provider notified?: Yes Primary care physician: Stuart Nickerson Hospital Course: Discharge diagnosis 1. Pelvic abscess secondary to an infected hematoma status post washout of peritoneal cavity with drain placement on 12/08/2020 2. Sepsis present on admission secondary to pelvic abscess 3. 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 Acute kidney injury improving. Did require hemodialysis during this admission. Followed by nephrology. 5. Anemia secondary to infected abdominal hematoma 6. Hyponatremia followed by nephrology. Improved Hospital course his is a 70-year-old female who is status post right colectomy for a cecal bascule on 11/23/[address] Babb. She also has a past surgical history of gastric bypass, cholecystectomy, incisional hernia repair and prior lysis of adhesions. Past medical history includes hypertension, osteoarthritis, chronic back pain with nerve stimulator. Patient is lethargic and confused. Most of history was obtained from patient's chart. Apparently over the last couple of days patient was having worsening pleuritic chest pain and abdominal pain. Also was having altered mental status changes. Patient had computed tomography scan of the abdomen and pelvis showing large complex fluid collection in the pelvis with air bubbles and fluid levels consistent with a large pelvic abscess. The air in the peritoneal cavity is change compared to last exam of 11/29/2020. There is previous bowel surgery. There is evidence of small bowel ileus. Pelvic abscess extends out of the pelvis into the mid abdomen with numerous fluid levels. There is some linear infiltrate and atelectasis at the lung bases which is improved compared to last. Patient has evidence of sepsis with leukocytosis, tachycardia and hypotensive. She has been started on IV antibiotics. Also, hemoglobin has dropped to 6.1 and she is receiving a unit of blood. Patient has evidence of acute kidney injury and nephrology is on consult. No evidence of fever. Patient is been admitted to surgical service regarding the pelvic abscess. Patient is status post washout of peritoneal cavity with drain placement for pelvic abscess secondary to an infected hematoma. Patient has been on IV antibiotics. She'll be discharged with Cipro and Flagyl for 10 days per infectious disease recommendations. Patient also required hemodialysis due to her acute kidney injury during this admission. She no longer was requiring hemodialysis. And has been cleared by nephrology for discharge. She is also followed closely by medicine service and has been cleared for discharge. Patient is only requiring Tylenol as needed for pain. She reports that her pain is controlled. Denies any nausea or vomiting. Tolerating diet. Afebrile. White count is trending downwards. She is having bowel movements. She has a wound VAC in place. And wound VAC has been arranged to be set up at home with home care service. She is stable for discharge. Please refer to chart for any further details. Physician [employer] note has been reviewed by physician. Signing provider agrees with the documented findings, assessment, and plan of care. Patient Condition at Discharge: Stable Plan - Discharge Summary Discharge Rx Participant: No New Discharge Prescriptions: New Ciprofloxacin HCl [Cipro] 500 mg PO Q12H 10 Days #20 tab metroNIDAZOLE [Flagyl] 500 mg PO TID #30 tab Metoprolol Tartrate [Lopressor] 25 mg PO BID #60 tab Acetaminophen Tab [Tylenol Tab] 650 mg PO Q4H PRN #30 tablet PRN Reason: Pain Continue busPIRone HCL 15 mg PO BID@0500,1600 buPROPion XL [Wellbutrin XL] 300 mg PO DAILY@0500 Risedronate Sodium [Actonel] 35 mg PO SA Multivitamins, Thera [Multivitamin (formulary)] 1 tab PO BID@0500,1600 Ferrous Sulfate [Iron] 325 mg PO DAILY@0500 Cyanocobalamin (Vitamin B-12) [Vitamin B-12] 1,000 mcg PO DAILY@0500 Morphine Pain Pump 0.01 mg INTRATHECA CONTINUOUS L.acidoph,Paracasei, B.lactis [Probiotic] 1 cap PO BID@0500,1600 Cranberry Fruit Concentrate [Azo Cranberry] 250 mg PO BID@0500,1600 Calcium Citrate/Vitamin D3 [Citracal + D Maximum Caplet] 1 tab PO BID@0500,1600 oxyCODONE HCL [OxyIR] 5 mg PO Q6H PRN 2 Days #8 tab PRN Reason: Pain Discontinued lisinopriL [Zestril] 10 mg PO HS Meloxicam [Mobic] 7.5 mg PO BID@0500,1600 Psyllium Husk [Reguloid] 0.4 gm PO BID@0500,1600 Magnesium 250 mg PO BID@0500,1600 Triamcinolone Acetonide [Nasacort] 1 spr EA NOSTRIL DAILY PRN PRN Reason: Allergy Symptoms No Action HYDROcodone/APAP 10-325MG [[place] 10-325] 1 tab PO Q6HR PRN 3 Days #12 tab PRN Reason: Pain Discharge Medication List Cyanocobalamin (Vitamin B-12) [Vitamin B-12] 1,000 mcg PO DAILY@0500 04/30/18 [History] Ferrous Sulfate [Iron] 325 mg PO DAILY@0500 04/30/18 [History] Morphine Pain Pump 0.01 mg INTRATHECA CONTINUOUS 04/30/18 [History] Multivitamins, Thera [Multivitamin (formulary)] 1 tab PO BID@0500,1600 04/30/18 [History] Risedronate Sodium [Actonel] 35 mg PO SA 04/30/18 [History] buPROPion XL [Wellbutrin XL] 300 mg PO DAILY@0500 04/30/18 [History] busPIRone HCL 15 mg PO BID@0500,1600 04/30/18 [History] L.acidoph,Paracasei, B.lactis [Probiotic] 1 cap PO BID@0500,1600 02/12/20 [History] Calcium Citrate/Vitamin D3 [Citracal + D Maximum Caplet] 1 tab PO BID@0500,1600 11/22/20 [History] Cranberry Fruit Concentrate [Azo Cranberry] 250 mg PO BID@0500,1600 11/22/20 [History] oxyCODONE HCL [OxyIR] 5 mg PO Q6H PRN 2 Days #8 tab 11/28/20 [Rx] HYDROcodone/APAP 10-325MG [[place] 10-325] 1 tab PO Q6HR PRN 3 Days #12 tab 11/29/20 [Rx] Acetaminophen Tab [Tylenol Tab] 650 mg PO Q4H PRN #30 tablet 12/14/20 [Rx] Ciprofloxacin HCl [Cipro] 500 mg PO Q12H 10 Days #20 tab 12/14/20 [Rx] Metoprolol Tartrate [Lopressor] 25 mg PO BID #60 tab 12/14/20 [Rx] metroNIDAZOLE [Flagyl] 500 mg PO TID #30 tab 12/14/20 [Rx] Follow up Appointment(s)/Referral(s): Stuart Nickerson MD [Primary Care Provider] - 1-2 days [facility], [NON-STAFF] - ([facility] will call to set up a time for your first visit which should be the day after you discharge from the hospital to apply the wound vac. ) Marcos Babb MD [STAFF PHYSICIAN] - 1 Week Activity/Diet/Wound Care/Special Instructions: Wound Vac through [facility]/ - [phone] - please call if you have any questions regarding the wound vac. (CM is waiting approval and will deliver to pt's bedside before delivery once obtained) abd wound care with wound vac, black foam , continous pressure , 125mmhg , change saturday , saturday , saturday follow up with Dr victoria 1 week in wound care, call [phone] to make an appointment No lifting over 10 pounds You may shower. No soaking or tub baths for 2 weeks Very light activity until you are reevaluated at your follow up appointment with your surgeon Discharge Disposition: HOME WITH HOME HEALTH SERVICES
[2020-12-14] MEDS: HYDROmorphone 0.5 MG/0.5 ML SYRINGE IVP PRN (17:52)
--- NOTE | 2020-12-14 18:27 | PN ---
PROGRESS NOTE DATE OF SERVICE: 12/14/2020 REASON FOR FOLLOWUP: Infected pelvic hematoma. INTERVAL HISTORY: The patient is currently afebrile. The patient is breathing comfortably. The patient denies having any chest pain or shortness of breath or cough. No nausea, no vomiting. No abdominal pain, no diarrhea. PHYSICAL EXAMINATION: Blood pressure 130/79 with a pulse of 85, temperature 98.6. She is 98% on room air. General description is an elderly female lying in in no distress. Respiratory system: Unlabored breathing, clear to auscultation anteriorly. Heart S1, S2. Regular rate and rhythm. ABDOMEN: Soft, no tenderness. EXTREMITIES: No edema of the feet. LABS: Hemoglobin 8.5, white count 9.5, and creatinine 1.19. Patient with infected abdominal hematoma status post drainage, culture grew E coli and To finish therapy with oral Cipro and Flagyl, prescription to pharmacy. Local wound care with wound VAC and advised to follow up with the [facility] within the next week. MMODL / IJN: [id number] / ANÍBAL
[2020-12-14 19:10] VITALS: BP 127/70; PULSE 92; RESP 16; TEMP 98.8
--- NOTE | 2020-12-14 21:56 | P.PN ---
Progress Note - Text Progress Note Date: 12/14/20 Chief Complaint: Right abdominal pain History of presenting complaint: This is a very pleasant 70-year-old patient of Dr. Nickerson. Chronic stable medical conditions include hypertension, osteoarthritis, chronic low back pain for which she has a pain pump-being followed by Dr. Artis, gastric bypass, anxiety depression. November 23: Cecum bascule, [ type of volvulus.] : Underwent right hemicolectomy, by Dr Babb. Patient was discharged on November 28, was tolerating diet. Now presented with increasing abdominal pain and some mental status changes. The scan abdomen showed a large pelvic abscess. Also acute severe kidney injury from ATN. December 07: washout of the peritoneal cavity abscess with the drain placement. The pelvic abscess appeared to be infected hematoma. Peritoneal cavity was washed out. Small bowel anastomosis could not be visualized. Wound VAC/REBEKAH drain was placed. dialysis catheter placed in the right groin. NG tube. Started on hemodialysis. Started on TPN/lipids. Wound culture positive for E. coli. Today: Doing much better. Tolerating a diet. Bowel movement. TPN and lipids discontinued. Pain control. Being discharged on ciprofloxacin and Flagyl as Saturday. He'll be going home with the REBEKAH drain. Review of systems: Was done for constitutional, cardiovascular, GI, pulmonary. relevant finding as above Current medications reviewed in today's electronic records Past medical history to include: Hypertension, osteoarthritis, gastric bypass, pain pump nonfunctioning nerve stimulator present, anxiety depression Social history: Did smoke in the past. No alcohol. Lives alone Physical examination: VITAL SIGNS: 98.6, 87, 18, 120/79, 98% room air GENERAL:, Sitting up in the bed, comfortable EYES: Pupils equal. Conjunctiva pale. HEENT: NG tube in place, oral dry cavity. NECK: JVD unable to assess; masses not palpable. HEART: First and second heart sounds are normal; no edema. LUNGS: Respiratory rate normal; clear to auscultation ABDOMEN: , Minimal Tenderness, no guarding rigidity, liver spleen not palpable, no masses palpable. Wound VAC. REBEKAH drain- PSYCH: Alert oriented 3 more affect normal INVESTIGATIONS, reviewed in the clinical context: December 14: WBC 11.5 hemoglobin 8.5 potassium 3.6 creatinine 1.19 December 09: WBC 12.9 hemoglobin 7 platelets 466 potassium 4.3 bun 83 creatinine is 3.43 phosphorus 5.7 Abdominal wound culture: E. coli Hepatitis B surface antigen, surface antibody, core total antibody: Nonreactive December 08: WBC 14.6 hemoglobin 8 platelets 497 sodium 1:30 potassium 4.9 BUN 156 creatinine 5.9 December 07: WBC 22 hemoglobin 7.4 platelets 576 sodium 127 potassium 5.2 bun 166 creatinine 6.71 AST 115 ALT 29 albumin 2.5 Previous labs: November 29: BUN 16 creatinine 0.76 AST 34 ALT 15 Assessment and plan: -Intra-abdominal pelvic abscess-possibly infected hematoma, in a patient who recently underwent right hemicolectomy on November 23 Status post surgery with intra-abdominal washout. REBEKAH drain and a wound VAC. IV Zosyn-changed to IV Unasyn. NG tube-discontinued. E. coli growing in the abscess culture. 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 Right hemicolectomy on November 23. -Essential hypertension Lopressor 25 mg twice daily -Primary osteoarthritis Pain medications as needed -Anxiety depression otherwise specified Continue home medications - chronic pain syndrome, patient has a pain pump -Recent postprocedure blood is anemia as expected from surgery Last admission received blood -Severe sepsis, E. coli positive IV Unasyn-changed to by mouth antibiotics -Reactive thrombocytosis Follow -Hypovolemic hyponatremia-improved IV fluids, follow labs -Hyperkalemia secondary to renal failure-corrected Received ultrafiltration. Follow labs -Acute kidney injury, likely combination of ATN, [id number] to improve IV fluids. Started on hemodialysis on December 08. Hemodialysis currently on hold. -Hyperphosphatemia from acute kidney injury Follow labs -Metabolic acidosis secondary to renal failure Follow labs and bicarbonate -Hypoalbuminemia, acute phase reactant -TPN and lipids started on December 09-discontinued December 13 -Hypomagnesemia. By mouth replacement Patient doing well. Eating discharge. The REBEKAH drain. Oral antibiotics. Soft bland diet. Discussed with the patient. Also discussed with Lindsay from surgery
--- NOTE | 2020-12-23 12:41 | IR ---
EXAMINATION TYPE: IR cvc insert >=5 years DATE OF EXAM: 12/22/2020 COMPARISON: NONE CLINICAL HISTORY: Infection Needs long-term intravenous access for antibiotics. PROCEDURE: Hand hygiene obtained with soap and water and alcohol-based hand rub. After informed consent, the skin overlying the right upper extremity vein was localized with ultrasou nd and noted to be compressible and patent. An ultrasound image was obtained and submitted on the hola florence's chart. The overlying skin was prepped and draped and Lidocaine was used for local anesthesia . A skin samreen was made with a scalpel. Access was gained to the vein under ultrasound guidance with a 21 gauge needle and a 0.018 inch wire was advanced. Access site was dilated with Peel-Away sheath and catheter tailored to the appropriate length and advanced such that the distal tip is at the cavo atrial junction. Spot image was obtained verifying placement. Catheter was fixed to the skin and a sterile dressing was placed following hemostasis. Catheter was aspirated and flushed with saline. P atient was discharged in stable condition without complication.Maximal barrier technique is utilized. Ultrasound image is documented on the chart. Ultrasound used with sterile technique. Fluoro time and fluoroscopic images submitted to document procedure: 0.2 minutes fluoroscopy time, 10 intraoperative images document the procedure IMPRESSION: STATUS POST ULTRASOUND AND FLUOROSCOPIC GUIDED PICC LINE PLACEMENT, READY FOR USE. THIS PROCEDURE WAS PERFORMED BY THE UNDERSIGNED.
== END 2020-12-14 20:59 | disposition home health service (06) | DRG 862 ==
LOC: EC 16:12 → 3SCARD 21:56 → 4SSUR 12-06 17:47
PROVIDERS: ADMIT Surgery; ATTEND Surgery
PROC: 30233N1 Transfusion of Nonautologous Red Blood Cells into Peripheral Vein, Percutaneous Approach (ICD-10-PCS; 2020-12-06)
PROC: 0W9G30Z Drainage of Peritoneal Cavity with Drainage Device, Percutaneous Approach (ICD-10-PCS; principal; 2020-12-07 10:00)
PROC: 06HM33Z Insertion of Infusion Device into Right Femoral Vein, Percutaneous Approach (ICD-10-PCS; 2020-12-08)
PROC: B54BZZA Ultrasonography of Right Lower Extremity Veins, Guidance (ICD-10-PCS; 2020-12-08)
PROC: 5A1D70Z Performance of Urinary Filtration, Intermittent, Less than 6 Hours Per Day (ICD-10-PCS; 2020-12-09)
PROC: 3E0436Z Introduction of Nutritional Substance into Central Vein, Percutaneous Approach (ICD-10-PCS; 2020-12-09)
DX: T81.43XA Infection following a procedure, organ and space surgical site, initial encounter (principal); N17.0 Acute kidney failure with tubular necrosis; A41.51 Sepsis due to Escherichia coli [E. coli]; R65.20 Severe sepsis without septic shock; K65.1 Peritoneal abscess; E87.1 Hypo-osmolality and hyponatremia; E87.2 Acidosis; D62 Acute posthemorrhagic anemia; K56.7 Ileus, unspecified; J98.11 Atelectasis; R06.02 Shortness of breath; N73.9 Female pelvic inflammatory disease, unspecified; Z87.01 Personal history of pneumonia (recurrent); Z20.822 Contact with and (suspected) exposure to COVID-19; R33.9 Retention of urine, unspecified; E86.1 Hypovolemia; E87.5 Hyperkalemia; I10 Essential (primary) hypertension; M19.90 Unspecified osteoarthritis, unspecified site; Z91.013 Allergy to seafood; Z91.030 Bee allergy status; Z90.49 Acquired absence of other specified parts of digestive tract; Z98.84 Bariatric surgery status; Z83.3 Family history of diabetes mellitus; F41.8 Other specified anxiety disorders; G89.4 Chronic pain syndrome; E88.09 Other disorders of plasma-protein metabolism, not elsewhere classified; E83.39 Other disorders of phosphorus metabolism; T46.4X5A Adverse effect of angiotensin-converting-enzyme inhibitors, initial encounter; E83.42 Hypomagnesemia; E87.6 Hypokalemia; M19.91 Primary osteoarthritis, unspecified site; T39.395A Adverse effect of other nonsteroidal anti-inflammatory drugs [NSAID], initial encounter; Z79.1 Long term (current) use of non-steroidal anti-inflammatories (NSAID); Z85.828 Personal history of other malignant neoplasm of skin; Z98.1 Arthrodesis status; I95.9 Hypotension, unspecified; Z79.891 Long term (current) use of opiate analgesic; Z81.1 Family history of alcohol abuse and dependence
CPT/HCPCS: 36415; 36573; 71045; 74176; 76770; 78582; 80048; 80053; 81001; 82140; 82330; 82570; 83605; 83735; 84100; 84300; 84478; 84484; 85025; 85379; 85610; 85730; 86704; 86706; 86850; 86900; 86901; 86920; 87040; 87070; 87075; 87077; 87186; 87205; 87340; 87635; 90935; 93005; 94760; 96365; 96366; 96367; 96368; 99285

== ENCOUNTER → 2021-11-20 | Outpatient (CLI) | payer MEDICARE ==
--- NOTE | 2021-11-20 11:00 | CT ---
EXAMINATION TYPE: CT thoracic spine wo con DATE OF EXAM: 11/20/2021 COMPARISON: 03/02/2020 HISTORY: 71-year-old female M54.6, M54.34 DDD, thoracic spine pain TECHNIQUE: Contiguous axial scanning of the thoracic spine without IV contrast. Coronal and sagittal reconstructions performed. CT DLP: 586.8 mGycm Automated exposure control for dose reduction was used. FINDINGS: Calcified right hilar lymph nodes compatible with prior granulomatous disease. Tiny calcified granulo ma right lower lobe. ACDF hardware partially visualized coming down to the 7 level. Moderate degenerative disc disease bel ow the fusion at C7-T1. Facet arthropathy throughout the upper third and lower third thoracic spine. Degenerative grade 1 anterolisthesis T2-T3, T3-T4, and T4-T5. Remaining alignment is maintained. There is a dextroconvex curvature of the thoracic spine. Vertebral body heights are preserved. Spinal stimulator remains centered within the mid to lower thoracic spinal canal dorsally. This is se en to enter the spinal canal at the T12-L1 interlaminar space. A second lead is present extending up to T10 level. This second lead enters from the right L1-L2 int erlaminar space. By CT, no evident canal compromise is seen. Variable mild neuroforaminal narrowing upper and lower third thoracic spine on the right and several levels of more moderate narrowing on the left such as T1-T2, T2-T3, T3-T4 as well as T9-T10, T10-T11. IMPRESSION: 1. 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 2. DEGENERATIVE GRADE 1 ANTEROLISTHESIS T2 THROUGH T5 LEVELS. NO VERTEBRAL COMPRESSION COLLAPSE. 3. VARIABLE MILD NEUROFORAMINAL STENOSES UPPER AND LOWER THORACIC SPINE ON THE RIGHT AND SCATTERED LE VELS OF MORE MODERATE NEUROFORAMINAL NARROWING ON THE LEFT.
== END | disposition home or self-care (01) ==
LOC: RADCTMAIN 07:25
PROVIDERS: ATTEND Psychiatry & Neurology Neurology
DX: M47.814 Spondylosis without myelopathy or radiculopathy, thoracic region (principal); M43.14 Spondylolisthesis, thoracic region; M99.72 Connective tissue and disc stenosis of intervertebral foramina of thoracic region; M41.84 Other forms of scoliosis, thoracic region; M50.33 Other cervical disc degeneration, cervicothoracic region
CPT/HCPCS: 72128

== ENCOUNTER → 2022-03-02 | Outpatient (CLI) | payer MEDICARE | END | disposition home or self-care (01) | LOC: LABWHC1 09:52 | PROVIDERS: ATTEND Psychiatry & Neurology Neurology | DX: Z01.818 Encounter for other preprocedural examination (principal); I44.0 Atrioventricular block, first degree | CPT/HCPCS: 36415; 93005 ==

== ENCOUNTER → 2023-08-28 | Outpatient (CLI) | payer MEDICARE | END | disposition home or self-care (01) | LOC: LABWHC1 15:52 | PROVIDERS: ATTEND Psychiatry & Neurology Neurology | DX: Z01.812 Encounter for preprocedural laboratory examination (principal); I44.4 Left anterior fascicular block; R94.31 Abnormal electrocardiogram [ECG] [EKG] | CPT/HCPCS: 36415; 93005 ==

== ENCOUNTER → 2023-11-14 | Outpatient (CLI) | payer MEDICARE ==
[2023-11-14 19:20] LABS: Basophils # (A) 0.05 X 10*3/uL (0.00-0.10); Basophils % (A) 0.8 %; Eosinophils # (A) 0.12 X 10*3/uL (0.04-0.35); Eosinophils % (A) 1.8 %; HCT 39.9 % (37.2-46.3); HGB 12.1 g/dL (12.0-15.0); Lymphocytes # (A) 0.89 X 10*3/uL (0.90-5.00); Lymphocytes % (A) 13.4 %; MCH 29.7 pg (27.0-32.0); MCHC 30.3 g/dL (32.0-37.0); MCV 97.8 FL (80.0-97.0); Mean Platelet Volume 9.7 FL (9.5-12.2); Monocytes # (A) 0.58 X 10*3/uL (0.20-1.00); Monocytes % (A) 8.7 %; NRBC Per 100 WBC 0 X 10*3/uL (0.00-0.01); Neutrophils # (A) 4.99 X 10*3/uL (1.80-7.70); Neutrophils % (A) 75.1 %; Platelet Count 245 X 10*3/uL (140-440); RBC 4.08 X 10*6/uL (4.10-5.20); RDW 13.3 % (11.5-14.5); WBC 6.64 X 10*3/uL (4.50-10.00)
[2023-11-14 20:14] LABS: Appearance,Urine Cloudy (Clear); Bacteria,Urine 3+ (None Seen); Bilirubin,Urine Negative (Negative); Blood,Urine Trace (Negative); Color,Urine Dark Yellow (Yellow); Ketones,Urine Trace (Negative); Nitrite,Urine Positive (Negative); Specific Gravity,Urine 1.032 (1.001-1.030)
[2023-11-14 21:01] LABS: INR 1.01 sec (0.93-1.11); Prothrombin Time 10.9 sec (9.9-11.9)
[2023-11-15 02:04] LABS: BUN/Creat Ratio 17.11 Ratio (12.00-20.00); Blood Urea Nitrogen 15.4 mg/dL (9.0-27.0); Calcium 9.9 mg/dL (8.7-10.3); Carbon Dioxide 20.8 mmol/L (21.6-31.8); Chloride 106 mmol/L (96-109); Glucose 107 mg/dL (70-110); Potassium 4.3 mmol/L (3.5-5.5); Sodium 141 mmol/L (135-145)
== END | disposition home or self-care (01) ==
LOC: LABWHC1 15:24
PROVIDERS: ATTEND Family Medicine
DX: Z01.818 Encounter for other preprocedural examination (principal)
CPT/HCPCS: 36415; 80048; 81001; 85025; 85610; 93005

== ENCOUNTER → 2024-09-23 | Outpatient (CLI) | payer MEDICARE ==
--- NOTE | 2024-09-23 14:16 | US ---
EXAMINATION TYPE: US venous doppler duplex LE LT DATE OF EXAM: 09/23/2024 2:03 PM COMPARISON: NONE CLINICAL INDICATION: Female, 74 years old with history of [id number] - ARTIFICIAL JOINT KNEE, FAL L; edema left leg. , Pain TECHNIQUE: The lower extremity deep venous system is examined utilizing real time linear array sonog claudia with graded compression, color doppler sonography, and spectral doppler. SIDE PERFORMED: Left FINDINGS: VESSELS IMAGED: Common Femoral Vein Deep Femoral Vein Greater Saphenous Vein * Femoral Vein Popliteal Vein Small Saphenous Vein * Proximal Calf Veins (* superficial vessels) Left Leg: Negative for DVT, Color Doppler imaging shows patency of the vessels. Spectral waveforms a re within normal limits. IMPRESSION: No ultrasound evidence for deep venous thrombosis. [facility], , 09/23/2024 2:14 PM
== END | disposition home or self-care (01) ==
LOC: RADUSWWP 13:40
PROVIDERS: ATTEND Orthopaedic Surgery
DX: S90.01XA Contusion of right ankle, initial encounter (principal); I82.402 Acute embolism and thrombosis of unspecified deep veins of left lower extremity; Z96.652 Presence of left artificial knee joint; W01.198A Fall on same level from slipping, tripping and stumbling with subsequent striking against other object, initial encounter